=== PATIENT | male | born 1940 | race Hispanic/Latino ===

== ENCOUNTER 2016-10-09 19:25 | Inpatient (IN) | payer MEDICARE, BC ==
[2016-10-09 20:21] LABS: ADD MANUAL DIFF? NO
[2016-10-09 20:34] LABS: BASO # 0.03 K/mm3 (0.0-2.0); BASO % 0.3 % (0.0-3.0); EOS # 0.2 (0.0-0.7); EOS % 2.1 % (1.5-5.0); GRAN # 7.73 (1.4-6.5); GRAN % 74.9 % (50.0-68.0); HEMATOCRIT 48.7 % (42.0-52.0); LYMPH # 1.6 (1.2-3.4); LYMPH % 15.3 % (22.0-35.0); MEAN CELL VOLUME 87.9 fL (80.0-105.0); MEAN CORPUSCULAR HEMOGLOBIN 28.7 pg (25.0-35.0); MEAN CORPUSCULAR HGB CONC 32.6 g/dl (31.0-37.0); MONO # 0.8 (0.1-0.6); MONO % 7.4 % (1.0-6.0); PLATELET COUNT 121 10^3/uL (120.0-450.0); RED CELL DISTRIBUTION WIDTH 17.8 % (11.5-14.5); VENOUS BLOOD GAS BASE EXCESS -3.8 mmol/L (0.0-2.0); VENOUS BLOOD PH 7.24 (7.32-7.43); WHITE BLOOD COUNT 10.3 10^3/ul (4.5-11.0)
[2016-10-09 20:43] LABS: INR 1.31 (0.93-1.08); PARTIAL THROMBOPLASTIN TIME 39.9 Seconds (23.7-30.8)
[2016-10-09 21:09] LABS: ALB/GLOB RATIO 1.1 (1.1-1.8); ALKALINE PHOSPHATASE 93 U/L (38-133); ALT/SGPT 60 U/L (7-56); AST/SGOT 60 U/L (15-59); BILIRUBIN,TOTAL 0.3 mg/dL (0.2-1.3); BLOOD UREA NITROGEN 74 mg/dL (7-21); CALCIUM 7.5 mg/dL (8.4-10.5); CARBON DIOXIDE 23 mmol/L (21-33); CHLORIDE 118 mmol/L (98-107); GFR AFRICAN-AMERICAN 24; GLUCOSE,RANDOM 82 mg/dL (70-110); MAGNESIUM 2.6 mg/dL (1.7-2.2); PHOSPHOROUS 4.2 mg/dL (2.5-4.5); SODIUM 150 mmol/L (132-148); TOTAL PROTEIN 5.1 g/dL (5.8-8.3)
[2016-10-09] MEDS ORDERED: Sodium Bicarbonate (8.4%) 50 Meq Syringe IVP ONE (21:15)
[2016-10-09] MEDS ORDERED: Albuterol 0.5% Inhal Sol (5 mg/ ml) 20 ml IH STA (21:15)
[2016-10-09] MEDS ORDERED: Dextrose 50% SYRINGE Inj (50 ml) IVP ONE (21:16)
[2016-10-09] MEDS ORDERED: Insulin Regular 1 UNITS/0.01 ML ML IVP STA (21:17)
[2016-10-09] MEDS ORDERED: Calcium Chloride 1000 mg/10 ml Syringe IV ONE (21:17)
--- NOTE | 2016-10-09 21:17 | ED PDOC ---
Arrival/HPI - General Chief Complaint: Altered Mental Status Time Seen by Provider: 10/09/16 19:35 Historian: Patient, EMS, Other (Neighbor) - History of Present Illness Narrative History of Present Illness (Text): 10/09/16 19:50 Stuart Motta is a 76 year old male, whose past medical history includes COPD , who presents to the Emergency department for evaluation after he was allegedly found by neighbor at home lying on the ground poorly responsive tonight. Patient was reportedly only responding to his name. Patient on arrival to the emergency department noted to be bradycardic and hypotensive. Pt is awake , oriented to person, and responding to questions. Limited HPI and ROS due to patient's altered mental status. Time/Duration: Prior to Arrival Symptom Onset: Sudden Activities at Onset: Rest Context: Home Past Medical History - Provider Review Nursing Documentation Reviewed: Yes - Infectious Disease Hx of Infectious Diseases: None - Tetanus Immunization Tetanus Immunization: Unknown - Cardiac Hx Cardiac Disorders: No - Pulmonary Hx Chronic Obstructive Pulmonary Disease (COPD): Yes - Neurological Hx Neurological Disorder: No - HEENT Hx HEENT Disorder: No - Renal Hx Renal Disorder: Yes Hx Renal Failure: Yes - Endocrine/Metabolic Hx Endocrine Disorders: No - Integumentary Hx Dermatological Disorder: No - Musculoskeletal/Rheumatological Hx Musculoskeletal Disorders: No Hx Falls: (UNKNOWN) - Gastrointestinal Hx Gastrointestinal Disorders: No - Genitourinary/Gynecological Hx Genitourinary Disorders: Yes Hx Incontinence: Yes - Psychiatric Hx Depression: No Hx Emotional Abuse: No Hx Physical Abuse: No Hx Substance Use: (UNKNOWN) - Past Surgical History Past Surgical History: No Previous - Suicidal Assessment Feels Threatened In Home Enviroment: No Family/Social History - Physician Review Nursing Documentation Reviewed: Yes Family/Social History: No Known Family HX Smoking Status: Unknown If Ever Smoked Hx Alcohol Use: (UNKNOWN) Hx Substance Use: (UNKNOWN) Allergies/Home Meds Allergies/Adverse Reactions: Allergies No Known Allergies Allergy (Verified 10/09/16 19:35) Home Medications: Home Meds Medication Instructions Recorded Confirmed Albuterol HFA [Ventolin HFA 90 0.09 mg IH 10/25/13 10/25/13 mcg/actuation (8 g)] Review of Systems - Review of Systems Systems not reviewed;Unavailable: Altered Mental Status Neurological: Other (+poorly responsive) Physical Exam Vital Signs Reviewed: Yes Vital Signs Temp Pulse Resp BP Pulse Ox 10/09/16 22:08 45 L 16 102/43 L 100 10/09/16 21:26 40 L 18 83/36 L 96 10/09/16 20:40 40 L 14 72/37 L 97 10/09/16 19:54 48 L 16 98 10/09/16 19:26 96.8 F L 46 L 20 77/42 L 96 Temperature: Afebrile Blood Pressure: Hypotensive Pulse: Bradycardic Respiratory Rate: Normal Appearance: Positive for: Non-Toxic, Ill-Appearing Pain Distress: None Mental Status: Positive for: other (Awake, responding to questions, oriented to person) Finger Stick Blood Glucose: 80 - Systems Exam Head: Present: Atraumatic, Normocephalic Pupils: Present: PERRL Extroacular Muscles: Present: EOMI Conjunctiva: Present: Normal Mouth: Present: Dry Neck: Present: Normal Range of Motion Respiratory/Chest: Present: Clear to Auscultation, Good Air Exchange. No: Respiratory Distress, Accessory Muscle Use Cardiovascular: Present: Normal S1, S2, Bradycardic. No: Murmurs Abdomen: Present: Normal Bowel Sounds. No: Tenderness, Distention, Peritoneal Signs Upper Extremity: Present: Normal Inspection. No: Cyanosis, Edema Lower Extremity: Present: Normal Inspection. No: Edema Neurological: Present: CN II-XII Intact, Speech Normal, Motor Func Grossly Intact, Normal Sensory Function, Other (Awaker, oriented to person) Skin: Present: Normal Color, Other (Area of severe excoriations to lower back/ buttocks with cellulitis noted extending from lower back/buttocks to upper thighs). No: Dry Psychiatric: Present: Alert. No: Oriented x 3 (Oriented to person) Medical Decision Making ED Course and Treatment: 10/09/16 19:50 Impression: 76 year old male found lying on the ground poorly responsive brought in for AMS. Plan: -- EKG -- Chest X-ray -- CT Head w/o contrast -- Labs, cardiac enzymes, VBG, blood cultures -- Urinalysis, urine cult -- Reassess and disposition Prior Visits: Notes and results from previous visits were reviewed. Progress Notes: Reviewed EKG, sinus bradycardia at 46 bpm. 1st degree AV block. Non-specific ST/ T wave changes. Reviewed radiology, Chest X-ray shows no acute changes. 10/09/16 21:21 Pt given IV fluid bolus here in emergency department. Labs reviewed, elevated potassium, BUN, and creatinine treated with fluids. Abnormal hyperkalemia treated as well. Case discussed with Dr. Rosales, academic services professional, who is aware and agrees to evaluate pt for ICU admission. 10/09/16 21:[address] Rosales, present in Emergency department to evaluate pt. Accepts pt in to hospitalist service. Pt admitted to ICU for AMS, sepsis, hyperkalemia, bradycardia, hypotension, and dehydration. 10/09/16 22:[address] Head, shows: Motion degraded study. Allowing for this limitation no obvious acute intracranial process identified. - Critical Care Critical Care Minutes: 30 minutes - Lab Interpretations Lab Results: 10/09/16 20:15 10/09/16 20:45 Lab Results 10/09/16 21:20: Urine Color Yellow, Urine Appearance Turbid, Urine pH 6.0, Ur Specific [place] 1.025, Urine Protein 30 H, Urine Glucose (UA) Negative, Urine Ketones Negative, Urine Blood Large H, Urine Nitrate Negative, Urine Bilirubin Negative, Urine Urobilinogen 0.2, Ur Leukocyte Esterase Large H, Urine RBC 1 - 3 , Urine WBC Tntc, Urine Bacteria Many 10/09/16 20:51: Alcohol, Quantitative < 10 10/09/16 20:45: Sodium 150 H, Potassium 7.0 H* D, Chloride 118 H, Carbon Dioxide 23, Anion Gap 16, BUN 74 H, Creatinine 3.1 H, Est GFR ( Amer) 24 , Est GFR (Non-Af Amer) 20, Random Glucose 82, Calcium 7.5 L, Phosphorus 4.2, Magnesium 2.6 H, Total Bilirubin 0.3, AST 60 H, ALT 60 H, Alkaline Phosphatase 93, Lactate Dehydrogenase 350, Total Creatine Kinase 41, Troponin I < 0.01 D, Total Protein 5.1 L, Albumin 2.7 L, Globulin 2.5, Albumin/Globulin Ratio 1.1 10/09/16 20:15: WBC 10.3, RBC 5.54, Hgb 15.9, Hct 48.7, MCV 87.9, MCH 28.7, MCHC 32.6, RDW 17.8 H, Plt Count 121, Gran % 74.9 H, Lymph % (Auto) 15.3 L, [place] % (Auto) 7.4 H, Eos % (Auto) 2.1, Baso % (Auto) 0.3, Gran # 7.73 H, Lymph # 1.6, [place] # 0.8 H, Eos # 0.2, Baso # 0.03, PT 14.2 H, INR 1.31 H, APTT 39.9 H , pO2 73 H, VBG pH 7.24 L, VBG pCO2 57.0, VBG HCO3 24.4, VBG Total CO2 26.1, VBG O2 Sat (Calc) 95.3 H, VBG Base Excess -3.8 L, VBG Potassium 8.1 H*, Glucose 87, Lactate 1.5, FiO2 21.0, Sodium 150.0 H, Chloride 120.0 H, Venous Blood Potassium 8.1 H* 10/09/16 19:34: POC Glucose (mg/dL) 80 I have reviewed the lab results: Yes - RAD Interpretation Narrative RAD Interpretations (Text): Chest X-ray shows no active disease. CT Head shows: BRAIN: Significantly motion degraded study. Marked global atrophy with bilateral frontal CSF prominence likely related to pronounced atrophy. Extensive chronic small vessel ischemic changes within the periventricular white matter. No obvious acute intracranial hemorrhage or ischemic infarct is identified. VENTRICLES: Unremarkable. No ventriculomegaly. BONES/JOINTS: Unremarkable. No acute fracture. SOFT TISSUES: Unremarkable. SINUSES: Mucous retention cyst the left maxillary sinus. MASTOID AIR CELLS: Unremarkable as visualized. No mastoid effusion. IMPRESSION: Motion degraded study. Allowing for this limitation no obvious acute intracranial process identified. Radiology Orders: 10/09/16 HEAD W/O CONTRAST [CT] Stat 10/09/16 19:54 CHEST PORTABLE [RAD] Stat Child Adolescent Psychiatrist: ED Physician, Radiologist - EKG Interpretation Interpreted by ED Physician: Yes Type: 12 lead EKG - Medication Orders Current Medication Orders: Sodium Chloride (Sodium Chloride 0.9%) 1,000 mls @ 150 mls/hr IV .Q6H40M FREDY Last Admin: 10/09/16 21:40 Dose: 150 MLS/HR eMAR Start Stop Document 10/09/16 21:40 (Rec: 10/09/16 21:40 [facility] [id number]) Intravenous Solution Start Date 03/22/17 Start Time 21:40 End Date 10/09/16 End time 22:07 Total Infusion Time 27 Meropenem 1g/NS 100mL IVPB (Meropenem 1g/Ns 100ml Ivpb) 100 mls @ 100 mls/hr IVPB Q8 FREDY PRN Reason: Protocol Stop: 10/10/16 06:59 Sodium Chloride (Sodium Chloride 0.9%) 1,000 mls @ 999 mls/hr IV .Q1H1M STA Stop: 10/09/16 22:59 Last Admin: 10/09/16 22:07 Dose: 999 MLS/HR eMAR Start Stop Document 10/09/16 22:07 (Rec: 10/09/16 22:07 [id number]) Intravenous Solution Start Date 10/09/16 Start Time 22:07 Vancomycin HCl (Vancomycin 1gm) 250 mls @ 167 mls/hr IVPB Q12H FREDY PRN Reason: Protocol Norepinephrine Bitartrate 4 mg (/ Sodium Chloride) 254 mls @ 15.24 mls/hr IV .[id number] PRN; Protocol; 4 MCG/MIN PRN Reason: TITRATE PER MD ORDER Discontinued Medications Albuterol Sulfate (Albuterol 0.5% Inhal Courtney (5 Mg/ Ml) 20 Ml) 15 mg IH ONCE STA Stop: 10/09/16 21:16 Last Admin: 10/09/16 22:00 Dose: 15 MG Calcium Chloride (Calcium Chloride) 1,000 mg IV ONCE ONE Stop: 10/09/16 21:18 Last Admin: 10/09/16 21:58 Dose: 1,000 MG eMAR Start Stop Document 10/09/16 21:58 (Rec: 10/09/16 21:59 [id number]) Intravenous Solution Start Date 10/09/16 Start Time 21:59 End Date 10/09/16 End time 22:10 Total Infusion Time 11 Dextrose (Dextrose 50% Inj) 50 ml IVP ONCE ONE Stop: 10/09/16 21:17 Last Admin: 10/09/16 21:39 Dose: 50 ML IVP Administration Document 10/09/16 21:39 (Rec: 10/09/16 21:39 [id number]) Charges for Administration # of IVP Administrations 1 Sodium Chloride 2,000 ml/ IV (SUPPLIES) 2,000 mls @ 4,354.5 mls/hr IV ONCE ONE PRN Reason: 60 ML/KG/HR Stop: 10/09/16 20:19 Last Admin: 10/09/16 20:39 Dose: 4,354.5 MLS/HR eMAR Start Stop Document 10/09/16 20:39 (Rec: 10/09/16 20:39 [id number] Intravenous Solution Start Date 10/09/16 Start Time 20:39 Aztreonam (Azactam 1 Gm) 100 mls @ 100 mls/hr IVPB STAT STA PRN Reason: Protocol Stop: 10/09/16 22:29 Last Admin: 10/09/16 22:07 Dose: 100 MLS/HR eMAR Start Stop Document 10/09/16 22:07 (Rec: 10/09/16 22:07 [id number] Intravenous Solution Start Date 10/09/16 Start Time 22:07 Vancomycin HCl (Vancomycin 500mg In Ns) 100 mls @ 200 mls/hr IVPB STAT STA PRN Reason: Protocol Stop: 10/09/16 21:59 Insulin Human Regular (Humulin R) 10 units IVP STAT STA Stop: 10/09/16 21:18 Last Admin: 10/09/16 21:39 Dose: 10 UNITS IVP Administration Document 10/09/16 21:39 (Rec: 10/09/16 21:40 [id number]) Charges for Administration # of IVP Administrations 1 Sodium Bicarbonate (Sodium Bicarbonate (8.4%) 50 Meq Syringe) 50 meq IVP ONCE ONE Stop: 10/09/16 21:16 Last Admin: 10/09/16 21:58 Dose: 50 MEQ IVP Administration Document 10/09/16 21:58 (Rec: 10/09/16 21:58 [id number]) Charges for Administration # of IVP Administrations 1 - Scribe Statement The provider has reviewed the documentation as recorded by the Naresh Aldridge Provider Attestation: All medical record entries made by the Scribe were at my direction and personally dictated by me. I have reviewed the chart and agree that the record accurately reflects my personal performance of the history, physical exam, medical decision making, and the department course for this patient. I have also personally directed, reviewed, and agree with the discharge instructions and disposition. Disposition/Present on Arrival - Present on Arrival Any Indicators Present on Arrival: No History of DVT/PE: No History of Uncontrolled Diabetes: No Urinary Catheter: No History of Decub. Ulcer: No History Surgical Site Infection Following: None - Disposition Have Diagnosis and Disposition been Completed?: Yes Diagnosis: Altered mental status, Sepsis, Bradycardia, Hypotension, Hyperkalemia, Dehydration Disposition: HOSPITALIZED Disposition Time: 21:37 Patient Plan: Admission Patient Problems: Current Active Problems Problem Status Diagnosed Altered mental status Acute Bradycardia Acute Dehydration Acute Hyperkalemia Acute Hypotension Acute Sepsis Acute Condition: GUARDED
[2016-10-09 21:20] LABS: TROPONIN I < 0.01 ng/mL
[2016-10-09] MEDS ORDERED: Aztreonam 1 Gm in NS 100mL 100 ML IVPB STA (21:30)
[2016-10-09] MEDS ORDERED: Vancomycin 500mg in NS 100 ML IVPB STA (21:30)
[2016-10-09 21:39] LABS: URINE BILIRUBIN NEGATIVE (NEGATIVE); URINE BLOOD LARGE (NEGATIVE); URINE GLUCOSE (UA) NEGATIVE (NEGATIVE); URINE KETONE NEGATIVE (NEGATIVE); URINE LEUKOCYTE ESTERASE LARGE Leu/uL (NEGATIVE); URINE PROTEIN 30 mg/dL (<30 mg/dL); URINE UROBILINOGEN 0.2 E.U./dL (<1 E.U./dL)
[2016-10-09] MEDS: Sodium Chloride 0.9% 1,000 ML IV SCH (21:40)
[2016-10-09 21:43] LABS: URINE APPEARANCE TURBID (CLEAR); URINE COLOR YELLOW (YELLOW)
[2016-10-09 21:45] LABS: URINE BACTERIA MANY (NEG); URINE WBC TNTC /hpf (0-6)
[2016-10-09] MEDS ORDERED: Sodium Chloride 0.9% 1,000 ML IV STA (21:59)
[2016-10-09] MEDS ORDERED: Vancomycin 1gm in NS 250ml 250 ML IVPB SCH (22:00)
[2016-10-09] MEDS: Meropenem 1g/NS 100mL IVPB 100 ML IVPB SCH (23:30)
[2016-10-10 01:34] LABS: ADD MANUAL DIFF? NO
[2016-10-10 02:01] LABS: BASO # 0.01 K/mm3 (0.0-2.0); BASO % 0.1 % (0.0-3.0); EOS # 0.1 (0.0-0.7); EOS % 0.4 % (1.5-5.0); GRAN # 9.38 (1.4-6.5); GRAN % 76.6 % (50.0-68.0); HEMATOCRIT 36.4 % (42.0-52.0); LYMPH # 1.4 (1.2-3.4); MEAN CELL VOLUME 88.8 fL (80.0-105.0); MEAN CORPUSCULAR HEMOGLOBIN 27.8 pg (25.0-35.0); MEAN CORPUSCULAR HGB CONC 31.3 g/dl (31.0-37.0); MONO # 1.5 (0.1-0.6); MONO % 11.9 % (1.0-6.0); RED CELL DISTRIBUTION WIDTH 17.7 % (11.5-14.5); WHITE BLOOD COUNT 12.3 10^3/ul (4.5-11.0)
[2016-10-10 02:17] VITALS: BMI 23.3
[2016-10-10 02:21] LABS: CALCIUM 7.3 mg/dL (8.4-10.5); MAGNESIUM 2.2 mg/dL (1.7-2.2); PHOSPHOROUS 3.8 mg/dL (2.5-4.5)
[2016-10-10 02:23] LABS: PLATELET COUNT 88 10^3/uL (120.0-450.0)
[2016-10-10] MEDS: Sodium Chloride 0.9% 1,000 ML IV SCH (03:33)
--- NOTE | 2016-10-10 05:11 | CP.PCM.HP ---
<Ganesh Mauricio - Last Filed: 10/10/16 05:01> History of Present Illness - History of Present Illness History of Present Illness: CC: Found on ground, poorly responsive HPI: This is a 76 yo M with PMH of HLD, HTN, and COPD who was found down on the ground at home by a neighbor, poorly responsive, and was brought in by EMS. Patient was hypotensive and bradycardic on arrival, poorly responsive to staff , and only oriented to location. HPI and ROS limited 2/2 patient's AMS. He was found to have a large cellulitis with excoriations along his groin region and left thigh extending into his posterior region. Stephens was placed and urine draining into the stephens was notable in that it was almost opaque, appeared to be gabriele pyuria. ICU was consulted due to his bradycardia (40's on bedside monitor) and hypotension (60's-90's SBP) in the setting of infection concerning for sepsis/septic shock. Hypotension persisted despite 3L NS given wide open in the ED. He was also found to have a new STEPHANIA with Cr of 3.1 (1.1-1.3 per prior charting) and a hyperkalemia of 7.0. Per charting: PMH: As above PSH: prior PICC line placement SHx: smoker (active as of 10/25/13), social drinker, denies illicits PMD: Dr. Oscar Present on Admission - Present on Admission Any Indicators Present on Admission: No History of DVT/PE: No History of Uncontrolled Diabetes: No Urinary Catheter: No Decubitus Ulcer Present: No (site is cellulitic-appearing and excoriated, but no clear decub ulcer) Review of Systems - Review of Systems Systems not reviewed;Unavailable: Altered Mental Status Past Patient History - Infectious Disease Hx of Infectious Diseases: None - Tetanus Immunizations Tetanus Immunization: Unknown - Past Social History Smoking Status: Unknown If Ever Smoked - CARDIAC Hx Cardiac Disorders: No - PULMONARY Hx Chronic Obstructive Pulmonary Disease (COPD): Yes - NEUROLOGICAL Hx Neurological Disorder: No - HEENT Hx HEENT Problems: No - RENAL Hx Chronic Kidney Disease: Yes Hx Renal Failure: Yes - ENDOCRINE/METABOLIC Hx Endocrine Disorders: No - INTEGUMENTARY Hx Dermatological Problems: No - MUSCULOSKELETAL/RHEUMATOLOGICAL Hx Musculoskeletal Disorders: No Hx Falls: (UNKNOWN) - GASTROINTESTINAL Hx Gastrointestinal Disorders: No - GENITOURINARY/GYNECOLOGICAL Hx Genitourinary Disorders: Yes Hx Incontinence: Yes - PSYCHIATRIC Hx Depression: No Hx Emotional Abuse: No Hx Physical Abuse: No - SURGICAL HISTORY Hx Surgeries: (UNKNOWN) Meds Allergies/Adverse Reactions: Allergies Allergy/AdvReac Type Severity Reaction Status Date / Time No Known Allergies Allergy Verified 10/09/16 19:35 Physical Exam - Constitutional Appears: Toxic, No Acute Distress, Unkempt, Chronically Ill Additional comments: poor hygiene intermittently following commands, requires frequent repeated commands and reorientation - Head Exam Head Exam: ATRAUMATIC, NORMAL INSPECTION, NORMOCEPHALIC - Eye Exam Eye Exam: EOMI, Normal appearance, PERRL. absent: Conjunctival injection, Scleral icterus Pupil Exam: NORMAL ACCOMODATION, PERRL. absent: Irregular, Unequal - ENT Exam ENT Exam: Mucous Membranes Moist - Neck Exam Neck exam: Positive for: Full Rom (passively) - Respiratory Exam Respiratory Exam: Decreased Breath Sounds, Rhonchi (diffusely in all harg[place]). absent: Accessory Muscle Use, Chest Wall Tenderness, Clear to Auscultation Bilateral, Rales, Respiratory Distress, Stridor, NORMAL BREATHING PATTERN - Cardiovascular Exam Cardiovascular Exam: Bradycardia, REGULAR RHYTHM, +S1, +S2. absent: Tachycardia , Irregular Rhythm, RRR, +S4 Additional comments: slow rate regular rhythm - GI/Abdominal Exam GI & Abdominal Exam: Diminished Bowel Sounds, Soft. absent: Distended, Firm, Hyperactive Bowel Sounds, Hypoactive Bowel Sounds, Normal Bowel Sounds, Rigid Additional comments: extensive erythema/firmness/edema suggestive of cellulitis with excoriation, extending from bilateral groin region along left thigh and flank, into left lower abdominal border and posteriorly along buttocks - Rectal Exam Rectal Exam: Deferred - Extremities Exam Extremities exam: Negative for: pedal edema, pedal pulses present (unable to palpate pedal pulses) Additional comments: lower extremities cool to palpation bilaterally (except at site of erythema/ induration along left thigh and bilateral groin folds) - Neurological Exam Additional comments: awake and intermittently alert, oriented to location only, not oriented to self or day/month/year follows some commands, requires frequent repetition of commands and reorientation some spontaneous movement of extremities - Psychiatric Exam Additional comments: lethargic, disoriented awake and intermittently alert not agitated, but pulling at lines and confused - Skin Additional comments: Skin intact and dry except as noted in abdominal and extremities exams Normal warmth to palpation except as noted for lower extremities and for likely cellulitis regions (as documented in abdominal exam) Results - Vital Signs Recent Vital Signs: Last Vital Signs Temp 88.0 F L 10/10/16 03:02 Pulse 53 L 10/10/16 03:02 Resp 30 H 10/10/16 03:02 BP 115/85 10/10/16 03:00 Pulse Ox 83 L 10/10/16 03:00 - Labs Result Diagrams: 10/10/16 01:10 10/10/16 01:10 Labs: Laboratory Results - last 24 hr 10/10/16 01:10 WBC 12.3 H RBC 4.10 Hgb 11.4 L Hct 36.4 L MCV 88.8 MCH 27.8 MCHC 31.3 RDW 17.7 H Plt Count 88 L Gran % 76.6 H Lymph % (Auto) 11.0 L [place] % (Auto) 11.9 H Eos % (Auto) 0.4 L Baso % (Auto) 0.1 Gran # 9.38 H Lymph # 1.4 [place] # 1.5 H Eos # 0.1 Baso # 0.01 Sodium 151 H Potassium 4.0 Chloride 123 H Carbon Dioxide 21 Anion Gap 11 BUN 63 H Creatinine 2.8 H Est GFR ( Amer) 27 Est GFR (Non-Af Amer) 22 Random Glucose 147 H Calcium 7.3 L Phosphorus 3.8 Magnesium 2.2 Assessment & Plan - Assessment and Plan (Free Text) Assessment: This is a 76 yo M with PMH of HLD, HTN, and COPD who was found down on the ground at home by a neighbor, poorly responsive, and was brought in by EMS. He is being admitted to the ICU for AMS and suspected septic shock requiring pressor support. Plan: Neuro: -lethargic but awake and intermittently alert, only oriented to location -some pulling at lines and confusion, soft wrist restraints ordered -hypothermic in ED at 96.8F, maris hugger to maintain normothermia -continue to monitor -PT consulted probable deconditioning -CT head obtained, no acute intracranial process notable but study limited by motion artifacting Pulm: -Diffuse ronchi and decreased breath sounds in all h[place] on exam -CXR on admission notable for diffuse fluffiness, unchanged from prior CXRs during 2013 admission; repeat CXR s/p Right IJ triple lumen cath placement shows line placement with tip terminating above right atria, otherwise unchanged from admission CXR -ABG shock panel ordered, f/u -Satting > 96% in ED on 2L NC, maintain SaO2 > 90% and paO2 > 60 -Received albuterol IH x1 in ED for hyperkalemia Cardio: -Hypotensive 60's-90's in ED despite 3L NS wide open, concerning for septic shock given inadequate responsive to resuscitative fluids -Bradycardic to 40's in ED, inappropriate response to hypotension, possibly 2/2 hyperkalemia of 7.0 -Trop x1 in ED < 0.01 and EKG notable for marked sinus nilda (46) with 1st degree AV block and QT prolongation (460), no signs of ST-elevation or depressions -Trending trops q6 and serial EKGs daily -Started on Levophed for pressor support (Right IJ central line placed, please see attached procedure report), titrate to maintain MAP > 65 -NS IVF at 150cc/hr, s/p 5L NS bolus -Hyperkalemia of 7.0 on admission, given albuterol and Insulin + IV dextrose to reduce, IV calcium to stablize cardiac membranes; no hemodialysis per Nephro -K on repeat BMP 4.0 GI: -NPO -Swallow eval pending -Protonix IVP q12 for Ppx -Slightly elevated LFTs, AST 60 and ALT 60, likely 2/2 hypoperfusion from septic shock, continue to monitor -elevated Coags (PT 14.2, PTT 39.9, INR 1.31) 2/2 sepsis vs 2/2 hypoperfusion from septic shock, f/u repeat coags in AM Renal: -STEPHANIA/ARF, Cr 3.1 and hyperkalemia of 7.0; improved to 2.8 and 4.0 on repeat BMP -Baseline Cr per prior charting 1.1-1.3 -Nephro consulted, medical management at this time, no Hemodialysis, appreciate all recs -Hyperkalemia resolved with albuterol and Insulin + IV dextrose, repeat K 4.0 -Monitor and replete electrolytes as needed, repleting Ca of 8.5 (corrected Ca) -avoid nephrotoxic drugs where feasible -maintain euvolemia and euglycemia -UA notable for turbid yellow, large leuk esterase, TNTC WBCs, Many bacteria Endo: -maintain Euglycemia -ISS-Low, Fingersticks ACHS ID: -UTI/possible pyelo, Extensive cellulitis -No leukocytosis on initial labs (WBCs 10.3), increased to 12.3 on repeat labs -Hypothermic (on maris hugger) -Blood and Urine cultures ordered -UA notable for turbid yellow, large leuk esterase, TNTC WBCs, Many bacteria -Started on Vanco and Merrem IV -ID consulted, appreciate all recs Heme: -Drop in Hgb from 15.4 to 11.9, s/p 5L wide open -More likely hemoconcentration vs acute bleed, BUN elevation suggestive of dehydration -continue to monitor -Heparin 5000u SC q8 for DVT/PE ppx Dispo: ICU for Septic Shock requiring pressor support and IV abx, pending ID and further Nephro input FEN: NPO, pending swallow study Access: Peripheral IV, Right IJ triple lumen catheter Consults: Nephro, ID Ppx: Protonix for GI, Heparin for DVT/PE Code Status: Unknown, so Full Code Patient seen, discussed, reviewed, and course of care agreed upon with attending , Dr. Rosales. - Date & Time Date: 10/10/16 Time: 06:06 Decision To Admit - Pt Status Changed To: Hospital Disposition Of: Inpatient Admission - Admit Certification Admit to Inpatient:: After my assessment, the patient will require hospitalization for at least two midnights. This is because of the severity of symptoms shown, intensity of services needed, and/or the medical risk in this patient being treated as an outpatient. - . Bed Request Type: Critical Care <Connie CARRERO,Dany - Last Filed: 10/16/16 01:28> Results - Vital Signs Recent Vital Signs: Last Vital Signs Temp 97.7 F 10/15/16 16:00 Pulse 59 L 10/15/16 16:00 Resp 18 10/15/16 16:00 BP 112/44 L 10/15/16 16:00 Pulse Ox 97 10/15/16 16:00 - Labs Result Diagrams: 10/15/16 06:00 10/15/16 06:00 Labs: Laboratory Results - last 24 hr 10/15/16 10/15/16 06:00 13:50 WBC 11.3 H D RBC 3.57 Hgb 9.9 L Hct 30.2 L MCV 84.6 MCH 27.7 MCHC 32.8 RDW 17.9 H Plt Count 71 L Gran % 74.0 H Lymph % (Auto) 9.6 L [place] % (Auto) 7.9 H Eos % (Auto) 8.4 H Baso % (Auto) 0.1 Gran # 8.37 H Lymph # 1.1 L [place] # 0.9 H Eos # 1.0 H Baso # 0.01 Sodium 143 Potassium 3.8 Chloride 110 H Carbon Dioxide 27 Anion Gap 10 BUN 39 H Creatinine 2.1 H Est GFR ( Amer) 37 Est GFR (Non-Af Amer) 31 Random Glucose 95 Calcium 6.5 L* Total Bilirubin 0.6 AST 79 H ALT 52 Alkaline Phosphatase 78 Total Creatine Kinase 622 H CK-MB (CK-2) 4.5 H CK-MB (CK-2) % Cancelled NT-Pro-B Natriuret Pep [id number] H Total Protein 4.6 L Albumin 2.2 L Globulin 2.4 Albumin/Globulin Ratio 0.9 L Procalcitonin 0.26 Attending/Attestation - Attestation I have personally seen and examined this patient.: Yes I have fully participated in the care of the patient.: Yes I have reviewed all pertinent clinical information: Yes Notes (Text): 10/16/16 01:27 -I agree with the above H&P completed by the resident physician. -Briefly, the patient is a 76 year old man with a history of COPD, admitted to the ICU for AMS due to septic shock from UTI and buttock cellulitis. A right IJ was placed and Levophed drip was started. ID consult placed and empiric IV antibiotics started.
[2016-10-10] MEDS: Meropenem 1g/NS 100mL IVPB 100 ML IVPB SCH ×2 (05:28→18:20)
[2016-10-10 06:34] LABS: ARTERIAL BLOOD GAS HCO3 17.2 mmol/L (21-28); ARTERIAL BLOOD GAS PH 7.22 (7.35-7.45)
[2016-10-10 07:13] LABS: ADD MANUAL DIFF? NO
--- NOTE | 2016-10-10 07:15 | CT ---
PROCEDURE: CT HEAD WITHOUT CONTRAST. HISTORY: Altered mental status. COMPARISON: 11/07/2013. TECHNIQUE: Axial computed tomography images were obtained through the head/brain without intravenous contrast. Radiation dose: Total exam DLP = 871.01. MGy-cm. FINDINGS: HEMORRHAGE: No intracranial hemorrhage. BRAIN: No mass effect or edema. Cortical atrophy, periventricular small vessel disease VENTRICLES: Unremarkable. No hydrocephalus. CALVARIUM: Unremarkable. PARANASAL SINUSES: Unremarkable as visualized. No significant inflammatory changes. MASTOID AIR CELLS: Unremarkable as visualized. No inflammatory changes. OTHER FINDINGS: None. IMPRESSION: No acute intracranial abnormalities. No significant findings to account for the clinical presentation. No significant interval change compared to the prior examination(s). Concordant results (preliminary interpretation) provided by [facility]. Procedure Completed: 22:24. Preliminary ([facility]) Report: Dictated and Authenticated: 22:44. Final Interpretation: 07:13. October 10, 2016.
[2016-10-10 07:27] LABS: BASO # 0.01 K/mm3 (0.0-2.0); BASO % 0.1 % (0.0-3.0); EOS % 0.1 % (1.5-5.0); GRAN # 11.91 (1.4-6.5); GRAN % 82.5 % (50.0-68.0); HEMATOCRIT 40.2 % (42.0-52.0); LYMPH # 0.7 (1.2-3.4); LYMPH % 4.9 % (22.0-35.0); MEAN CELL VOLUME 88.4 fL (80.0-105.0); MEAN CORPUSCULAR HEMOGLOBIN 27.7 pg (25.0-35.0); MEAN CORPUSCULAR HGB CONC 31.3 g/dl (31.0-37.0); MONO # 1.8 (0.1-0.6); MONO % 12.4 % (1.0-6.0); PLATELET COUNT 114 10^3/uL (120.0-450.0); WHITE BLOOD COUNT 14.4 10^3/ul (4.5-11.0)
[2016-10-10 07:33] LABS: INR 1.09 (0.93-1.08); PARTIAL THROMBOPLASTIN TIME 36.7 Seconds (23.7-30.8)
--- NOTE | 2016-10-10 07:39 | PCM.PROC ---
Procedures Attestation:: I certify that I have explained the specified Operation(s) or Procedure(s), risks, benefits and reasonable alternatives to the Patient and/or other person responsible. The opportunity was given to ask questions and all questions answered - Central Line Placement Internal Jugular Aseptic technique was employed throughout the procedure: Hand Hygiene done prior to procedure, Full sterile barriers (mask, hair cover, sterile gown, sterile gloves), Full body sterile drape, Chloraprep Antiseptic: 30 second prep for IJ or SC sites Pt. Placed on Pulse Ox Monitor: Yes Local Anesthesia Used: Lidocaine 1% Ultrasound Used for Placement: Yes Central Line Lumen Inserted: triple Post Procedure: Sutured in Place, Good Blood Return, All Ports Aspirated, Flushed, Capped, Sterile Dressing Applied Secured by: Securement device (tegaderm) Post Procedure X-Ray: Yes Patient Tolerated Procedure: Well Immediate Complications: None Additional Comments: Right IJ placed Implied consent in setting of Septic shock, unable to reach next-of-kin/person- to-contact in chart as phone number supplies was disconnect, patient not able to give consent himself as disoriented
[2016-10-10 08:00] LABS: TROPONIN I < 0.01 ng/mL
[2016-10-10 08:07] LABS: ALKALINE PHOSPHATASE 86 U/L (38-133); ALT/SGPT 55 U/L (7-56); AST/SGOT 51 U/L (15-59); BILIRUBIN,TOTAL 0.2 mg/dL (0.2-1.3); BLOOD UREA NITROGEN 62 mg/dL (7-21); CALCIUM 7.7 mg/dL (8.4-10.5); CARBON DIOXIDE 19 mmol/L (21-33); CHLORIDE 124 mmol/L (98-107); GFR AFRICAN-AMERICAN 26; GLUCOSE,RANDOM 138 mg/dL (70-110); MAGNESIUM 2.2 mg/dL (1.7-2.2); PHOSPHOROUS 3.6 mg/dL (2.5-4.5); POTASSIUM 4.4 mmol/L (3.6-5.0); SODIUM 153 mmol/L (132-148); TOTAL PROTEIN 5.3 g/dL (5.8-8.3)
--- NOTE | 2016-10-10 08:31 | RAD ---
HISTORY: Sepsis Patient COMPARISON: Comparison is made to the previous study dated 11/06/2013 FINDINGS: LUNGS: Prominent lung markings are again seen. No evidence of new infiltrate or consolidation in the lungs. PLEURA: No significant pleural effusion identified, no pneumothorax apparent. CARDIOVASCULAR: Normal. OSSEOUS STRUCTURES: Deformity in the right lower ribs are noted could be due to old fractures. VISUALIZED UPPER ABDOMEN: Normal. OTHER FINDINGS: None. IMPRESSION: No evidence of significant interval change compared to the previous exam.
[2016-10-10] MEDS: Insulin Lispro (humaLOG) LOW Coverage SC SCH ×4 (08:46→22:51)
--- NOTE | 2016-10-10 08:48 | RAD ---
HISTORY: Assess Central line placement for Right IJ COMPARISON: Comparison is made to the previous study dated 10/09/2016 FINDINGS: LUNGS: Small opacities at the right and left lower lobes are noted. Otherwise no significant interval change. PLEURA: No significant pleural effusion identified, no pneumothorax apparent. CARDIOVASCULAR: Normal. OSSEOUS STRUCTURES: No significant abnormalities. VISUALIZED UPPER ABDOMEN: Normal. OTHER FINDINGS: Interval insertion of foot right jugular catheter seen at appropriate position. IMPRESSION: Interval insertion of right jugular central line seen at the appropriate position. Small opacities at the lower lobes.
[2016-10-10] MEDS ORDERED: Sodium Chloride 0.45% 1,000 ML IV SCH (09:45)
[2016-10-10] MEDS ORDERED: DOBUTamine 500mg/250ml D5W 250 ML IV PRN (10:24)
[2016-10-10 10:45] LABS: VENOUS BLOOD PH 7.26 (7.32-7.43)
[2016-10-10] MEDS: Albumin Human 5% (12.5 gm/250 ml) IV SCH ×3 (10:50→13:26)
--- NOTE | 2016-10-10 11:31 | CON ---
DATE: 10/10/2016 The patient seen and examined at bedside. He is a 76-year-old gentleman with history of hypertension, COPD, hyperlipidemia, who was found unresponsive on the ground at home by a neighbor and was brought in by EMS. In the Emergency Room, the patient was found to be hypotensive despite 3 L of normal saline with having gabriele pyuria. The patient had central line placed and norepinephrine at 20 mcg per minute was started. The patient was also hypothermic initially as well. No nausea, no vomiting, no diarrhea, no constipation, no chest pain, no shortness of breath. PAST MEDICAL HISTORY: Hypertension, hyperlipidemia, COPD. FAMILY HISTORY: Noncontributory. SOCIAL HISTORY: No alcohol or illicit drug abuse. No tobacco smoking. HOME MEDICATIONS: Unknown. MEDICATIONS: In the hospital: Heparin for DVT prophylaxis, hydrocortisone 50 mg IV q. 6, meropenem, Protonix, vasopressin, intermittent vancomycin, regular insulin sliding scale medium protocol, normal saline at 150 mL per hour. REVIEW OF SYSTEMS: Revealed 12-organ system other than mentioned in history of present illness is negative. ALLERGIES: NKDA. PHYSICAL EXAMINATION: VITAL SIGNS: The patient is on vasopressin 0.03 units per minute, norepinephrine 20 mcg per minute, 1 L normal saline fluid bolus is going and he is also on normal saline 150 mL per hour. On that setting, his heart rate is 55 , blood pressure 120/76, oxygen saturation 99% on 2 L nasal cannula, respiratory rate fluctuates between 20 and 30. Temperature 95.9 (the patient initially was hypothermic, but then warming blanket was applied and patient became low normothermic). HEAD AND NECK: Atraumatic. LUNGS: No wheezes or crackles. HEART: Regular rate and rhythm. S1, S2 normal. ABDOMEN: Soft, nontender, nondistended. MUSCULOSKELETAL: no clubbing and no cyanosis. NEUROLOGIC: The patient moves all extremities spontaneously. SKIN: Moist, acute cellulitis in buttock area PSYCHIATRIC: The patient is alert and oriented x 3. LABORATORY DATA: WBC 14.4, hemoglobin 12.6, platelet count 114. Sodium 153, potassium 4.4, chloride 124, carbon dioxide 19, BUN 62, creatinine 2.9 down from 3.1, AST 51, ALT 55, glucose 138. Troponin x 2 negative. Chest x-ray did not reveal any acute pulmonary disease. CT head: No acute intracranial pathology. Urine showed large leukocyte esterase and too numerous to be counted WBCs, many bacteria, some protein. EKG showed mild sinus bradycardia. ASSESSMENT AND PLAN: This is a 76-year-old gentleman with septic shock likely secondary to urinary tract infection or severe skin infection complicated by multiorgan dysfunction syndrome including septic encephalopathy, acute kidney injury, transaminitis. At present time, the patient is still getting fluid resuscitation and 3 L of normal saline were given in the Emergency Room. Bedside ultrasound revealed inferior vena cava with significant respiratory variation; thus, additional 1L NS and 750 cc of isooncotic albumin given, after which NE requirement decreased to 12 mcg/min from 20 and lactate went down to 2.1 from 4. We will continue to trend lactic acid. We will check patient's procalcitonin as well. Blood culture and urine culture were sent. The patient is on meropenem and intermittent vancomycin. Infectious disease service is following him as well. In terms of hemodynamic support, the patient is on norepinephrine 12 mcg per minute, down from 20, vasopressin 0.03 units per minute and stress dose steroids. Bedside echocardiogram did not reveal significant left ventricular systolic abnormalities; short trial (about 1 hr) of dobutamine did not lead to improved hemodynamics, Scv02 is 85. I will also proceed with CAT scan of the abdomen and pelvis. Pulmonary farrell, the patient does not appear fluid overloaded. If his acid base abnormality worsened and he becomes unable to compensate for metabolic acidosis we might need to proceed with IPPV support but for now, patient appeared to be managing his upper airways , ventilation and gas exchange. Nephro consult was also called for STEPHANIA and consideration of early vs late QUALITY CHECKER. He is on 2 L of nasal cannula and his oxygen saturation fluctuates between 95 and 100. We will consider conservative oxygen management. Once his septic shock resolves, we will adhere to conservative fluid management as well. Gastrointestinal farrell, the patient is n.p.o. We will continue with gastrointestinal prophylaxis. We will start oral nutrition as soon as shock resolves or vasopressor requirement substantially decreases. Endocrine farrell, the patient is on stress dose steroids and we will continue with blood glucose between 140-180 range according to NICE-SUGAR trial. Renal farrell, patient has acute kidney injury and he is getting fluid resuscitated to maintain renal perfusion. We will continue with a little bit stricter glucose control for additional nephro protection. We will maintain urine output above 0.5 mL per kilogram per hour. We will try to avoid nephrotoxic medication, but not at expense of treating underlying disease. The patient has mild thrombocytopenia, which is most likely related to bone marrow suppression by ongoing septic shock. No signs of overt bleeding, thus no thrombocytes will be transfused. Addendum: CT Abdo/pelvis, showed no hydronephrosis and no abscesses, unable to rule out pyelonephritis, but revealed questionable diffuse thickening of large bowell wall-->C.diff stool ordered, Flagyl IV started, surgical consult requested (spoke with Dr. Garcia). ID will follow. ccm time 40 min Adams Girard MD cc: [id number] TT: 10/10/2016 11:30:25 Confirmation # [id number] Dictation # [id number] tn MTDD
[2016-10-10 13:12] LABS: ADD MANUAL DIFF? NO
[2016-10-10 13:15] LABS: BASO # 0.01 K/mm3 (0.0-2.0); BASO % 0.1 % (0.0-3.0); GRAN % 83.9 % (50.0-68.0); HEMATOCRIT 36.8 % (42.0-52.0); LYMPH # 0.6 (1.2-3.4); MEAN CELL VOLUME 87.6 fL (80.0-105.0); MEAN CORPUSCULAR HEMOGLOBIN 28.3 pg (25.0-35.0); MEAN CORPUSCULAR HGB CONC 32.3 g/dl (31.0-37.0); MONO # 1.1 (0.1-0.6); PLATELET COUNT 103 10^3/uL (120.0-450.0); RED CELL DISTRIBUTION WIDTH 18.1 % (11.5-14.5); WHITE BLOOD COUNT 10.5 10^3/ul (4.5-11.0)
[2016-10-10 13:23] LABS: CHLORIDE 124 mmol/L (98-107)
[2016-10-10 13:25] LABS: BLOOD UREA NITROGEN 60 mg/dL (7-21); CALCIUM 7.5 mg/dL (8.4-10.5); CARBON DIOXIDE 19 mmol/L (21-33); GFR AFRICAN-AMERICAN 27; GLUCOSE,RANDOM 91 mg/dL (70-110); PHOSPHOROUS 3.8 mg/dL (2.5-4.5); POTASSIUM 5.1 mmol/L (3.6-5.0)
[2016-10-10 13:28] LABS: SODIUM 156 mmol/L (132-148)
--- NOTE | 2016-10-10 13:31 | CT ---
PROCEDURE: CT Abdomen and Pelvis without intravenous contrast HISTORY: Cellulitis buttocks r/o abscess, r/o pyelo COMPARISON: None. TECHNIQUE: Axial and reformatted coronal and sagittal CT images of the abdomen and pelvis were obtained without IV or oral contrast administration.. Contrast Dose: 0 Radiation dose: Total exam DLP = 1029.79 mGy-cm. FINDINGS: LOWER THORAX: Small bilateral pleural effusions. LIVER: No definite evidence of acute pathology or fluid collection at the liver this noncontrast study. GALLBLADDER AND BILE DUCTS: No CT evidence of cholecystitis. The biliary tree is not dilated. PANCREAS: No evidence of pancreatitis. The main pancreatic duct is not dilated. SPLEEN: Unremarkable. ADRENALS: There is 1.9 millimeter nodule at the right adrenal gland. KIDNEYS AND URETERS: No evidence of nephrolithiasis or hydronephrosis. The possibility of pyelonephritis cannot be excluded in noncontrast study . VASCULATURE: Unremarkable. No aortic aneurysm. BOWEL: Suspicious for diffuse large bowel wall thickening. Correlate clinically for colitis. No evidence of bowel obstruction. Colonic diverticulosis seen without evidence of diverticulitis. No evidence of intestinal pneumatosis. APPENDIX: No evidence of appendicitis. PERITONEUM: Unremarkable. No free fluid. No free air. LYMPH NODES: Unremarkable. No enlarged lymph nodes. BLADDER: The urinary bladder is collapsed around a Arndt catheter. Small amount of air seen in the bladder. Suspicious for bladder wall thickening. REPRODUCTIVE: Prostate is mildly enlarged. BONES: Moderate compression deformity of L1 vertebral body noted. The age of this compression fracture is indeterminate in this study. OTHER FINDINGS: There is diffuse skin thickening seen at the lower back and in the buttock region without evidence of subcutaneous collection or abscess formation. IMPRESSION: No evidence of abscess formation in the buttocks. Findings suggestive of cellulitis. No evidence of nephrolithiasis or hydronephrosis. The possibility of pyelonephritis cannot be excluded in noncontrast study. Suspicious for diffuse large bowel wall thickening. Correlate clinically for colitis. 1.9 centimeter low-attenuation nodule at the right adrenal gland, not fully characterized in this noncontrast study. Small bilateral pleural effusions. Moderate compression deformity of L1 vertebral body. Mild anasarca.
--- NOTE | 2016-10-10 13:32 | CP.PCM.CON ---
History of Present Illness - History of Present Illness History of Present Illness: 76 year old male with PMH of dyslipidemia, HTN, COPD was brought in to [facility] because the patient was found lying on the ground at home by neighbors and was poorly responsive. In the ED, the patient was noted to have a large area of erythema and swelling along the right groin area, up to the right gluteal area and right thigh area. He was also noted to have pyuria on urinalysis. Full review of systems is difficult to obtain from the patient because of the patient's lethargy. Infectious Diseases consult is requested to further evaluate and manage. Currently the patient is a little more awake but still lethargic, does answer a few questions. Review of Systems - Review of Systems Systems not reviewed;Unavailable: Altered Mental Status Past Patient History - Infectious Disease Hx of Infectious Diseases: None - Tetanus Immunizations Tetanus Immunization: Unknown - Past Medical History & Family History Past Medical History?: Yes Past Family History: Reviewed and not pertinent - Past Social History Smoking Status: Smoker Currrent Status Unknown Alcohol: Occasional Drugs: Denies Home Situation {Lives}: Alone - CARDIAC Hx Cardiac Disorders: No - PULMONARY Hx Chronic Obstructive Pulmonary Disease (COPD): Yes - NEUROLOGICAL Hx Neurological Disorder: No - HEENT Hx HEENT Problems: No - RENAL Hx Chronic Kidney Disease: Yes Hx Renal Failure: Yes - ENDOCRINE/METABOLIC Hx Endocrine Disorders: No - INTEGUMENTARY Hx Dermatological Problems: No - MUSCULOSKELETAL/RHEUMATOLOGICAL Hx Musculoskeletal Disorders: No Hx Falls: (UNKNOWN) - GASTROINTESTINAL Hx Gastrointestinal Disorders: No - GENITOURINARY/GYNECOLOGICAL Hx Genitourinary Disorders: Yes Hx Incontinence: Yes - PSYCHIATRIC Hx Depression: No Hx Emotional Abuse: No Hx Physical Abuse: No - SURGICAL HISTORY Hx Surgeries: (UNKNOWN) Meds Allergies/Adverse Reactions: Allergies Allergy/AdvReac Type Severity Reaction Status Date / Time No Known Allergies Allergy Verified 10/09/16 19:35 - Medications Medications: Current Medications Heparin Sodium (Porcine) (Heparin) 5,000 units SC Q8 FREDY PRN Reason: Protocol Sodium Chloride (Sodium Chloride 0.9%) 1,000 mls @ 150 mls/hr IV .Q6H40M [facility] Last Admin: 10/10/16 03:33 Dose: 150 mls/hr Norepinephrine Bitartrate 4 mg (/ Sodium Chloride) 254 mls @ 15.24 mls/hr IV .[id number] PRN; Protocol; 4 MCG/MIN PRN Reason: TITRATE PER MD ORDER Last Titration: 10/10/16 02:00 Dose: 15 mcg/min Calcium Gluconate 1,000 mg/ (Dextrose) 110 mls @ 110 mls/hr IVPB ONCE ONE Stop: 10/10/16 06:54 Meropenem 1g/NS 100mL IVPB (Meropenem 1g/Ns 100ml Ivpb) 100 mls @ 100 mls/hr IVPB Q8 FREDY PRN Reason: Protocol Stop: 10/16/16 22:01 Insulin Human Lispro (Humalog Low) 0 units SC ACHS FREDY PRN Reason: Protocol Pantoprazole Sodium (Protonix Inj) 40 mg IVP Q12 FREDY Physical Exam - Constitutional Appears: Other (somewhat lethargic but not in acute distress) - Head Exam Head Exam: NORMAL INSPECTION - ENT Exam ENT Exam: Mucous Membranes Moist - Neck Exam Neck exam: Negative for: Lymphadenopathy, Meningismus - Respiratory Exam Respiratory Exam: Decreased Breath Sounds - Cardiovascular Exam Cardiovascular Exam: +S1, +S2 - GI/Abdominal Exam GI & Abdominal Exam: Soft. absent: Tenderness - Extremities Exam Additional comments: right groin and femoral area with swelling and erythema Results - Vital Signs Recent Vital Signs: Last Vital Signs Temp 88.0 F L 10/10/16 03:02 Pulse 53 L 10/10/16 03:02 Resp 30 H 10/10/16 03:02 BP 115/85 10/10/16 03:00 Pulse Ox 83 L 10/10/16 03:00 - Labs Result Diagrams: 10/10/16 07:00 10/10/16 07:00 Labs: Laboratory Results - last 24 hr 10/10/16 01:10 WBC 12.3 H RBC 4.10 Hgb 11.4 L Hct 36.4 L MCV 88.8 MCH 27.8 MCHC 31.3 RDW 17.7 H Plt Count 88 L Gran % 76.6 H Lymph % (Auto) 11.0 L [place] % (Auto) 11.9 H Eos % (Auto) 0.4 L Baso % (Auto) 0.1 Gran # 9.38 H Lymph # 1.4 [place] # 1.5 H Eos # 0.1 Baso # 0.01 Sodium 151 H Potassium 4.0 Chloride 123 H Carbon Dioxide 21 Anion Gap 11 BUN 63 H Creatinine 2.8 H Est GFR ( Amer) 27 Est GFR (Non-Af Amer) 22 Random Glucose 147 H Calcium 7.3 L Phosphorus 3.8 Magnesium 2.2 Assessment & Plan - Assessment and Plan (Free Text) Plan: Assessment Systemic Inflammatory Response Syndrome, consider septic shock secondary to right femoral and groin severe skin and skin structure infection in a patient who presented with decreased sensorium and acute renal failure, R/O urinary tract infection dyslipidemia HTN COPD Plan Patient one dose of IV Vancomycin; will start Zyvox and Merrem pending blood, urine, wound cx, PCT; will review CXR and follow up results of the CT Abdomen and pelvis Will follow clinically
[2016-10-10 13:41] LABS: TROPONIN I < 0.01 ng/mL
[2016-10-10] MEDS: Linezolid 600 mg in D5W 300 ml 300 ML IVPB SCH (14:30)
--- NOTE | 2016-10-10 15:38 | CARD ---
APPROVED REPORT EKG Measurement Heart [id number] <Conclusion> Sinus bradycardia with premature atrial complexes T wave abnormality, consider lateral ischemia Abnormal ECG
--- NOTE | 2016-10-10 15:44 | CARD ---
APPROVED REPORT EKG Measurement Heart [id number] <Conclusion> Marked sinus bradycardia with 1st degree AV block Nonspecific T wave abnormality Prolonged QT Abnormal ECG
--- NOTE | 2016-10-10 16:48 | CP.PCM.CON ---
History of Present Illness - History of Present Illness History of Present Illness: Surgery: Dr. Garcia CC: Colitis HPI: 76M w. PMH of HLD, HTN, and COPD presented to ED via EMS after pt's neighbor found him poorly responsive on the ground at his home. Pt was admitted to ICU for hypotension/bradycardia and concerns of septic shock. Pt remains poorly responsive and hx was gathered by review of charts. A CT was ordered which showed thickening of the colon and concerns for colitis for which surgery has been consulted. PMH: HLD, HTN, COPD PSH: none Meds: MAR reviewed NKDA Social: +Tobacco/ETOH, no drugs Fhx: Non-contributory Review of Systems - Review of Systems Systems not reviewed;Unavailable: Altered Mental Status Past Patient History - Infectious Disease Hx of Infectious Diseases: None - Tetanus Immunizations Tetanus Immunization: Unknown - Past Medical History & Family History Past Medical History?: Yes Past Family History: Reviewed and not pertinent - Past Social History Smoking Status: Smoker Currrent Status Unknown Alcohol: Occasional Drugs: Denies Home Situation {Lives}: Alone - CARDIAC Hx Cardiac Disorders: No - PULMONARY Hx Chronic Obstructive Pulmonary Disease (COPD): Yes - NEUROLOGICAL Hx Neurological Disorder: No - HEENT Hx HEENT Problems: No - RENAL Hx Chronic Kidney Disease: Yes Hx Renal Failure: Yes - ENDOCRINE/METABOLIC Hx Endocrine Disorders: No - INTEGUMENTARY Hx Dermatological Problems: No - MUSCULOSKELETAL/RHEUMATOLOGICAL Hx Musculoskeletal Disorders: No Hx Falls: (UNKNOWN) - GASTROINTESTINAL Hx Gastrointestinal Disorders: No - GENITOURINARY/GYNECOLOGICAL Hx Genitourinary Disorders: Yes Hx Incontinence: Yes - PSYCHIATRIC Hx Depression: No Hx Emotional Abuse: No Hx Physical Abuse: No - SURGICAL HISTORY Hx Surgeries: (UNKNOWN) Meds Allergies/Adverse Reactions: Allergies Allergy/AdvReac Type Severity Reaction Status Date / Time No Known Allergies Allergy Verified 10/09/16 19:35 - Medications Medications: Current Medications Heparin Sodium (Porcine) (Heparin) 5,000 units SC Q8 FREDY PRN Reason: Protocol Last Admin: 10/10/16 13:27 Dose: 5,000 units Hydrocortisone Sodium Succinate (Solu-Cortef) 50 mg IVP Q6 FREDY Last Admin: 10/10/16 12:13 Dose: 50 mg Norepinephrine Bitartrate 4 mg (/ Sodium Chloride) 254 mls @ 15.24 mls/hr IV .[id number] PRN; Protocol; 4 MCG/MIN PRN Reason: TITRATE PER MD ORDER Last Titration: 10/10/16 11:10 Dose: 10 mcg/min Meropenem 1g/NS 100mL IVPB (Meropenem 1g/Ns 100ml Ivpb) 100 mls @ 100 mls/hr IVPB Q12H FREDY PRN Reason: Protocol Vasopressin 20 units/ Sodium (Chloride) 101 mls @ 9.09 mls/hr IV .Q11H7M FREDY; 0.03 U/MIN PRN Reason: Protocol Last Admin: 10/10/16 08:14 Dose: 9.09 mls/hr Dobutamine HCl/Dextrose (Dobutamine/Dextrose 5% 500mg/250ml) 250 mls @ 4.909 mls/hr IV .Q24H PRN; Protocol; 2.5 MCG/KG/MIN PRN Reason: TITRATE PER PROTOCOL Last Admin: 10/10/16 14:27 Dose: 4.909 mls/hr Linezolid (Zyvox 600mg/300ml D5w) 300 mls @ 200 mls/hr IVPB Q12 FREDY PRN Reason: Protocol Stop: 10/17/16 13:31 Last Admin: 10/10/16 14:30 Dose: 200 mls/hr Dextrose (Dextrose 5% In Water 1000 Ml) 1,000 mls @ 75 mls/hr IV .[id number] [facility] Last Admin: 10/10/16 14:30 Dose: 75 mls/hr Insulin Human Lispro (Humalog Low) 0 units SC ACHS FREDY PRN Reason: Protocol Last Admin: 10/10/16 12:42 Dose: Not Given Pantoprazole Sodium (Protonix Inj) 40 mg IVP DAILY [facility] Physical Exam - Constitutional Appears: Toxic, Unkempt, Older Than Stated Age - Head Exam Head Exam: ATRAUMATIC, NORMOCEPHALIC - Eye Exam Eye Exam: EOMI - ENT Exam ENT Exam: Mucous Membranes Dry, Normal External Ear Exam - Neck Exam Neck exam: Positive for: Full Rom - Respiratory Exam Respiratory Exam: Prolonged Expiratory Phase. absent: Accessory Muscle Use, Respiratory Distress - GI/Abdominal Exam GI & Abdominal Exam: Soft. absent: Diminished Bowel Sounds, Distended, Firm, Guarding, Rigid, Tenderness - Rectal Exam Rectal Exam: NORMAL INSPECTION - Extremities Exam Extremities exam: Negative for: calf tenderness, pedal edema - Neurological Exam Neurological exam: Altered - Skin Additional comments: diffuse erythema of B/L groin extending to hips and thighs, likely 2/2 urine Results - Vital Signs Recent Vital Signs: Last Vital Signs Temp 97.3 F L 10/10/16 15:30 Pulse 57 L 10/10/16 15:30 Resp 27 H 10/10/16 15:30 BP 105/67 10/10/16 15:30 Pulse Ox 98 10/10/16 15:30 - Labs Result Diagrams: 10/10/16 12:53 10/10/16 12:53 Labs: Laboratory Results - last 24 hr 10/10/16 10/10/16 10/10/16 01:10 06:31 07:00 WBC 12.3 H 14.4 H RBC 4.10 4.55 Hgb 11.4 L 12.6 L Hct 36.4 L 40.2 L MCV 88.8 88.4 MCH 27.8 27.7 MCHC 31.3 31.3 RDW 17.7 H 18.0 H Plt Count 88 L 114 L Gran % 76.6 H 82.5 H Lymph % (Auto) 11.0 L 4.9 L Becker % (Auto) 11.9 H 12.4 H Eos % (Auto) 0.4 L 0.1 L Baso % (Auto) 0.1 0.1 Gran # 9.38 H 11.91 H Lymph # 1.4 0.7 L Becker # 1.5 H 1.8 H Eos # 0.1 0.0 Baso # 0.01 0.01 PT 11.8 INR 1.09 H APTT 36.7 H pCO2 42 pO2 75.0 L HCO3 17.2 L ABG pH 7.22 L ABG Total CO2 18.5 L ABG O2 Saturation 96.4 ABG Base Excess -10.1 L ABG Potassium 4.6 VBG pH VBG pCO2 VBG HCO3 VBG Total CO2 VBG O2 Sat (Calc) VBG Base Excess VBG Potassium Glucose 152 H Lactate 4.0 H* FiO2 28.0 Sodium 151 H 153.0 H 153 H Potassium 4.0 4.4 Chloride 123 H 128.0 H 124 H Carbon Dioxide 21 19 L Anion Gap 11 14 BUN 63 H 62 H Creatinine 2.8 H 2.9 H Est GFR ( Amer) 27 26 Est GFR (Non-Af Amer) 22 21 POC Glucose (mg/dL) Random Glucose 147 H 138 H Calcium 7.3 L 7.7 L Phosphorus 3.8 3.6 Magnesium 2.2 2.2 Total Bilirubin 0.2 AST 51 ALT 55 Alkaline Phosphatase 86 Lactate Dehydrogenase 348 Total Creatine Kinase 65 Troponin I < 0.01 Total Protein 5.3 L Albumin 2.6 L Globulin 2.6 Albumin/Globulin Ratio 1.0 L Arterial Blood Potassium 4.6 Venous Blood Potassium 10/10/16 10/10/16 10/10/16 08:46 10:30 12:40 WBC RBC Hgb Hct MCV MCH MCHC RDW Plt Count Gran % Lymph % (Auto) Becker % (Auto) Eos % (Auto) Baso % (Auto) Gran # Lymph # Becker # Eos # Baso # PT INR APTT pCO2 pO2 45 HCO3 ABG pH ABG Total CO2 ABG O2 Saturation ABG Base Excess ABG Potassium VBG pH 7.26 L VBG pCO2 39.0 L VBG HCO3 17.5 L VBG Total CO2 18.7 L VBG O2 Sat (Calc) 85.7 H VBG Base Excess -9.0 L VBG Potassium 4.4 Glucose 103 Lactate 2.1 FiO2 21.0 Sodium 154.0 H Potassium Chloride 130.0 H Carbon Dioxide Anion Gap BUN Creatinine Est GFR ( Amer) Est GFR (Non-Af Amer) POC Glucose (mg/dL) 98 83 Random Glucose Calcium Phosphorus Magnesium Total Bilirubin AST ALT Alkaline Phosphatase Lactate Dehydrogenase Total Creatine Kinase Troponin I Total Protein Albumin Globulin Albumin/Globulin Ratio Arterial Blood Potassium Venous Blood Potassium 4.4 10/10/16 10/10/16 12:53 15:45 WBC 10.5 D RBC 4.20 Hgb 11.9 L Hct 36.8 L MCV 87.6 MCH 28.3 MCHC 32.3 RDW 18.1 H Plt Count 103 L Gran % 83.9 H Lymph % (Auto) 6.0 L Becker % (Auto) 10.0 H Eos % (Auto) 0.0 L Baso % (Auto) 0.1 Gran # 8.80 H Lymph # 0.6 L Becker # 1.1 H Eos # 0.0 Baso # 0.01 PT INR APTT pCO2 pO2 HCO3 ABG pH ABG Total CO2 ABG O2 Saturation ABG Base Excess ABG Potassium VBG pH VBG pCO2 VBG HCO3 VBG Total CO2 VBG O2 Sat (Calc) VBG Base Excess VBG Potassium Glucose Lactate FiO2 Sodium 156 H* Potassium 5.1 H Chloride 124 H Carbon Dioxide 19 L Anion Gap 18 BUN 60 H Creatinine 2.8 H Est GFR ( Amer) 27 Est GFR (Non-Af Amer) 22 POC Glucose (mg/dL) 110 Random Glucose 91 Calcium 7.5 L Phosphorus 3.8 Magnesium 2.0 Total Bilirubin AST ALT Alkaline Phosphatase Lactate Dehydrogenase 362 Total Creatine Kinase 66 Troponin I < 0.01 Total Protein Albumin Globulin Albumin/Globulin Ratio Arterial Blood Potassium Venous Blood Potassium - Imaging and Cardiology CT scan - abdomen Status: Image reviewed by me, Report reviewed by me Assessment & Plan - Assessment and Plan (Free Text) Assessment: 76M w. colitis -F/U C. Diff -IVF -Is:Os -abx -will follow closely -d/w attending Ray PGY2
--- NOTE | 2016-10-10 17:34 | CP.PCM.PN ---
Subjective - Date & Time of Evaluation Date of Evaluation: 10/10/16 Time of Evaluation: 10:35 - Subjective Subjective: 76 yrs old male with PMH of HLD, HTN, and COPD presented to ED via EMS after pt 's neighbor found him poorly responsive on the ground at his home. Pt was found to hypotensive, bradycardiac and hypothermic.He was admitted to ICU and was started on IV hydration , blood pressure did not improve and patient was started on pressor. Patient is drowsy, able to open his eyes, but unable to communicate Objective - Vital Signs/Intake and Output Vital Signs (last 24 hours): Temp Pulse Resp BP Pulse Ox 97.3 F L 57 L 27 H 105/67 98 10/10/16 15:30 10/10/16 15:30 10/10/16 15:30 10/10/16 15:30 10/10/16 15:30 Intake and Output: 10/10/16 10/10/16 06:59 18:59 Intake Total 2350 Output Total 200 Balance 2150 - Medications Medications: Current Medications Heparin Sodium (Porcine) (Heparin) 5,000 units SC Q8 FREDY PRN Reason: Protocol Last Admin: 10/10/16 13:27 Dose: 5,000 units Hydrocortisone Sodium Succinate (Solu-Cortef) 50 mg IVP Q6 FREDY Last Admin: 10/10/16 12:13 Dose: 50 mg Norepinephrine Bitartrate 4 mg (/ Sodium Chloride) 254 mls @ 15.24 mls/hr IV .[id number] PRN; Protocol; 4 MCG/MIN PRN Reason: TITRATE PER MD ORDER Last Admin: 10/10/16 16:45 Dose: 41.91 mls/hr Meropenem 1g/NS 100mL IVPB (Meropenem 1g/Ns 100ml Ivpb) 100 mls @ 100 mls/hr IVPB Q12H FREDY PRN Reason: Protocol Vasopressin 20 units/ Sodium (Chloride) 101 mls @ 9.09 mls/hr IV .Q11H7M FREDY; 0.03 U/MIN PRN Reason: Protocol Last Admin: 10/10/16 08:14 Dose: 9.09 mls/hr Dobutamine HCl/Dextrose (Dobutamine/Dextrose 5% 500mg/250ml) 250 mls @ 4.909 mls/hr IV .Q24H PRN; Protocol; 2.5 MCG/KG/MIN PRN Reason: TITRATE PER PROTOCOL Last Admin: 10/10/16 14:27 Dose: 4.909 mls/hr Linezolid (Zyvox 600mg/300ml D5w) 300 mls @ 200 mls/hr IVPB Q12 FREDY PRN Reason: Protocol Stop: 10/17/16 13:31 Last Admin: 10/10/16 14:30 Dose: 200 mls/hr Dextrose (Dextrose 5% In Water 1000 Ml) 1,000 mls @ 75 mls/hr IV .[id number] FREDY Last Admin: 10/10/16 14:30 Dose: 75 mls/hr Insulin Human Lispro (Humalog Low) 0 units SC ACHS FREDY PRN Reason: Protocol Last Admin: 10/10/16 16:45 Dose: Not Given Pantoprazole Sodium (Protonix Inj) 40 mg IVP DAILY FREDY - Labs Labs: 10/10/16 12:53 10/10/16 12:53 PT 11.8 Seconds (9.9-11.8) 10/10/16 07:00 INR 1.09 (0.93-1.08) H 10/10/16 07:00 APTT 36.7 Seconds (23.7-30.8) H 10/10/16 07:00 - Constitutional Appears: Confused, Chronically Ill - Head Exam Head Exam: ATRAUMATIC - Respiratory Exam Respiratory Exam: NORMAL BREATHING PATTERN Additional comments: bilateral good air entry, no ronchi - Cardiovascular Exam Cardiovascular Exam: REGULAR RHYTHM Additional comments: soft, no abdominal distension - Extremities Exam Additional comments: redness in buttock area, no tenderness or fluctuation - Neurological Exam Neurological Exam: CN II-XII Intact (drowsy, not communicative, there is no focal deficit) Assessment and Plan - Assessment and Plan (Free Text) Assessment: 76 yrs old male with Sepsis, septic shock, due to cellulitis and colitis.Patient is also found to have acute renal failure, hypernatremia , hyperkalemia at the time of admission is resolved. 1.Sepsis, Septic shock due to cellulitis and colitis on IV antibiotic as per ID, will check stool for clostridium difficle colitis. Surgery evaluation was noted. Patient is requiring pressor at this time. Patient has also been started on stres dose of steroid by critical care. Critical care team, ID and surgery following. 2.Acute renal failure No evidence of hydronephrosis on CT abdomen, Creatinin is mildly improved.We will get urine electrolye, urine creatinin, avoid nephrotoxic medication. Hypotension is also contributing to renal failure.Nephrology is consulted 3.Hypernatremia, IV fluid has been changed to D5W, will monitor electrolyte 4.Hyperkalemia has resolved. 5.GI and DVT prophylaxis Prognosis is guarded.
[2016-10-10 19:12] LABS: HEMATOCRIT 35.9 % (42.0-52.0); MEAN CELL VOLUME 86.9 fL (80.0-105.0); MEAN CORPUSCULAR HEMOGLOBIN 27.8 pg (25.0-35.0); PLATELET COUNT 96 10^3/uL (120.0-450.0); RED CELL DISTRIBUTION WIDTH 18.2 % (11.5-14.5); WHITE BLOOD COUNT 11.7 10^3/ul (4.5-11.0)
[2016-10-10 19:14] LABS: ADD MANUAL DIFF? YES
[2016-10-10 19:26] LABS: BLOOD UREA NITROGEN 58 mg/dL (7-21); CALCIUM 7.2 mg/dL (8.4-10.5); CARBON DIOXIDE 19 mmol/L (21-33); CHLORIDE 123 mmol/L (98-107); GFR AFRICAN-AMERICAN 27; GLUCOSE,RANDOM 124 mg/dL (70-110); PHOSPHOROUS 4.2 mg/dL (2.5-4.5); SODIUM 151 mmol/L (132-148)
[2016-10-10 19:30] LABS: POTASSIUM 5.8 mmol/L (3.6-5.0)
[2016-10-10 19:38] LABS: TROPONIN I < 0.01 ng/mL
[2016-10-10 19:49] LABS: ATYPICAL LYMPHOCYTE 2 % (0.0-0.0); BAND 7 % (0-2); LARGE PLATELETS PRESENT; NEUTROPHIL 74 % (50.0-70.0); PLATELET ESTIMATE LOW (NORMAL)
[2016-10-10] MEDS ORDERED: Dextrose 50% SYRINGE Inj (50 ml) IVP ONE (20:07)
[2016-10-10] MEDS ORDERED: Insulin Regular 1 UNITS/0.01 ML ML IVP STA (20:07)
[2016-10-10] MEDS ORDERED: Sodium Bicarbonate 8.4% 75 MEQ in Dextrose 5% In Water 1,000 ML IV SCH (21:00)
--- NOTE | 2016-10-10 22:07 | CON ---
DATE: 10/10/2016 CONSULTATION REQUESTED BY: Dr. Rachele Boo REASON FOR CONSULTATION: Acute renal failure, lactic acidosis, hypernatremia, adrenal nodule. HISTORY OF PRESENT ILLNESS: The patient is previously unknown. This 76-year-old gentleman was broug ht to [facility]'s Emergency Department after he was found by his neighbor lying on the g round, minimally responsive, only to his name. On arrival to the ED, the patient was noted to be both bradycardic, at 46 beats per minute, and hypo tensive, at 77/42. ECG revealed there to be sinus bradycardia with first degree AV block. Laboratory studies were notable for a potassium of 7.0 (nonhemolyzed) with a BUN and creatinine of 74 and 3.1, bicarbonate level was 23. ECG did not reveal any peaked T waves. Of note, the patient was last in [facility] in 10/2013, at which time his creatinine had b een approximately 1.4, corresponding to stage III chronic kidney disease. The patient's hyperkalemia was treated medically and sodium bicarbonate pushed intravenously, as well as 1 ampule of D50, follo wed by 10 units of regular insulin intravenously, 1 g of calcium chloride, and another gram of calciu m gluconate, and 15 mg of nebulized albuterol. He was also started on normal saline and admitted to the intensive care unit for further evaluation and management. Of note, it was unclear what medications the patient was on at home. Since having been admitted to [facility] intensive care unit, the patient has been pressor dependent, but remained somewhat encephalopathic . Other laboratory studies of note, revealed a normal white blood cell count 10,300, although there were 75% neutrophils. Lactic acid level increased to 4.0 since admission. Additionally, the patie nt was noted to be hypernatremic at 150; and, as stated above, BUN and creatinine were 74 and 3.1. C T scan of his head on presentation (without any IV contrast) did not reveal any acute pathology. [place] st x-ray did not reveal any pathology either. The patient also had a CT scan of his abdomen and pelv is (without oral or IV contrast), which was notable for possible cellulitis, diffuse large bowel wall thickening, and a 1.9 cm nodule in the right adrenal gland as well as small bilateral pleural effusi ons, anasarca, and possible pyelonephritis versus passage of a kidney stone. Unfortunately, the tristian ent is lethargic and encephalopathic as well and cannot provide additional history. REVIEW OF SYSTEMS: Could not be obtained from the patient because of his current state, but was revi ewed across the chart with all 10 systems in 14 points and was negative unless stated otherwise above . PAST MEDICAL HISTORY: Significant for hypertension, dyslipidemia, as well as COPD. MEDICATIONS: Medications that the patient had been taking at home, and prior to admission, were not known. ALLERGIES: There were also no known drug allergies. SOCIAL HISTORY: Notable for the patient having been a smoker until 10/2013. It is unclear if he stil charles smokes. He reportedly drinks alcohol only socially, but denies any illicit drug use. FAMILY HISTORY: Negative for any inheritable renal or electrolyte disorders and was otherwise noncon tributory. PHYSICAL EXAMINATION: GENERAL APPEARANCE: I saw the patient in the intensive care unit earlier today. He had a warming bl anket in place. Arndt catheter was also in place and was draining purulent urine. The patient had a right IJ triple lumen catheter. When I saw him, he was receiving vasopressin infusion. He did not appear to be in any pain, but was slow to respond to any questions I asked. VITAL SIGNS: Blood pressure is 110/52 with a minimum blood pressure in the last 24-hour period of 75 /45, and a maximum of 125/60. Heart rate is 57, but has ranged from the 50s to the low 60s, with mon itoring showing sinus bradycardia and sinus rhythm respectively. Oral temperature is 97.2 degrees an d the patient has been afebrile since admission. Respiratory rate is now 36 breaths per minute, but has ranged from 20s to low 40s in the last 24-hour period. Oxygen saturation is 99%, but has ranged from 90% to 100% with the patient on 2L oxygen via nasal cannula. I's and O's since admission are 23 50/200. The remainder of the exam was as follows. GENERAL: The patient was normocephalic and atraumatic. He had pale complexion. His conjunctivae we re quite injected, however, NECK: I was unable to appreciate any jugular venous distention. He did have a right internal jugula r triple lumen catheter, as stated above. CHEST: Lungs hargrove were clear to auscultation, but the patient was not cooperative with deep breath s. There were no rales, rhonchi, or wheezing that I could appreciate. CARDIAC: Had a regular rate and rhythm without any rubs or gallops. ABDOMEN: Soft, mildly protuberant, but nontender, without any rebounding, guarding, or rigidity. Th ere was no hepatosplenomegaly. EXTREMITIES: Had 1+ dependent edema. GENITOURINARY: Had a Arndt catheter in place draining purulent urine, but there was no suprapubic te nderness. NEUROLOGIC: The patient is encephalopathic, but did not appear to have any focality to his exam. VASCULAR: Had no bruits. SKIN: Notable for erythema in his buttocks. LABORATORY STUDIES: White count is now 11,700 with an H and H 11.5 and 35.9, platelet count is 96,00 0 with 74% neutrophils, 7% bands, 8% lymphocytes, 2% atypical lymphocytes, 9% monocytes. INR is 1.09 , PTT is 36.7. Lactic acid level was 4.0, but has decreased to 2.1. Sodium is 153, potassium is 4.4 , chloride 129, bicarbonate 19, BUN and creatinine are 62 and 2.9, with glucose of 138. Total protei n and albumin are 5.3 and 2.6. Calcium 7.7, but corrects to 8.9, phosphorus 3.6, magnesium is 2.2, A ST and ALT are 51 and 55, alkaline phosphatase is 86. LDH is 348, troponin I is less than 0.01. Uri nalysis was noted to be yellow, turbid, with a pH of 6.0, specific gravity of 1.025, protein of 30, l arge blood, with only 1-3 RBCs per high power field. There was no digoxin present in his blood. Alc ohol level was negative. CPK was noted to be within normal limits on 4 separate occasions. Imaging is as stated above. IMPRESSION AND PLAN: The patient is a 76-year-old gentleman with a known history of hypertension, dy slipidemia, as well as chronic obstructive pulmonary disease, who was brought in by his neighbor afte r being found on the floor and poorly responsive and noted to be hypotensive, bradycardic, and hypoth ermic with acute kidney injury, hypernatremia, and lactic acidosis. Imaging has revealed what appear s to be colitis. He also has a physical exam consistent with cellulitis of his buttocks as well. He currently is in septic shock and is on pressors with getting vasopressin. 1. With respect to the patient's elevated creatinine, since his GFR was in the low 50s 3 years ago an d now is in the low 20s. I doubt that the increase in creatinine represents progressive loss of unde rlying chronic kidney disease, since he does not appear to have any underlying medical problems that would cause such a dramatic decrease in his renal function. Rather, he likely has acute kidney injur y, as manifest by his hyperkalemia. 2. With respect to the etiology of his acute kidney injury, the patient is clearly dehydrated, as man ifest by the fact that he was hypotensive on admission and hypernatremic with a sodium of 150 on pres entation. Acute kidney injury is also secondary to hypotension and decreased cardiac output (he was hypotensive as well as bradycardic), likely reflective of septic shock. 3. Continue pressors titrated to mean arterial pressure of 65 mmHg. 4. Additionally, I would still continue to give the patient intravenous fluids. His most recent sodi um is 151 and his most recent potassium is 5.8, nonhemolyzed, with a corrected anion gap of approxima tely 20. He, based on the sodium of 151, corresponds to a free water deficit of 2.6 L and I would pl mauri the patient on D5W with 75 mEq of sodium chloride per liter at a rate of 100 mL per hour, which w ill both help correct his hypernatremia, since this is a hypotonic solution, and help correct his hyp erkalemia by correcting his metabolic acidosis and also the dextrose present in the intravenous fluid s will cause potassium to shift intracellularly. 5. Although the patient is hyperkalemic, he has advanced directives in the chart that state that he d oes not want aggressive and heroic measures and, therefore, dialysis is not an option for this patien t. 6. The lactic acidosis he had on presentation, likely represents type A lactic acidosis from end-orga n hypoperfusion and has resolved based on his last labs. 7. With respect to the etiology of his septic shock, his urine does appear to be quite purulent and t he patient also has cellulitis of his buttocks. Infectious Disease consultation is appreciated. He did receive 1 dose of vancomycin intravenously. He has been started on meropenem and Zyvox empirical ly, pending the results of his cultures. 8. With respect to the colitis present on imaging, this may represent ischemic colitis and therefore this is justification for ongoing administration of intravenous fluids as well. Additionally, we ernie l need to check stool cultures, as well as stool for C. diff, and discuss with infectious disease as to whether the patient may benefit from empiric treatment with Flagyl. 9. It is noted that the patient has an adrenal nodule. There is no utility to check to see whether o r not this nodule functional at this point, and I would not work this up. 10. CT of the abdomen and pelvis does suggest pyelonephritis, in which case the antibiotics he is on will suffice. 11. Surgical consultation is pending for the colitis seen on CT scan. 12. Continue to maintain glucose between 140-180, as per the NICE-SUGAR trial. 13. For gastrointestinal prophylaxis, the patient remains on pantoprazole and for deep venous thrombo sis prophylaxis, he is on subcutaneous heparin 5000 units every 8 hours. 14. Since the patient is on pressors, he is also on hydrocortisone 50 mg intravenously every 6 hours for now. I will be following this complex patient closely for the above complex medical problems. I thank you very much for the courtesy of this consultation. More than 35 minutes were spent in the care of this ICU patient today. Israel Cazares MD cc: [id number] TT: 10/10/2016 22:06:22 Confirmation # [id number] Dictation # [id number] ln
[2016-10-10] MEDS: Enoxaparin 80 mg Syringe SC SCH (22:55)
[2016-10-11 02:07] LABS: BASO # 0.03 K/mm3 (0.0-2.0); BASO % 0.2 % (0.0-3.0); EOS % 0.1 % (1.5-5.0); GRAN # 11.17 (1.4-6.5); GRAN % 79.9 % (50.0-68.0); HEMATOCRIT 35.7 % (42.0-52.0); LYMPH # 1.3 (1.2-3.4); LYMPH % 9.6 % (22.0-35.0); MEAN CELL VOLUME 86.7 fL (80.0-105.0); MEAN CORPUSCULAR HEMOGLOBIN 27.9 pg (25.0-35.0); MEAN CORPUSCULAR HGB CONC 32.2 g/dl (31.0-37.0); MONO # 1.4 (0.1-0.6); MONO % 10.2 % (1.0-6.0); PLATELET COUNT 97 10^3/uL (120.0-450.0); RED CELL DISTRIBUTION WIDTH 18.2 % (11.5-14.5)
[2016-10-11 02:11] LABS: CALCIUM 7.2 mg/dL (8.4-10.5); MAGNESIUM 1.9 mg/dL (1.7-2.2); PHOSPHOROUS 3.7 mg/dL (2.5-4.5)
[2016-10-11 02:16] LABS: ADD MANUAL DIFF? NO
[2016-10-11 02:20] LABS: POTASSIUM 5.6 mmol/L (3.6-5.0)
[2016-10-11 02:22] LABS: TROPONIN I 0.03 ng/mL
[2016-10-11] MEDS ORDERED: Sod Polystyrene Sulf 15 gm/60 ml Oral Susp PR STA (02:30)
[2016-10-11] MEDS: Meropenem 1g/NS 100mL IVPB 100 ML IVPB SCH ×2 (05:29→17:09)
[2016-10-11 06:36] LABS: HEMATOCRIT 36.2 % (42.0-52.0); MEAN CELL VOLUME 86.8 fL (80.0-105.0); MEAN CORPUSCULAR HEMOGLOBIN 27.6 pg (25.0-35.0); MEAN CORPUSCULAR HGB CONC 31.8 g/dl (31.0-37.0); PLATELET COUNT 97 10^3/uL (120.0-450.0); RED CELL DISTRIBUTION WIDTH 18.3 % (11.5-14.5); WHITE BLOOD COUNT 13.5 10^3/ul (4.5-11.0)
[2016-10-11 06:49] LABS: ADD MANUAL DIFF? YES
[2016-10-11 07:25] LABS: ALB/GLOB RATIO 1.2 (1.1-1.8); BILIRUBIN,TOTAL 0.3 mg/dL (0.2-1.3); CALCIUM 7.1 mg/dL (8.4-10.5); POTASSIUM 5.1 mmol/L (3.6-5.0); TOTAL PROTEIN 5.7 g/dL (5.8-8.3)
[2016-10-11 07:33] LABS: TROPONIN I 0.03 ng/mL
[2016-10-11 07:53] LABS: NEUTROPHIL 82 % (50.0-70.0)
[2016-10-11 07:54] LABS: BAND 10 % (0-2); HYPOCHROMIA 1+; PLATELET ESTIMATE LOW (NORMAL)
[2016-10-11 07:55] LABS: ANISOCYTOSIS 1+; GIANT PLATELETS PRESENT; LARGE PLATELETS PRESENT; OVALOCYTES SLIGHT; POIKILOCYTOSIS SLIGHT; TOXIC GRANULATION 1+
[2016-10-11] MEDS: Insulin Lispro (humaLOG) LOW Coverage SC SCH ×4 (08:14→22:38)
--- NOTE | 2016-10-11 09:21 | CP.PCM.PN ---
Subjective - Date & Time of Evaluation Date of Evaluation: 10/11/16 Time of Evaluation: 09:18 - Subjective Subjective: Surgery: Dr. Garcia Pt seen and examined. Per nursing no acute events overnight. Still on pressors x 2. More alert today compared to yesterday, however remains confused, does not communicate clearly. Objective - Vital Signs/Intake and Output Vital Signs (last 24 hours): Temp Pulse Resp BP Pulse Ox 97.2 F L 63 23 145/64 100 10/11/16 06:30 10/11/16 06:30 10/11/16 06:30 10/11/16 06:30 10/11/16 06:30 Intake and Output: 10/11/16 10/11/16 06:59 18:59 Intake Total 1922 Output Total 300 Balance 1622 - Medications Medications: Current Medications Aspirin (Aspirin Supp) 300 mg RC DAILY FREDY Enoxaparin Sodium (Lovenox) 65 mg SC Q12H FREDY PRN Reason: Protocol Last Admin: 10/10/16 22:55 Dose: 65 mg Hydrocortisone Sodium Succinate (Solu-Cortef) 50 mg IVP Q6 FREDY Last Admin: 10/11/16 05:32 Dose: 50 mg Norepinephrine Bitartrate 4 mg (/ Sodium Chloride) 254 mls @ 15.24 mls/hr IV .[id number] PRN; Protocol; 4 MCG/MIN PRN Reason: TITRATE PER MD ORDER Last Titration: 10/11/16 07:15 Dose: 12 mcg/min Meropenem 1g/NS 100mL IVPB (Meropenem 1g/Ns 100ml Ivpb) 100 mls @ 100 mls/hr IVPB Q12H FREDY PRN Reason: Protocol Last Admin: 10/11/16 05:29 Dose: 100 mls/hr Vasopressin 20 units/ Sodium (Chloride) 101 mls @ 9.09 mls/hr IV .Q11H7M FREDY; 0.03 U/MIN PRN Reason: Protocol Last Admin: 10/11/16 05:30 Dose: 9.09 mls/hr Linezolid (Zyvox 600mg/300ml D5w) 300 mls @ 200 mls/hr IVPB Q12 FREDY PRN Reason: Protocol Stop: 10/17/16 13:31 Last Admin: 10/10/16 14:30 Dose: 200 mls/hr Sodium Bicarbonate 75 meq/ (Dextrose) 1,075 mls @ 100 mls/hr IV .[id number] [facility] Last Admin: 10/10/16 21:30 Dose: 100 mls/hr Insulin Human Lispro (Humalog Low) 0 units SC ACHS [facility] PRN Reason: Protocol Last Admin: 10/11/16 08:14 Dose: Not Given Pantoprazole Sodium (Protonix Inj) 40 mg IVP DAILY FREDY - Labs Labs: 10/11/16 06:00 10/11/16 06:00 PT 11.8 Seconds (9.9-11.8) 10/10/16 07:00 INR 1.09 (0.93-1.08) H 10/10/16 07:00 APTT 36.7 Seconds (23.7-30.8) H 10/10/16 07:00 - Constitutional Appears: No Acute Distress, Unkempt, Confused - Head Exam Head Exam: ATRAUMATIC, NORMOCEPHALIC - Eye Exam Eye Exam: Conjunctival injection, EOMI. absent: Scleral icterus - ENT Exam ENT Exam: Mucous Membranes Moist - Neck Exam Neck Exam: Full ROM - Respiratory Exam Respiratory Exam: NORMAL BREATHING PATTERN. absent: Accessory Muscle Use, Respiratory Distress - GI/Abdominal Exam GI & Abdominal Exam: Soft. absent: Distended, Firm, Guarding, Rigid, Tenderness , Rebound - Neurological Exam Neurological Exam: Alert, Awake. absent: Oriented x3 Assessment and Plan - Assessment and Plan (Free Text) Assessment: 76M w. sepsis, consulted for colitis -f/u C.diff -c/w IVF -c/w abx -no plans for surgical intervention at this time -will continue to follow closely -d/w attending Zemaitis PGY2
[2016-10-11] MEDS: Enoxaparin 80 mg Syringe SC SCH (09:31)
--- NOTE | 2016-10-11 09:31 | CP.PCM.PN ---
Subjective - Date & Time of Evaluation Date of Evaluation: 10/11/16 Time of Evaluation: 07:50 - Subjective Subjective: Patient is a little more awake today, no fevers overnight, not in acute distress , no nausea, no abdominal pain, not complaining of pain in his gluteal area. Patient is still on vasopressors. Objective - Vital Signs/Intake and Output Vital Signs (last 24 hours): Temp Pulse Resp BP Pulse Ox 97.2 F L 63 23 145/64 100 10/11/16 06:30 10/11/16 06:30 10/11/16 06:30 10/11/16 06:30 10/11/16 06:30 Intake and Output: 10/11/16 10/11/16 06:59 18:59 Intake Total 1922 Output Total 300 Balance 1622 - Medications Medications: Current Medications Aspirin (Aspirin Supp) 300 mg RC DAILY FREDY Enoxaparin Sodium (Lovenox) 65 mg SC Q12H [facility]Y PRN Reason: Protocol Last Admin: 10/10/16 22:55 Dose: 65 mg Hydrocortisone Sodium Succinate (Solu-Cortef) 50 mg IVP Q6 FREDY Last Admin: 10/11/16 05:32 Dose: 50 mg Norepinephrine Bitartrate 4 mg (/ Sodium Chloride) 254 mls @ 15.24 mls/hr IV .[id number] PRN; Protocol; 4 MCG/MIN PRN Reason: TITRATE PER MD ORDER Last Titration: 10/11/16 07:15 Dose: 12 mcg/min Meropenem 1g/NS 100mL IVPB (Meropenem 1g/Ns 100ml Ivpb) 100 mls @ 100 mls/hr IVPB Q12H [facility]Y PRN Reason: Protocol Last Admin: 10/11/16 05:29 Dose: 100 mls/hr Vasopressin 20 units/ Sodium (Chloride) 101 mls @ 9.09 mls/hr IV .Q11H7M FREDY; 0.03 U/MIN PRN Reason: Protocol Last Admin: 10/11/16 05:30 Dose: 9.09 mls/hr Dobutamine HCl/Dextrose (Dobutamine/Dextrose 5% 500mg/250ml) 250 mls @ 4.909 mls/hr IV .Q24H PRN; Protocol; 2.5 MCG/KG/MIN PRN Reason: TITRATE PER PROTOCOL Last Admin: 10/10/16 14:27 Dose: 4.909 mls/hr Linezolid (Zyvox 600mg/300ml D5w) 300 mls @ 200 mls/hr IVPB Q12 FREDY PRN Reason: Protocol Stop: 10/17/16 13:31 Last Admin: 10/10/16 14:30 Dose: 200 mls/hr Sodium Bicarbonate 75 meq/ (Dextrose) 1,075 mls @ 100 mls/hr IV .[id number] [facility] Last Admin: 10/10/16 21:30 Dose: 100 mls/hr Insulin Human Lispro (Humalog Low) 0 units SC ACHS FREDY PRN Reason: Protocol Last Admin: 10/10/16 22:51 Dose: Not Given Pantoprazole Sodium (Protonix Inj) 40 mg IVP DAILY FREDY - Labs Labs: 10/11/16 06:00 10/11/16 06:00 PT 11.8 Seconds (9.9-11.8) 10/10/16 07:00 INR 1.09 (0.93-1.08) H 10/10/16 07:00 APTT 36.7 Seconds (23.7-30.8) H 10/10/16 07:00 - Constitutional Appears: No Acute Distress - Head Exam Head Exam: NORMAL INSPECTION - ENT Exam ENT Exam: Mucous Membranes Moist - Neck Exam Neck Exam: absent: Lymphadenopathy, Meningismus - Respiratory Exam Respiratory Exam: Decreased Breath Sounds - Cardiovascular Exam Cardiovascular Exam: +S1, +S2 - GI/Abdominal Exam GI & Abdominal Exam: Soft. absent: Tenderness - Extremities Exam Additional comments: right gluteal area with dressings in place, with mild tenderness elicited on palpation of the area Assessment and Plan - Assessment and Plan (Free Text) Plan: Assessment consider septic shock secondary to right gluteal area severe skin and skin structure infection (with spread to right femoral and inguinal area)in a patient who presented with decreased sensorium and acute renal failure, slowly improving; R/O urinary tract infection R/O colitis (as seen on CT scan) dyslipidemia HTN COPD Plan continue Zyvox and Merrem (day 2); blood cx are negative x 1 day; follow up urine cx, wound cx; PCT is elevated at 0.79 although the patient has renal failure; follow up stool for Cdiff - patient has been started on PO Vancomycin pending this result Will continue to follow clinically
[2016-10-11] MEDS: Linezolid 600 mg in D5W 300 ml 300 ML IVPB SCH ×2 (09:33→22:38)
[2016-10-11] MEDS ORDERED: Heparin25000 units/250ml 1/2NS 250 ML IV PRN (09:54)
--- NOTE | 2016-10-11 09:55 | CP.CCUPN ---
<Aminata Mcduffie - Last Filed: 10/11/16 10:56> CCU Subjective - Physician Review Events Since Last Encounter (Free Text): 10/11/16 09:54 Patient seen and examined bedside. No acute events overnight. Failed swallow eval yesterday, still NPO. Slightly hypothermic 97.0. Patient denies CP, SOB, n/ v. Simply states he feel "bleh" and admits to lower abdominal pain upon palpation of the area. Patient is poorly communicative and is unable to elaborate further. Patient is still on Norepinephrine and Vasopressin, off dobutamine. Appears comfortable on NC. Critical Care Time Spent (in minutes): 40 CCU Objective - Vital Signs / Intake & Output Vital Signs (Last 4 hours): Vital Signs Temp Pulse Resp BP Pulse Ox 10/11/16 06:30 97.2 F L 63 23 145/64 100 10/11/16 06:15 97.2 F L 60 24 122/49 L 99 10/11/16 06:06 97.0 F L 61 100 10/11/16 06:00 97.0 F L 61 27 H 121/52 L 69 L Intake and Output (Last 8hrs): Intake & Output 10/10/16 10/11/16 10/11/16 22:59 06:59 14:59 Intake Total 1922 Output Total 300 Balance 1622 Weight 169 lb Intake: IV 1922 Right Internal Jugular 1922 Oral 0 Output: Urine 300 2-way Urethral 300 Stool 0 Other: Voiding Method Indwelling Catheter - Physical Exam Head: Positive for: Atraumatic, Normocephalic Pupils: Positive for: PERRL Extroacular Muscles: Positive for: EOMI Conjunctiva: Positive for: Normal Mouth: Positive for: Dry Neck: Positive for: Normal Range of Motion Respiratory/Chest: Positive for: Clear to Auscultation, Good Air Exchange. Negative for: Respiratory Distress, Accessory Muscle Use Cardiovascular: Positive for: Normal S1, S2, Bradycardic. Negative for: Murmurs Abdomen: Positive for: Normal Bowel Sounds. Negative for: Tenderness, Distention, Peritoneal Signs Upper Extremity: Positive for: Normal Inspection. Negative for: Cyanosis, Edema Lower Extremity: Positive for: Normal Inspection. Negative for: Edema Neurological: Positive for: CN II-XII Intact, Speech Normal, Motor Func Grossly Intact, Normal Sensory Function, Other (Awaker, oriented to person) Skin: Positive for: Normal Color, Other (Area of severe excoriations to lower back/buttocks with cellulitis noted extending from lower back/buttocks to upper thighs). Negative for: Dry Psychiatric: Positive for: Alert. Negative for: Oriented x 3 (Oriented to person) - Medications Active Medications: Active Medications Generic Name Dose Route Start Last Admin Trade Name Freq PRN Reason Stop Dose Admin Albuterol/Ipratropium 3 ml 10/11/16 11:30 Duoneb 3 Mg/0.5 Mg (3 Ml) Ud IH [id number] FREDY Aspirin 300 mg 10/11/16 10:00 10/11/16 09:32 Aspirin Supp RC 300 mg DAILY FREDY Administration Hydrocortisone Sodium Succinate 50 mg 10/10/16 12:00 10/11/16 05:32 Solu-Cortef IVP 50 mg Q6 FREDY Administration Norepinephrine Bitartrate 4 mg 254 mls @ 15.24 mls/hr 10/09/16 22:10 10/11/16 07:15 / Sodium Chloride IV 12 mcg/min .[id number] PRN Titration TITRATE PER MD ORDER Protocol 4 MCG/MIN Meropenem 1g/NS 100mL IVPB 100 mls @ 100 mls/hr 10/10/16 18:00 10/11/16 05:29 Meropenem 1g/Ns 100ml Ivpb IVPB 100 mls/hr Q12H FREDY Administration Protocol Vasopressin 20 units/ Sodium 101 mls @ 9.09 mls/hr 10/10/16 07:15 10/11/16 05: 30 Chloride IV 9.09 mls/hr .[id number] FREDY Administration Protocol 0.03 U/MIN Linezolid 300 mls @ 200 mls/hr 10/10/16 13:30 10/11/16 09:33 Zyvox 600mg/300ml D5w IVPB 10/17/16 13:31 200 mls/hr Q12 FREDY Administration Protocol Sodium Bicarbonate 75 meq/ 1,075 mls @ 150 mls/hr 10/11/16 09:34 Dextrose IV .[id number] FREDY Multivitamins/Vitamin C 10 ml/ 1,010 mls @ 100 mls/hr 10/11/16 10:00 Dextrose IV DAILY FREDY Insulin Human Lispro 0 units 10/10/16 07:30 10/11/16 08:14 Humalog Low SC Not Given ACHS [facility] Protocol Pantoprazole Sodium 40 mg 10/11/16 10:00 10/11/16 09:31 Protonix Inj IVP 40 mg DAILY [facility] Administration Vancomycin HCl 125 mg 10/11/16 10:00 Vancocin 25 Mg/Ml (Oral Use) PO QID [facility] Protocol - Patient Studies Lab Studies: Lab Studies 10/11/16 10/11/16 10/11/16 Range/Units 07:51 06:00 05:50 WBC 13.5 H (4.5-11.0) 10^3/ul RBC 4.17 (3.5-6.1) 10^6/uL Hgb 11.5 L (14.0-18.0) gm/dL Hct 36.2 L (42.0-52.0) % MCV 86.8 (80.0-105.0) fL MCH 27.6 (25.0-35.0) pg MCHC 31.8 (31.0-37.0) g/dl RDW 18.3 H (11.5-14.5) % Plt Count 97 L (120.0-450.0) 10^3/uL Gran % (50.0-68.0) % Lymph % (Auto) (22.0-35.0) % [place] % (Auto) (1.0-6.0) % Eos % (Auto) (1.5-5.0) % Baso % (Auto) (0.0-3.0) % Gran # (1.4-6.5) Lymph # (1.2-3.4) [place] # (0.1-0.6) Eos # (0.0-0.7) Baso # (0.0-2.0) K/mm3 Neutrophils % (Manual) 82 H (50.0-70.0) % Band Neutrophils % 10 H (0-2) % Lymphocytes % (Manual) 5 L (22.0-35.0) % Atypical Lymphs % (0.0-0.0) % Monocytes % (Manual) 3 (1.0-6.0) % Toxic Granulation 1+ Platelet Evaluation Low (NORMAL) Large Platelets Present Giant Platelets Present Hypochromasia 1+ Poikilocytosis (manual Slight Anisocytosis (manual) 1+ Ovalocytes Slight pO2 (30-55) mm/Hg VBG pH (7.32-7.43) VBG pCO2 (40-60) VBG HCO3 (21-28) mmol/l VBG Total CO2 (22-28) mmol.L VBG O2 Sat (Calc) (40-65) % VBG Base Excess (0.0-2.0) mmol/L VBG Potassium (3.6-5.2) mmol/L Glucose (75-110) mg/dl Lactate (0.7-2.1) mmol/L FiO2 % Sodium 154 H (132-148) mmol/L Potassium 5.1 H (3.6-5.0) mmol/L Chloride 124 H (98-107) mmol/L Carbon Dioxide 18 L (21-33) mmol/L Anion Gap 17 (10-20) BUN 59 H (7-21) mg/dL Creatinine 3.0 H (0.5-1.4) mg/dL Est GFR ( Amer) 25 Est GFR (Non-Af Amer) 20 POC Glucose (mg/dL) 134 H (65-110) mg/dL Random Glucose 128 H (70-110) mg/dL Calcium 7.1 L (8.4-10.5) mg/dL Phosphorus 4.0 (2.5-4.5) mg/dL Magnesium 2.0 (1.7-2.2) mg/dL Total Bilirubin 0.3 (0.2-1.3) mg/dL AST 40 (15-59) U/L ALT 44 (7-56) U/L Alkaline Phosphatase 77 (38-133) U/L Lactate Dehydrogenase 373 (333-699) U/L Total Creatine Kinase 119 (35-230) U/L Troponin I 0.03 ng/mL Total Protein 5.7 L (5.8-8.3) g/dL Albumin 3.1 (3.0-4.8) g/dL Globulin 2.6 gm/dL Albumin/Globulin Ratio 1.2 (1.1-1.8) Procalcitonin (0.19-0.49) NG/ML Venous Blood Potassium (3.6-5.2) mmol/L Ur Random Creatinine 136 mg/dL 0310/11/16 10/10/16 Range/Units 04:10 01:40 21:55 WBC 14.0 H (4.5-11.0) 10^3/ul RBC 4.12 (3.5-6.1) 10^6/uL Hgb 11.5 L (14.0-18.0) gm/dL Hct 35.7 L (42.0-52.0) % MCV 86.7 (80.0-105.0) fL MCH 27.9 (25.0-35.0) pg MCHC 32.2 (31.0-37.0) g/dl RDW 18.2 H (11.5-14.5) % Plt Count 97 L (120.0-450.0) 10^3/uL Gran % 79.9 H (50.0-68.0) % Lymph % (Auto) 9.6 L (22.0-35.0) % [place] % (Auto) 10.2 H (1.0-6.0) % Eos % (Auto) 0.1 L (1.5-5.0) % Baso % (Auto) 0.2 (0.0-3.0) % Gran # 11.17 H (1.4-6.5) Lymph # 1.3 (1.2-3.4) [place] # 1.4 H (0.1-0.6) Eos # 0.0 (0.0-0.7) Baso # 0.03 (0.0-2.0) K/mm3 Neutrophils % (Manual) (50.0-70.0) % Band Neutrophils % (0-2) % Lymphocytes % (Manual) (22.0-35.0) % Atypical Lymphs % (0.0-0.0) % Monocytes % (Manual) (1.0-6.0) % Toxic Granulation Platelet Evaluation (NORMAL) Large Platelets Giant Platelets Hypochromasia Poikilocytosis (manual Anisocytosis (manual) Ovalocytes pO2 (30-55) mm/Hg VBG pH (7.32-7.43) VBG pCO2 (40-60) VBG HCO3 (21-28) mmol/l VBG Total CO2 (22-28) mmol.L VBG O2 Sat (Calc) (40-65) % VBG Base Excess (0.0-2.0) mmol/L VBG Potassium (3.6-5.2) mmol/L Glucose (75-110) mg/dl Lactate (0.7-2.1) mmol/L FiO2 % Sodium 150 H (132-148) mmol/L Potassium 5.6 H* 5.1 H (3.6-5.0) mmol/L Chloride 122 H (98-107) mmol/L Carbon Dioxide 18 L (21-33) mmol/L Anion Gap 16 (10-20) BUN 59 H (7-21) mg/dL Creatinine 2.9 H (0.5-1.4) mg/dL Est GFR ( Amer) 26 Est GFR (Non-Af Amer) 21 POC Glucose (mg/dL) (65-110) mg/dL Random Glucose 80 (70-110) mg/dL Calcium 7.2 L (8.4-10.5) mg/dL Phosphorus 3.7 (2.5-4.5) mg/dL Magnesium 1.9 (1.7-2.2) mg/dL Total Bilirubin (0.2-1.3) mg/dL AST (15-59) U/L ALT (7-56) U/L Alkaline Phosphatase (38-133) U/L Lactate Dehydrogenase 582 (333-699) U/L Total Creatine Kinase 93 83 (35-230) U/L Troponin I 0.03 D ng/mL Total Protein (5.8-8.3) g/dL Albumin (3.0-4.8) g/dL Globulin gm/dL Albumin/Globulin Ratio (1.1-1.8) Procalcitonin (0.19-0.49) NG/ML Venous Blood Potassium (3.6-5.2) mmol/L Ur Random Creatinine mg/dL 10/10/16 10/10/16 10/10/16 Range/Units 21:47 19:00 15:45 WBC 11.7 H (4.5-11.0) 10^3/ul RBC 4.13 (3.5-6.1) 10^6/uL Hgb 11.5 L (14.0-18.0) gm/dL Hct 35.9 L (42.0-52.0) % MCV 86.9 (80.0-105.0) fL MCH 27.8 (25.0-35.0) pg MCHC 32.0 (31.0-37.0) g/dl RDW 18.2 H (11.5-14.5) % Plt Count 96 L (120.0-450.0) 10^3/uL Gran % (50.0-68.0) % Lymph % (Auto) (22.0-35.0) % [place] % (Auto) (1.0-6.0) % Eos % (Auto) (1.5-5.0) % Baso % (Auto) (0.0-3.0) % Gran # (1.4-6.5) Lymph # (1.2-3.4) [place] # (0.1-0.6) Eos # (0.0-0.7) Baso # (0.0-2.0) K/mm3 Neutrophils % (Manual) 74 H (50.0-70.0) % Band Neutrophils % 7 H (0-2) % Lymphocytes % (Manual) 8 L (22.0-35.0) % Atypical Lymphs % 2 H (0.0-0.0) % Monocytes % (Manual) 9 H (1.0-6.0) % Toxic Granulation Platelet Evaluation Low (NORMAL) Large Platelets Present Giant Platelets Hypochromasia Poikilocytosis (manual Anisocytosis (manual) Ovalocytes pO2 (30-55) mm/Hg VBG pH (7.32-7.43) VBG pCO2 (40-60) VBG HCO3 (21-28) mmol/l VBG Total CO2 (22-28) mmol.L VBG O2 Sat (Calc) (40-65) % VBG Base Excess (0.0-2.0) mmol/L VBG Potassium (3.6-5.2) mmol/L Glucose (75-110) mg/dl Lactate (0.7-2.1) mmol/L FiO2 % Sodium 151 H (132-148) mmol/L Potassium 5.8 H* (3.6-5.0) mmol/L Chloride 123 H (98-107) mmol/L Carbon Dioxide 19 L (21-33) mmol/L Anion Gap 15 (10-20) BUN 58 H (7-21) mg/dL Creatinine 2.8 H (0.5-1.4) mg/dL Est GFR ( Amer) 27 Est GFR (Non-Af Amer) 22 POC Glucose (mg/dL) 119 H 110 (65-110) mg/dL Random Glucose 124 H (70-110) mg/dL Calcium 7.2 L (8.4-10.5) mg/dL Phosphorus 4.2 (2.5-4.5) mg/dL Magnesium 2.0 (1.7-2.2) mg/dL Total Bilirubin (0.2-1.3) mg/dL AST (15-59) U/L ALT (7-56) U/L Alkaline Phosphatase (38-133) U/L Lactate Dehydrogenase 315 L (333-699) U/L Total Creatine Kinase 72 (35-230) U/L Troponin I < 0.01 ng/mL Total Protein (5.8-8.3) g/dL Albumin (3.0-4.8) g/dL Globulin gm/dL Albumin/Globulin Ratio (1.1-1.8) Procalcitonin (0.19-0.49) NG/ML Venous Blood Potassium (3.6-5.2) mmol/L Ur Random Creatinine mg/dL 10/10/16 10/10/16 10/10/16 Range/Units 12:53 12:40 10:30 WBC 10.5 D (4.5-11.0) 10^3/ul RBC 4.20 (3.5-6.1) 10^6/uL Hgb 11.9 L (14.0-18.0) gm/dL Hct 36.8 L (42.0-52.0) % MCV 87.6 (80.0-105.0) fL MCH 28.3 (25.0-35.0) pg MCHC 32.3 (31.0-37.0) g/dl RDW 18.1 H (11.5-14.5) % Plt Count 103 L (120.0-450.0) 10^3/uL Gran % 83.9 H (50.0-68.0) % Lymph % (Auto) 6.0 L (22.0-35.0) % [place] % (Auto) 10.0 H (1.0-6.0) % Eos % (Auto) 0.0 L (1.5-5.0) % Baso % (Auto) 0.1 (0.0-3.0) % Gran # 8.80 H (1.4-6.5) Lymph # 0.6 L (1.2-3.4) [place] # 1.1 H (0.1-0.6) Eos # 0.0 (0.0-0.7) Baso # 0.01 (0.0-2.0) K/mm3 Neutrophils % (Manual) (50.0-70.0) % Band Neutrophils % (0-2) % Lymphocytes % (Manual) (22.0-35.0) % Atypical Lymphs % (0.0-0.0) % Monocytes % (Manual) (1.0-6.0) % Toxic Granulation Platelet Evaluation (NORMAL) Large Platelets Giant Platelets Hypochromasia Poikilocytosis (manual Anisocytosis (manual) Ovalocytes pO2 45 (30-55) mm/Hg VBG pH 7.26 L (7.32-7.43) VBG pCO2 39.0 L (40-60) VBG HCO3 17.5 L (21-28) mmol/l VBG Total CO2 18.7 L (22-28) mmol.L VBG O2 Sat (Calc) 85.7 H (40-65) % VBG Base Excess -9.0 L (0.0-2.0) mmol/L VBG Potassium 4.4 (3.6-5.2) mmol/L Glucose 103 (75-110) mg/dl Lactate 2.1 (0.7-2.1) mmol/L FiO2 21.0 % Sodium 156 H* 154.0 H (132-148) mmol/L Potassium 5.1 H (3.6-5.0) mmol/L Chloride 124 H 130.0 H (98-107) mmol/L Carbon Dioxide 19 L (21-33) mmol/L Anion Gap 18 (10-20) BUN 60 H (7-21) mg/dL Creatinine 2.8 H (0.5-1.4) mg/dL Est GFR ( Amer) 27 Est GFR (Non-Af Amer) 22 POC Glucose (mg/dL) 83 (65-110) mg/dL Random Glucose 91 (70-110) mg/dL Calcium 7.5 L (8.4-10.5) mg/dL Phosphorus 3.8 (2.5-4.5) mg/dL Magnesium 2.0 (1.7-2.2) mg/dL Total Bilirubin (0.2-1.3) mg/dL AST (15-59) U/L ALT (7-56) U/L Alkaline Phosphatase (38-133) U/L Lactate Dehydrogenase 362 (333-699) U/L Total Creatine Kinase 66 (35-230) U/L Troponin I < 0.01 ng/mL Total Protein (5.8-8.3) g/dL Albumin (3.0-4.8) g/dL Globulin gm/dL Albumin/Globulin Ratio (1.1-1.8) Procalcitonin 0.79 H (0.19-0.49) NG/ML Venous Blood Potassium 4.4 (3.6-5.2) mmol/L Ur Random Creatinine mg/dL 10/10/16 Range/Units 08:46 WBC (4.5-11.0) 10^3/ul RBC (3.5-6.1) 10^6/uL Hgb (14.0-18.0) gm/dL Hct (42.0-52.0) % MCV (80.0-105.0) fL MCH (25.0-35.0) pg MCHC (31.0-37.0) g/dl RDW (11.5-14.5) % Plt Count (120.0-450.0) 10^3/uL Gran % (50.0-68.0) % Lymph % (Auto) (22.0-35.0) % [place] % (Auto) (1.0-6.0) % Eos % (Auto) (1.5-5.0) % Baso % (Auto) (0.0-3.0) % Gran # (1.4-6.5) Lymph # (1.2-3.4) [place] # (0.1-0.6) Eos # (0.0-0.7) Baso # (0.0-2.0) K/mm3 Neutrophils % (Manual) (50.0-70.0) % Band Neutrophils % (0-2) % Lymphocytes % (Manual) (22.0-35.0) % Atypical Lymphs % (0.0-0.0) % Monocytes % (Manual) (1.0-6.0) % Toxic Granulation Platelet Evaluation (NORMAL) Large Platelets Giant Platelets Hypochromasia Poikilocytosis (manual Anisocytosis (manual) Ovalocytes pO2 (30-55) mm/Hg VBG pH (7.32-7.43) VBG pCO2 (40-60) VBG HCO3 (21-28) mmol/l VBG Total CO2 (22-28) mmol.L VBG O2 Sat (Calc) (40-65) % VBG Base Excess (0.0-2.0) mmol/L VBG Potassium (3.6-5.2) mmol/L Glucose (75-110) mg/dl Lactate (0.7-2.1) mmol/L FiO2 % Sodium (132-148) mmol/L Potassium (3.6-5.0) mmol/L Chloride (98-107) mmol/L Carbon Dioxide (21-33) mmol/L Anion Gap (10-20) BUN (7-21) mg/dL Creatinine (0.5-1.4) mg/dL Est GFR ( Amer) Est GFR (Non-Af Amer) POC Glucose (mg/dL) 98 (65-110) mg/dL Random Glucose (70-110) mg/dL Calcium (8.4-10.5) mg/dL Phosphorus (2.5-4.5) mg/dL Magnesium (1.7-2.2) mg/dL Total Bilirubin (0.2-1.3) mg/dL AST (15-59) U/L ALT (7-56) U/L Alkaline Phosphatase (38-133) U/L Lactate Dehydrogenase (333-699) U/L Total Creatine Kinase (35-230) U/L Troponin I ng/mL Total Protein (5.8-8.3) g/dL Albumin (3.0-4.8) g/dL Globulin gm/dL Albumin/Globulin Ratio (1.1-1.8) Procalcitonin (0.19-0.49) NG/ML Venous Blood Potassium (3.6-5.2) mmol/L Ur Random Creatinine mg/dL Laboratory Results - last 24 hr 10/10/16 10/10/16 10/10/16 08:46 10:30 12:40 WBC RBC Hgb Hct MCV MCH MCHC RDW Plt Count Gran % Lymph % (Auto) [place] % (Auto) Eos % (Auto) Baso % (Auto) Gran # Lymph # [place] # Eos # Baso # Neutrophils % (Manual) Band Neutrophils % Lymphocytes % (Manual) Atypical Lymphs % Monocytes % (Manual) Toxic Granulation Platelet Evaluation Large Platelets Giant Platelets Hypochromasia Poikilocytosis (manual Anisocytosis (manual) Ovalocytes pO2 45 VBG pH 7.26 L VBG pCO2 39.0 L VBG HCO3 17.5 L VBG Total CO2 18.7 L VBG O2 Sat (Calc) 85.7 H VBG Base Excess -9.0 L VBG Potassium 4.4 Sodium 154.0 H Chloride 130.0 H Glucose 103 Lactate 2.1 FiO2 21.0 Potassium Carbon Dioxide Anion Gap BUN Creatinine Est GFR ( Amer) Est GFR (Non-Af Amer) POC Glucose (mg/dL) 98 83 Random Glucose Calcium Phosphorus Magnesium Total Bilirubin AST ALT Alkaline Phosphatase Lactate Dehydrogenase Total Creatine Kinase Troponin I Total Protein Albumin Globulin Albumin/Globulin Ratio Procalcitonin Venous Blood Potassium 4.4 Ur Random Creatinine 10/10/16 10/10/16 10/10/16 12:53 15:45 19:00 WBC 10.5 D 11.7 H RBC 4.20 4.13 Hgb 11.9 L 11.5 L Hct 36.8 L 35.9 L MCV 87.6 86.9 MCH 28.3 27.8 MCHC 32.3 32.0 RDW 18.1 H 18.2 H Plt Count 103 L 96 L Gran % 83.9 H Lymph % (Auto) 6.0 L [place] % (Auto) 10.0 H Eos % (Auto) 0.0 L Baso % (Auto) 0.1 Gran # 8.80 H Lymph # 0.6 L [place] # 1.1 H Eos # 0.0 Baso # 0.01 Neutrophils % (Manual) 74 H Band Neutrophils % 7 H Lymphocytes % (Manual) 8 L Atypical Lymphs % 2 H Monocytes % (Manual) 9 H Toxic Granulation Platelet Evaluation Low Large Platelets Present Giant Platelets Hypochromasia Poikilocytosis (manual Anisocytosis (manual) Ovalocytes pO2 VBG pH VBG pCO2 VBG HCO3 VBG Total CO2 VBG O2 Sat (Calc) VBG Base Excess VBG Potassium Sodium 156 H* 151 H Chloride 124 H 123 H Glucose Lactate FiO2 Potassium 5.1 H 5.8 H* Carbon Dioxide 19 L 19 L Anion Gap 18 15 BUN 60 H 58 H Creatinine 2.8 H 2.8 H Est GFR ( Amer) 27 27 Est GFR (Non-Af Amer) 22 22 POC Glucose (mg/dL) 110 Random Glucose 91 124 H Calcium 7.5 L 7.2 L Phosphorus 3.8 4.2 Magnesium 2.0 2.0 Total Bilirubin AST ALT Alkaline Phosphatase Lactate Dehydrogenase 362 315 L Total Creatine Kinase 66 72 Troponin I < 0.01 < 0.01 Total Protein Albumin Globulin Albumin/Globulin Ratio Procalcitonin 0.79 H Venous Blood Potassium Ur Random Creatinine 10/10/16 10/10/16 10/11/16 21:47 21:55 01:40 WBC 14.0 H RBC 4.12 Hgb 11.5 L Hct 35.7 L MCV 86.7 MCH 27.9 MCHC 32.2 RDW 18.2 H Plt Count 97 L Gran % 79.9 H Lymph % (Auto) 9.6 L [place] % (Auto) 10.2 H Eos % (Auto) 0.1 L Baso % (Auto) 0.2 Gran # 11.17 H Lymph # 1.3 [place] # 1.4 H Eos # 0.0 Baso # 0.03 Neutrophils % (Manual) Band Neutrophils % Lymphocytes % (Manual) Atypical Lymphs % Monocytes % (Manual) Toxic Granulation Platelet Evaluation Large Platelets Giant Platelets Hypochromasia Poikilocytosis (manual Anisocytosis (manual) Ovalocytes pO2 VBG pH VBG pCO2 VBG HCO3 VBG Total CO2 VBG O2 Sat (Calc) VBG Base Excess VBG Potassium Sodium 150 H Chloride 122 H Glucose Lactate FiO2 Potassium 5.1 H 5.6 H* Carbon Dioxide 18 L Anion Gap 16 BUN 59 H Creatinine 2.9 H Est GFR ( Amer) 26 Est GFR (Non-Af Amer) 21 POC Glucose (mg/dL) 119 H Random Glucose 80 Calcium 7.2 L Phosphorus 3.7 Magnesium 1.9 Total Bilirubin AST ALT Alkaline Phosphatase Lactate Dehydrogenase 582 Total Creatine Kinase 83 Troponin I 0.03 D Total Protein Albumin Globulin Albumin/Globulin Ratio Procalcitonin Venous Blood Potassium Ur Random Creatinine 10/11/16 10/11/16 10/11/16 04:10 05:50 06:00 WBC 13.5 H RBC 4.17 Hgb 11.5 L Hct 36.2 L MCV 86.8 MCH 27.6 MCHC 31.8 RDW 18.3 H Plt Count 97 L Gran % Lymph % (Auto) [place] % (Auto) Eos % (Auto) Baso % (Auto) Gran # Lymph # [place] # Eos # Baso # Neutrophils % (Manual) 82 H Band Neutrophils % 10 H Lymphocytes % (Manual) 5 L Atypical Lymphs % Monocytes % (Manual) 3 Toxic Granulation 1+ Platelet Evaluation Low Large Platelets Present Giant Platelets Present Hypochromasia 1+ Poikilocytosis (manual Slight Anisocytosis (manual) 1+ Ovalocytes Slight pO2 VBG pH VBG pCO2 VBG HCO3 VBG Total CO2 VBG O2 Sat (Calc) VBG Base Excess VBG Potassium Sodium 154 H Chloride 124 H Glucose Lactate FiO2 Potassium 5.1 H Carbon Dioxide 18 L Anion Gap 17 BUN 59 H Creatinine 3.0 H Est GFR ( Amer) 25 Est GFR (Non-Af Amer) 20 POC Glucose (mg/dL) Random Glucose 128 H Calcium 7.1 L Phosphorus 4.0 Magnesium 2.0 Total Bilirubin 0.3 AST 40 ALT 44 Alkaline Phosphatase 77 Lactate Dehydrogenase 373 Total Creatine Kinase 93 119 Troponin I 0.03 Total Protein 5.7 L Albumin 3.1 Globulin 2.6 Albumin/Globulin Ratio 1.2 Procalcitonin Venous Blood Potassium Ur Random Creatinine 136 10/11/16 07:51 WBC RBC Hgb Hct MCV MCH MCHC RDW Plt Count Gran % Lymph % (Auto) [place] % (Auto) Eos % (Auto) Baso % (Auto) Gran # Lymph # [place] # Eos # Baso # Neutrophils % (Manual) Band Neutrophils % Lymphocytes % (Manual) Atypical Lymphs % Monocytes % (Manual) Toxic Granulation Platelet Evaluation Large Platelets Giant Platelets Hypochromasia Poikilocytosis (manual Anisocytosis (manual) Ovalocytes pO2 VBG pH VBG pCO2 VBG HCO3 VBG Total CO2 VBG O2 Sat (Calc) VBG Base Excess VBG Potassium Sodium Chloride Glucose Lactate FiO2 Potassium Carbon Dioxide Anion Gap BUN Creatinine Est GFR ( Amer) Est GFR (Non-Af Amer) POC Glucose (mg/dL) 134 H Random Glucose Calcium Phosphorus Magnesium Total Bilirubin AST ALT Alkaline Phosphatase Lactate Dehydrogenase Total Creatine Kinase Troponin I Total Protein Albumin Globulin Albumin/Globulin Ratio Procalcitonin Venous Blood Potassium Ur Random Creatinine EKG/Cardiology Studies: Cardiology / EKG Studies 10/10/16 20:05 EKG [ELECTROCARDIOGRAM] Stat Comment: Reason For Exam: hyperkalemia 10/11/16 07:00 EKG [ELECTROCARDIOGRAM] DAILY Comment: Reason For Exam: sinus bradycardia despite hypotension 10/12/16 07:00 EKG [ELECTROCARDIOGRAM] DAILY Comment: Reason For Exam: sinus bradycardia despite hypotension 10/13/16 07:00 EKG [ELECTROCARDIOGRAM] DAILY Comment: Reason For Exam: sinus bradycardia despite hypotension 10/14/16 07:00 EKG [ELECTROCARDIOGRAM] DAILY Comment: Reason For Exam: sinus bradycardia despite hypotension Fingerstick Blood Sugar Results: 134 Review of Systems - Constitutional Constitutional: absent: Fever, Chills - EENT Eyes: absent: Blurred Vision Ears: absent: Dizziness - Cardiovascular Cardiovascular: absent: Chest Pain, Dyspnea - Gastrointestinal Gastrointestinal: Abdominal Pain (lower abdomen). absent: Diarrhea, Nausea - Genitourinary Genitourinary: Dysuria Critical Care Progress Note - Ventilator Checklist PUD Prophalyxis: Yes DVT Prophylaxis: Yes - Nutrition Nutrition: Nutrition Category Date Time Status NPO Diet [DIET] Diets 10/09/16 Breakfast Ordered Assessment/Plan - Assessment and Plan (Free Text) Assessment: 76 yo M w h/o HTN, HLD, COPD admitted to ICU with AMS, with STEPHANIA and in septic shock 2/2 cellulitis, cystitis, colitis, possible PNA on CXR Plan: Neuro: Septic encephalopathy slightly improved. Continue to monitor Maintain normothermia CV: Continue levophed and vasopressin, titrate to maintain MAP>65 PAF. Change therapeutic Lovenox to Heparin drip given STEPHANIA Obtain 2D ECHO to assess LV function Pulm: Satting in high 90s-100% on 2L NC. Maintain spo2>90,pao2>60 Duonebs Q6hr GI: GI ppx Renal: STEPHANIA stable. Increase NS with bicarb to 150cc/hr Avoid nephrotoxins Hyperkalemia, hypernatremia improved. BMP Q6hr ID: Septic shock 2/2 cystitis, colitis r/o C diff, cellulitis, probable asp PNA Continue Meropenem, Linezolid, Vanc as per ID Followup Urine cultures Blood cultures negative at 24 hours C diff cultures pending Stress-dose steroids Endo: Maintain euglycemia 140-180 Heme: Mild thrombocytopenia likely 2/2 bone marrow suppression 2/2 septic shock GI/DVT ppx: NPO, Protonix, - Date & Time Date: 10/11/16 Time: 10:56 <Stuart Pandya - Last Filed: 10/11/16 14:25> CCU Objective - Vital Signs / Intake & Output Intake and Output (Last 8hrs): Intake & Output 10/10/16 10/11/16 10/11/16 22:59 06:59 14:59 Intake Total 1922 Output Total 300 Balance 1622 Weight 169 lb Intake: IV 1922 Right Internal Jugular 1922 Oral 0 Output: Urine 300 2-way Urethral 300 Stool 0 Other: Voiding Method Indwelling Catheter - Medications Active Medications: Active Medications Generic Name Dose Route Start Last Admin Trade Name Freq PRN Reason Stop Dose Admin Albuterol/Ipratropium 3 ml 10/11/16 14:00 Duoneb 3 Mg/0.5 Mg (3 Ml) Ud IH [id number] FREDY Aspirin 300 mg 10/11/16 10:00 10/11/16 09:32 Aspirin Supp RC 300 mg DAILY FREDY Administration Hydrocortisone Sodium Succinate 50 mg 10/10/16 12:00 10/11/16 11:41 Solu-Cortef IVP 50 mg Q6 FREDY Administration Norepinephrine Bitartrate 4 mg 254 mls @ 15.24 mls/hr 10/09/16 22:10 10/11/16 11:30 / Sodium Chloride IV 8 mcg/min .[id number] PRN Titration TITRATE PER MD ORDER Protocol 4 MCG/MIN Meropenem 1g/NS 100mL IVPB 100 mls @ 100 mls/hr 10/10/16 18:00 10/11/16 05:29 Meropenem 1g/Ns 100ml Ivpb IVPB 100 mls/hr Q12H FREDY Administration Protocol Vasopressin 20 units/ Sodium 101 mls @ 9.09 mls/hr 10/10/16 07:15 10/11/16 05: 30 Chloride IV 9.09 mls/hr .Q11H7M FREDY Administration Protocol 0.03 U/MIN Linezolid 300 mls @ 200 mls/hr 10/10/16 13:30 03/24/17 09:33 Zyvox 600mg/300ml D5w IVPB 10/17/16 13:31 200 mls/hr Q12 FREDY Administration Protocol Sodium Bicarbonate 75 meq/ 1,075 mls @ 150 mls/hr 10/11/16 09:34 10/11/16 10:20 Dextrose IV 150 mls/hr .Q7H10M FREDY Administration Heparin Sodium/Sodium Chloride 250 mls @ 13.798 mls/hr 10/11/16 09:54 10/11/16 10:49 Heparin 00362 Units/250ml 1/2 Normal Saline IV 13.798 mls/hr .Q18H8M PRN Administration ADJUST RATE PER PROTOCOL Protocol 18 UNITS/KG/HR Insulin Human Lispro 0 units 10/10/16 07:30 10/11/16 11:37 Humalog Low SC 2 units ACHS FREDY Administration Protocol Pantoprazole Sodium 40 mg 10/11/16 10:00 10/11/16 09:31 Protonix Inj IVP 40 mg DAILY FREDY Administration Vancomycin HCl 125 mg 10/11/16 10:00 Vancocin 25 Mg/Ml (Oral Use) PO QID [facility] Protocol - Patient Studies Lab Studies: Lab Studies 10/11/16 10/11/16 10/11/16 Range/Units 11:23 07:51 06:00 WBC 13.5 H (4.5-11.0) 10^3/ul RBC 4.17 (3.5-6.1) 10^6/uL Hgb 11.5 L (14.0-18.0) gm/dL Hct 36.2 L (42.0-52.0) % MCV 86.8 (80.0-105.0) fL MCH 27.6 (25.0-35.0) pg MCHC 31.8 (31.0-37.0) g/dl RDW 18.3 H (11.5-14.5) % Plt Count 97 L (120.0-450.0) 10^3/uL Gran % (50.0-68.0) % Lymph % (Auto) (22.0-35.0) % [place] % (Auto) (1.0-6.0) % Eos % (Auto) (1.5-5.0) % Baso % (Auto) (0.0-3.0) % Gran # (1.4-6.5) Lymph # (1.2-3.4) [place] # (0.1-0.6) Eos # (0.0-0.7) Baso # (0.0-2.0) K/mm3 Neutrophils % (Manual) 82 H (50.0-70.0) % Band Neutrophils % 10 H (0-2) % Lymphocytes % (Manual) 5 L (22.0-35.0) % Atypical Lymphs % (0.0-0.0) % Monocytes % (Manual) 3 (1.0-6.0) % Toxic Granulation 1+ Platelet Evaluation Low (NORMAL) Large Platelets Present Giant Platelets Present Hypochromasia 1+ Poikilocytosis (manual Slight Anisocytosis (manual) 1+ Ovalocytes Slight Sodium 154 H (132-148) mmol/L Potassium 5.1 H (3.6-5.0) mmol/L Chloride 124 H (98-107) mmol/L Carbon Dioxide 18 L (21-33) mmol/L Anion Gap 17 (10-20) BUN 59 H (7-21) mg/dL Creatinine 3.0 H (0.5-1.4) mg/dL Est GFR ( Amer) 25 Est GFR (Non-Af Amer) 20 POC Glucose (mg/dL) 219 H 134 H (65-110) mg/dL Random Glucose 128 H (70-110) mg/dL Calcium 7.1 L (8.4-10.5) mg/dL Phosphorus 4.0 (2.5-4.5) mg/dL Magnesium 2.0 (1.7-2.2) mg/dL Total Bilirubin 0.3 (0.2-1.3) mg/dL AST 40 (15-59) U/L ALT 44 (7-56) U/L Alkaline Phosphatase 77 (38-133) U/L Lactate Dehydrogenase 373 (333-699) U/L Total Creatine Kinase 119 (35-230) U/L Troponin I 0.03 ng/mL Total Protein 5.7 L (5.8-8.3) g/dL Albumin 3.1 (3.0-4.8) g/dL Globulin 2.6 gm/dL Albumin/Globulin Ratio 1.2 (1.1-1.8) Procalcitonin (0.19-0.49) NG/ML Ur Random Creatinine mg/dL 10/11/16 10/11/16 10/11/16 Range/Units 05:50 04:10 01:40 WBC 14.0 H (4.5-11.0) 10^3/ul RBC 4.12 (3.5-6.1) 10^6/uL Hgb 11.5 L (14.0-18.0) gm/dL Hct 35.7 L (42.0-52.0) % MCV 86.7 (80.0-105.0) fL MCH 27.9 (25.0-35.0) pg MCHC 32.2 (31.0-37.0) g/dl RDW 18.2 H (11.5-14.5) % Plt Count 97 L (120.0-450.0) 10^3/uL Gran % 79.9 H (50.0-68.0) % Lymph % (Auto) 9.6 L (22.0-35.0) % [place] % (Auto) 10.2 H (1.0-6.0) % Eos % (Auto) 0.1 L (1.5-5.0) % Baso % (Auto) 0.2 (0.0-3.0) % Gran # 11.17 H (1.4-6.5) Lymph # 1.3 (1.2-3.4) [place] # 1.4 H (0.1-0.6) Eos # 0.0 (0.0-0.7) Baso # 0.03 (0.0-2.0) K/mm3 Neutrophils % (Manual) (50.0-70.0) % Band Neutrophils % (0-2) % Lymphocytes % (Manual) (22.0-35.0) % Atypical Lymphs % (0.0-0.0) % Monocytes % (Manual) (1.0-6.0) % Toxic Granulation Platelet Evaluation (NORMAL) Large Platelets Giant Platelets Hypochromasia Poikilocytosis (manual Anisocytosis (manual) Ovalocytes Sodium 150 H (132-148) mmol/L Potassium 5.6 H* (3.6-5.0) mmol/L Chloride 122 H (98-107) mmol/L Carbon Dioxide 18 L (21-33) mmol/L Anion Gap 16 (10-20) BUN 59 H (7-21) mg/dL Creatinine 2.9 H (0.5-1.4) mg/dL Est GFR ( Amer) 26 Est GFR (Non-Af Amer) 21 POC Glucose (mg/dL) (65-110) mg/dL Random Glucose 80 (70-110) mg/dL Calcium 7.2 L (8.4-10.5) mg/dL Phosphorus 3.7 (2.5-4.5) mg/dL Magnesium 1.9 (1.7-2.2) mg/dL Total Bilirubin (0.2-1.3) mg/dL AST (15-59) U/L ALT (7-56) U/L Alkaline Phosphatase (38-133) U/L Lactate Dehydrogenase 582 (333-699) U/L Total Creatine Kinase 93 83 (35-230) U/L Troponin I 0.03 D ng/mL Total Protein (5.8-8.3) g/dL Albumin (3.0-4.8) g/dL Globulin gm/dL Albumin/Globulin Ratio (1.1-1.8) Procalcitonin (0.19-0.49) NG/ML Ur Random Creatinine 136 mg/dL 10/10/16 10/10/16 10/10/16 Range/Units 21:55 21:47 19:00 WBC 11.7 H (4.5-11.0) 10^3/ul RBC 4.13 (3.5-6.1) 10^6/uL Hgb 11.5 L (14.0-18.0) gm/dL Hct 35.9 L (42.0-52.0) % MCV 86.9 (80.0-105.0) fL MCH 27.8 (25.0-35.0) pg MCHC 32.0 (31.0-37.0) g/dl RDW 18.2 H (11.5-14.5) % Plt Count 96 L (120.0-450.0) 10^3/uL Gran % (50.0-68.0) % Lymph % (Auto) (22.0-35.0) % [place] % (Auto) (1.0-6.0) % Eos % (Auto) (1.5-5.0) % Baso % (Auto) (0.0-3.0) % Gran # (1.4-6.5) Lymph # (1.2-3.4) [place] # (0.1-0.6) Eos # (0.0-0.7) Baso # (0.0-2.0) K/mm3 Neutrophils % (Manual) 74 H (50.0-70.0) % Band Neutrophils % 7 H (0-2) % Lymphocytes % (Manual) 8 L (22.0-35.0) % Atypical Lymphs % 2 H (0.0-0.0) % Monocytes % (Manual) 9 H (1.0-6.0) % Toxic Granulation Platelet Evaluation Low (NORMAL) Large Platelets Present Giant Platelets Hypochromasia Poikilocytosis (manual Anisocytosis (manual) Ovalocytes Sodium 151 H (132-148) mmol/L Potassium 5.1 H 5.8 H* (3.6-5.0) mmol/L Chloride 123 H (98-107) mmol/L Carbon Dioxide 19 L (21-33) mmol/L Anion Gap 15 (10-20) BUN 58 H (7-21) mg/dL Creatinine 2.8 H (0.5-1.4) mg/dL Est GFR ( Amer) 27 Est GFR (Non-Af Amer) 22 POC Glucose (mg/dL) 119 H (65-110) mg/dL Random Glucose 124 H (70-110) mg/dL Calcium 7.2 L (8.4-10.5) mg/dL Phosphorus 4.2 (2.5-4.5) mg/dL Magnesium 2.0 (1.7-2.2) mg/dL Total Bilirubin (0.2-1.3) mg/dL AST (15-59) U/L ALT (7-56) U/L Alkaline Phosphatase (38-133) U/L Lactate Dehydrogenase 315 L (333-699) U/L Total Creatine Kinase 72 (35-230) U/L Troponin I < 0.01 ng/mL Total Protein (5.8-8.3) g/dL Albumin (3.0-4.8) g/dL Globulin gm/dL Albumin/Globulin Ratio (1.1-1.8) Procalcitonin (0.19-0.49) NG/ML Ur Random Creatinine mg/dL 10/10/16 10/10/16 10/10/16 Range/Units 15:45 12:53 12:40 WBC 10.5 D (4.5-11.0) 10^3/ul RBC 4.20 (3.5-6.1) 10^6/uL Hgb 11.9 L (14.0-18.0) gm/dL Hct 36.8 L (42.0-52.0) % MCV 87.6 (80.0-105.0) fL MCH 28.3 (25.0-35.0) pg MCHC 32.3 (31.0-37.0) g/dl RDW 18.1 H (11.5-14.5) % Plt Count 103 L (120.0-450.0) 10^3/uL Gran % 83.9 H (50.0-68.0) % Lymph % (Auto) 6.0 L (22.0-35.0) % [place] % (Auto) 10.0 H (1.0-6.0) % Eos % (Auto) 0.0 L (1.5-5.0) % Baso % (Auto) 0.1 (0.0-3.0) % Gran # 8.80 H (1.4-6.5) Lymph # 0.6 L (1.2-3.4) [place] # 1.1 H (0.1-0.6) Eos # 0.0 (0.0-0.7) Baso # 0.01 (0.0-2.0) K/mm3 Neutrophils % (Manual) (50.0-70.0) % Band Neutrophils % (0-2) % Lymphocytes % (Manual) (22.0-35.0) % Atypical Lymphs % (0.0-0.0) % Monocytes % (Manual) (1.0-6.0) % Toxic Granulation Platelet Evaluation (NORMAL) Large Platelets Giant Platelets Hypochromasia Poikilocytosis (manual Anisocytosis (manual) Ovalocytes Sodium 156 H* (132-148) mmol/L Potassium 5.1 H (3.6-5.0) mmol/L Chloride 124 H (98-107) mmol/L Carbon Dioxide 19 L (21-33) mmol/L Anion Gap 18 (10-20) BUN 60 H (7-21) mg/dL Creatinine 2.8 H (0.5-1.4) mg/dL Est GFR ( Amer) 27 Est GFR (Non-Af Amer) 22 POC Glucose (mg/dL) 110 83 (65-110) mg/dL Random Glucose 91 (70-110) mg/dL Calcium 7.5 L (8.4-10.5) mg/dL Phosphorus 3.8 (2.5-4.5) mg/dL Magnesium 2.0 (1.7-2.2) mg/dL Total Bilirubin (0.2-1.3) mg/dL AST (15-59) U/L ALT (7-56) U/L Alkaline Phosphatase (38-133) U/L Lactate Dehydrogenase 362 (333-699) U/L Total Creatine Kinase 66 (35-230) U/L Troponin I < 0.01 ng/mL Total Protein (5.8-8.3) g/dL Albumin (3.0-4.8) g/dL Globulin gm/dL Albumin/Globulin Ratio (1.1-1.8) Procalcitonin 0.79 H (0.19-0.49) NG/ML Ur Random Creatinine mg/dL Laboratory Results - last 24 hr 10/10/16 10/10/16 10/10/16 12:40 12:53 15:45 WBC 10.5 D RBC 4.20 Hgb 11.9 L Hct 36.8 L MCV 87.6 MCH 28.3 MCHC 32.3 RDW 18.1 H Plt Count 103 L Gran % 83.9 H Lymph % (Auto) 6.0 L [place] % (Auto) 10.0 H Eos % (Auto) 0.0 L Baso % (Auto) 0.1 Gran # 8.80 H Lymph # 0.6 L [place] # 1.1 H Eos # 0.0 Baso # 0.01 Neutrophils % (Manual) Band Neutrophils % Lymphocytes % (Manual) Atypical Lymphs % Monocytes % (Manual) Toxic Granulation Platelet Evaluation Large Platelets Giant Platelets Hypochromasia Poikilocytosis (manual Anisocytosis (manual) Ovalocytes Sodium 156 H* Potassium 5.1 H Chloride 124 H Carbon Dioxide 19 L Anion Gap 18 BUN 60 H Creatinine 2.8 H Est GFR ( Amer) 27 Est GFR (Non-Af Amer) 22 POC Glucose (mg/dL) 83 110 Random Glucose 91 Calcium 7.5 L Phosphorus 3.8 Magnesium 2.0 Total Bilirubin AST ALT Alkaline Phosphatase Lactate Dehydrogenase 362 Total Creatine Kinase 66 Troponin I < 0.01 Total Protein Albumin Globulin Albumin/Globulin Ratio Procalcitonin 0.79 H Ur Random Creatinine 10/10/16 10/10/16 10/10/16 19:00 21:47 21:55 WBC 11.7 H RBC 4.13 Hgb 11.5 L Hct 35.9 L MCV 86.9 MCH 27.8 MCHC 32.0 RDW 18.2 H Plt Count 96 L Gran % Lymph % (Auto) [place] % (Auto) Eos % (Auto) Baso % (Auto) Gran # Lymph # [place] # Eos # Baso # Neutrophils % (Manual) 74 H Band Neutrophils % 7 H Lymphocytes % (Manual) 8 L Atypical Lymphs % 2 H Monocytes % (Manual) 9 H Toxic Granulation Platelet Evaluation Low Large Platelets Present Giant Platelets Hypochromasia Poikilocytosis (manual Anisocytosis (manual) Ovalocytes Sodium 151 H Potassium 5.8 H* 5.1 H Chloride 123 H Carbon Dioxide 19 L Anion Gap 15 BUN 58 H Creatinine 2.8 H Est GFR ( Amer) 27 Est GFR (Non-Af Amer) 22 POC Glucose (mg/dL) 119 H Random Glucose 124 H Calcium 7.2 L Phosphorus 4.2 Magnesium 2.0 Total Bilirubin AST ALT Alkaline Phosphatase Lactate Dehydrogenase 315 L Total Creatine Kinase 72 Troponin I < 0.01 Total Protein Albumin Globulin Albumin/Globulin Ratio Procalcitonin Ur Random Creatinine 10/11/16 10/11/16 10/11/16 01:40 04:10 05:50 WBC 14.0 H RBC 4.12 Hgb 11.5 L Hct 35.7 L MCV 86.7 MCH 27.9 MCHC 32.2 RDW 18.2 H Plt Count 97 L Gran % 79.9 H Lymph % (Auto) 9.6 L [place] % (Auto) 10.2 H Eos % (Auto) 0.1 L Baso % (Auto) 0.2 Gran # 11.17 H Lymph # 1.3 [place] # 1.4 H Eos # 0.0 Baso # 0.03 Neutrophils % (Manual) Band Neutrophils % Lymphocytes % (Manual) Atypical Lymphs % Monocytes % (Manual) Toxic Granulation Platelet Evaluation Large Platelets Giant Platelets Hypochromasia Poikilocytosis (manual Anisocytosis (manual) Ovalocytes Sodium 150 H Potassium 5.6 H* Chloride 122 H Carbon Dioxide 18 L Anion Gap 16 BUN 59 H Creatinine 2.9 H Est GFR ( Amer) 26 Est GFR (Non-Af Amer) 21 POC Glucose (mg/dL) Random Glucose 80 Calcium 7.2 L Phosphorus 3.7 Magnesium 1.9 Total Bilirubin AST ALT Alkaline Phosphatase Lactate Dehydrogenase 582 Total Creatine Kinase 83 93 Troponin I 0.03 D Total Protein Albumin Globulin Albumin/Globulin Ratio Procalcitonin Ur Random Creatinine 136 10/11/16 10/11/16 10/11/16 06:00 07:51 11:23 WBC 13.5 H RBC 4.17 Hgb 11.5 L Hct 36.2 L MCV 86.8 MCH 27.6 MCHC 31.8 RDW 18.3 H Plt Count 97 L Gran % Lymph % (Auto) [place] % (Auto) Eos % (Auto) Baso % (Auto) Gran # Lymph # [place] # Eos # Baso # Neutrophils % (Manual) 82 H Band Neutrophils % 10 H Lymphocytes % (Manual) 5 L Atypical Lymphs % Monocytes % (Manual) 3 Toxic Granulation 1+ Platelet Evaluation Low Large Platelets Present Giant Platelets Present Hypochromasia 1+ Poikilocytosis (manual Slight Anisocytosis (manual) 1+ Ovalocytes Slight Sodium 154 H Potassium 5.1 H Chloride 124 H Carbon Dioxide 18 L Anion Gap 17 BUN 59 H Creatinine 3.0 H Est GFR ( Amer) 25 Est GFR (Non-Af Amer) 20 POC Glucose (mg/dL) 134 H 219 H Random Glucose 128 H Calcium 7.1 L Phosphorus 4.0 Magnesium 2.0 Total Bilirubin 0.3 AST 40 ALT 44 Alkaline Phosphatase 77 Lactate Dehydrogenase 373 Total Creatine Kinase 119 Troponin I 0.03 Total Protein 5.7 L Albumin 3.1 Globulin 2.6 Albumin/Globulin Ratio 1.2 Procalcitonin Ur Random Creatinine EKG/Cardiology Studies: Cardiology / EKG Studies 10/10/16 20:05 EKG [ELECTROCARDIOGRAM] Stat Comment: Reason For Exam: hyperkalemia 10/11/16 07:00 EKG [ELECTROCARDIOGRAM] DAILY Comment: Reason For Exam: sinus bradycardia despite hypotension 10/12/16 07:00 EKG [ELECTROCARDIOGRAM] DAILY Comment: Reason For Exam: sinus bradycardia despite hypotension 10/13/16 07:00 EKG [ELECTROCARDIOGRAM] DAILY Comment: Reason For Exam: sinus bradycardia despite hypotension 10/14/16 07:00 EKG [ELECTROCARDIOGRAM] DAILY Comment: Reason For Exam: sinus bradycardia despite hypotension Critical Care Progress Note - Nutrition Nutrition: Nutrition Category Date Time Status NPO Diet [DIET] Diets 10/09/16 Breakfast Ordered Attending/Attestation - Attestation I have personally seen and examined this patient.: Yes I have fully participated in the care of the patient.: Yes I have reviewed all pertinent clinical information: Yes Notes (Text): 10/11/16 12:01 The patient was seen and examined at the bedside. Patient care was discussed with resident Medical records, lab studies, and imaging were reviewed and management issues were discussed and formulated. Last 24H events reviewed. Agree with above treatment plans as outlined in 's note with addition of the following: -hemodynamic monitoring and vasopressor support to maintain MAP>65; continue levophed -anticoagulation with heparin for paroxismal Afib; monitor PTT -cardiology eval appreciated -d\\c dobutamine; f\\u repeat Echo -o2 supplementation to maintain Spo2 >90 Pao2>60; comfortable on NC -continue nebs PRN and pulmonary toileting -continue broad spectrum Abx as per ID team ; f\\u cultures and levels -f\\u Bun\\Cr and U\\o; monitor serial Na+ levels and continue D5w with bicarb as per renal team -monitor and replace e-lites -NPO and aspiration precautions; dysphagia team f\\u -heme\\onc f\\u -DVT \\ PUD prophylaxis CCM f\\u 35min 10/11/16 14:22 Addendum: Had a detailed discussion with patient's brother Cy Motta, who is now making all medical decisions for the pt, and also he provided us with advance directives indicating that pt did not want any extraordinary measures of care. Cy Motta confirmed that pt is not to be intubated and no CPR is to be done as per pt's wishes. We will change code status to DNR\\DNI.
[2016-10-11] MEDS ORDERED: Multivitamin (MVI) 10 ML in Dextrose 5% In Water 1,000 ML IV SCH (10:00)
[2016-10-11] MEDS ORDERED: Vancomycin 25 MG/ML PO SCH (10:00)
[2016-10-11] MEDS: Sodium Bicarbonate 8.4% 75 MEQ in Dextrose 5% In Water 1,000 ML IV SCH ×2 (10:20→18:52)
--- NOTE | 2016-10-11 10:45 | RAD ---
PROCEDURE: Portable chest. HISTORY: chf COMPARISON: 10/10/2016. TECHNIQUE: Technique: Single view portable semi erect @ 08:23. FINDINGS: Stable cardiomegaly and pulmonary vascular congestion. Venous access catheter in stable, satisfactory position. No pleural or osseous abnormalities detected IMPRESSION: Stable (mild) congestive heart failure.
[2016-10-11] MEDS ORDERED: Albuterol-Ipratrop 3 mg / 0.5 (3 ml) UD IH SCH ×4 (11:16→14:00)
[2016-10-11 12:14] LABS: ADD MANUAL DIFF? NO
--- NOTE | 2016-10-11 12:14 | CON ---
DATE: 10/11/2016 HISTORY OF PRESENT ILLNESS: The patient is a 76-year-old male who presented to the Emergency Room af ter being found unconscious. PAST MEDICAL HISTORY: Noted to be hypertension, COPD and hyperlipidemia. The patient, in the Emerge [facility] Room, was found to be hypotensive despite aggressive fluid administration. He started on pressor s. The patient was hypothermic, in which he was eventually warmed up. The patient was given a trial of dobutamine, which resulted in atrial fibrillation without change in blood pressure. The dobutamine was stopped and the patient reverted back to normal sinus rhythm. SOCIAL HISTORY AND REVIEW OF SYSTEMS: Unavailable. PHYSICAL EXAMINATION: GENERAL: The patient is markedly confused, in no acute distress. VITAL SIGNS: Blood pressure is 145/64, the heart rate is in the 60s. NECK: Negative JVD. LUNGS: Without rales. HEART: Revealed S1, S2. EXTREMITIES: Without edema. The hemoglobin is 11.5, white count is 13.5. BUN and creatinine is 59 and 3.0 with a potassium of 5. 1 and glucose of 134. Troponin 0.03. Laboratories also include an EKG that shows nonspecific ST-T changes. IMPRESSION: 1. Transient hypotension. 2. Unresponsiveness 3. Renal insufficiency. 4. Urosepsis. 5. Diabetes mellitus. 6. Paroxysmal atrial fibrillation, which is likely due to inotropic therapy. 7. Previous echocardiogram reveals good left ventricular function. Given these findings, I agree with IV antibiotics and tapering off the pressor therapy. IV fluids would be appropriate. We will obtain an echocardiogram to evaluate his left ventricular fu nction. Nadir Grayson MD cc: [phone] TT: 10/11/2016 12:13:20 Confirmation # [id number] Dictation # [id number]
[2016-10-11 12:16] LABS: BASO # 0.01 K/mm3 (0.0-2.0); BASO % 0.1 % (0.0-3.0); GRAN # 10.59 (1.4-6.5); GRAN % 86.8 % (50.0-68.0); HEMATOCRIT 33.6 % (42.0-52.0); LYMPH # 1.1 (1.2-3.4); LYMPH % 9.3 % (22.0-35.0); MEAN CELL VOLUME 86.6 fL (80.0-105.0); MEAN CORPUSCULAR HEMOGLOBIN 28.1 pg (25.0-35.0); MEAN CORPUSCULAR HGB CONC 32.4 g/dl (31.0-37.0); MONO # 0.5 (0.1-0.6); MONO % 3.8 % (1.0-6.0); PLATELET COUNT 87 10^3/uL (120.0-450.0); RED CELL DISTRIBUTION WIDTH 18.5 % (11.5-14.5); WHITE BLOOD COUNT 12.2 10^3/ul (4.5-11.0)
[2016-10-11 12:29] LABS: MAGNESIUM 1.9 mg/dL (1.7-2.2); POTASSIUM 5.1 mmol/L (3.6-5.0)
[2016-10-11 12:33] LABS: CALCIUM 6.7 mg/dL (8.4-10.5)
[2016-10-11 12:40] LABS: TROPONIN I 0.02 ng/mL
[2016-10-11] MEDS: Albuterol-Ipratrop 3 mg / 0.5 (3 ml) UD IH SCH ×2 (13:23→20:00)
[2016-10-11] MEDS: metroNIDAZOLE IV 500 mg/100 ml 100 ML IVPB SCH ×2 (15:15→22:37)
--- NOTE | 2016-10-11 15:50 | CP.PCM.PN ---
<Quinten Schrader - Last Filed: 10/11/16 18:09> Subjective - Date & Time of Evaluation Date of Evaluation: 10/11/16 Time of Evaluation: 08:10 - Subjective Subjective: Patient seen and examined at bedside. No acute events overnight. Patient resting in bed during the time of exam, not in acute distress. Patient is awake , alert and responsive to verbal commands. Patient is very difficult to understand when he speaks. Unable to obtain detailed ROS. Objective - Vital Signs/Intake and Output Vital Signs (last 24 hours): Temp Pulse Resp BP Pulse Ox 96.6 F L 57 L 21 164/86 H 100 10/11/16 12:00 10/11/16 12:00 10/11/16 12:00 10/11/16 15:14 10/11/16 12:00 Intake and Output: 10/11/16 10/11/16 06:59 18:59 Intake Total 1922 Output Total 300 150 Balance 1622 -150 - Medications Medications: Current Medications Albuterol/Ipratropium (Duoneb 3 Mg/0.5 Mg (3 Ml) Ud) 3 ml IH [id number] [facility] Last Admin: 10/11/16 13:23 Dose: 3 ml Aspirin (Aspirin Supp) 300 mg RC DAILY [facility] Last Admin: 10/11/16 09:32 Dose: 300 mg Hydrocortisone Sodium Succinate (Solu-Cortef) 50 mg IVP Q6 [facility] Last Admin: 10/11/16 11:41 Dose: 50 mg Norepinephrine Bitartrate 4 mg (/ Sodium Chloride) 254 mls @ 15.24 mls/hr IV .[id number] PRN; Protocol; 4 MCG/MIN PRN Reason: TITRATE PER MD ORDER Last Admin: 10/11/16 11:50 Dose: 19.05 mls/hr Meropenem 1g/NS 100mL IVPB (Meropenem 1g/Ns 100ml Ivpb) 100 mls @ 100 mls/hr IVPB Q12H FREDY PRN Reason: Protocol Last Admin: 10/11/16 05:29 Dose: 100 mls/hr Vasopressin 20 units/ Sodium (Chloride) 101 mls @ 9.09 mls/hr IV .Q11H7M FREDY; 0.03 U/MIN PRN Reason: Protocol Last Admin: 10/11/16 05:30 Dose: 9.09 mls/hr Linezolid (Zyvox 600mg/300ml D5w) 300 mls @ 200 mls/hr IVPB Q12 FREDY PRN Reason: Protocol Stop: 10/17/16 13:31 Last Admin: 10/11/16 09:33 Dose: 200 mls/hr Sodium Bicarbonate 75 meq/ (Dextrose) 1,075 mls @ 150 mls/hr IV .Q7H10M [facility] Last Admin: 10/11/16 10:20 Dose: 150 mls/hr Heparin Sodium/Sodium Chloride (Heparin 28118 Units/250ml 1/2 Normal Saline) 250 mls @ 13.798 mls/hr IV .Q18H8M PRN; Protocol; 18 UNITS/KG/HR PRN Reason: ADJUST RATE PER PROTOCOL Last Admin: 10/11/16 10:49 Dose: 13.798 mls/hr Metronidazole (Flagyl) 100 mls @ 100 mls/hr IVPB Q8 FREDY PRN Reason: Protocol Last Admin: 10/11/16 15:15 Dose: 100 mls/hr Insulin Human Lispro (Humalog Low) 0 units SC ACHS FREDY PRN Reason: Protocol Last Admin: 10/11/16 11:37 Dose: 2 units Pantoprazole Sodium (Protonix Inj) 40 mg IVP DAILY [facility] Last Admin: 10/11/16 09:31 Dose: 40 mg - Labs Labs: 10/11/16 12:00 10/11/16 12:00 PT 11.8 Seconds (9.9-11.8) 10/10/16 07:00 INR 1.09 (0.93-1.08) H 10/10/16 07:00 APTT 36.7 Seconds (23.7-30.8) H 10/10/16 07:00 - Constitutional Appears: No Acute Distress, Chronically Ill - Head Exam Head Exam: ATRAUMATIC, NORMOCEPHALIC - Eye Exam Eye Exam: EOMI, PERRL - ENT Exam ENT Exam: Mucous Membranes Dry - Neck Exam Neck Exam: Full ROM - Respiratory Exam Respiratory Exam: Clear to Ausculation Bilateral, NORMAL BREATHING PATTERN. absent: Respiratory Distress - Cardiovascular Exam Cardiovascular Exam: REGULAR RHYTHM, +S1, +S2. absent: Murmur - GI/Abdominal Exam GI & Abdominal Exam: Tenderness (grimace on palpation), Normal Bowel Sounds - Neurological Exam Neurological Exam: Alert, Awake - Skin Skin Exam: Rash, Warm. absent: Normal Color Additional comments: aiyana of severe excoriations to lower back/buttocks with cellulitis noted extending from lower back/buttocks to upper thighs Assessment and Plan - Assessment and Plan (Free Text) Assessment: 76 year old male with past medical history of hypertension, HLD, COPD was admitted to ICU with AMS, septic shock likely secondary to cellulitis, cystitis , colitis, possible PNA on CXR Septic shock due to cellulitis and colitis -Follow ID recommendations -Continue zyvox, meropemen and flagyl -Blood culture Gram positive cheryle -Nasal MRSA cx negative -C Diff culture negative for toxin and antigen -Surgery consult, no surgical intervention at this time -Continue levophed and vasopressin -Echo report pending -Stress dose steroids Acute renal failure -Stable -NS with bicarb @150ml/hr -No evidence of hydronephrosis on CT abdomen -Creatinin is mildly improved -BMP Q6h -Avoid nephrotoxins -Nephrology is consulted Hypernatremia -NS with bicarb @150ml/hr -Na 150 today Hyperkalemia -5.1 today -Calcium gluconate given -4.9 on repeat Prophylactic measures -Heparin to prevent thrombocytopenia -Protonix for GI ppx <Ema CARRERO,Rachele - Last Filed: 10/12/16 14:45> Objective - Vital Signs/Intake and Output Vital Signs (last 24 hours): Temp Pulse Resp BP Pulse Ox 96.6 F L 60 18 128/74 96 10/12/16 06:14 10/12/16 06:28 10/12/16 06:14 10/12/16 06:14 10/12/16 06:14 Intake and Output: 10/12/16 10/12/16 06:59 18:59 Intake Total 2300 Output Total 525 Balance 1775 - Medications Medications: Current Medications Albuterol/Ipratropium (Duoneb 3 Mg/0.5 Mg (3 Ml) Ud) 3 ml IH [id number] [facility] Last Admin: 10/12/16 13:43 Dose: 3 ml Aspirin (Aspirin Supp) 300 mg RC DAILY [facility] Last Admin: 10/12/16 10:01 Dose: 300 mg Meropenem 1g/NS 100mL IVPB (Meropenem 1g/Ns 100ml Ivpb) 100 mls @ 100 mls/hr IVPB Q12H FREDY PRN Reason: Protocol Last Admin: 10/12/16 05:18 Dose: 100 mls/hr Linezolid (Zyvox 600mg/300ml D5w) 300 mls @ 200 mls/hr IVPB Q12 FREDY PRN Reason: Protocol Stop: 10/17/16 13:31 Last Admin: 10/12/16 10:00 Dose: 200 mls/hr Insulin Human Lispro (Humalog Low) 0 units SC ACHS FREDY PRN Reason: Protocol Last Admin: 10/12/16 08:30 Dose: Not Given Pantoprazole Sodium (Protonix Inj) 40 mg IVP DAILY [facility] Last Admin: 10/12/16 10:01 Dose: 40 mg - Labs Labs: 10/12/16 06:25 10/12/16 06:25 PT 11.8 Seconds (9.9-11.8) 10/10/16 07:00 INR 1.09 (0.93-1.08) H 10/10/16 07:00 APTT > 180.0 Seconds (23.7-30.8) H* 10/11/16 19:00 Attending/Attestation - Attestation I have personally seen and examined this patient.: Yes I have fully participated in the care of the patient.: Yes I have reviewed all pertinent clinical information, including history, physical exam and plan: Yes Notes (Text): Patient was seen and examined with medical language specialist .Agreed with resident assessment and plan. 76 year old male with past medical history of hypertension, HLD, COPD was admitted to ICU with AMS, septic shock likely secondary to cellulitis, cystitis , colitis, possible Pneumonia, still hypotensive requiring IV pressor on broad spectrum IV antibiotics as per ID. Patient is also having hypernatremia which is slowly improving. Prognosis is guarded. Management plan was discussed in detail with patient Education was provided.
[2016-10-11 17:52] LABS: ADD MANUAL DIFF? NO
[2016-10-11 17:58] LABS: BASO # 0.01 K/mm3 (0.0-2.0); BASO % 0.1 % (0.0-3.0); GRAN % 85.7 % (50.0-68.0); HEMATOCRIT 32.4 % (42.0-52.0); LYMPH # 1.1 (1.2-3.4); MEAN CELL VOLUME 86.9 fL (80.0-105.0); MEAN CORPUSCULAR HEMOGLOBIN 27.3 pg (25.0-35.0); MEAN CORPUSCULAR HGB CONC 31.5 g/dl (31.0-37.0); MONO # 0.6 (0.1-0.6); MONO % 5.2 % (1.0-6.0); PLATELET COUNT 79 10^3/uL (120.0-450.0); RED CELL DISTRIBUTION WIDTH 18.4 % (11.5-14.5); WHITE BLOOD COUNT 11.7 10^3/ul (4.5-11.0)
--- NOTE | 2016-10-11 18:06 | CARD ---
APPROVED REPORT EXAM: Two-dimensional and M-mode echocardiogram with Doppler and color Doppler. INDICATION shock 2D DIMENSIONS Left Atrium (2D)3.7 (1.6-4.0cm)IVSd1.1 (0.7-1.1cm) LVDd4.2 (3.9-5.9cm)PWd1.3 (0.7-1.1cm) LVDs3.2 (2.5-4.0cm)FS (%) 22.6 % LVEF (%)45.8 (>50%) M-Mode DIMENSIONS Aortic Root2.30 (2.2-3.7cm)Aortic Cusp Exc.1.70 (1.5-2.0cm) Aortic Valve AoV Peak Lvvcchcs375.0cm/Hussein Peak GR.6mmHg Mitral Valve E/A ratio0.0 TDI E/Lateral E'0.0E/Medial E'0.0 Tricuspid Valve TR Peak [id number]/sRAP [id number] Peak Gr.32mmHg [id number] LEFT VENTRICLE The left ventricle is normal size. There is normal left ventricular wall thickness. The systolic function is mildly impaired. RIGHT VENTRICLE The right ventricle is mildly dilated. There is normal right ventricular wall thickness. The right ventricular systolic function is normal. ATRIA The left atrium size is normal. The right atrium size is normal. AORTIC VALVE The aortic valve is not well visualized. MITRAL VALVE The mitral valve is not well visualized. Mitral regurgitation is trace. TRICUSPID VALVE There is mild tricuspid regurgitation. There is mild pulmonary hypertension. GREAT VESSELS The aortic root is normal in size. The IVC is dilated. PERICARDIAL EFFUSION There is a trace loculated anterior pericardial effusion. <Conclusion> The left ventricle is normal size. There is normal left ventricular wall thickness. The systolic function is mildly impaired. There is mild tricuspid regurgitation. There is mild pulmonary hypertension.
[2016-10-11 18:12] LABS: MAGNESIUM 1.8 mg/dL (1.7-2.2); PHOSPHOROUS 3.8 mg/dL (2.5-4.5); POTASSIUM 4.9 mmol/L (3.6-5.0)
[2016-10-11 18:15] LABS: CALCIUM 6.4 mg/dL (8.4-10.5)
--- NOTE | 2016-10-11 18:36 | CARD ---
APPROVED REPORT EKG Measurement Heart [id number] <Conclusion> Sinus bradycardia with 1st degree AV block Low voltage QRS Borderline ECG
--- NOTE | 2016-10-11 18:41 | CARD ---
APPROVED REPORT EKG Measurement Heart [id number] <Conclusion> Sinus bradycardia with premature atrial complexes Abnormal ECG
--- NOTE | 2016-10-11 21:57 | CP.PCM.PCO ---
Physician Communication Note - Physician Communication Note Physician Communication Note: Heparin drip held secondary to gross bleeding from the mouth
[2016-10-12] MEDS: Sodium Bicarbonate 8.4% 75 MEQ in Dextrose 5% In Water 1,000 ML IV SCH
[2016-10-12] MEDS: Albuterol-Ipratrop 3 mg / 0.5 (3 ml) UD IH SCH ×4 (02:50→19:28)
[2016-10-12] MEDS: Meropenem 1g/NS 100mL IVPB 100 ML IVPB SCH ×2 (05:18→19:18)
[2016-10-12] MEDS: metroNIDAZOLE IV 500 mg/100 ml 100 ML IVPB SCH (05:19)
[2016-10-12 06:30] LABS: ADD MANUAL DIFF? NO
[2016-10-12 06:33] LABS: GRAN # 9.49 (1.4-6.5); GRAN % 81.2 % (50.0-68.0); HEMATOCRIT 29.8 % (42.0-52.0); LYMPH % 8.3 % (22.0-35.0); MEAN CELL VOLUME 84.7 fL (80.0-105.0); MEAN CORPUSCULAR HEMOGLOBIN 28.1 pg (25.0-35.0); MEAN CORPUSCULAR HGB CONC 33.2 g/dl (31.0-37.0); MONO # 1.2 (0.1-0.6); MONO % 10.5 % (1.0-6.0); PLATELET COUNT 71 10^3/uL (120.0-450.0); RED CELL DISTRIBUTION WIDTH 18.3 % (11.5-14.5); WHITE BLOOD COUNT 11.7 10^3/ul (4.5-11.0)
[2016-10-12 06:44] LABS: ALB/GLOB RATIO 1.2 (1.1-1.8); BILIRUBIN,TOTAL 0.4 mg/dL (0.2-1.3); POTASSIUM 4.3 mmol/L (3.6-5.0); TOTAL PROTEIN 5.2 g/dL (5.8-8.3)
[2016-10-12 06:49] LABS: CALCIUM 6.3 mg/dL (8.4-10.5)
--- NOTE | 2016-10-12 07:30 | CP.PCM.PN ---
<LiliamManuelito - Last Filed: 10/12/16 16:20> Subjective - Date & Time of Evaluation Date of Evaluation: 10/12/16 Time of Evaluation: 07:29 - Subjective Subjective: Medicine Progress note. Dr. Boo Pt seen and examined at bedside. Patient started having bloody secretions from mouth and from CVC site, heparin stopped. Still moderately confused and does not respond to questions appropriately. No N//V/D. Increased respiratory secretions in upper airway, improved after suctioning. Denies any complaints. Objective - Vital Signs/Intake and Output Vital Signs (last 24 hours): Temp Pulse Resp BP Pulse Ox 96.6 F L 60 18 128/74 96 10/12/16 06:14 10/12/16 06:28 10/12/16 06:14 10/12/16 06:14 10/12/16 06:14 Intake and Output: 10/12/16 10/12/16 06:59 18:59 Intake Total 2300 Output Total 525 Balance 1775 - Medications Medications: Current Medications Albuterol/Ipratropium (Duoneb 3 Mg/0.5 Mg (3 Ml) Ud) 3 ml IH [id number] [facility] Last Admin: 10/12/16 02:50 Dose: Not Given Aspirin (Aspirin Supp) 300 mg RC DAILY [facility] Last Admin: 10/11/16 09:32 Dose: 300 mg Hydrocortisone Sodium Succinate (Solu-Cortef) 50 mg IVP Q6 FREDY Last Admin: 10/12/16 05:18 Dose: 50 mg Norepinephrine Bitartrate 4 mg (/ Sodium Chloride) 254 mls @ 15.24 mls/hr IV .[id number] PRN; Protocol; 4 MCG/MIN PRN Reason: TITRATE PER MD ORDER Last Titration: 10/12/16 03:00 Dose: 0 mcg/min Meropenem 1g/NS 100mL IVPB (Meropenem 1g/Ns 100ml Ivpb) 100 mls @ 100 mls/hr IVPB Q12H FREDY PRN Reason: Protocol Last Admin: 10/12/16 05:18 Dose: 100 mls/hr Vasopressin 20 units/ Sodium (Chloride) 101 mls @ 9.09 mls/hr IV .Q11H7M FREDY; 0.03 U/MIN PRN Reason: Protocol Last Admin: 10/12/16 04:05 Dose: 9.09 mls/hr Linezolid (Zyvox 600mg/300ml D5w) 300 mls @ 200 mls/hr IVPB Q12 FREDY PRN Reason: Protocol Stop: 10/17/16 13:31 Last Admin: 10/11/16 22:38 Dose: 200 mls/hr Sodium Bicarbonate 75 meq/ (Dextrose) 1,075 mls @ 150 mls/hr IV .Q7H10M [facility] Last Admin: 10/12/16 00:00 Dose: 150 mls/hr Heparin Sodium/Sodium Chloride (Heparin 96362 Units/250ml 1/2 Normal Saline) 250 mls @ 13.798 mls/hr IV .Q18H8M PRN; Protocol; 18 UNITS/KG/HR PRN Reason: ADJUST RATE PER PROTOCOL Last Titration: 10/11/16 21:19 Dose: 15 units/kg/hr Metronidazole (Flagyl) 100 mls @ 100 mls/hr IVPB Q8 FREDY PRN Reason: Protocol Last Admin: 10/12/16 05:19 Dose: 100 mls/hr Insulin Human Lispro (Humalog Low) 0 units SC ACHS FREDY PRN Reason: Protocol Last Admin: 10/11/16 22:38 Dose: Not Given Pantoprazole Sodium (Protonix Inj) 40 mg IVP DAILY [facility] Last Admin: 10/11/16 09:31 Dose: 40 mg - Labs Labs: 10/12/16 06:25 10/12/16 06:25 PT 11.8 Seconds (9.9-11.8) 10/10/16 07:00 INR 1.09 (0.93-1.08) H 10/10/16 07:00 APTT > 180.0 Seconds (23.7-30.8) H* 10/11/16 19:00 - Constitutional Appears: Well, No Acute Distress - Head Exam Head Exam: ATRAUMATIC, NORMAL INSPECTION, NORMOCEPHALIC - Eye Exam Eye Exam: EOMI, Normal appearance, PERRL. absent: Scleral icterus Pupil Exam: PERRL - ENT Exam ENT Exam: Mucous Membranes Moist Additional comments: Increased upper resp secretions, blood tinged and dried blood at the nasal meatus. - Respiratory Exam Respiratory Exam: Clear to Ausculation Bilateral, NORMAL BREATHING PATTERN. absent: Wheezes, Respiratory Distress - Cardiovascular Exam Cardiovascular Exam: RRR, +S1, +S2. absent: JVD - GI/Abdominal Exam GI & Abdominal Exam: Soft, Normal Bowel Sounds. absent: Tenderness - Extremities Exam Extremities Exam: Normal Inspection - Neurological Exam Neurological Exam: Awake Additional comments: still with confusion, unable to respond to questions appropriately Assessment and Plan - Assessment and Plan (Free Text) Assessment: 76yo M with PMHx of hypertension, HLD, COPD was admitted to ICU with AMS, septic shock likely secondary to cellulitis, cystitis, colitis. Repeat CXR stable today, still with some increased vascular congestion. Septic shock due to cellulitis and colitis -Follow ID recommendations -Continue zyvox, meropemen -Blood culture yeast and Corenebacterium -Nasal MRSA cx negative -C Diff culture negative -Surgery consult, no surgical intervention at this time -Patient off levophed, Still on vasopressin; Continue to try and wean off -Echo - mild systolic dysfunction. Mild TR. Mild Pulmonary HTN. EF = 45.8 Acute renal failure -Stable -D/c fluids due to increased pulm congestion. Bicarb has normalized. -No evidence of hydronephrosis on CT abdomen -Avoid nephrotoxic meds -Nephrology is following Hypernatremia improved Na 146 today Hyperkalemia improved k 4.3 today PPx -Heparin stopped due to bleeding -Protonix for GI ppx Patient is DNR/DNI. Dispo planning pending Discussed case with Dr. Ema Ricketts PGY1 <Ema CARRERO,Rachele - Last Filed: 10/12/16 17:32> Objective - Vital Signs/Intake and Output Vital Signs (last 24 hours): Temp Pulse Resp BP Pulse Ox 97.9 F 66 20 84/50 L 99 10/12/16 16:45 10/12/16 16:45 10/12/16 16:30 10/12/16 16:30 10/12/16 16:45 Intake and Output: 10/12/16 10/12/16 06:59 18:59 Intake Total 2300 Output Total 525 Balance 1775 - Medications Medications: Current Medications Albuterol/Ipratropium (Duoneb 3 Mg/0.5 Mg (3 Ml) Ud) 3 ml IH [id number] [facility] Last Admin: 03/25/17 13:43 Dose: 3 ml Aspirin (Aspirin Supp) 300 mg RC DAILY [facility] Last Admin: 10/12/16 10:01 Dose: 300 mg Meropenem 1g/NS 100mL IVPB (Meropenem 1g/Ns 100ml Ivpb) 100 mls @ 100 mls/hr IVPB Q12H [facility]EDY PRN Reason: Protocol Last Admin: 10/12/16 05:18 Dose: 100 mls/hr Linezolid (Zyvox 600mg/300ml D5w) 300 mls @ 200 mls/hr IVPB Q12 FREDY PRN Reason: Protocol Stop: 10/17/16 13:31 Last Admin: 10/12/16 10:00 Dose: 200 mls/hr Insulin Human Lispro (Humalog Low) 0 units SC ACHS FREDY PRN Reason: Protocol Last Admin: 10/12/16 16:25 Dose: Not Given Pantoprazole Sodium (Protonix Inj) 40 mg IVP DAILY [facility] Last Admin: 10/12/16 10:01 Dose: 40 mg - Labs Labs: 10/12/16 06:25 10/12/16 06:25 PT 11.8 Seconds (9.9-11.8) 10/10/16 07:00 INR 1.09 (0.93-1.08) H 10/10/16 07:00 APTT > 180.0 Seconds (23.7-30.8) H* 10/11/16 19:00 Attending/Attestation - Attestation I have personally seen and examined this patient.: Yes I have fully participated in the care of the patient.: Yes I have reviewed all pertinent clinical information, including history, physical exam and plan: Yes Notes (Text): Patient was seen and examined with infertility medical assistant .Agreed with resident assessment and plan. 76 year old male with past medical history of hypertension, HLD, COPD was admitted to ICU with AMS, septic shock likely secondary to cellulitis, cystitis , colitis, possible Pneumonia, on broad spectrum IV antibiotics as per ID. Blood pressure is improved, off pressor now mental status is still poor, high risk for aspiration. Patient also has proxysm AF, now in NSR, IV heparin drip was discontinued due to questiobale bleeding and drop in hemoglobin. Thrombocytopenia is stable. Patient is DNR/DNI Prognosis is poor.
[2016-10-12] MEDS ORDERED: Sodium Bicarbonate 8.4% 75 MEQ in Dextrose 5% In Water 1,000 ML IV SCH (07:48)
[2016-10-12] MEDS: Insulin Lispro (humaLOG) LOW Coverage SC SCH ×4 (08:30→22:00)
--- NOTE | 2016-10-12 09:11 | CP.CCUPN ---
CCU Subjective - Physician Review Events Since Last Encounter (Free Text): 10/12/16 09:05 No acute events overnight Continues to have slow nasal crusting and bloody secretions S/p Nasal suctioning, respiratory status improved. CCU Objective - Vital Signs / Intake & Output Vital Signs (Last 4 hours): Vital Signs Temp Pulse Resp BP Pulse Ox 10/12/16 06:28 60 10/12/16 06:14 96.6 F L 60 18 128/74 96 10/12/16 06:10 96.6 F L 61 19 10/12/16 06:09 96.6 F L 60 21 10/12/16 06:08 96.6 F L 60 21 10/12/16 06:07 96.6 F L 59 L 20 10/12/16 06:06 96.6 F L 58 L 20 10/12/16 06:05 96.6 F L 63 23 10/12/16 06:04 96.6 F L 63 22 10/12/16 06:03 96.6 F L 60 22 10/12/16 06:02 96.6 F L 59 L 18 10/12/16 06:01 96.6 F L 56 L 36 H 10/12/16 06:00 96.6 F L 57 L 26 H 10/12/16 05:59 96.6 F L 57 L 31 H 10/12/16 05:58 96.6 F L 59 L 45 H 10/12/16 05:57 96.8 F L 56 L 38 H 10/12/16 05:56 96.8 F L 60 25 H 10/12/16 05:55 96.8 F L 57 L 21 88 L 10/12/16 05:54 96.8 F L 95 10/12/16 05:53 96.8 F L 95 10/12/16 05:52 96.8 F L 59 L 94 L 10/12/16 05:46 96.8 F L 55 L 95 10/12/16 05:40 96.8 F L 55 L 94 L 10/12/16 05:38 96.8 F L 54 L 93 L 10/12/16 05:37 96.8 F L 56 L 91 L 10/12/16 05:34 96.8 F L 55 L 85 L 10/12/16 05:30 96.8 F L 56 L 18 141/66 93 L 10/12/16 05:29 96.8 F L 60 90 L 10/12/16 05:26 96.6 F L 58 L 91 L 10/12/16 05:24 96.8 F L 52 L 91 L 10/12/16 05:21 96.8 F L 51 L 91 L 10/12/16 05:20 96.8 F L 57 L 89 L 10/12/16 05:18 96.8 F L 52 L 91 L 10/12/16 05:14 96.8 F L 52 L 93 L Intake and Output (Last 8hrs): Intake & Output 10/11/16 10/12/16 10/12/16 22:59 06:59 14:59 Intake Total 2300 Output Total 525 Balance 1775 Intake: IV 2300 Right Internal Jugular 2300 Output: Urine 450 Urethral (Arndt) 450 Oral Regurgitation 75 Other: Voiding Method Indwelling Catheter # Bowel Movements 1 - Physical Exam Head: Positive for: Atraumatic, Normocephalic Pupils: Positive for: PERRL Extroacular Muscles: Positive for: EOMI Conjunctiva: Positive for: Normal Ears: Positive for: Normal Mouth: Positive for: Dry Pharnyx: Positive for: Muffled/Hoarse Voice Nose (External): Positive for: Lesions (nasal crusting, blood ) Neck: Positive for: Normal Range of Motion Respiratory/Chest: Positive for: Clear to Auscultation, Good Air Exchange, Wheezes, Decreased Breath Sounds (rll decreased breath sounds ). Negative for: Respiratory Distress, Accessory Muscle Use Cardiovascular: Positive for: Normal S1, S2, Bradycardic. Negative for: Murmurs Abdomen: Positive for: Normal Bowel Sounds. Negative for: Tenderness, Distention, Peritoneal Signs Upper Extremity: Positive for: Normal Inspection. Negative for: Cyanosis, Edema Lower Extremity: Positive for: Normal Inspection, Swelling (poor skin, and nail hygene possibly fungal ). Negative for: Edema Neurological: Positive for: CN II-XII Intact, Speech Normal, Motor Func Grossly Intact, Normal Sensory Function, Other (Awaker, oriented to person) Skin: Positive for: Normal Color, Other (Area of severe excoriations to lower back/buttocks with cellulitis noted extending from lower back/buttocks to upper thighs). Negative for: Dry Psychiatric: Positive for: Alert. Negative for: Oriented x 3 (Oriented to person) - Medications Active Medications: Active Medications Generic Name Dose Route Start Last Admin Trade Name Freq PRN Reason Stop Dose Admin Albuterol/Ipratropium 3 ml 10/11/16 14:00 10/12/16 07:54 Duoneb 3 Mg/0.5 Mg (3 Ml) Ud IH 3 ml [id number] FREDY Administration Aspirin 300 mg 10/11/16 10:00 10/11/16 09:32 Aspirin Supp RC 300 mg DAILY FREDY Administration Hydrocortisone Sodium Succinate 50 mg 10/10/16 12:00 10/12/16 05:18 Solu-Cortef IVP 50 mg Q6 FREDY Administration Norepinephrine Bitartrate 4 mg 254 mls @ 15.24 mls/hr 10/09/16 22:10 10/12/16 03:00 / Sodium Chloride IV 0 mcg/min .[id number] PRN Titration TITRATE PER MD ORDER Protocol 4 MCG/MIN Meropenem 1g/NS 100mL IVPB 100 mls @ 100 mls/hr 10/10/16 18:00 10/12/16 05:18 Meropenem 1g/Ns 100ml Ivpb IVPB 100 mls/hr Q12H FREDY Administration Protocol Linezolid 300 mls @ 200 mls/hr 10/10/16 13:30 10/11/16 22:38 Zyvox 600mg/300ml D5w IVPB 10/17/16 13:31 200 mls/hr Q12 FREDY Administration Protocol Sodium Bicarbonate 75 meq/ 1,075 mls @ 75 mls/hr 10/12/16 07:48 Dextrose IV .[id number] [facility] Insulin Human Lispro 0 units 10/10/16 07:30 10/11/16 22:38 Humalog Low SC Not Given ACHS [facility] Protocol Pantoprazole Sodium 40 mg 10/11/16 10:00 10/11/16 09:31 Protonix Inj IVP 40 mg DAILY [facility]Y Administration - Patient Studies Lab Studies: Microbiology Studies 10/11/16 10:35 C. difficile Antigen & Toxin A,B (M - Final Stool 10/09/16 23:30 MRSA Culture (Admit) - Final Nose MRSA NOT DETECTED Lab Studies 10/12/16 10/11/16 10/11/16 Range/Units 06:25 22:29 19:00 WBC 11.7 H (4.5-11.0) 10^3/ul RBC 3.52 (3.5-6.1) 10^6/uL Hgb 9.9 L (14.0-18.0) gm/dL Hct 29.8 L (42.0-52.0) % MCV 84.7 (80.0-105.0) fL MCH 28.1 (25.0-35.0) pg MCHC 33.2 (31.0-37.0) g/dl RDW 18.3 H (11.5-14.5) % Plt Count 71 L (120.0-450.0) 10^3/uL Gran % 81.2 H (50.0-68.0) % Lymph % (Auto) 8.3 L (22.0-35.0) % [place] % (Auto) 10.5 H (1.0-6.0) % Eos % (Auto) 0.0 L (1.5-5.0) % Baso % (Auto) 0.0 (0.0-3.0) % Gran # 9.49 H (1.4-6.5) Lymph # 1.0 L (1.2-3.4) [place] # 1.2 H (0.1-0.6) Eos # 0.0 (0.0-0.7) Baso # 0.00 (0.0-2.0) K/mm3 APTT > 180.0 H* (23.7-30.8) Seconds Sodium 146 (132-148) mmol/L Potassium 4.3 (3.6-5.0) mmol/L Chloride 111 H (98-107) mmol/L Carbon Dioxide 23 (21-33) mmol/L Anion Gap 16 (10-20) BUN 59 H (7-21) mg/dL Creatinine 2.9 H (0.5-1.4) mg/dL Est GFR ( Amer) 26 Est GFR (Non-Af Amer) 21 POC Glucose (mg/dL) 168 H (65-110) mg/dL Random Glucose 170 H (70-110) mg/dL Calcium 6.3 L* (8.4-10.5) mg/dL Phosphorus (2.5-4.5) mg/dL Magnesium (1.7-2.2) mg/dL Total Bilirubin 0.4 (0.2-1.3) mg/dL AST 76 H (15-59) U/L ALT 47 (7-56) U/L Alkaline Phosphatase 62 (38-133) U/L Lactate Dehydrogenase (333-699) U/L Total Creatine Kinase (35-230) U/L Troponin I ng/mL Total Protein 5.2 L (5.8-8.3) g/dL Albumin 2.8 L (3.0-4.8) g/dL Globulin 2.4 gm/dL Albumin/Globulin Ratio 1.2 (1.1-1.8) 10/11/16 10/11/16 10/11/16 Range/Units 17:50 16:11 12:00 WBC 11.7 H 12.2 H (4.5-11.0) 10^3/ul RBC 3.73 3.88 (3.5-6.1) 10^6/uL Hgb 10.2 L 10.9 L (14.0-18.0) gm/dL Hct 32.4 L 33.6 L (42.0-52.0) % MCV 86.9 86.6 (80.0-105.0) fL MCH 27.3 28.1 (25.0-35.0) pg MCHC 31.5 32.4 (31.0-37.0) g/dl RDW 18.4 H 18.5 H (11.5-14.5) % Plt Count 79 L 87 L (120.0-450.0) 10^3/uL Gran % 85.7 H 86.8 H (50.0-68.0) % Lymph % (Auto) 9.0 L 9.3 L (22.0-35.0) % [place] % (Auto) 5.2 3.8 (1.0-6.0) % Eos % (Auto) 0.0 L 0.0 L (1.5-5.0) % Baso % (Auto) 0.1 0.1 (0.0-3.0) % Gran # 10.00 H 10.59 H (1.4-6.5) Lymph # 1.1 L 1.1 L (1.2-3.4) [place] # 0.6 0.5 (0.1-0.6) Eos # 0.0 0.0 (0.0-0.7) Baso # 0.01 0.01 (0.0-2.0) K/mm3 APTT (23.7-30.8) Seconds Sodium 150 H 152 H (132-148) mmol/L Potassium 4.9 5.1 H (3.6-5.0) mmol/L Chloride 116 H 119 H (98-107) mmol/L Carbon Dioxide 22 21 (21-33) mmol/L Anion Gap 17 17 (10-20) BUN 57 H 58 H (7-21) mg/dL Creatinine 2.9 H 2.9 H (0.5-1.4) mg/dL Est GFR ( Amer) 26 26 Est GFR (Non-Af Amer) 21 21 POC Glucose (mg/dL) 164 H (65-110) mg/dL Random Glucose 160 H 190 H (70-110) mg/dL Calcium 6.4 L* 6.7 L* (8.4-10.5) mg/dL Phosphorus 3.8 4.0 (2.5-4.5) mg/dL Magnesium 1.8 1.9 (1.7-2.2) mg/dL Total Bilirubin (0.2-1.3) mg/dL AST (15-59) U/L ALT (7-56) U/L Alkaline Phosphatase (38-133) U/L Lactate Dehydrogenase 363 (333-699) U/L Total Creatine Kinase 130 (35-230) U/L Troponin I 0.02 D ng/mL Total Protein (5.8-8.3) g/dL Albumin (3.0-4.8) g/dL Globulin gm/dL Albumin/Globulin Ratio (1.1-1.8) 10/11/ Range/Units 11:23 WBC (4.5-11.0) 10^3/ul RBC (3.5-6.1) 10^6/uL Hgb (14.0-18.0) gm/dL Hct (42.0-52.0) % MCV (80.0-105.0) fL MCH (25.0-35.0) pg MCHC (31.0-37.0) g/dl RDW (11.5-14.5) % Plt Count (120.0-450.0) 10^3/uL Gran % (50.0-68.0) % Lymph % (Auto) (22.0-35.0) % [place] % (Auto) (1.0-6.0) % Eos % (Auto) (1.5-5.0) % Baso % (Auto) (0.0-3.0) % Gran # (1.4-6.5) Lymph # (1.2-3.4) [place] # (0.1-0.6) Eos # (0.0-0.7) Baso # (0.0-2.0) K/mm3 APTT (23.7-30.8) Seconds Sodium (132-148) mmol/L Potassium (3.6-5.0) mmol/L Chloride (98-107) mmol/L Carbon Dioxide (21-33) mmol/L Anion Gap (10-20) BUN (7-21) mg/dL Creatinine (0.5-1.4) mg/dL Est GFR ( Amer) Est GFR (Non-Af Amer) POC Glucose (mg/dL) 219 H (65-110) mg/dL Random Glucose (70-110) mg/dL Calcium (8.4-10.5) mg/dL Phosphorus (2.5-4.5) mg/dL Magnesium (1.7-2.2) mg/dL Total Bilirubin (0.2-1.3) mg/dL AST (15-59) U/L ALT (7-56) U/L Alkaline Phosphatase (38-133) U/L Lactate Dehydrogenase (333-699) U/L Total Creatine Kinase (35-230) U/L Troponin I ng/mL Total Protein (5.8-8.3) g/dL Albumin (3.0-4.8) g/dL Globulin gm/dL Albumin/Globulin Ratio (1.1-1.8) Laboratory Results - last 24 hr 10/11/16 10/11/16 10/11/16 11:23 12:00 16:11 WBC 12.2 H RBC 3.88 Hgb 10.9 L Hct 33.6 L MCV 86.6 MCH 28.1 MCHC 32.4 RDW 18.5 H Plt Count 87 L Gran % 86.8 H Lymph % (Auto) 9.3 L [place] % (Auto) 3.8 Eos % (Auto) 0.0 L Baso % (Auto) 0.1 Gran # 10.59 H Lymph # 1.1 L [place] # 0.5 Eos # 0.0 Baso # 0.01 APTT Sodium 152 H Potassium 5.1 H Chloride 119 H Carbon Dioxide 21 Anion Gap 17 BUN 58 H Creatinine 2.9 H Est GFR ( Amer) 26 Est GFR (Non-Af Amer) 21 POC Glucose (mg/dL) 219 H 164 H Random Glucose 190 H Calcium 6.7 L* Phosphorus 4.0 Magnesium 1.9 Total Bilirubin AST ALT Alkaline Phosphatase Lactate Dehydrogenase 363 Total Creatine Kinase 130 Troponin I 0.02 D Total Protein Albumin Globulin Albumin/Globulin Ratio 10/11/16 10/11/16 10/11/16 17:50 19:00 22:29 WBC 11.7 H RBC 3.73 Hgb 10.2 L Hct 32.4 L MCV 86.9 MCH 27.3 MCHC 31.5 RDW 18.4 H Plt Count 79 L Gran % 85.7 H Lymph % (Auto) 9.0 L [place] % (Auto) 5.2 Eos % (Auto) 0.0 L Baso % (Auto) 0.1 Gran # 10.00 H Lymph # 1.1 L [place] # 0.6 Eos # 0.0 Baso # 0.01 APTT > 180.0 H* Sodium 150 H Potassium 4.9 Chloride 116 H Carbon Dioxide 22 Anion Gap 17 BUN 57 H Creatinine 2.9 H Est GFR ( Amer) 26 Est GFR (Non-Af Amer) 21 POC Glucose (mg/dL) 168 H Random Glucose 160 H Calcium 6.4 L* Phosphorus 3.8 Magnesium 1.8 Total Bilirubin AST ALT Alkaline Phosphatase Lactate Dehydrogenase Total Creatine Kinase Troponin I Total Protein Albumin Globulin Albumin/Globulin Ratio 10/12/16 06:25 WBC 11.7 H RBC 3.52 Hgb 9.9 L Hct 29.8 L MCV 84.7 MCH 28.1 MCHC 33.2 RDW 18.3 H Plt Count 71 L Gran % 81.2 H Lymph % (Auto) 8.3 L [place] % (Auto) 10.5 H Eos % (Auto) 0.0 L Baso % (Auto) 0.0 Gran # 9.49 H Lymph # 1.0 L [place] # 1.2 H Eos # 0.0 Baso # 0.00 APTT Sodium 146 Potassium 4.3 Chloride 111 H Carbon Dioxide 23 Anion Gap 16 BUN 59 H Creatinine 2.9 H Est GFR ( Amer) 26 Est GFR (Non-Af Amer) 21 POC Glucose (mg/dL) Random Glucose 170 H Calcium 6.3 L* Phosphorus Magnesium Total Bilirubin 0.4 AST 76 H ALT 47 Alkaline Phosphatase 62 Lactate Dehydrogenase Total Creatine Kinase Troponin I Total Protein 5.2 L Albumin 2.8 L Globulin 2.4 Albumin/Globulin Ratio 1.2 EKG/Cardiology Studies: Cardiology / EKG Studies 10/12/16 07:00 EKG [ELECTROCARDIOGRAM] DAILY Comment: Reason For Exam: sinus bradycardia despite hypotension 10/13/16 07:00 EKG [ELECTROCARDIOGRAM] DAILY Comment: Reason For Exam: sinus bradycardia despite hypotension 10/14/16 07:00 EKG [ELECTROCARDIOGRAM] DAILY Comment: Reason For Exam: sinus bradycardia despite hypotension Fingerstick Blood Sugar Results: 165 Review of Systems - Review of Systems Systems not reviewed;Unavailable: Dementia Critical Care Progress Note - Ventilator Checklist Head of Bed 30 Degrees: Yes Daily Assessment of Readiness to Wean: Yes PUD Prophalyxis: Yes DVT Prophylaxis: Yes - Nutrition Nutrition: Nutrition Category Date Time Status NPO Diet [DIET] Diets 10/09/16 Breakfast Ordered Assessment/Plan - Assessment and Plan (Free Text) Assessment: S/P Shock state likely distributive shock S/P vasopressors and I.V fluids. Currently SBp WNL On Empiric abx, for possible PNA and / or Colitis. W/ Meropenum, falgyl and ID following. 1 BX shows Cornybacterium?? Surgery consult done for thoughts of Colitis, no surgery planed. Currently DNR DNI with increased secretions , nasal bleeding from possible trauma from suctionsing. Platelets > 20K HGb>7. Demented , weak . Could stop Steroids , CORTICUS trial . Need to speak with Brother on future plans. PT/OT Paliative care needed cc time 65 min
--- NOTE | 2016-10-12 09:32 | PN ---
DATE: 10/12/2016 The patient seen in height in the CCU 129, bed 2. He is confused. He has had no fevers last night. He appears to be in no acute distress, there have been no fevers reported, no chills. PHYSICAL EXAMINATION: VITAL SIGNS: Temperature is 96.6. The blood pressure is 128/70. Pulse of 61, respiratory rate of 2 1. HEENT: Reveals bilateral conjunctivitis. NECK: Supple. LUNGS: Have decreased breath sounds. HEART: Normal S1, S2. ABDOMEN: Soft and nontender. LABORATORY DATA: Reveals a white count of 11,700, hemoglobin of 9, platelets of 71. Chemistries rev eal the BUN of 59, creatinine of 2.9. The patient's LFTs are noted with an AST of 76, ALT of 46. Ch emistries are noted. Urinalysis reviewed showed large WBCs and positive leukocyte esterase and large blood in the urine. Digoxin level less than 0.04, alcoholic ____less than 10. Microbiology reveals there is corynebacterium species in the blood in 1 bottle, second bottle blood cultures negative and MRSA screen is not detected. C. diff antigen and toxin were both negative. Review of the orders reveals the patient to be on Flagyl, linezolid, meropenem. The patient's chest x-ray from yesterday is reviewed. Report shows stable, congestive heart failure, stable cardiomegaly , pulmonary vasculature. Dr. Nadir Grayson this consultation is noted. His impression is that the tristian ent had a transient hypotension and was unresponsive with renal insufficiency, urosepsis with diabete s and paroxysmal atrial fibrillation inotropic therapy. ASSESSMENT AND PLAN: This is a 76-year-old male with septic shock secondary to right gluteal skin an d skin structure infection and acute renal failure with urine as the source and colitis on CAT scan, dyslipidemia, hypertension, chronic obstructive pulmonary disease on Zyvox and meropenem. Stool C. d iff is negative. We will discontinue the Flagyl and will follow closely with you. Vel English MD cc: [id number] TT: 10/12/2016 09:31:57 Confirmation # [id number] Dictation # [id number] jn
--- NOTE | 2016-10-12 09:40 | PN ---
DATE: 10/12/2016 There were no events last night. PHYSICAL EXAMINATION: VITAL SIGNS: Blood pressure is 128/74, the heart rate is in the 60s. NECK: Negative JVD. LUNGS: Decreased breath sounds. HEART: Reveals S1, S2. EXTREMITIES: Without change. LABORATORIES: Hemoglobin is 9.9, white count is 11.7. Chemistries: The potassium is 4.3, BUN and c reatinine is 59/2.9. Echocardiogram shows mild LV hypokinesis. IMPRESSION: 1. The patient is currently a do not resuscitate/do not intubate. 2. No repeat of the atrial fibrillation found. Nadir Grayson MD cc: [id number] TT: 10/12/2016 09:40:27 Confirmation # [id number] Dictation # [id number]
[2016-10-12] MEDS: Linezolid 600 mg in D5W 300 ml 300 ML IVPB SCH ×2 (10:00→22:43)
--- NOTE | 2016-10-12 12:02 | RAD ---
HISTORY: interval changes. CHF COMPARISON: 10/09/2016 FINDINGS: The right IJV line terminates in the SVC. LUNGS: There is no significant interval change in pulmonary venous congestion and mild interstitial pulmonary edema. The lungs are hyperinflated. PLEURA: No significant pleural effusion identified, no pneumothorax apparent. CARDIOVASCULAR: There is persistent cardiomegaly. OSSEOUS STRUCTURES: There is diffuse bone demineralization and multilevel degenerative changes in the spine. VISUALIZED UPPER ABDOMEN: Normal. OTHER FINDINGS: None. IMPRESSION: No significant interval change in pulmonary venous congestion and interstitial pulmonary edema. COPD.
--- NOTE | 2016-10-12 12:17 | CP.PCM.PN ---
Subjective - Date & Time of Evaluation Date of Evaluation: 10/12/16 Time of Evaluation: 12:15 - Subjective Subjective: SURGERY NOTE FOR DR. SANCHEZ 76M seen and examined at bedside. NAEON, Patient now off pressors. Patient slightly confused. Objective - Vital Signs/Intake and Output Vital Signs (last 24 hours): Temp Pulse Resp BP Pulse Ox 96.6 F L 60 18 128/74 96 10/12/16 06:14 10/12/16 06:28 10/12/16 06:14 10/12/16 06:14 10/12/16 06:14 Intake and Output: 10/12/16 10/12/16 06:59 18:59 Intake Total 2300 Output Total 525 Balance 1775 - Medications Medications: Current Medications Albuterol/Ipratropium (Duoneb 3 Mg/0.5 Mg (3 Ml) Ud) 3 ml IH [id number] [facility] Last Admin: 10/12/16 07:54 Dose: 3 ml Aspirin (Aspirin Supp) 300 mg RC DAILY [facility] Last Admin: 10/12/16 10:01 Dose: 300 mg Meropenem 1g/NS 100mL IVPB (Meropenem 1g/Ns 100ml Ivpb) 100 mls @ 100 mls/hr IVPB Q12H FREDY PRN Reason: Protocol Last Admin: 10/12/16 05:18 Dose: 100 mls/hr Linezolid (Zyvox 600mg/300ml D5w) 300 mls @ 200 mls/hr IVPB Q12 FREDY PRN Reason: Protocol Stop: 10/17/16 13:31 Last Admin: 10/12/16 10:00 Dose: 200 mls/hr Insulin Human Lispro (Humalog Low) 0 units SC ACHS FREDY PRN Reason: Protocol Last Admin: 10/12/16 08:30 Dose: Not Given Pantoprazole Sodium (Protonix Inj) 40 mg IVP DAILY [facility] Last Admin: 10/12/16 10:01 Dose: 40 mg - Labs Labs: 10/12/16 06:25 10/12/16 06:25 PT 11.8 Seconds (9.9-11.8) 10/10/16 07:00 INR 1.09 (0.93-1.08) H 10/10/16 07:00 APTT > 180.0 Seconds (23.7-30.8) H* 10/11/16 19:00 Assessment and Plan - Assessment and Plan (Free Text) Assessment: 76M w. sepsis, consulted for colitis -C.diff negative -c/w IVF -c/w abx -no plans for surgical intervention at this time -will continue to follow closely Discussed with Dr. Jose Way, PGY1
--- NOTE | 2016-10-12 14:29 | CARD ---
APPROVED REPORT EKG Measurement Heart [id number] <Conclusion> Normal sinus rhythm Normal ECG
--- NOTE | 2016-10-12 21:25 | PN ---
DATE: 10/11/2016 The patient was seen in the intensive care unit. When I saw him he was on vasopressin, Levophed, and had a warming blanket also in place. Arndt catheter was in place as well. He was on heparin infusi on and receiving D5W at 100 mL hour with a multivitamin in place. Right internal jugular triple lume n catheter was also noted to be in place. The patient's eyes were open and he was awake, but he was not verbal with me. He was noted to be gurgling somewhat. He did not appear to be in any pain. He has been requiring frequent nasotracheal suctioning. Bilateral mid-restraints were also in place. OBJECTIVE: VITAL SIGNS: Blood pressure is 99/79 with a minimum blood pressure in the last 24-hour period of katerin roximately 84/50 and a maximum documented blood pressure of 183/63. Heart rate is 69, but has ranged from the 60s-70s with the monitoring showing sinus rhythm. Oral temperature is 98.4 and the patient has been afebrile for the last 24-hour period. Respiratory rate is 24 breaths per minute, but has r anged from approximately 18-28 breaths per minute in the last 24 hour period and oxygen saturation is 98%, but has ranged from 97% to 100%. I's and O's are documented as 3000/1025. The remainder of the exam was as follows: HEENT: The patient was normocephalic, atraumatic. Conjunctivae were injected. NECK: There is no jugular venous distention that I could appreciate but he did have a right internal jugular triple lumen catheter in place. CARDIAC: Had a regular rate and rhythm without any rubs or gallops. There were no heaves and the PM I was not displaced. ABDOMEN: Soft, distended, but nontender. There was no rebound, guarding or rigidity. There was no hepatosplenomegaly noted. EXTREMITIES: Had 1+ sacral edema. NEUROLOGIC: He was awake, but nonverbal. GENITOURINARY: He had a Arndt catheter in place. There was no suprapubic tenderness. LABORATORY STUDIES: Are as follows: White count is 11.7, H and H 9.9/29.8 with a platelet count of 71,000. There are 81% neutrophils, 8% lymphocytes, 11% monocytes. Sodium is 146, potassium 4.3, chl oride 111, bicarbonate 23, BUN/creatinine is 59/2.0 with a glucose of 170. Calcium is low at 6.3 and even after correcting the albumin to 2.8 it is still low at 7.3. Blood culture has grown out coryne bacterium species. Urine culture has grown out yeast species and MRSA is negative. Stool was negati ve for C. diff antigen as well as toxin. Chest x-ray is compatible with congestive heart failure. IMPRESSION AND PLAN: The patient is a 76-year-old gentleman with a known history of hypertension, dy slipidemia, chronic obstructive pulmonary disease, originally brought to [facility], [place] after being found on the floor and poorly responsive by a neighbor. On arrival, he was hypotensive, nilda cardic, hypothermic and with acute kidney injury, hypernatremia, hyperkalemia and lactic acidosis. C T scan of his abdomen has revealed colitis and physical exam was consistent with cellulitis of his bu ttocks as well. He remains in septic shock and with acute kidney injury, although his urine output a ppears to be increasing. 1. The patient's sodium has corrected and is now 146. He remains n.p.o. and therefore he will requi re either water being given via NG tube or OG tube or D5W. Either option would be acceptable. 2. Given the fact that chest x-ray reveals congestive heart failure, he should not receive any fluid s containing sodium chloride at this time. 3. To the degree that his blood pressure permits, I would attempt to diurese this patient with p.r.n . doses of furosemide. We need to begin to attain negative fluid balance since he does remain with c ongestive heart failure. 4. The patient is noted to be hypocalcemic even after correcting for his low albumin. He is not hyp erphosphatemic. We will need to evaluate the etiology of his hypocalcemia and in particular, I will check amylase and lipase with his next set of labs as well as CPK to rule deposition of calcium in ei ther his pancreas or muscle if they were inflamed, respectively (i.e. pancreatitis or rhabdomyolysis) . 5. If the patient is to continuing receiving pressors, titrates should be to a mean arterial pressur e of 65 mmHg. 6. Cardiology followup is appreciated and the patient has had atrial fibrillation during this hospit alization, but none has recurred. He is noted to be DNR/DNI and his advanced directive state that he is not have any heroic measures taken and, thus, he is not a candidate for dialysis. 7. Surgery followup is appreciated. Although the patient has colitis, he is not a surgical candidat e at this time. 8. Infectious disease followup is appreciated as well. Since his stool was negative for C. diff., F lagyl will be discontinued. He does remain on Zyvox as well as meropenem, however, to treat his cell ulitis, colitis and now with a corynebacterium species in his blood as well. 9. For gastrointestinal prophylaxis, the patient is currently on pantoprazole and for deep vein thro mbosis prophylaxis SCDs will suffice, especially since he does remain thrombocytopenic and increasing ly so. 10. Overall prognosis remains poor. Via the chart, review of systems, past medical history, social history and family history were all re viewed and there were no new changes and more than 35 minutes were spent in the care of this ICU tristian ent. Israel Cazares MD cc: [phone] TT: 10/12/2016 21:25:16 Confirmation # [id number] Dictation # [id number] dn
[2016-10-13] MEDS: Albuterol-Ipratrop 3 mg / 0.5 (3 ml) UD IH SCH ×4 (01:39→21:35)
[2016-10-13] MEDS: Meropenem 1g/NS 100mL IVPB 100 ML IVPB SCH ×2 (06:26→17:02)
[2016-10-13 06:58] LABS: HEMATOCRIT 29.2 % (42.0-52.0); MEAN CELL VOLUME 83.9 fL (80.0-105.0); MEAN CORPUSCULAR HEMOGLOBIN 27.6 pg (25.0-35.0); MEAN CORPUSCULAR HGB CONC 32.9 g/dl (31.0-37.0); PLATELET COUNT 83 10^3/uL (120.0-450.0); RED CELL DISTRIBUTION WIDTH 17.8 % (11.5-14.5); WHITE BLOOD COUNT 10.7 10^3/ul (4.5-11.0)
[2016-10-13 07:06] LABS: ALB/GLOB RATIO 1.1 (1.1-1.8); BILIRUBIN,TOTAL 0.5 mg/dL (0.2-1.3); POTASSIUM 3.9 mmol/L (3.6-5.0)
[2016-10-13 07:40] LABS: ADD MANUAL DIFF? NO; BASO # 0.01 K/mm3 (0.0-2.0); BASO % 0.1 % (0.0-3.0); EOS % 0.4 % (1.5-5.0); GRAN # 7.62 (1.4-6.5); GRAN % 71.3 % (50.0-68.0); LYMPH # 1.8 (1.2-3.4); LYMPH % 17.2 % (22.0-35.0); MONO # 1.2 (0.1-0.6)
[2016-10-13 08:16] LABS: CALCIUM 6.6 mg/dL (8.4-10.5)
[2016-10-13] MEDS ORDERED: Dextrose 5%/0.45% NS 1,000 ML IV SCH ×2 (08:30→20:51)
--- NOTE | 2016-10-13 09:15 | PN ---
DATE: 10/13/2016 The patient is in bed, in no acute distress, nontoxic. No fevers. PHYSICAL EXAMINATION: VITAL SIGNS: Temperature is 97, blood pressure is 108/53, respiratory rate of 18, a heart rate of 65 . HEENT: Unremarkable. NECK: Supple. LUNGS: Have decreased breath sounds. HEART: Normal S1, S2. ABDOMEN: Soft. LABORATORY EXAMINATION: Reveals the patient's white count is 10,000, hemoglobin of 9 and platelets o f 83 with chemistries reveals the BUN of 62, creatinine of 3.2. CK is 4049 and AST is 132. The tristian ent's procalcitonin was 0.79. Urinalysis is noted and too numerous to count WBCs and large leukocyte esterase. Digoxin level is less than 0.04. Blood culture is positive with corynebacterium species in 1 bottle. The other bottle has no growth. Urine culture is positive for yeast. The stool C. dif f antigen and toxin are both negative. The MRSA screen is negative. Review of the orders reveals the patient to be on meropenem, linezolid. Dr. Cazares' note is revi ewed from yesterday. Dr. Nadir Grayson's note from yesterday is also reviewed. The patient had a chest x-ray yesterday, which revealed no significant change and pulmonary venous congestion and interstiti al pulmonary edema. ASSESSMENT AND PLAN: A 76-year-old male with septic shock, secondary to right gluteal skin and skin structure infection, acute renal failure and urine as the source and colitis and the dyslipidemia, hy pertension, chronic obstructive lung disease, on Zyvox, meropenem, Clostridium difficile negative. W e will follow closely with you and follow the platelets closely in this patient who is on Zyvox. Vel English MD cc: [id number] TT: 10/13/2016 09:14:44 Confirmation # [id number] Dictation # [id number] en
--- NOTE | 2016-10-13 09:20 | CP.CCUPN ---
CCU Subjective - Physician Review Events Since Last Encounter (Free Text): 10/13/16 09:17 No acute events. BP WNL, No further oxygen or vasopressor need. CCU Objective - Vital Signs / Intake & Output Vital Signs (Last 4 hours): Vital Signs Temp Pulse Resp BP Pulse Ox 10/13/16 06:43 97.7 F 65 97 10/13/16 06:42 97.7 F 67 99 10/13/16 06:38 97.9 F 63 99 10/13/16 06:33 97.9 F 65 97 10/13/16 06:30 97.9 F 65 19 108/53 L 98 10/13/16 06:29 97.9 F 71 96 10/13/16 06:15 97.9 F 65 98 10/13/16 06:00 98.1 F 69 22 105/55 L 97 10/13/16 05:35 98.6 F 71 18 10/13/16 05:34 98.6 F 67 16 10/13/16 05:33 98.6 F 62 20 10/13/16 05:32 98.6 F 68 25 H 10/13/16 05:31 98.6 F 63 20 10/13/16 05:30 98.6 F 71 20 102/52 L 10/13/16 05:29 98.6 F 70 18 10/13/16 05:28 98.6 F 67 17 10/13/16 05:25 98.6 F 72 18 10/13/16 05:22 98.6 F 72 15 10/13/16 05:21 98.6 F 72 25 H 10/13/16 05:20 98.6 F 64 16 10/13/16 05:19 98.6 F 69 16 10/13/16 05:18 98.6 F 69 27 H Intake and Output (Last 8hrs): Intake & Output 10/12/16 10/13/16 10/13/16 22:59 06:59 14:59 Intake Total 700 400 Output Total 500 400 Balance 200 0 Intake: IV 700 400 Right Internal Jugular 700 400 Oral 0 Output: Urine 500 400 Urethral (Arndt) 500 400 Other: Voiding Method Indwelling Catheter # Bowel Movements 0 - Physical Exam Head: Positive for: Atraumatic, Normocephalic Pupils: Positive for: PERRL Extroacular Muscles: Positive for: EOMI Conjunctiva: Positive for: Normal Ears: Positive for: Normal Mouth: Positive for: Dry Pharnyx: Positive for: Muffled/Hoarse Voice Nose (External): Positive for: Lesions (nasal crusting, blood ) Neck: Positive for: Normal Range of Motion Respiratory/Chest: Positive for: Clear to Auscultation, Good Air Exchange, Wheezes, Decreased Breath Sounds (rll decreased breath sounds ). Negative for: Respiratory Distress, Accessory Muscle Use Cardiovascular: Positive for: Normal S1, S2, Bradycardic. Negative for: Murmurs Abdomen: Positive for: Normal Bowel Sounds. Negative for: Tenderness, Distention, Peritoneal Signs Upper Extremity: Positive for: Normal Inspection. Negative for: Cyanosis, Edema Lower Extremity: Positive for: Normal Inspection, Swelling (poor skin, and nail hygene possibly fungal ). Negative for: Edema Neurological: Positive for: CN II-XII Intact, Speech Normal, Motor Func Grossly Intact, Normal Sensory Function, Other (Awaker, oriented to person) Skin: Positive for: Normal Color, Other (Area of severe excoriations to lower back/buttocks with cellulitis noted extending from lower back/buttocks to upper thighs). Negative for: Dry Psychiatric: Positive for: Alert. Negative for: Oriented x 3 (Oriented to person) - Medications Active Medications: Active Medications Generic Name Dose Route Start Last Admin Trade Name Freq PRN Reason Stop Dose Admin Albuterol/Ipratropium 3 ml 10/11/16 14:00 10/13/16 07:59 Duoneb 3 Mg/0.5 Mg (3 Ml) Ud IH 3 ml [id number] FREDY Administration Aspirin 300 mg 10/11/16 10:00 10/12/16 10:01 Aspirin Supp RC 300 mg DAILY FREDY Administration Meropenem 1g/NS 100mL IVPB 100 mls @ 100 mls/hr 10/10/16 18:00 10/13/16 06:26 Meropenem 1g/Ns 100ml Ivpb IVPB 100 mls/hr Q12H FREDY Administration Protocol Linezolid 300 mls @ 200 mls/hr 10/10/16 13:30 10/12/16 22:43 Zyvox 600mg/300ml D5w IVPB 10/17/16 13:31 200 mls/hr Q12 FREDY Administration Protocol Dextrose/Sodium Chloride 1,000 mls @ 60 mls/hr 10/13/16 08:30 Dextrose 5%/0.45% Ns 1000 Ml IV .[id number] [facility] Insulin Human Lispro 0 units 10/10/16 07:30 10/12/16 22:00 Humalog Low SC Not Given ACHS [facility] Protocol Pantoprazole Sodium 40 mg 10/11/16 10:00 10/12/16 10:01 Protonix Inj IVP 40 mg DAILY [facility] Administration - Patient Studies Lab Studies: Lab Studies 10/13/16 10/12/16 10/12/16 Range/Units 06:30 21:45 16:08 WBC 10.7 (4.5-11.0) 10^3/ul RBC 3.48 L (3.5-6.1) 10^6/uL Hgb 9.6 L (14.0-18.0) gm/dL Hct 29.2 L (42.0-52.0) % MCV 83.9 (80.0-105.0) fL MCH 27.6 (25.0-35.0) pg MCHC 32.9 (31.0-37.0) g/dl RDW 17.8 H (11.5-14.5) % Plt Count 83 L (120.0-450.0) 10^3/uL Gran % 71.3 H (50.0-68.0) % Lymph % (Auto) 17.2 L (22.0-35.0) % [place] % (Auto) 11.0 H (1.0-6.0) % Eos % (Auto) 0.4 L (1.5-5.0) % Baso % (Auto) 0.1 (0.0-3.0) % Gran # 7.62 H (1.4-6.5) Lymph # 1.8 (1.2-3.4) [place] # 1.2 H (0.1-0.6) Eos # 0.0 (0.0-0.7) Baso # 0.01 (0.0-2.0) K/mm3 Neutrophils % (Manual) TEST NOT PERFORMED Lymphocytes % (Manual) TEST NOT PERFORMED Monocytes % (Manual) TEST NOT PERFORMED Sodium 145 (132-148) mmol/L Potassium 3.9 (3.6-5.0) mmol/L Chloride 110 H (98-107) mmol/L Carbon Dioxide 26 (21-33) mmol/L Anion Gap 13 (10-20) BUN 62 H (7-21) mg/dL Creatinine 3.1 H (0.5-1.4) mg/dL Est GFR ( Amer) 24 Est GFR (Non-Af Amer) 20 POC Glucose (mg/dL) 106 104 (65-110) mg/dL Random Glucose 83 (70-110) mg/dL Calcium 6.6 L* (8.4-10.5) mg/dL Total Bilirubin 0.5 (0.2-1.3) mg/dL AST 134 H (15-59) U/L ALT 53 (7-56) U/L Alkaline Phosphatase 67 (38-133) U/L Total Creatine Kinase 4049 H (35-230) U/L Total Protein 5.0 L (5.8-8.3) g/dL Albumin 2.6 L (3.0-4.8) g/dL Globulin 2.4 gm/dL Albumin/Globulin Ratio 1.1 (1.1-1.8) Amylase 72 (35-125) U/L Lipase 154 (23-300) U/L 10/12/16 10/12/16 Range/Units 11:30 07:38 WBC (4.5-11.0) 10^3/ul RBC (3.5-6.1) 10^6/uL Hgb (14.0-18.0) gm/dL Hct (42.0-52.0) % MCV (80.0-105.0) fL MCH (25.0-35.0) pg MCHC (31.0-37.0) g/dl RDW (11.5-14.5) % Plt Count (120.0-450.0) 10^3/uL Gran % (50.0-68.0) % Lymph % (Auto) (22.0-35.0) % [place] % (Auto) (1.0-6.0) % Eos % (Auto) (1.5-5.0) % Baso % (Auto) (0.0-3.0) % Gran # (1.4-6.5) Lymph # (1.2-3.4) [place] # (0.1-0.6) Eos # (0.0-0.7) Baso # (0.0-2.0) K/mm3 Neutrophils % (Manual) Lymphocytes % (Manual) Monocytes % (Manual) Sodium (132-148) mmol/L Potassium (3.6-5.0) mmol/L Chloride (98-107) mmol/L Carbon Dioxide (21-33) mmol/L Anion Gap (10-20) BUN (7-21) mg/dL Creatinine (0.5-1.4) mg/dL Est GFR ( Amer) Est GFR (Non-Af Amer) POC Glucose (mg/dL) 173 H 168 H (65-110) mg/dL Random Glucose (70-110) mg/dL Calcium (8.4-10.5) mg/dL Total Bilirubin (0.2-1.3) mg/dL AST (15-59) U/L ALT (7-56) U/L Alkaline Phosphatase (38-133) U/L Total Creatine Kinase (35-230) U/L Total Protein (5.8-8.3) g/dL Albumin (3.0-4.8) g/dL Globulin gm/dL Albumin/Globulin Ratio (1.1-1.8) Amylase (35-125) U/L Lipase (23-300) U/L Laboratory Results - last 24 hr 10/12/16 10/12/16 10/12/16 07:38 11:30 16:08 WBC RBC Hgb Hct MCV MCH MCHC RDW Plt Count Gran % Lymph % (Auto) [place] % (Auto) Eos % (Auto) Baso % (Auto) Gran # Lymph # [place] # Eos # Baso # Neutrophils % (Manual) Lymphocytes % (Manual) Monocytes % (Manual) Sodium Potassium Chloride Carbon Dioxide Anion Gap BUN Creatinine Est GFR ( Amer) Est GFR (Non-Af Amer) POC Glucose (mg/dL) 168 H 173 H 104 Random Glucose Calcium Total Bilirubin AST ALT Alkaline Phosphatase Total Creatine Kinase Total Protein Albumin Globulin Albumin/Globulin Ratio Amylase Lipase 10/12/16 10/13/16 21:45 06:30 WBC 10.7 RBC 3.48 L Hgb 9.6 L Hct 29.2 L MCV 83.9 MCH 27.6 MCHC 32.9 RDW 17.8 H Plt Count 83 L Gran % 71.3 H Lymph % (Auto) 17.2 L [place] % (Auto) 11.0 H Eos % (Auto) 0.4 L Baso % (Auto) 0.1 Gran # 7.62 H Lymph # 1.8 [place] # 1.2 H Eos # 0.0 Baso # 0.01 Neutrophils % (Manual) TEST NOT PERFORMED Lymphocytes % (Manual) TEST NOT PERFORMED Monocytes % (Manual) TEST NOT PERFORMED Sodium 145 Potassium 3.9 Chloride 110 H Carbon Dioxide 26 Anion Gap 13 BUN 62 H Creatinine 3.1 H Est GFR ( Amer) 24 Est GFR (Non-Af Amer) 20 POC Glucose (mg/dL) 106 Random Glucose 83 Calcium 6.6 L* Total Bilirubin 0.5 AST 134 H ALT 53 Alkaline Phosphatase 67 Total Creatine Kinase 4049 H Total Protein 5.0 L Albumin 2.6 L Globulin 2.4 Albumin/Globulin Ratio 1.1 Amylase 72 Lipase 154 EKG/Cardiology Studies: Cardiology / EKG Studies 10/13/16 07:00 EKG [ELECTROCARDIOGRAM] DAILY Comment: Reason For Exam: sinus bradycardia despite hypotension 10/14/16 07:00 EKG [ELECTROCARDIOGRAM] DAILY Comment: Reason For Exam: sinus bradycardia despite hypotension Fingerstick Blood Sugar Results: 106 Review of Systems - Review of Systems Systems not reviewed;Unavailable: Altered Mental Status Critical Care Progress Note - Nutrition Nutrition: Nutrition Category Date Time Status NPO Diet [DIET] Diets 10/09/16 Breakfast Ordered Assessment/Plan - Assessment and Plan (Free Text) Assessment: 76 y/o M w/ resolving Septic shock Off all vasopressors BP WNL Aspiration PNA with RLL infiltrate. Chest PT needed, Nebulizers. DNR DNI On Empiric abx w/ Meropenum and Linezolid per ID, CX negative thus far On 3L NC Needs PT/OT Needs a family discussion about hospice/ comfort care or need for PEG placement for feedings. Aspiration risk, failed swallow evaluation Hypernatremia on D5W. Trend Sodium . Nephrology following Case d/w hospitalist transfer to regular floors.
[2016-10-13] MEDS: Insulin Lispro (humaLOG) LOW Coverage SC SCH ×4 (10:45→21:33)
[2016-10-13] MEDS: Linezolid 600 mg in D5W 300 ml 300 ML IVPB SCH ×2 (10:47→22:07)
--- NOTE | 2016-10-13 14:30 | CP.PCM.PN ---
<Matt Martinez - Last Filed: 10/13/16 14:27> Subjective - Date & Time of Evaluation Date of Evaluation: 10/13/16 Time of Evaluation: 14:27 - Subjective Subjective: Pt seen and examined at bedside. No acute events overnight. Pt is arousable today and alert, more than previous day. Pt not able to effectively communicate , but understands commands. No nausea, vomiting, diarrhea, fevers. Objective - Vital Signs/Intake and Output Vital Signs (last 24 hours): Temp Pulse Resp BP Pulse Ox 97.7 F 65 19 108/53 L 97 10/13/16 06:43 10/13/16 06:43 10/13/16 06:30 10/13/16 06:30 10/13/16 06:43 Intake and Output: 10/13/16 10/13/16 06:59 18:59 Intake Total 400 Output Total 400 Balance 0 - Medications Medications: Current Medications Albuterol/Ipratropium (Duoneb 3 Mg/0.5 Mg (3 Ml) Ud) 3 ml IH [id number] [facility] Last Admin: 10/13/16 13:16 Dose: 3 ml Aspirin (Aspirin Supp) 300 mg RC DAILY [facility] Last Admin: 10/13/16 10:49 Dose: 300 mg Meropenem 1g/NS 100mL IVPB (Meropenem 1g/Ns 100ml Ivpb) 100 mls @ 100 mls/hr IVPB Q12H FREDY PRN Reason: Protocol Last Admin: 10/13/16 06:26 Dose: 100 mls/hr Linezolid (Zyvox 600mg/300ml D5w) 300 mls @ 200 mls/hr IVPB Q12 FREDY PRN Reason: Protocol Stop: 10/17/16 13:31 Last Admin: 10/13/16 10:47 Dose: 200 mls/hr Dextrose/Sodium Chloride (Dextrose 5%/0.45% Ns 1000 Ml) 1,000 mls @ 60 mls/hr IV .[id number] [facility] Last Admin: 10/13/16 10:59 Dose: 60 mls/hr Insulin Human Lispro (Humalog Low) 0 units SC ACHS FREDY PRN Reason: Protocol Last Admin: 10/13/16 13:48 Dose: Not Given Pantoprazole Sodium (Protonix Inj) 40 mg IVP DAILY [facility] Last Admin: 10/13/16 10:49 Dose: 40 mg - Labs Labs: 10/13/16 06:30 10/13/16 06:30 PT 11.8 Seconds (9.9-11.8) 10/10/16 07:00 INR 1.09 (0.93-1.08) H 10/10/16 07:00 APTT > 180.0 Seconds (23.7-30.8) H* 10/11/16 19:00 - Constitutional Appears: Non-toxic, No Acute Distress - Head Exam Head Exam: ATRAUMATIC, NORMAL INSPECTION, NORMOCEPHALIC - ENT Exam ENT Exam: Mucous Membranes Moist, Normal Exam - Respiratory Exam Respiratory Exam: Clear to Ausculation Bilateral, NORMAL BREATHING PATTERN. absent: Rhonchi, Wheezes - Cardiovascular Exam Cardiovascular Exam: RRR, +S1, +S2 - GI/Abdominal Exam GI & Abdominal Exam: Soft, Normal Bowel Sounds. absent: Tenderness - Extremities Exam Extremities Exam: absent: Calf Tenderness, Pedal Edema - Neurological Exam Neurological Exam: Alert, Awake. absent: Oriented x3 Additional comments: Unable to appropriately answer questions, confused, nonverbal - Skin Skin Exam: Intact, Normal Color, Warm Assessment and Plan - Assessment and Plan (Free Text) Plan: 76yo M with PMHx of hypertension, HLD, COPD was admitted to ICU with AMS, septic shock likely secondary to cellulitis, cystitis, colitis. CXR from previous day stable. Pt will likely be transferred to telemetry today. Palliative care consult will be placed. Septic shock due to cellulitis and colitis - ID recommendations, Continue zyvox, meropemen -Blood culture Corenebacterium, likely contaminant - Urine culture is positive for yeast -Nasal MRSA cx negative -C Diff culture negative -Surgery consult, no surgical intervention at this time -Echo - mild systolic dysfunction. Mild TR. Mild Pulmonary HTN. EF = 45.8 Acute renal failure -Stable, not improving -D5W 1/2 NS started at 60 cc/hr -No evidence of hydronephrosis on CT abdomen -Avoid nephrotoxic meds -Nephrology is following Hypernatremia Resolved Na 145 today Hyperkalemia Resolved k 3.9 today PPx -Heparin stopped due to bleeding -Protonix for GI ppx Seen, reviewed, and discussed with attending. Michelle, PGY-1 <Ema CARRERO,Rachele - Last Filed: 10/13/16 16:37> Objective - Vital Signs/Intake and Output Vital Signs (last 24 hours): Temp Pulse Resp BP Pulse Ox 97.2 F L 58 L 18 108/47 L 94 L 10/13/16 12:00 10/13/16 15:00 10/13/16 15:00 10/13/16 15:00 10/13/16 15:00 Intake and Output: 10/13/16 10/13/16 06:59 18:59 Intake Total 400 Output Total 400 Balance 0 - Medications Medications: Current Medications Albuterol/Ipratropium (Duoneb 3 Mg/0.5 Mg (3 Ml) Ud) 3 ml IH [id number] [facility] Last Admin: 10/13/16 13:16 Dose: 3 ml Aspirin (Aspirin Supp) 300 mg RC DAILY [facility] Last Admin: 10/13/16 10:49 Dose: 300 mg Meropenem 1g/NS 100mL IVPB (Meropenem 1g/Ns 100ml Ivpb) 100 mls @ 100 mls/hr IVPB Q12H [facility] PRN Reason: Protocol Last Admin: 10/13/16 06:26 Dose: 100 mls/hr Linezolid (Zyvox 600mg/300ml D5w) 300 mls @ 200 mls/hr IVPB Q12 FREDY PRN Reason: Protocol Stop: 10/17/16 13:31 Last Admin: 10/13/16 10:47 Dose: 200 mls/hr Dextrose/Sodium Chloride (Dextrose 5%/0.45% Ns 1000 Ml) 1,000 mls @ 60 mls/hr IV .[id number] [facility] Last Admin: 10/13/16 10:59 Dose: 60 mls/hr Insulin Human Lispro (Humalog Low) 0 units SC ACHS FREDY PRN Reason: Protocol Last Admin: 10/13/16 13:48 Dose: Not Given Pantoprazole Sodium (Protonix Inj) 40 mg IVP DAILY [facility] Last Admin: 10/13/16 10:49 Dose: 40 mg - Labs Labs: 10/13/16 06:30 10/13/16 06:30 PT 11.8 Seconds (9.9-11.8) 10/10/16 07:00 INR 1.09 (0.93-1.08) H 10/10/16 07:00 APTT > 180.0 Seconds (23.7-30.8) H* 10/11/16 19:00 Attending/Attestation - Attestation I have personally seen and examined this patient.: Yes I have fully participated in the care of the patient.: Yes I have reviewed all pertinent clinical information, including history, physical exam and plan: Yes Notes (Text): Patient was seen and examined with medical director occupational health . 76 year old male with past medical history of hypertension, HLD, COPD was admitted to ICU with change of mental status, septic shock likely secondary to cellulitis, cystitis, colitis, possible Pneumonia, on Meropenum and Linezolid per ID as per ID, off pressor, has dysphagia, more awake, swallow evaluation in am , if fail again will need PEG, Prognosis is guarded.
--- NOTE | 2016-10-13 15:03 | CP.PCM.PN ---
Subjective - Date & Time of Evaluation Date of Evaluation: 10/13/16 Time of Evaluation: 15:00 - Subjective Subjective: Surgery: Dr. Garcia Pt seen and examined. No acute events overnight. Remains lethargic. Objective - Vital Signs/Intake and Output Vital Signs (last 24 hours): Temp Pulse Resp BP Pulse Ox 97.7 F 65 19 108/53 L 97 10/13/16 06:43 10/13/16 06:43 10/13/16 06:30 10/13/16 06:30 10/13/16 06:43 Intake and Output: 10/13/16 10/13/16 06:59 18:59 Intake Total 400 Output Total 400 Balance 0 - Medications Medications: Current Medications Albuterol/Ipratropium (Duoneb 3 Mg/0.5 Mg (3 Ml) Ud) 3 ml IH [id number] [facility] Last Admin: 10/13/16 13:16 Dose: 3 ml Aspirin (Aspirin Supp) 300 mg RC DAILY [facility] Last Admin: 10/13/16 10:49 Dose: 300 mg Meropenem 1g/NS 100mL IVPB (Meropenem 1g/Ns 100ml Ivpb) 100 mls @ 100 mls/hr IVPB Q12H [facility] PRN Reason: Protocol Last Admin: 10/13/16 06:26 Dose: 100 mls/hr Linezolid (Zyvox 600mg/300ml D5w) 300 mls @ 200 mls/hr IVPB Q12 [facility] PRN Reason: Protocol Stop: 10/17/16 13:31 Last Admin: 10/13/16 10:47 Dose: 200 mls/hr Dextrose/Sodium Chloride (Dextrose 5%/0.45% Ns 1000 Ml) 1,000 mls @ 60 mls/hr IV .[id number] [facility] Last Admin: 10/13/16 10:59 Dose: 60 mls/hr Insulin Human Lispro (Humalog Low) 0 units SC ACHS [facility] PRN Reason: Protocol Last Admin: 10/13/16 13:48 Dose: Not Given Pantoprazole Sodium (Protonix Inj) 40 mg IVP DAILY [facility] Last Admin: 10/13/16 10:49 Dose: 40 mg - Labs Labs: 10/13/16 06:30 10/13/16 06:30 PT 11.8 Seconds (9.9-11.8) 10/10/16 07:00 INR 1.09 (0.93-1.08) H 10/10/16 07:00 APTT > 180.0 Seconds (23.7-30.8) H* 10/11/16 19:00 - Constitutional Appears: Non-toxic, No Acute Distress, Chronically Ill - Head Exam Head Exam: ATRAUMATIC, NORMOCEPHALIC - Eye Exam Eye Exam: EOMI - Neck Exam Neck Exam: Full ROM - Respiratory Exam Respiratory Exam: NORMAL BREATHING PATTERN. absent: Accessory Muscle Use, Respiratory Distress - GI/Abdominal Exam GI & Abdominal Exam: Soft. absent: Distended, Firm, Guarding, Rigid, Tenderness , Rebound - Extremities Exam Extremities Exam: absent: Calf Tenderness, Pedal Edema - Neurological Exam Neurological Exam: Alert, Awake. absent: Oriented x3 - Skin Additional comments: significant improvement in erythema over groin, thigh, and flank Assessment and Plan - Assessment and Plan (Free Text) Assessment: 76M w. sepsis, consulted for colitis -C.diff negative -c/w IVF -c/w abx -no plans for surgical intervention at this time -will continue to follow closely -will d/w attending Zemaitis PGY2
--- NOTE | 2016-10-13 18:27 | CARD ---
APPROVED REPORT EKG Measurement Heart [id number] 200P79 [id number] <Conclusion> Normal sinus rhythm Normal ECG
--- NOTE | 2016-10-13 22:50 | PN ---
DATE: 10/13/2016 SUBJECTIVE: The patient was seen on the general medical floor. His eyes would open, but he was nonv erbal. He thus did not offer any complaints. He did not appear to be in any pain or distress, howev er. OBJECTIVE: VITAL SIGNS: Blood pressure is 109/59 with a heart rate of 88, oral temperature is 98 degrees, respi ratory rate is 18, oxygen saturation is 97% on room air. I's and O's are documented as 1100/900, and the patient does have a Arndt catheter in place. The remainder of the exam was as follows: HEENT: The patient was normocephalic and atraumatic. There is no sinus tenderness. Conjunctivae we re injected, however. NECK: There was no jugular venous distention that I could appreciate. He did have a right internal jugular triple lumen catheter in place. CHEST: Lung hargrove are clear to auscultation, but the patient was not cooperative with deep breaths. CARDIAC: Had a regular rate and rhythm, and there was no rub. ABDOMEN: Soft, mildly distended but nontender, without any rebound, guarding or rigidity. There was no hepatosplenomegaly. EXTREMITIES: Had 1+ sacral edema. NEUROLOGIC: He was awake but nonverbal and appeared to be somewhat encephalopathic. GENITOURINARY: Notable for the presence of a Arndt catheter. There was no suprapubic tenderness in place. LABORATORY STUDIES: White count is 10.7, H and H is 9.6/29.2 with a platelet count of 83,000. There are 71% neutrophils, 17% lymphocytes, 11% monocytes. Sodium is 145, potassium 3.9, chloride is 110, bicarbonate 26, BUN/creatinine 62/3.1 with a glucose of 83. Calcium is 6.6 but after correcting the albumin of 2.6 it becomes 7.8. CPK is noted to be elevated at 4049 having been 132 days ago. Amyla se was within normal limits as was lactase. Stool is negative for C. diff antigen as well as toxin. Urine culture has yeast. Blood cultures, corynebacterium species, and there is no new imaging to re port. IMPRESSION AND PLAN: The patient is a 76-year-old gentleman with hypertension, dyslipidemia, chronic obstructive pulmonary disease, originally brought to [facility] after being found on the floor and poorly responsive by neighbor. On arrival, he was hypotensive, bradycardic, hypothermic a nd with acute kidney injury, hypernatremia, hyperkalemia and lactic acidosis. CT scan revealed colit is, and he was also found on exam to have cellulitis of his buttocks. He had septic shock and was tr eated in the intensive care unit with development of acute kidney injury that is nonoliguric. 1. The patient's creatinine during this hospitalization has been fairly stable, and he has adequate u rine output. 2. He was noted to be hypocalcemic, and in the workup of this, CPK was checked, which is elevated con sistent with rhabdomyolysis thus explaining calcium precipitation in his damaged muscle. To treat th is he will need isotonic intravenous fluids with p.r.n. furosemide if he is in significant positive fluid balance. At present, he is receiving D5 one-half normal saline. He is n.p.o. Given the fact that his serum sodium remains high normal at 145 and he was recently hypernatremic secondary to inade quate oral intake, we will increase the D5 one-half normal saline from 60 mL per hour 120 mL per hour for now. 3. If the patient is not an even fluid balance, we will need to give him furosemide on a p.r.n. basis . 4. We will continue to monitor the patient's CPK to ensure that it is decreasing. 5. As to the etiology of the patient's rhabdomyolysis, in looking at his medications, there is no obv ious culprit, and it does not appear that he had a seizure, either. He has not been profoundly hypok alemic nor hypophosphatemic since these are metabolic causes of rhabdomyolysis. It may be that he stokes s been in bed too long, and we will need physical therapy to mobilize the patient as well. 6. Given the patient's advanced directives, no aggressive measures are to be taken, and this would in clude dialysis. 7. Infectious disease followup is appreciated as well. The patient is status post septic shock secon estrada to right gluteal skin and skin structure infection as well as having bacteremia and remains on Z yvox as well as meropenem. Platelets are being monitored while he is on Zyvox. 8. CT scan during this hospitalization revealed colitis. The patient has been seen by surgery and is not deemed to be a surgical candidate, and I agree with this assessment. C. diff is negative in the stool. Via the chart, review of systems, past medical history, social history and family history were review ed, and there were no new changes. Israel Cazares MD cc: [id number] TT: 10/13/2016 22:49:59 Confirmation # [id number] Dictation # [id number] mn
[2016-10-14] MEDS: Albuterol-Ipratrop 3 mg / 0.5 (3 ml) UD IH SCH ×4 (03:00→20:20)
[2016-10-14] MEDS: Meropenem 1g/NS 100mL IVPB 100 ML IVPB SCH ×3 (05:19→21:30)
[2016-10-14 07:15] LABS: ADD MANUAL DIFF? NO
[2016-10-14 07:20] LABS: BASO # 0.01 K/mm3 (0.0-2.0); BASO % 0.1 % (0.0-3.0); EOS # 0.3 (0.0-0.7); EOS % 3.9 % (1.5-5.0); GRAN # 6.19 (1.4-6.5); GRAN % 72.2 % (50.0-68.0); HEMATOCRIT 29.5 % (42.0-52.0); LYMPH # 1.2 (1.2-3.4); LYMPH % 13.5 % (22.0-35.0); MEAN CELL VOLUME 84.3 fL (80.0-105.0); MEAN CORPUSCULAR HGB CONC 33.2 g/dl (31.0-37.0); MEAN PLATELET VOLUME 11.1 fl (7.0-11.0); MONO # 0.9 (0.1-0.6); MONO % 10.3 % (1.0-6.0); PLATELET COUNT 69 10^3/uL (120.0-450.0); RED CELL DISTRIBUTION WIDTH 17.8 % (11.5-14.5); WHITE BLOOD COUNT 8.6 10^3/ul (4.5-11.0)
[2016-10-14 08:53] LABS: BILIRUBIN,TOTAL 0.5 mg/dL (0.2-1.3); POTASSIUM 3.5 mmol/L (3.6-5.0); TOTAL PROTEIN 4.7 g/dL (5.8-8.3)
[2016-10-14 09:02] LABS: CALCIUM 6.4 mg/dL (8.4-10.5)
[2016-10-14] MEDS ORDERED: Potassium Chloride 20 mEq 100 ML IVPB ONE (09:17)
[2016-10-14] MEDS: Insulin Lispro (humaLOG) LOW Coverage SC SCH ×2 (10:10→12:00)
[2016-10-14] MEDS: Linezolid 600 mg in D5W 300 ml 300 ML IVPB SCH ×2 (10:13→23:59)
--- NOTE | 2016-10-14 10:57 | CP.PCM.CON ---
History of Present Illness - History of Present Illness History of Present Illness: Palliative services consulted by DR Esther Rodriguez Reason: Goals of care/hospice discussion HPI:Brought to ED via EMS after being found on the floor of his home by a neighbor. He was admitted with altered mental status, sepsis, STEPHANIA, colitis, rhabdomyolysis and cellulitis of his buttocks. PMHx: COPD, HTN, dyslipidemia. Family History: Non contributory. Social History: Smoker, unknown for alcohol or drug use. Lives alone. Advance Care Planning: The patient has A Living Will on chart. He is DNR/DNI. His brother Hu who has predeceased him was named as health care proxy. His son Cy is next of kin. Review of Systems: Unable to obtain, patient is lethargic, minimally conversive, unable to answer questions. Past Patient History - Infectious Disease Hx of Infectious Diseases: None - Tetanus Immunizations Tetanus Immunization: Unknown - Past Medical History & Family History Past Medical History?: Yes Past Family History: Reviewed and not pertinent - Past Social History Smoking Status: Smoker Currrent Status Unknown Alcohol: Occasional Drugs: Denies Home Situation {Lives}: Alone - CARDIAC Hx Hypercholesterolemia: Yes Hx Hypertension: Yes - PULMONARY Hx Chronic Obstructive Pulmonary Disease (COPD): Yes - NEUROLOGICAL HX Cerebrovascular Accident: No - HEENT Hx HEENT Problems: No - RENAL Hx Renal Failure: Yes - ENDOCRINE/METABOLIC Hx Diabetes Mellitus Type 1: No Hx Diabetes Mellitus Type 2: No Hx Hypothyroidism: No - HEMATOLOGICAL/ONCOLOGICAL Hx Cancer: No - INTEGUMENTARY Hx Dermatological Problems: No - MUSCULOSKELETAL/RHEUMATOLOGICAL Hx Arthritis: No Hx Rheumatoid Arthritis: No - GASTROINTESTINAL Hx Gastroesophageal Reflux: No - GENITOURINARY/GYNECOLOGICAL Hx Genitourinary Disorders: Yes Hx Incontinence: Yes - PSYCHIATRIC Hx Depression: No Hx Emotional Abuse: No Hx Physical Abuse: No - SURGICAL HISTORY Hx Surgeries: (UNKNOWN) Meds Allergies/Adverse Reactions: Allergies Allergy/AdvReac Type Severity Reaction Status Date / Time No Known Allergies Allergy Verified 10/09/16 19:35 - Medications Medications: Current Medications Albuterol/Ipratropium (Duoneb 3 Mg/0.5 Mg (3 Ml) Ud) 3 ml IH [id number] [facility] Last Admin: 10/14/16 07:20 Dose: 3 ml Arformoterol Tartrate (Brovana) 15 mcg IH [id number] [facility] Aspirin (Aspirin Supp) 300 mg RC DAILY [facility] Last Admin: 10/14/16 10:14 Dose: 300 mg Budesonide (Pulmicort Respules) 0.5 mg IH [id number] [facility] Meropenem 1g/NS 100mL IVPB (Meropenem 1g/Ns 100ml Ivpb) 100 mls @ 100 mls/hr IVPB Q12H [facility] PRN Reason: Protocol Last Admin: 10/14/16 05:19 Dose: 100 mls/hr Linezolid (Zyvox 600mg/300ml D5w) 300 mls @ 200 mls/hr IVPB Q12 [facility] PRN Reason: Protocol Stop: 10/17/16 13:31 Last Admin: 10/14/16 10:13 Dose: 200 mls/hr Dextrose/Sodium Chloride (Dextrose 5%/0.45% Ns 1000 Ml) 1,000 mls @ 120 mls/hr IV .[id number] [facility] Last Admin: 10/13/16 21:27 Dose: 120 mls/hr Potassium Chloride (Potassium Chloride 20 Meq/100 Ml) 100 mls @ 50 mls/hr IVPB ONCE ONE Stop: 10/14/16 11:16 Last Admin: 10/14/16 10:10 Dose: 50 mls/hr Insulin Human Lispro (Humalog Low) 0 units SC ACHS [facility] PRN Reason: Protocol Last Admin: 10/14/16 10:10 Dose: Not Given Pantoprazole Sodium (Protonix Inj) 40 mg IVP DAILY [facility] Last Admin: 10/14/16 10:10 Dose: 40 mg Physical Exam - Constitutional Appears: No Acute Distress, Chronically Ill - Head Exam Head Exam: NORMAL INSPECTION - Eye Exam Eye Exam: Normal appearance, PERRL - ENT Exam ENT Exam: Mucous Membranes Moist, Normal Oropharynx - Neck Exam Neck exam: Positive for: Normal Inspection - Respiratory Exam Respiratory Exam: Decreased Breath Sounds, Rhonchi, NORMAL BREATHING PATTERN - Cardiovascular Exam Cardiovascular Exam: REGULAR RHYTHM, +S1 - GI/Abdominal Exam GI & Abdominal Exam: Diminished Bowel Sounds, Soft Additional comments: no tenderness or guarding - Extremities Exam Extremities exam: Positive for: pedal pulses present Additional comments: lower extremity edema - Skin Skin Exam: Dry, Pallor Additional comments: excoriation of both buttocks and lower back - Additional Findings Additional findings: Palliative performance sale rating 20 % Results - Vital Signs Recent Vital Signs: Last Vital Signs Temp 98.2 F 10/14/16 07:30 Pulse 58 L 10/14/16 07:30 Resp 20 10/14/16 07:30 BP 107/59 L 10/14/16 07:30 Pulse Ox 100 10/14/16 07:30 - Labs Result Diagrams: 10/14/16 06:45 10/14/16 06:30 Labs: Laboratory Results - last 24 hr 10/14/16 10/14/16 06:30 06:45 WBC 8.6 RBC 3.50 Hgb 9.8 L Hct 29.5 L MCV 84.3 MCH 28.0 MCHC 33.2 RDW 17.8 H Plt Count 69 L MPV 11.1 H Gran % 72.2 H Lymph % (Auto) 13.5 L Stanly % (Auto) 10.3 H Eos % (Auto) 3.9 Baso % (Auto) 0.1 Gran # 6.19 Lymph # 1.2 Stanly # 0.9 H Eos # 0.3 Baso # 0.01 Sodium 145 Potassium 3.5 L Chloride 112 H Carbon Dioxide 25 Anion Gap 12 BUN 50 H Creatinine 2.4 H Est GFR ( Amer) 32 Est GFR (Non-Af Amer) 26 Random Glucose 99 Calcium 6.4 L* Total Bilirubin 0.5 AST 108 H ALT 60 H Alkaline Phosphatase 78 Total Creatine Kinase 1303 H CK-MB (CK-2) 8.0 H CK-MB (CK-2) % 0.6 L Total Protein 4.7 L Albumin 2.4 L Globulin 2.4 Albumin/Globulin Ratio 1.0 L Assessment & Plan - Assessment and Plan (Free Text) Assessment: 76 year old male admitted with sepsis, rhabodomyolysis, bradycardia, STEPHANIA, cellulitis, hypocalcemia, hypoalbuminemia. The patient is very lethargic, he does open his eyes, responds to simple yes and no questions. He is bed bound. He has dysphagia and is NPO. Patient has A Living Will in which he states he does not want extraordinary measures or artificial means to sustain life. He is DNR/DNI. The patient is clearly compromised and it is likely he will be unable to live independently in the future. He is currently dysphagic. If unable to eat, his living will indicates that he does not want artificial means to sustain life. Hospice may be a reasonable option for care. I have attempted to call patient's son, Cy but his phone is put of service. Plan: Will try to reach patient's son in order to discuss goals of care and advance care planning
--- NOTE | 2016-10-14 11:27 | CP.PCM.PN ---
<Quinten Schrader - Last Filed: 10/14/16 19:45> Subjective - Date & Time of Evaluation Date of Evaluation: 10/14/16 Time of Evaluation: 07:10 - Subjective Subjective: Patient seen and examined at bedside. No acute events overnight. Patient has significant wet, gurgly sound whenever he speaks. Unable to understand much of patient's words, but he is able to nod and shake his head. Patient remains NPO awaiting speech and swallow evaluation. Denies headache, fever, chills, nausea, vomiting, shortness of breath, chest pain, abdominal pain. Objective - Vital Signs/Intake and Output Vital Signs (last 24 hours): Temp Pulse Resp BP Pulse Ox 98.2 F 58 L 20 107/59 L 100 10/14/16 07:30 10/14/16 07:30 10/14/16 07:30 10/14/16 07:30 10/14/16 07:30 Intake and Output: 10/14/16 10/14/16 06:59 18:59 Intake Total 1900 Output Total 1350 Balance 550 - Medications Medications: Current Medications Albuterol/Ipratropium (Duoneb 3 Mg/0.5 Mg (3 Ml) Ud) 3 ml IH [id number] [facility] Last Admin: 10/14/16 07:20 Dose: 3 ml Arformoterol Tartrate (Brovana) 15 mcg IH [id number] [facility] Aspirin (Aspirin Supp) 300 mg RC DAILY [facility] Last Admin: 10/14/16 10:14 Dose: 300 mg Budesonide (Pulmicort Respules) 0.5 mg IH [id number] [facility] Meropenem 1g/NS 100mL IVPB (Meropenem 1g/Ns 100ml Ivpb) 100 mls @ 100 mls/hr IVPB Q12H [facility] PRN Reason: Protocol Last Admin: 10/14/16 05:19 Dose: 100 mls/hr Linezolid (Zyvox 600mg/300ml D5w) 300 mls @ 200 mls/hr IVPB Q12 [facility] PRN Reason: Protocol Stop: 10/17/16 13:31 Last Admin: 10/14/16 10:13 Dose: 200 mls/hr Dextrose/Sodium Chloride (Dextrose 5%/0.45% Ns 1000 Ml) 1,000 mls @ 120 mls/hr IV .Q8H20M [facility] Last Admin: 10/13/16 21:27 Dose: 120 mls/hr Calcium Gluconate 1,000 mg/ (Sodium Chloride) 110 mls @ 110 mls/hr IVPB ONCE ONE Stop: 10/14/16 12:23 Insulin Human Lispro (Humalog Low) 0 units SC ACHS [facility] PRN Reason: Protocol Last Admin: 10/14/16 10:10 Dose: Not Given Pantoprazole Sodium (Protonix Inj) 40 mg IVP DAILY [facility] Last Admin: 10/14/16 10:10 Dose: 40 mg - Labs Labs: 10/14/16 06:45 10/14/16 06:30 PT 11.8 Seconds (9.9-11.8) 10/10/16 07:00 INR 1.09 (0.93-1.08) H 10/10/16 07:00 APTT > 180.0 Seconds (23.7-30.8) H* 10/11/16 19:00 - Constitutional Appears: No Acute Distress, Older Than Stated Age, Chronically Ill - Head Exam Head Exam: NORMAL INSPECTION - Eye Exam Eye Exam: Normal appearance, PERRL - ENT Exam ENT Exam: Mucous Membranes Moist - Neck Exam Neck Exam: Normal Inspection - Respiratory Exam Respiratory Exam: Decreased Breath Sounds, NORMAL BREATHING PATTERN. absent: Respiratory Distress - Cardiovascular Exam Cardiovascular Exam: REGULAR RHYTHM, +S1, +S2. absent: Murmur - GI/Abdominal Exam GI & Abdominal Exam: Soft, Normal Bowel Sounds. absent: Guarding, Tenderness - Extremities Exam Extremities Exam: Pedal Edema - Neurological Exam Neurological Exam: Alert, Awake. absent: Oriented x3 (unable to assess due to difficulty speaking) - Psychiatric Exam Psychiatric exam: Normal Affect, Normal Mood - Skin Skin Exam: Warm Additional comments: cellulitis from left lower abdominal region to lower back, buttocks, and upper thigh. Assessment and Plan - Assessment and Plan (Free Text) Assessment: 76yo M with PMHx of hypertension, HLD, COPD was admitted to ICU with AMS, septic shock likely secondary to cellulitis, cystitis, colitis. CXR from previous day stable. Pt will likely be transferred to telemetry today. Palliative care consult will be placed. Septic shock due to cellulitis and colitis -ID recommendations, Continue zyvox, meropemen, day 5 -Continue bacitracin topical on cellulitis area -Blood culture Corenebacterium, likely contaminant -Urine culture is positive for yeast species -Nasal MRSA cx negative -C Diff culture negative -Surgery consult, no surgical intervention at this time -Echo - mild systolic dysfunction. Mild TR. Mild Pulmonary HTN. EF = 45.8 -CXR showed Left sided perihilar infiltrate CHF vs PNA -Lasix 40mg IV given once Hyporkalemia -k 3.5 today, supplemented IV -Monitor am labs Acute renal failure -Stable -BUN/Cr: 50/2.4 -D5W 1/2 NS @100 cc/hr -CK improving 4000 to 1300 -No evidence of hydronephrosis on CT abdomen -Avoid nephrotoxic meds -Nephrology is following Hypocalcemia -Ca 6.4, corrected Ca 7.68 -supplemented with calcium gluconate -Monitor am labs COPD -Duoneb IH q6hr -Brovana 15mcg IH Q12q -Budesonide 0.5mg IH Q12q PPx -Heparin stopped due to bleeding -Protonix for GI ppx <Sveta Pardo - Last Filed: 10/15/16 06:52> Objective - Vital Signs/Intake and Output Vital Signs (last 24 hours): Temp Pulse Resp BP Pulse Ox 97.6 F 68 18 116/61 94 L 10/14/16 16:00 10/14/16 16:00 10/14/16 16:00 10/14/16 16:00 10/14/16 16:00 Intake and Output: 10/14/16 10/15/16 18:59 06:59 Intake Total 0 0 Output Total 500 1500 Balance -500 -1500 - Medications Medications: Current Medications Albuterol (Ventolin Hfa 90 Mcg/Actuation (8 G)) 1 puff IH Q4 [facility] Albuterol/Ipratropium (Duoneb 3 Mg/0.5 Mg (3 Ml) Ud) 3 ml IH [id number] [facility] Last Admin: 10/15/16 01:32 Dose: 3 ml Arformoterol Tartrate (Brovana) 15 mcg IH [id number] [facility] Last Admin: 10/14/16 20:20 Dose: 15 mcg Aspirin (Aspirin Supp) 300 mg RC DAILY [facility] Last Admin: 10/14/16 10:14 Dose: 300 mg Bacitracin (Bacitracin) 0 gm TOP BID [facility] Budesonide (Pulmicort Respules) 0.5 mg IH [id number] [facility] Last Admin: 10/14/16 20:20 Dose: 0.5 mg Linezolid (Zyvox 600mg/300ml D5w) 300 mls @ 200 mls/hr IVPB Q12 [facility] PRN Reason: Protocol Stop: 10/17/16 13:31 Last Admin: 10/14/16 23:59 Dose: 200 mls/hr Potassium Chloride 20 meq/ (Dextrose/Sodium Chloride) 1,010 mls @ 100 mls/hr IV .Q10H6M [facility] Last Admin: 10/15/16 05:28 Dose: 100 mls/hr Meropenem 1g/NS 100mL IVPB (Meropenem 1g/Ns 100ml Ivpb) 100 mls @ 100 mls/hr IVPB Q12 [facility] PRN Reason: Protocol Last Admin: 10/14/16 21:30 Dose: 100 mls/hr Insulin Human Lispro (Humalog Low) 0 units SC ACHS [facility] PRN Reason: Protocol Last Admin: 10/15/16 05:27 Dose: Not Given Pantoprazole Sodium (Protonix Inj) 40 mg IVP DAILY [facility] Last Admin: 10/14/16 10:10 Dose: 40 mg - Labs Labs: 10/14/16 06:45 10/14/16 06:30 PT 11.8 Seconds (9.9-11.8) 10/10/16 07:00 INR 1.09 (0.93-1.08) H 10/10/16 07:00 APTT > 180.0 Seconds (23.7-30.8) H* 10/11/16 19:00 Attending/Attestation - Attestation I have personally seen and examined this patient.: Yes I have fully participated in the care of the patient.: Yes I have reviewed all pertinent clinical information, including history, physical exam and plan: Yes Notes (Text): 10/14/16 76 year old male with past medical history of hypertension, dyslipidemia, and COPD who was initially admitted to ICU for septic shock secondary to cellulitis. Also found to have colitis and possible pneumonia with STEPHANIA. Continue with iv antibiotics as per ID. Repeat cxr today shows left sided CHF vs pneumonia. Lasix given by nephrology. Will repeat procalcitonin. Patient still has dysphagia/upper sectretions. Repeat speech and swallow evaluation is requested. Palliation consult was also requested. Patient is DNR/DNI. Prognosis is guarded. Sveta Pardo MD Hospitalist.
--- NOTE | 2016-10-14 11:45 | CARD ---
APPROVED REPORT EKG Measurement Heart [id number] <Conclusion> Sinus rhythm with 1st degree AV block Otherwise normal ECG
--- NOTE | 2016-10-14 13:26 | RAD ---
HISTORY: sob COMPARISON: 10/12/2016 FINDINGS: LUNGS: There is a left-sided perihilar infiltrate which could represent CHF or pneumonia PLEURA: Small pleural effusions CARDIOVASCULAR: Normal. OSSEOUS STRUCTURES: No significant abnormalities. VISUALIZED UPPER ABDOMEN: Normal. OTHER FINDINGS: None. IMPRESSION: Left-sided perihilar infiltrate which could represent CHF or pneumonia
--- NOTE | 2016-10-14 13:27 | PN ---
DATE: 10/14/2016 The patient was seen on the general medical floor. He is gurgling somewhat, but this appears to be m ostly upper respiratory sounds. He is receiving D5 one-half NS at 120 mL per hour, both to treat hyp ernatremia as well as rhabdomyolysis. He does not appear to be in any pain or distress and is actual ly the most alert I have seen him in a number of days. He is offering no complaints. PHYSICAL EXAMINATION: VITAL SIGNS: Blood pressure is 107/59 with a heart rate of 58, oral temperature 98.2, respiratory ra te is 18, oxygen saturation 100% on 2 liters via nasal cannula. I's and O's were 1900/1350. HEENT: The patient was normocephalic and atraumatic without any sinus tenderness. Neck was supple w ith a full range of motion. There was no jugular venous distention. Conjunctivae did appear to be p jannette. I was unable to appreciate any jugular venous distention, but he did have a right IJ triple lum en catheter in place. CARDIAC: Had a regular rate and rhythm without any rubs or gallops. There were no heaves. The PMI was not displaced. ABDOMEN: Soft, protuberant, but nontender and there was no rebounding, guarding or rigidity. There was no hepatosplenomegaly. EXTREMITIES: Had 1+ sacral edema. NEUROLOGIC: He was awake, but not quite verbal. SKIN: Appeared to have scattered ecchymoses. LABORATORIES: White count is 8.6, H and H is 9.8/29.5 with a platelet count of 69,000. There were 7 2% neutrophils, 14% lymphocytes, 10% monocytes, 4% eosinophils. Sodium is 145, potassium is low at 3 .5, chloride is 112, bicarbonate 25, BUN/creatinine is 50/2.4 with a glucose of 99. Calcium is 6.4, but corrects to 7.6 since the albumin is 2.7. Most recent phosphorus level was 3.8. CPK has decreas ed to 1303. AST/ALT is 108/60, alkaline phosphatase is 78. There is no new imaging to report. Stoo l was sent for C. diff and is negative for antigen as well as toxin. IMPRESSION AND PLAN: The patient is a 76-year-old gentleman with history of hypertension, dyslipidem ia, chronic obstructive pulmonary disease, originally brought to [facility] after being f ound on the floor and poorly responsive by a neighbor. He was hypotensive, bradycardic, hypothermic with acute kidney injury, hyperkalemia, lactic acidosis and hypernatremia. CT scan revealed colitis and he also was noted to have cellulitis of his buttocks. He had been in the intensive care unit for septic shock that is improving. Of note, he is also noted to have rhabdomyolysis during this hospit alization, which is also improving. 1. CPK has decreased nicely from 4000 to 1300 and thus, we can decrease his intravenous fluids. 2. The patient is currently on D5 one-half normal saline at 120 mL per hour. I will decrease this t o 100 mL per hour and we will also add 20 mEq of potassium chloride per liter as well since his renal function does appear to be improving. 3. The patient is gurgling, but on exam this appears to represent upper respiratory secretions. Non etheless, I will give him 40 mg of furosemide now stat and we will check a chest x-ray on this patien t to determine whether or not he needs daily furosemide for now. With the treatment of his rhabdomyo lysis, we do need to ensure ongoing urinary flow to help minimize the contact time between filtered julio cesar tom and his tubular cells and this is the impetus for continuing IV fluids and adding diuretics as needed. 4. The patient is noted to be hypocalcemic. However, in the setting of rhabdomyolysis, there is a c oncern that if we give intravenous calcium it may precipitate muscle. His calcium is not low e nough that he would have any symptoms from it and it is noted that after correcting his calcium for h is albumin of 2.4, it corrects to 7.6 and thus, I would not give him any further calcium gluconate. 5. For hypokalemia, patient was given 20 mEq of potassium chloride today. 6. Infectious disease followup is appreciated and the patient remains on Zyvox as well as meropenem. He was noted to have Corynebacterium bacteremia and yeast in the urine and is also being treated fo r cellulitis of his buttocks. 7. From my perspective, we should begin discharge planning. Hospice care, I think would be most aiyana sonable, which seems to be consistent with the patient's wishes as expressed in the advanced directiv es in his chart. Review of systems, past medical history, social history and family history were all reviewed and ther e were no new changes. Israel Cazares MD cc: [phone] TT: 10/14/2016 13:27:16 Confirmation # [id number] Dictation # [id number] en
[2016-10-14] MEDS: Potassium Chloride 20 MEQ in Dextrose 5%/0.45% NS 1,000 ML IV SCH (15:50)
[2016-10-14] MEDS ORDERED: Albuterol HFA 90 mcg/actuation (8 g) IH SCH (16:00)
--- NOTE | 2016-10-14 16:08 | CP.PCM.PN ---
Subjective - Date & Time of Evaluation Date of Evaluation: 10/14/16 Time of Evaluation: 16:07 - Subjective Subjective: SURGERY NOTE FOR DR. SANCHEZ 76M seen and examined at bedside. TORIELEIF. No complaints. Objective - Vital Signs/Intake and Output Vital Signs (last 24 hours): Temp Pulse Resp BP Pulse Ox 98.2 F 58 L 20 129/68 100 10/14/16 07:30 10/14/16 07:30 10/14/16 07:30 10/14/16 13:21 10/14/16 07:30 Intake and Output: 10/14/16 10/14/16 06:59 18:59 Intake Total 1900 0 Output Total 1350 500 Balance 550 -500 - Medications Medications: Current Medications Albuterol (Ventolin Hfa 90 Mcg/Actuation (8 G)) 1 puff IH Q4 [facility] Albuterol/Ipratropium (Duoneb 3 Mg/0.5 Mg (3 Ml) Ud) 3 ml IH [id number] [facility] Last Admin: 10/14/16 07:20 Dose: 3 ml Arformoterol Tartrate (Brovana) 15 mcg IH [id number] [facility] Aspirin (Aspirin Supp) 300 mg RC DAILY [facility] Last Admin: 10/14/16 10:14 Dose: 300 mg Budesonide (Pulmicort Respules) 0.5 mg IH [id number] [facility] Meropenem 1g/NS 100mL IVPB (Meropenem 1g/Ns 100ml Ivpb) 100 mls @ 100 mls/hr IVPB Q12H [facility] PRN Reason: Protocol Last Admin: 10/14/16 05:19 Dose: 100 mls/hr Linezolid (Zyvox 600mg/300ml D5w) 300 mls @ 200 mls/hr IVPB Q12 [facility] PRN Reason: Protocol Stop: 10/17/16 13:31 Last Admin: 10/14/16 10:13 Dose: 200 mls/hr Potassium Chloride 20 meq/ (Dextrose/Sodium Chloride) 1,010 mls @ 100 mls/hr IV .Q10H6M [facility] Last Admin: 10/14/16 15:50 Dose: 100 mls/hr Insulin Human Lispro (Humalog Low) 0 units SC ACHS [facility] PRN Reason: Protocol Last Admin: 10/14/16 12:00 Dose: Not Given Pantoprazole Sodium (Protonix Inj) 40 mg IVP DAILY [facility] Last Admin: 10/14/16 10:10 Dose: 40 mg - Labs Labs: 10/14/16 06:45 10/14/16 06:30 PT 11.8 Seconds (9.9-11.8) 10/10/16 07:00 INR 1.09 (0.93-1.08) H 10/10/16 07:00 APTT > 180.0 Seconds (23.7-30.8) H* 10/11/16 19:00 - Constitutional Appears: Non-toxic, No Acute Distress - Head Exam Head Exam: ATRAUMATIC - Respiratory Exam Respiratory Exam: Clear to Ausculation Bilateral, NORMAL BREATHING PATTERN - Cardiovascular Exam Cardiovascular Exam: REGULAR RHYTHM, +S1, +S2 - GI/Abdominal Exam GI & Abdominal Exam: Soft. absent: Distended, Firm, Guarding, Rigid, Tenderness - Neurological Exam Neurological Exam: Awake Assessment and Plan - Assessment and Plan (Free Text) Assessment: 76M w. sepsis, consulted for colitis -no plans for surgical intervention at this time -will continue to follow closely Further recs discuss with Dr. Jose Way, PGY1
--- NOTE | 2016-10-14 16:30 | CP.PCM.PN ---
Subjective - Date & Time of Evaluation Date of Evaluation: 10/14/16 Time of Evaluation: 11:20 - Subjective Subjective: Comfortable in bed ,not in distress, afebrile overnight. Objective - Vital Signs/Intake and Output Vital Signs (last 24 hours): Temp Pulse Resp BP Pulse Ox 98.2 F 58 L 20 107/59 L 100 10/14/16 07:30 10/14/16 07:30 10/14/16 07:30 10/14/16 07:30 10/14/16 07:30 Intake and Output: 10/14/16 10/14/16 06:59 18:59 Intake Total 1900 Output Total 1350 Balance 550 - Medications Medications: Current Medications Albuterol/Ipratropium (Duoneb 3 Mg/0.5 Mg (3 Ml) Ud) 3 ml IH [id number] [facility] Last Admin: 10/14/16 07:20 Dose: 3 ml Aspirin (Aspirin Supp) 300 mg RC DAILY [facility] Last Admin: 10/13/16 10:49 Dose: 300 mg Meropenem 1g/NS 100mL IVPB (Meropenem 1g/Ns 100ml Ivpb) 100 mls @ 100 mls/hr IVPB Q12H [facility] PRN Reason: Protocol Last Admin: 10/14/16 05:19 Dose: 100 mls/hr Linezolid (Zyvox 600mg/300ml D5w) 300 mls @ 200 mls/hr IVPB Q12 [facility] PRN Reason: Protocol Stop: 10/17/16 13:31 Last Admin: 10/13/16 22:07 Dose: 200 mls/hr Dextrose/Sodium Chloride (Dextrose 5%/0.45% Ns 1000 Ml) 1,000 mls @ 120 mls/hr IV .Q8H20M [facility] Last Admin: 10/13/16 21:27 Dose: 120 mls/hr Potassium Chloride (Potassium Chloride 20 Meq/100 Ml) 100 mls @ 50 mls/hr IVPB ONCE ONE Stop: 10/14/16 11:16 Insulin Human Lispro (Humalog Low) 0 units SC ACHS [facility] PRN Reason: Protocol Last Admin: 10/13/16 21:33 Dose: Not Given Pantoprazole Sodium (Protonix Inj) 40 mg IVP DAILY [facility] Last Admin: 10/13/16 10:49 Dose: 40 mg - Labs Labs: 10/14/16 06:45 10/14/16 06:30 PT 11.8 Seconds (9.9-11.8) 10/10/16 07:00 INR 1.09 (0.93-1.08) H 10/10/16 07:00 APTT > 180.0 Seconds (23.7-30.8) H* 10/11/16 19:00 - Constitutional Appears: Non-toxic, No Acute Distress - Head Exam Head Exam: NORMAL INSPECTION - ENT Exam ENT Exam: Mucous Membranes Moist - Neck Exam Neck Exam: absent: Lymphadenopathy, Meningismus - Respiratory Exam Respiratory Exam: Decreased Breath Sounds - Cardiovascular Exam Cardiovascular Exam: +S1, +S2 - GI/Abdominal Exam GI & Abdominal Exam: Soft. absent: Tenderness - Extremities Exam Additional comments: right gluteal area with erythema which is starting to decrease; exfoliation is also happening Assessment and Plan - Assessment and Plan (Free Text) Plan: Assessment consider septic shock secondary to right gluteal area severe skin and skin structure infection (with spread to right femoral and inguinal area)in a patient who presented with decreased sensorium and acute renal failure, clinically improving and now not in shock anymore; R/O urinary tract infection R /O colitis (as seen on CT scan) Corynebacterium in one blood cx bottle, probably contamination dyslipidemia HTN COPD Plan continue Zyvox and Merrem (day 5); PCT is elevated at 0.79 although the patient has renal failure; will target 7-10 days of antibiotics Will continue to follow clinically
[2016-10-14] MEDS: Arformoterol 15 mcg/2 ml Inh Sol IH SCH (20:20)
[2016-10-14] MEDS: Budesonide 0.5 mg/2 ml Inhal Susp UD IH SCH (20:20)
[2016-10-15] MEDS: Albuterol-Ipratrop 3 mg / 0.5 (3 ml) UD IH SCH ×4 (01:32→20:21)
[2016-10-15] MEDS: Insulin Lispro (humaLOG) LOW Coverage SC SCH ×3 (05:27→22:16)
[2016-10-15] MEDS: Potassium Chloride 20 MEQ in Dextrose 5%/0.45% NS 1,000 ML IV SCH (05:28)
[2016-10-15 06:42] LABS: ADD MANUAL DIFF? NO
[2016-10-15 07:00] LABS: ALB/GLOB RATIO 0.9 (1.1-1.8); BILIRUBIN,TOTAL 0.6 mg/dL (0.2-1.3); POTASSIUM 3.8 mmol/L (3.6-5.0); TOTAL PROTEIN 4.6 g/dL (5.8-8.3)
[2016-10-15 07:13] LABS: BASO # 0.01 K/mm3 (0.0-2.0); BASO % 0.1 % (0.0-3.0); EOS % 8.4 % (1.5-5.0); GRAN # 8.37 (1.4-6.5); HEMATOCRIT 30.2 % (42.0-52.0); LYMPH # 1.1 (1.2-3.4); LYMPH % 9.6 % (22.0-35.0); MEAN CELL VOLUME 84.6 fL (80.0-105.0); MEAN CORPUSCULAR HEMOGLOBIN 27.7 pg (25.0-35.0); MEAN CORPUSCULAR HGB CONC 32.8 g/dl (31.0-37.0); MONO # 0.9 (0.1-0.6); MONO % 7.9 % (1.0-6.0); PLATELET COUNT 71 10^3/uL (120.0-450.0); RED CELL DISTRIBUTION WIDTH 17.9 % (11.5-14.5); WHITE BLOOD COUNT 11.3 10^3/ul (4.5-11.0)
[2016-10-15 07:14] LABS: CALCIUM 6.5 mg/dL (8.4-10.5)
[2016-10-15] MEDS: Arformoterol 15 mcg/2 ml Inh Sol IH SCH ×2 (07:52→20:21)
[2016-10-15] MEDS: Budesonide 0.5 mg/2 ml Inhal Susp UD IH SCH ×2 (07:52→20:21)
[2016-10-15] MEDS ORDERED: Potassium Chloride 20 MEQ in Dextrose 5%/0.45% NS 1,000 ML IV SCH (08:55)
--- NOTE | 2016-10-15 09:35 | CP.PCM.PN ---
Subjective - Date & Time of Evaluation Date of Evaluation: 10/15/16 Time of Evaluation: 09:00 - Subjective Subjective: Lethargic, rousable, able to answer simple questions. Denies pain. Moist non productive cough. Objective - Vital Signs/Intake and Output Vital Signs (last 24 hours): Temp Pulse Resp BP Pulse Ox 97.4 F L 64 20 104/54 L 94 L 10/15/16 07:30 10/15/16 07:30 10/15/16 07:30 10/15/16 07:30 10/15/16 07:30 Intake and Output: 10/15/16 10/15/16 06:59 18:59 Intake Total 0 1200 Output Total 1500 Balance -1500 1200 - Medications Medications: Current Medications Albuterol (Ventolin Hfa 90 Mcg/Actuation (8 G)) 1 puff IH Q4 [facility] Albuterol/Ipratropium (Duoneb 3 Mg/0.5 Mg (3 Ml) Ud) 3 ml IH [id number] [facility] Last Admin: 10/15/16 07:52 Dose: 3 ml Arformoterol Tartrate (Brovana) 15 mcg IH [id number] [facility] Last Admin: 10/15/16 07:52 Dose: 15 mcg Aspirin (Aspirin Supp) 300 mg RC DAILY [facility] Last Admin: 10/14/16 10:14 Dose: 300 mg Bacitracin (Bacitracin) 0 gm TOP BID [facility] Budesonide (Pulmicort Respules) 0.5 mg IH [id number] [facility] Last Admin: 10/15/16 07:52 Dose: 0.5 mg Linezolid (Zyvox 600mg/300ml D5w) 300 mls @ 200 mls/hr IVPB Q12 [facility] PRN Reason: Protocol Stop: 10/17/16 13:31 Last Admin: 10/14/16 23:59 Dose: 200 mls/hr Meropenem 1g/NS 100mL IVPB (Meropenem 1g/Ns 100ml Ivpb) 100 mls @ 100 mls/hr IVPB Q12 [facility] PRN Reason: Protocol Last Admin: 10/14/16 21:30 Dose: 100 mls/hr Potassium Chloride 20 meq/ (Dextrose/Sodium Chloride) 1,010 mls @ 50 mls/hr IV .[id number] [facility] Insulin Human Lispro (Humalog Low) 0 units SC ACHS [facility] PRN Reason: Protocol Last Admin: 10/15/16 05:27 Dose: Not Given Pantoprazole Sodium (Protonix Inj) 40 mg IVP DAILY [facility] Last Admin: 10/14/16 10:10 Dose: 40 mg - Labs Labs: 10/15/16 06:00 10/15/16 06:00 PT 11.8 Seconds (9.9-11.8) 10/10/16 07:00 INR 1.09 (0.93-1.08) H 10/10/16 07:00 APTT > 180.0 Seconds (23.7-30.8) H* 10/11/16 19:00 - Constitutional Appears: No Acute Distress, Chronically Ill - Eye Exam Eye Exam: Normal appearance, PERRL - ENT Exam ENT Exam: Mucous Membranes Moist, Normal Oropharynx - Neck Exam Neck Exam: Normal Inspection - Respiratory Exam Respiratory Exam: Decreased Breath Sounds, Rhonchi, NORMAL BREATHING PATTERN - Cardiovascular Exam Cardiovascular Exam: REGULAR RHYTHM, +S1, +S2 - GI/Abdominal Exam GI & Abdominal Exam: Soft, Diminished Bowel Sounds - Extremities Exam Extremities Exam: Normal Inspection, Pedal Edema - Neurological Exam Additional comments: lethargic - Skin Skin Exam: Dry, Pallor Additional comments: sacral wounds Assessment and Plan - Assessment and Plan (Free Text) Assessment: 76 year old male admitted with sepsis, STEPHANIA, rhabdomyolysis,cellulitis. The patient is lethargic, bed bound dysphagic. Wet non productive cough. Kidney [id number],LFT's improving. Hypocalcemic. Will attempt too contact patient's son again today. Nursing staff instructed to alert block and case maker of visitors. Intend to discuss goals of care /advance care planning with next of kin. Plan: Would decrease IV fluids. Lasix 40 mg now Suction as needed Continue nebulizer treatments Will assist with advance care planning
[2016-10-15] MEDS: Meropenem 1g/NS 100mL IVPB 100 ML IVPB SCH ×2 (10:07→21:01)
[2016-10-15] MEDS: Linezolid 600 mg in D5W 300 ml 300 ML IVPB SCH ×2 (10:10→22:35)
[2016-10-15] MEDS: Bacitracin Ointment 30 GM TUBE TOP SCH (11:50)
--- NOTE | 2016-10-15 13:07 | CP.PCM.CON ---
History of Present Illness - History of Present Illness History of Present Illness: CC: Found on ground at home HPI: 76 year old male with h/o HTN, HLD, COPD who was found at home on the ground by a neighbor, poorly responsive and brought to the [facility]. He was diagnosed with sepsis, buttock ceullulitis and admitted to the ICU. He was treated with broad spectrum antibiotics and has been improving. He also had acute renal insufficiency and improved with fluid resuscitation. He currently denies abdominal pain, dysphagia, odynophagia, nausea, vomiting, diarrhea or rectal bleeding. He does note discomfort in the buttocks related to cellulitis. He does have some dyspnea, cough, and hoarseness. Denies weight loss. He failed a swallow evaluation. He is a poor historian. PMHx HTN HLD COPD PSHx: Denies abdominal surgery, prior PICC line placement SHx: H/o smoking, social drinker, denies illicit drug use FHx Reports father with CRC ROS A comprehensive review of systems was performed and was negative apart from HPI Past Patient History - Infectious Disease Hx of Infectious Diseases: None - Tetanus Immunizations Tetanus Immunization: Unknown - Past Medical History & Family History Past Medical History?: Yes Past Family History: Reviewed and not pertinent - Past Social History Smoking Status: Smoker Currrent Status Unknown Alcohol: Occasional Drugs: Denies Home Situation {Lives}: Alone - CARDIAC Hx Cardiac Disorders: Yes Hx Congestive Heart Failure: No Hx Hypercholesterolemia: No Hx Hypertension: Yes - PULMONARY Hx Chronic Obstructive Pulmonary Disease (COPD): Yes Hx Pneumonia: No - NEUROLOGICAL HX Cerebrovascular Accident: No - HEENT Hx HEENT Problems: No - RENAL Hx Renal Failure: No - ENDOCRINE/METABOLIC Hx Diabetes Mellitus Type 1: No Hx Diabetes Mellitus Type 2: No Hx Hypothyroidism: No - HEMATOLOGICAL/ONCOLOGICAL Hx Cancer: No - INTEGUMENTARY Hx Dermatological Problems: No - MUSCULOSKELETAL/RHEUMATOLOGICAL Hx Arthritis: No Hx Rheumatoid Arthritis: No - GASTROINTESTINAL Hx Gastroesophageal Reflux: No - GENITOURINARY/GYNECOLOGICAL Hx Genitourinary Disorders: Yes Hx Incontinence: Yes - PSYCHIATRIC Hx Depression: No Hx Emotional Abuse: No Hx Physical Abuse: No - SURGICAL HISTORY Hx Surgeries: (UNKNOWN) Meds Allergies/Adverse Reactions: Allergies Allergy/AdvReac Type Severity Reaction Status Date / Time No Known Allergies Allergy Verified 10/09/16 19:35 - Medications Medications: Current Medications Albuterol (Ventolin Hfa 90 Mcg/Actuation (8 G)) 1 puff IH Q4 [facility] Albuterol/Ipratropium (Duoneb 3 Mg/0.5 Mg (3 Ml) Ud) 3 ml IH [id number] [facility] Last Admin: 10/15/16 07:52 Dose: 3 ml Arformoterol Tartrate (Brovana) 15 mcg IH [id number] [facility] Last Admin: 10/15/16 07:52 Dose: 15 mcg Aspirin (Aspirin Supp) 300 mg RC DAILY [facility] Last Admin: 10/15/16 11:44 Dose: 300 mg Bacitracin (Bacitracin) 0 gm TOP BID [facility] Last Admin: 10/15/16 11:50 Dose: 1 applic Budesonide (Pulmicort Respules) 0.5 mg IH [id number] [facility] Last Admin: 10/15/16 07:52 Dose: 0.5 mg Linezolid (Zyvox 600mg/300ml D5w) 300 mls @ 200 mls/hr IVPB Q12 [facility] PRN Reason: Protocol Stop: 10/17/16 13:31 Last Admin: 10/15/16 10:10 Dose: 200 mls/hr Meropenem 1g/NS 100mL IVPB (Meropenem 1g/Ns 100ml Ivpb) 100 mls @ 100 mls/hr IVPB Q12 [facility] PRN Reason: Protocol Last Admin: 10/15/16 10:07 Dose: 100 mls/hr Potassium Chloride 20 meq/ (Dextrose/Sodium Chloride) 1,010 mls @ 50 mls/hr IV .[id number] [facility] Last Admin: 10/15/16 10:09 Dose: 50 mls/hr Insulin Human Lispro (Humalog Low) 0 units SC ACHS [facility] PRN Reason: Protocol Last Admin: 10/15/16 10:08 Dose: Not Given Pantoprazole Sodium (Protonix Inj) 40 mg IVP DAILY [facility] Last Admin: 10/15/16 10:09 Dose: 40 mg Physical Exam - Constitutional Appears: Non-toxic, No Acute Distress, Chronically Ill - Head Exam Head Exam: ATRAUMATIC, NORMOCEPHALIC - Eye Exam Eye Exam: Normal appearance, PERRL. absent: Scleral icterus - ENT Exam ENT Exam: Mucous Membranes Dry, Normal Oropharynx - Neck Exam Neck exam: Negative for: Lymphadenopathy, Thyromegaly - Respiratory Exam Respiratory Exam: Rhonchi. absent: Respiratory Distress - Cardiovascular Exam Cardiovascular Exam: REGULAR RHYTHM, +S1, +S2 - GI/Abdominal Exam GI & Abdominal Exam: Soft. absent: Distended, Firm, Guarding, Tenderness - Extremities Exam Extremities exam: Positive for: normal capillary refill, pedal edema. Negative for: calf tenderness - Neurological Exam Neurological exam: Alert - Skin Skin Exam: Dry, Normal Color, Warm Results - Vital Signs Recent Vital Signs: Last Vital Signs Temp 97.4 F L 10/15/16 07:30 Pulse 64 10/15/16 07:30 Resp 20 10/15/16 07:30 BP 104/54 L 10/15/16 10:07 Pulse Ox 94 L 10/15/16 07:30 - Labs Result Diagrams: 10/15/16 06:00 10/15/16 06:00 Labs: Laboratory Results - last 24 hr 10/13/16 10/13/16 10/15/16 07:09 11:10 06:00 WBC 11.3 H D RBC 3.57 Hgb 9.9 L Hct 30.2 L MCV 84.6 MCH 27.7 MCHC 32.8 RDW 17.9 H Plt Count 71 L Gran % 74.0 H Lymph % (Auto) 9.6 L [place] % (Auto) 7.9 H Eos % (Auto) 8.4 H Baso % (Auto) 0.1 Gran # 8.37 H Lymph # 1.1 L [place] # 0.9 H Eos # 1.0 H Baso # 0.01 Sodium 143 Potassium 3.8 Chloride 110 H Carbon Dioxide 27 Anion Gap 10 BUN 39 H Creatinine 2.1 H Est GFR ( Amer) 37 Est GFR (Non-Af Amer) 31 POC Glucose (mg/dL) 84 99 Random Glucose 95 Calcium 6.5 L* Total Bilirubin 0.6 AST 79 H ALT 52 Alkaline Phosphatase 78 Total Creatine Kinase 622 H CK-MB (CK-2) 4.5 H CK-MB (CK-2) % Cancelled Total Protein 4.6 L Albumin 2.2 L Globulin 2.4 Albumin/Globulin Ratio 0.9 L Assessment & Plan - Assessment and Plan (Free Text) Assessment: 76 year old male with h/o HTN, HLD, COPD admitted with sepsis 2/2 cellulitis, STEPHANIA improving on antibiotic therapy, we are consulted for failed speech evaluation. 1. Dysphagia Plan: -per speech therapy, he has moderate to severe oral pharyngeal dysphagia associated with significant risk of aspiration -he is on broad spectrum antibiotics for cellulitis and possible pneumonia -he is also receiving lasix for CHF -he has had a palliative care consult to help establish goals of care and is currently DNR/DNI -prior to consideration of PEG, his cardiac and respiratory status would need to be optimized, which it does not appear to be at this time -he would probably have to temporarily at least rescind his DNI status for the purposes of anasthesia -a goals of care discussion should be held and as part of that, whether or not a PEG tube is in keeping with his goals needs to be determined -in the interim, appreciate speech therapy ongoing evaluation and reassessment -in the short term, a dobhoff tube could be place and enteral nutrition can be administered that way - Date & Time Date: 10/15/16 Time: 13:07
--- NOTE | 2016-10-15 15:31 | CP.PCM.PN ---
Subjective - Date & Time of Evaluation Date of Evaluation: 10/15/16 Time of Evaluation: 09:45 - Subjective Subjective: Comfortable in bed, afebrile overnight, no diarrhea. Objective - Vital Signs/Intake and Output Vital Signs (last 24 hours): Temp Pulse Resp BP Pulse Ox 97.6 F 68 18 116/61 94 L 10/14/16 16:00 10/14/16 16:00 10/14/16 16:00 10/14/16 16:00 10/14/16 16:00 Intake and Output: 10/15/16 10/15/16 06:59 18:59 Intake Total 0 1200 Output Total 1500 Balance -1500 1200 - Medications Medications: Current Medications Albuterol (Ventolin Hfa 90 Mcg/Actuation (8 G)) 1 puff IH Q4 [facility] Albuterol/Ipratropium (Duoneb 3 Mg/0.5 Mg (3 Ml) Ud) 3 ml IH [id number] [facility] Last Admin: 10/15/16 07:52 Dose: 3 ml Arformoterol Tartrate (Brovana) 15 mcg IH [id number] [facility] Last Admin: 10/15/16 07:52 Dose: 15 mcg Aspirin (Aspirin Supp) 300 mg RC DAILY [facility] Last Admin: 10/14/16 10:14 Dose: 300 mg Bacitracin (Bacitracin) 0 gm TOP BID [facility] Budesonide (Pulmicort Respules) 0.5 mg IH [id number] [facility] Last Admin: 10/15/16 07:52 Dose: 0.5 mg Linezolid (Zyvox 600mg/300ml D5w) 300 mls @ 200 mls/hr IVPB Q12 [facility] PRN Reason: Protocol Stop: 10/17/16 13:31 Last Admin: 10/14/16 23:59 Dose: 200 mls/hr Potassium Chloride 20 meq/ (Dextrose/Sodium Chloride) 1,010 mls @ 100 mls/hr IV .Q10H6M [facility] Last Admin: 10/15/16 05:28 Dose: 100 mls/hr Meropenem 1g/NS 100mL IVPB (Meropenem 1g/Ns 100ml Ivpb) 100 mls @ 100 mls/hr IVPB Q12 [facility] PRN Reason: Protocol Last Admin: 10/14/16 21:30 Dose: 100 mls/hr Insulin Human Lispro (Humalog Low) 0 units SC ACHS [facility] PRN Reason: Protocol Last Admin: 10/15/16 05:27 Dose: Not Given Pantoprazole Sodium (Protonix Inj) 40 mg IVP DAILY [facility] Last Admin: 10/14/16 10:10 Dose: 40 mg - Labs Labs: 10/15/16 06:00 10/15/16 06:00 PT 11.8 Seconds (9.9-11.8) 10/10/16 07:00 INR 1.09 (0.93-1.08) H 10/10/16 07:00 APTT > 180.0 Seconds (23.7-30.8) H* 10/11/16 19:00 - Constitutional Appears: Non-toxic, No Acute Distress - Head Exam Head Exam: NORMAL INSPECTION - Neck Exam Neck Exam: absent: Lymphadenopathy, Meningismus - Respiratory Exam Respiratory Exam: Decreased Breath Sounds - Cardiovascular Exam Cardiovascular Exam: +S1, +S2 - GI/Abdominal Exam GI & Abdominal Exam: Soft. absent: Tenderness Assessment and Plan - Assessment and Plan (Free Text) Plan: Assessment septic shock secondary to right gluteal area severe skin and skin structure infection (with spread to right femoral and inguinal area)in a patient who presented with decreased sensorium and acute renal failure, clinically improving and now not in shock anymore; R/O urinary tract infection R/O colitis (as seen on CT scan) Corynebacterium in one blood cx bottle, probably contamination dyslipidemia HTN COPD Plan continue Zyvox and Merrem (day 6); PCT is elevated at 0.79 although the patient has renal failure; will target 7-10 days of antibiotics Will continue to follow clinically
--- NOTE | 2016-10-15 15:59 | CP.PCM.PN ---
<Quinten Schrader - Last Filed: 10/15/16 17:18> Subjective - Date & Time of Evaluation Date of Evaluation: 10/15/16 Time of Evaluation: 07:40 - Subjective Subjective: Patient seen and examined at bedside. No acute events overnight. Patient continues to have wet, gurgly sound when talking. Patient is difficult to understand, but he is able to answer simple yes or no questions. Patient remains NPO. Denies headache, fever, chills, nausea, vomiting, shortness of breath, chest pain, abdominal pain. Objective - Vital Signs/Intake and Output Vital Signs (last 24 hours): Temp Pulse Resp BP Pulse Ox 97.4 F L 64 20 104/54 L 94 L 10/15/16 07:30 10/15/16 07:30 10/15/16 07:30 10/15/16 10:07 10/15/16 07:30 Intake and Output: 10/15/16 10/15/16 06:59 18:59 Intake Total 0 1200 Output Total 1500 Balance -1500 1200 - Medications Medications: Current Medications Albuterol (Ventolin Hfa 90 Mcg/Actuation (8 G)) 1 puff IH Q4 [facility] Albuterol/Ipratropium (Duoneb 3 Mg/0.5 Mg (3 Ml) Ud) 3 ml IH [id number] [facility] Last Admin: 10/15/16 14:20 Dose: 3 ml Arformoterol Tartrate (Brovana) 15 mcg IH [id number] [facility] Last Admin: 10/15/16 07:52 Dose: 15 mcg Aspirin (Aspirin Supp) 300 mg RC DAILY [facility] Last Admin: 10/15/16 11:44 Dose: 300 mg Bacitracin (Bacitracin) 0 gm TOP BID [facility] Last Admin: 10/15/16 11:50 Dose: 1 applic Budesonide (Pulmicort Respules) 0.5 mg IH [id number] [facility] Last Admin: 10/15/16 07:52 Dose: 0.5 mg Linezolid (Zyvox 600mg/300ml D5w) 300 mls @ 200 mls/hr IVPB Q12 [facility] PRN Reason: Protocol Stop: 10/17/16 13:31 Last Admin: 10/15/16 10:10 Dose: 200 mls/hr Meropenem 1g/NS 100mL IVPB (Meropenem 1g/Ns 100ml Ivpb) 100 mls @ 100 mls/hr IVPB Q12 [facility] PRN Reason: Protocol Last Admin: 10/15/16 10:07 Dose: 100 mls/hr Potassium Chloride 20 meq/ (Dextrose/Sodium Chloride) 1,010 mls @ 50 mls/hr IV .[id number] [facility] Last Admin: 10/15/16 10:09 Dose: 50 mls/hr Insulin Human Lispro (Humalog Low) 0 units SC ACHS [facility] PRN Reason: Protocol Last Admin: 10/15/16 10:08 Dose: Not Given Pantoprazole Sodium (Protonix Inj) 40 mg IVP DAILY [facility] Last Admin: 10/15/16 10:09 Dose: 40 mg - Labs Labs: 10/15/16 06:00 10/15/16 06:00 PT 11.8 Seconds (9.9-11.8) 10/10/16 07:00 INR 1.09 (0.93-1.08) H 10/10/16 07:00 APTT > 180.0 Seconds (23.7-30.8) H* 10/11/16 19:00 - Constitutional Appears: Non-toxic, No Acute Distress, Older Than Stated Age, Chronically Ill - Head Exam Head Exam: NORMAL INSPECTION - Eye Exam Eye Exam: Normal appearance, PERRL - ENT Exam ENT Exam: Mucous Membranes Moist - Neck Exam Neck Exam: Normal Inspection - Respiratory Exam Respiratory Exam: Decreased Breath Sounds, NORMAL BREATHING PATTERN. absent: Respiratory Distress - Cardiovascular Exam Cardiovascular Exam: REGULAR RHYTHM, RRR, +S1, +S2. absent: Murmur - GI/Abdominal Exam GI & Abdominal Exam: Soft, Normal Bowel Sounds. absent: Tenderness - Extremities Exam Extremities Exam: Pedal Edema - Back Exam Back Exam: rash noted - Neurological Exam Neurological Exam: Alert, Awake. absent: Oriented x3 (Very difficult to understand patient due to gurgling sound) - Psychiatric Exam Psychiatric exam: Normal Affect, Normal Mood - Skin Skin Exam: Warm Additional comments: cellulitis from left lower abdominal region extends to lower back, buttocks, and upper thigh Assessment and Plan - Assessment and Plan (Free Text) Assessment: 76 year old male with past medical history of hypertension, HLD, COPD was admitted to ICU with AMS, septic shock likely secondary to cellulitis, cystitis , colitis. Septic shock resolved. Patient is DNR/DNI, palliative consulted. Patient failed speech and swallow remains NPO. Septic shock due to cellulitis and colitis, resolved -ID recommendations, Continue zyvox, meropemen, day 6 -Continue bacitracin topical on cellulitis area -Blood culture Corenebacterium, likely contaminant -Urine culture is positive for yeast species -Nasal MRSA cx negative -C Diff culture negative -Surgery consult, no surgical intervention at this time Dysphagia -High risk of aspiration per speech & swallow eval -Currently NPO -Follow GI recommendations -Patient agreed to feeding tube, per palliative care Elevated BNP -BNP 99010 -Echo - mild systolic dysfunction. Mild TR. Mild Pulmonary HTN. EF = 45.8 -Previous CXR showed Left sided perihilar infiltrate CHF vs PNA -Follow up AM CXR -Lasix 40mg IV given today Hyporkalemia, resolved -k 3.8 today -Supplement as needed -Monitor am labs Acute renal failure -Stable -BUN/Cr: 39/2.1 -D5W 1/2 NS @50 cc/hr -CK improving 1300 to 622 -No evidence of hydronephrosis on CT abdomen -Avoid nephrotoxic meds -Nephrology is following COPD -Duoneb IH q6hr -Brovana 15mcg IH Q12q -Budesonide 0.5mg IH Q12q PPx -Heparin stopped due to bleeding -Protonix for GI ppx <Sveta Pardo - Last Filed: 10/16/16 06:41> Objective - Vital Signs/Intake and Output Vital Signs (last 24 hours): Temp Pulse Resp BP Pulse Ox 97.7 F 59 L 18 112/44 L 97 10/15/16 16:00 10/15/16 16:00 10/15/16 16:00 10/15/16 16:00 10/15/16 16:00 Intake and Output: 10/15/16 10/16/16 18:59 06:59 Intake Total 2200 0 Output Total 250 Balance 2200 -250 - Medications Medications: Current Medications Albuterol (Ventolin Hfa 90 Mcg/Actuation (8 G)) 1 puff IH Q4 [facility] Albuterol/Ipratropium (Duoneb 3 Mg/0.5 Mg (3 Ml) Ud) 3 ml IH [id number] [facility] Last Admin: 10/16/16 02:20 Dose: 3 ml Arformoterol Tartrate (Brovana) 15 mcg IH [id number] [facility] Last Admin: 10/15/16 20:21 Dose: 15 mcg Aspirin (Aspirin Supp) 300 mg RC DAILY [facility] Last Admin: 10/15/16 11:44 Dose: 300 mg Bacitracin (Bacitracin) 0 gm TOP BID [facility] Last Admin: 10/15/16 11:50 Dose: 1 applic Budesonide (Pulmicort Respules) 0.5 mg IH [id number] [facility] Last Admin: 10/15/16 20:21 Dose: 0.5 mg Linezolid (Zyvox 600mg/300ml D5w) 300 mls @ 200 mls/hr IVPB Q12 [facility] PRN Reason: Protocol Stop: 10/17/16 13:31 Last Admin: 10/15/16 22:35 Dose: 200 mls/hr Meropenem 1g/NS 100mL IVPB (Meropenem 1g/Ns 100ml Ivpb) 100 mls @ 100 mls/hr IVPB Q12 [facility] PRN Reason: Protocol Last Admin: 10/15/16 21:01 Dose: 100 mls/hr Potassium Chloride 20 meq/ (Dextrose/Sodium Chloride) 1,010 mls @ 50 mls/hr IV .[id number] [facility] Last Admin: 10/15/16 10:09 Dose: 50 mls/hr Insulin Human Lispro (Humalog Low) 0 units SC ACHS [facility] PRN Reason: Protocol Last Admin: 10/15/16 22:16 Dose: Not Given Pantoprazole Sodium (Protonix Inj) 40 mg IVP DAILY [facility] Last Admin: 10/15/16 10:09 Dose: 40 mg - Labs Labs: 10/15/16 06:00 10/15/16 06:00 PT 11.8 Seconds (9.9-11.8) 10/10/16 07:00 INR 1.09 (0.93-1.08) H 10/10/16 07:00 APTT > 180.0 Seconds (23.7-30.8) H* 10/11/16 19:00 Attending/Attestation - Attestation I have personally seen and examined this patient.: Yes I have fully participated in the care of the patient.: Yes I have reviewed all pertinent clinical information, including history, physical exam and plan: Yes Notes (Text): 10/16/16 06:38 76 year old male with past medical history of hypertension, dyslipidemia, and COPD who was initially admitted to ICU for septic shock secondary to cellulitis. He was also found to have colitis, STEPHANIA and possible pneumonia. Continue with iv antibiotics as per ID. Repeat procalcitonin level improved. Recent cxr showed congestion and he was given lasix. Will cut on the IVF and repeat cxr in AM. His creatinine is improving. Nephrology is following the patient. He has persistent dysphagia and has failed swallow evaluation. He is NPO and GI evaluation was requested to evaluate for possible feeding tube placement. detention worker and palliative care notes were reviewed. Patient is DNR/DNI. Prognosis is guarded. Sveta Pardo MD Hospitalist.
--- NOTE | 2016-10-15 22:39 | CP.PCM.PN ---
Subjective - Date & Time of Evaluation Date of Evaluation: 10/15/16 Time of Evaluation: 22:30 - Subjective Subjective: Nephrology f/u note: Patient reportedly having some improvement in swallowing capability per SLT but still high aspiration risk; Objective - Vital Signs/Intake and Output Vital Signs (last 24 hours): Temp Pulse Resp BP Pulse Ox 97.7 F 59 L 18 112/44 L 97 10/15/16 16:00 10/15/16 16:00 10/15/16 16:00 10/15/16 16:00 10/15/16 16:00 Intake and Output: 10/15/16 10/16/16 18:59 06:59 Intake Total 2200 Balance 2200 - Medications Medications: Current Medications Albuterol (Ventolin Hfa 90 Mcg/Actuation (8 G)) 1 puff IH Q4 [facility] Albuterol/Ipratropium (Duoneb 3 Mg/0.5 Mg (3 Ml) Ud) 3 ml IH [id number] [facility] Last Admin: 10/15/16 20:21 Dose: 3 ml Arformoterol Tartrate (Brovana) 15 mcg IH [id number] [facility] Last Admin: 10/15/16 20:21 Dose: 15 mcg Aspirin (Aspirin Supp) 300 mg RC DAILY [facility] Last Admin: 10/15/16 11:44 Dose: 300 mg Bacitracin (Bacitracin) 0 gm TOP BID [facility] Last Admin: 10/15/16 11:50 Dose: 1 applic Budesonide (Pulmicort Respules) 0.5 mg IH [id number] [facility] Last Admin: 10/15/16 20:21 Dose: 0.5 mg Linezolid (Zyvox 600mg/300ml D5w) 300 mls @ 200 mls/hr IVPB Q12 [facility] PRN Reason: Protocol Stop: 10/17/16 13:31 Last Admin: 10/15/16 10:10 Dose: 200 mls/hr Meropenem 1g/NS 100mL IVPB (Meropenem 1g/Ns 100ml Ivpb) 100 mls @ 100 mls/hr IVPB Q12 [facility] PRN Reason: Protocol Last Admin: 10/15/16 21:01 Dose: 100 mls/hr Potassium Chloride 20 meq/ (Dextrose/Sodium Chloride) 1,010 mls @ 50 mls/hr IV .[id number] [facility] Last Admin: 10/15/16 10:09 Dose: 50 mls/hr Insulin Human Lispro (Humalog Low) 0 units SC ACHS [facility] PRN Reason: Protocol Last Admin: 10/15/16 22:16 Dose: Not Given Pantoprazole Sodium (Protonix Inj) 40 mg IVP DAILY [facility] Last Admin: 10/15/16 10:09 Dose: 40 mg - Labs Labs: 10/15/16 06:00 10/15/16 06:00 PT 11.8 Seconds (9.9-11.8) 10/10/16 07:00 INR 1.09 (0.93-1.08) H 10/10/16 07:00 APTT > 180.0 Seconds (23.7-30.8) H* 10/11/16 19:00 - Constitutional Appears: Non-toxic, No Acute Distress - Head Exam Head Exam: NORMAL INSPECTION - Eye Exam Eye Exam: Normal appearance - ENT Exam ENT Exam: Mucous Membranes Moist - Neck Exam Neck Exam: Normal Inspection - Respiratory Exam Respiratory Exam: Clear to Ausculation Bilateral, NORMAL BREATHING PATTERN - Cardiovascular Exam Cardiovascular Exam: REGULAR RHYTHM, +S1, +S2 - GI/Abdominal Exam GI & Abdominal Exam: Soft. absent: Distended, Tenderness - Extremities Exam Additional comments: No leg edema; - Neurological Exam Neurological Exam: Alert, Awake Neuro motor strength exam: Left Upper Extremity: 5, Right Upper Extremity: 5, Left Lower Extremity: 5, Right Lower Extremity: 5 - Psychiatric Exam Psychiatric exam: Normal Affect. absent: Anxious, Depressed - Skin Skin Exam: Warm. absent: Cyanosis Additional comments: Large erythematous rash over buttocks; Assessment and Plan (1) Sepsis Assessment & Plan: Secondary to buttock area cellulitis, on linezolid and meropenem, the latter dosed correctly for CrCl > 30 but needs careful monitoring for adjustment if renal function worsens; Status: Acute (2) Acute renal failure (ARF) Assessment & Plan: STEPHANIA on CKD, likely pre-renal/ATN in setting of sepsis; improving but exact baseline creat unclear (last known serum creat 1.4 in 2013); on 1+ proteinuria by dipstick but needs further workup for CKD (if not already done); Status: Acute (3) Rhabdomyolysis Assessment & Plan: Mild rhabdo seen after admission, not contributory to renal failure; continue to monitor ck level; Status: Acute (4) Anemia Assessment & Plan: Stable, check iron studies; Status: Acute (5) Electrolyte imbalance Assessment & Plan: Mild hyoocalcemia when corrected for albumin; no need to replenish unless symptomatic hypocalcemia/ECG changes; Status: Acute
[2016-10-16] MEDS: Albuterol-Ipratrop 3 mg / 0.5 (3 ml) UD IH SCH ×4 (02:20→21:15)
[2016-10-16] MEDS: Arformoterol 15 mcg/2 ml Inh Sol IH SCH ×2 (07:08→21:15)
[2016-10-16] MEDS: Budesonide 0.5 mg/2 ml Inhal Susp UD IH SCH ×2 (07:09→21:15)
[2016-10-16 07:11] LABS: ADD MANUAL DIFF? NO
[2016-10-16 07:19] LABS: BASO # 0.01 K/mm3 (0.0-2.0); BASO % 0.1 % (0.0-3.0); EOS # 1.5 (0.0-0.7); EOS % 11.3 % (1.5-5.0); GRAN # 9.87 (1.4-6.5); GRAN % 72.8 % (50.0-68.0); HEMATOCRIT 30.3 % (42.0-52.0); LYMPH # 1.2 (1.2-3.4); MEAN CELL VOLUME 83.7 fL (80.0-105.0); MEAN CORPUSCULAR HEMOGLOBIN 27.3 pg (25.0-35.0); MEAN CORPUSCULAR HGB CONC 32.7 g/dl (31.0-37.0); MONO # 0.9 (0.1-0.6); MONO % 6.8 % (1.0-6.0); PLATELET COUNT 73 10^3/uL (120.0-450.0); RED CELL DISTRIBUTION WIDTH 17.5 % (11.5-14.5); WHITE BLOOD COUNT 13.6 10^3/ul (4.5-11.0)
[2016-10-16 07:33] LABS: ALB/GLOB RATIO 0.9 (1.1-1.8); ALKALINE PHOSPHATASE 102 U/L (38-133); ALT/SGPT 50 U/L (7-56); AST/SGOT 71 U/L (15-59); BILIRUBIN,TOTAL 0.7 mg/dL (0.2-1.3); BLOOD UREA NITROGEN 32 mg/dL (7-21); CARBON DIOXIDE 28 mmol/L (21-33); CHLORIDE 109 mmol/L (98-107); CHOLESTEROL 84 mg/dL (130-200); GFR AFRICAN-AMERICAN 42; GLUCOSE,RANDOM 84 mg/dL (70-110); POTASSIUM 3.9 mmol/L (3.6-5.0); SODIUM 143 mmol/L (132-148); TOTAL PROTEIN 4.6 g/dL (5.8-8.3)
--- NOTE | 2016-10-16 07:58 | CP.PCM.PN ---
<Ganesh Smith - Last Filed: 10/16/16 12:08> Subjective - Date & Time of Evaluation Date of Evaluation: 10/16/16 Time of Evaluation: 07:30 - Subjective Subjective: PGY4 GI Fellow Progress Note Patient seen and examined bedside this morning. The patient denies any new complaints today. Has wet cough but not bringing up any sputum. He is unsure whether or not he would like to have a feeding tube. Admits to having a brother in the area, no children per patient. No nausea, vomiting, abdominal pain overnight. 12 system ROS performed and negative except where stated. Objective - Vital Signs/Intake and Output Vital Signs (last 24 hours): Temp Pulse Resp BP Pulse Ox 98.4 F 67 21 99/58 L 95 10/16/16 07:27 10/16/16 07:27 10/16/16 07:27 10/16/16 07:27 10/16/16 07:27 Intake and Output: 10/16/16 10/16/16 06:59 18:59 Intake Total 0 Output Total 250 Balance -250 - Medications Medications: Current Medications Albuterol (Ventolin Hfa 90 Mcg/Actuation (8 G)) 1 puff IH Q4 [facility] Albuterol/Ipratropium (Duoneb 3 Mg/0.5 Mg (3 Ml) Ud) 3 ml IH [id number] [facility] Last Admin: 10/16/16 07:09 Dose: 3 ml Arformoterol Tartrate (Brovana) 15 mcg IH [id number] [facility] Last Admin: 10/16/16 07:08 Dose: 15 mcg Aspirin (Aspirin Supp) 300 mg RC DAILY [facility] Last Admin: 10/15/16 11:44 Dose: 300 mg Bacitracin (Bacitracin) 0 gm TOP BID [facility] Last Admin: 10/15/16 11:50 Dose: 1 applic Budesonide (Pulmicort Respules) 0.5 mg IH [id number] [facility] Last Admin: 10/16/16 07:09 Dose: 0.5 mg Linezolid (Zyvox 600mg/300ml D5w) 300 mls @ 200 mls/hr IVPB Q12 [facility] PRN Reason: Protocol Stop: 10/17/16 13:31 Last Admin: 10/15/16 22:35 Dose: 200 mls/hr Meropenem 1g/NS 100mL IVPB (Meropenem 1g/Ns 100ml Ivpb) 100 mls @ 100 mls/hr IVPB Q12 [facility] PRN Reason: Protocol Last Admin: 10/15/16 21:01 Dose: 100 mls/hr Potassium Chloride 20 meq/ (Dextrose/Sodium Chloride) 1,010 mls @ 50 mls/hr IV .[id number] [facility] Last Admin: 10/15/16 10:09 Dose: 50 mls/hr Insulin Human Lispro (Humalog Low) 0 units SC ACHS [facility] PRN Reason: Protocol Last Admin: 10/15/16 22:16 Dose: Not Given Pantoprazole Sodium (Protonix Inj) 40 mg IVP DAILY [facility] Last Admin: 10/15/16 10:09 Dose: 40 mg - Labs Labs: 10/16/16 07:00 10/15/16 06:00 PT 11.8 Seconds (9.9-11.8) 10/10/16 07:00 INR 1.09 (0.93-1.08) H 10/10/16 07:00 APTT > 180.0 Seconds (23.7-30.8) H* 10/11/16 19:00 - Constitutional Appears: Non-toxic, No Acute Distress - Eye Exam Eye Exam: EOMI, PERRL - ENT Exam ENT Exam: Mucous Membranes Moist - Respiratory Exam Respiratory Exam: Rales, Wheezes. absent: Clear to Ausculation Bilateral, Rhonchi Additional comments: wet cough - Cardiovascular Exam Cardiovascular Exam: RRR, +S1, +S2 - GI/Abdominal Exam GI & Abdominal Exam: Soft, Normal Bowel Sounds. absent: Distended, Firm, Guarding, Rigid, Tenderness, Organomegaly - Extremities Exam Extremities Exam: Normal Inspection. absent: Pedal Edema - Neurological Exam Neurological Exam: Alert, Awake - Psychiatric Exam Psychiatric exam: Normal Affect, Normal Mood - Skin Skin Exam: Dry, Warm Assessment and Plan - Assessment and Plan (Free Text) Assessment: 76 year old male with h/o HTN, HLD, COPD admitted with sepsis 2/2 cellulitis, STEPHANIA improving on antibiotic therapy, we are consulted for failed speech evaluation. -Dysphagia Plan: -Failed speech therapy evaluation and shown to have moderate-severe pharyngeal dysphagia -Patient currently alert and oriented, has decisional capacity at present -Patient refusing NGT/DHT/PEG placement -Consider repeat swallow eval as patient condition improved -Palliaitve care following -Will sign off as patient does not want "any more tubes" and specifically refused PEG placement; there is no clear evidence that patient cannot make his own decisions at present <Angie Sanchez MD - Last Filed: 10/16/16 13:50> Objective - Vital Signs/Intake and Output Vital Signs (last 24 hours): Temp Pulse Resp BP Pulse Ox 98.4 F 67 21 113/60 95 10/16/16 07:27 10/16/16 07:27 10/16/16 07:27 10/16/16 09:25 10/16/16 07:27 Intake and Output: 10/16/16 10/16/16 06:59 18:59 Intake Total 0 Output Total 250 Balance -250 - Medications Medications: Current Medications Albuterol (Ventolin Hfa 90 Mcg/Actuation (8 G)) 1 puff IH Q4 [facility] Albuterol/Ipratropium (Duoneb 3 Mg/0.5 Mg (3 Ml) Ud) 3 ml IH [id number] [facility] Last Admin: 10/16/16 07:09 Dose: 3 ml Arformoterol Tartrate (Brovana) 15 mcg IH [id number] [facility] Last Admin: 10/16/16 07:08 Dose: 15 mcg Aspirin (Aspirin Supp) 300 mg RC DAILY [facility] Last Admin: 10/15/16 11:44 Dose: 300 mg Bacitracin (Bacitracin) 0 gm TOP BID [facility] Last Admin: 10/16/16 09:26 Dose: 1 applic Budesonide (Pulmicort Respules) 0.5 mg IH [id number] [facility] Last Admin: 10/16/16 07:09 Dose: 0.5 mg Linezolid (Zyvox 600mg/300ml D5w) 300 mls @ 200 mls/hr IVPB Q12 [facility] PRN Reason: Protocol Stop: 10/17/16 13:31 Last Admin: 10/16/16 09:24 Dose: 200 mls/hr Meropenem 1g/NS 100mL IVPB (Meropenem 1g/Ns 100ml Ivpb) 100 mls @ 100 mls/hr IVPB Q12 [facility] PRN Reason: Protocol Last Admin: 10/16/16 12:06 Dose: 100 mls/hr Potassium Chloride 20 meq/ (Dextrose/Sodium Chloride) 1,010 mls @ 50 mls/hr IV .[id number] [facility] Last Admin: 10/15/16 10:09 Dose: 50 mls/hr Amino Acids (Clinimix 5/20 % (2000 Ml)) 2,000 mls @ 83 mls/hr IV .[id number] [facility] Stop: 10/19/16 17:59 Fat Emulsion Intravenous (Intralipid 20%) 250 mls @ 21 mls/hr IV DAILY@1800 [facility] Stop: 10/19/16 05:55 Insulin Human Lispro (Humalog Low) 0 units SC ACHS [facility] PRN Reason: Protocol Last Admin: 10/16/16 08:20 Dose: Not Given Pantoprazole Sodium (Protonix Inj) 40 mg IVP DAILY [facility] Last Admin: 10/16/16 09:24 Dose: 40 mg - Labs Labs: 10/16/16 07:00 10/16/16 07:00 PT 11.8 Seconds (9.9-11.8) 10/10/16 07:00 INR 1.09 (0.93-1.08) H 10/10/16 07:00 APTT > 180.0 Seconds (23.7-30.8) H* 10/11/16 19:00 Attending/Attestation - Attestation I have personally seen and examined this patient.: Yes I have fully participated in the care of the patient.: Yes I have reviewed all pertinent clinical information, including history, physical exam and plan: Yes Notes (Text): 10/16/16 13:48 Patient seen and examined with GI fellow on rounds today. This is a 76 year old male with h/o HTN, HLD, COPD admitted with sepsis 2/2 cellulitis, STEPHANIA improving on antibiotic therapy, we are consulted for failed speech evaluation. His dysarthria seemed to have improved. Currently patient is refusing PEg intervention and has capacity to make decisions. Consider repeat swallowing test or PPN -Will sign off as patient does not want "any more tubes" and specifically refused PEG placement with decision making competency
[2016-10-16 08:10] LABS: CALCIUM 6.6 mg/dL (8.4-10.5)
[2016-10-16] MEDS: Insulin Lispro (humaLOG) LOW Coverage SC SCH ×4 (08:20→22:01)
--- NOTE | 2016-10-16 08:37 | RAD ---
HISTORY: f/u chf COMPARISON: 10/14/2016 at 1251 hours FINDINGS: LUNGS: There is interval increased opacification over the inferior right hemithorax coalescent pulmonary edema versus infiltrate with right pleural effusion there is suggested. The left infrahilar pulmonary venous congestion has improved. Currently a left temporal lateral minimal pleural effusion is suggested PLEURA: No pneumothorax. Small pleural effusions as detailed above CARDIOVASCULAR: Top-normal heart size OSSEOUS STRUCTURES: Mild thoracic spondylosis VISUALIZED UPPER ABDOMEN: Normal. OTHER FINDINGS: Right central internal jugular venous line tip in superior vena cava -unchanged IMPRESSION: Mixed changes: Partial clearing of the left infrahilar pulmonary venous congestion. Interval increased opacification at the right lung base ; here coalescent pulmonary edema and/or infiltrates with right pleural effusion and right pleural parenchymal thickening suggested .
[2016-10-16] MEDS: Linezolid 600 mg in D5W 300 ml 300 ML IVPB SCH ×2 (09:24→21:52)
[2016-10-16] MEDS: Bacitracin Ointment 30 GM TUBE TOP SCH ×3 (09:26→19:46)
[2016-10-16] MEDS: Meropenem 1g/NS 100mL IVPB 100 ML IVPB SCH ×2 (12:06→23:34)
--- NOTE | 2016-10-16 12:09 | CP.PCM.PN ---
Subjective - Date & Time of Evaluation Date of Evaluation: 10/16/16 Time of Evaluation: 10:00 - Subjective Subjective: Awake, alert oriented to place and self. Productive cough. Objective - Vital Signs/Intake and Output Vital Signs (last 24 hours): Temp Pulse Resp BP Pulse Ox 98.4 F 67 21 113/60 95 10/16/16 07:27 10/16/16 07:27 10/16/16 07:27 10/16/16 09:25 10/16/16 07:27 Intake and Output: 10/16/16 10/16/16 06:59 18:59 Intake Total 0 Output Total 250 Balance -250 - Medications Medications: Current Medications Albuterol (Ventolin Hfa 90 Mcg/Actuation (8 G)) 1 puff IH Q4 [facility] Albuterol/Ipratropium (Duoneb 3 Mg/0.5 Mg (3 Ml) Ud) 3 ml IH [id number] [facility] Last Admin: 10/16/16 07:09 Dose: 3 ml Arformoterol Tartrate (Brovana) 15 mcg IH [id number] [facility] Last Admin: 10/16/16 07:08 Dose: 15 mcg Aspirin (Aspirin Supp) 300 mg RC DAILY [facility] Last Admin: 10/15/16 11:44 Dose: 300 mg Bacitracin (Bacitracin) 0 gm TOP BID [facility] Last Admin: 10/16/16 09:26 Dose: 1 applic Budesonide (Pulmicort Respules) 0.5 mg IH [id number] [facility] Last Admin: 10/16/16 07:09 Dose: 0.5 mg Linezolid (Zyvox 600mg/300ml D5w) 300 mls @ 200 mls/hr IVPB Q12 [facility] PRN Reason: Protocol Stop: 10/17/16 13:31 Last Admin: 10/16/16 09:24 Dose: 200 mls/hr Meropenem 1g/NS 100mL IVPB (Meropenem 1g/Ns 100ml Ivpb) 100 mls @ 100 mls/hr IVPB Q12 [facility] PRN Reason: Protocol Last Admin: 10/15/16 21:01 Dose: 100 mls/hr Potassium Chloride 20 meq/ (Dextrose/Sodium Chloride) 1,010 mls @ 50 mls/hr IV .[id number] [facility] Last Admin: 10/15/16 10:09 Dose: 50 mls/hr Amino Acids (Clinimix 5/20 % (2000 Ml)) 2,000 mls @ 83 mls/hr IV .Q24H [facility] Stop: 10/19/16 17:59 Fat Emulsion Intravenous (Intralipid 20%) 250 mls @ 21 mls/hr IV DAILY@1800 [facility] Stop: 10/19/16 05:55 Insulin Human Lispro (Humalog Low) 0 units SC ACHS [facility] PRN Reason: Protocol Last Admin: 10/16/16 08:20 Dose: Not Given Pantoprazole Sodium (Protonix Inj) 40 mg IVP DAILY [facility] Last Admin: 10/16/16 09:24 Dose: 40 mg - Labs Labs: 10/16/16 07:00 10/16/16 07:00 PT 11.8 Seconds (9.9-11.8) 10/10/16 07:00 INR 1.09 (0.93-1.08) H 10/10/16 07:00 APTT > 180.0 Seconds (23.7-30.8) H* 10/11/16 19:00 - Constitutional Appears: No Acute Distress, Chronically Ill - Head Exam Head Exam: NORMAL INSPECTION - Eye Exam Eye Exam: Normal appearance, PERRL - ENT Exam ENT Exam: Mucous Membranes Moist, Normal Oropharynx - Respiratory Exam Respiratory Exam: Decreased Breath Sounds, Rhonchi, NORMAL BREATHING PATTERN - Cardiovascular Exam Cardiovascular Exam: REGULAR RHYTHM, +S1, +S2 - GI/Abdominal Exam GI & Abdominal Exam: Soft, Normal Bowel Sounds - Extremities Exam Extremities Exam: Normal Capillary Refill, Pedal Edema - Neurological Exam Neurological Exam: Alert - Skin Skin Exam: Dry, Pallor Assessment and Plan - Assessment and Plan (Free Text) Assessment: 76 year old male admitted with sepsis, STEPHANIA, dysphagia, cellulitis,hypocalcemia, perihilar infiltrates. Patient is alert and communicative. He complains of productive cough. Dr Esther Pardo and I spoke with patient about his medical condition. Impressed that although he is improving, he is still not able to swallow foods safely. Patient states he wants to be able to eat on his own. Today he is adamant that he does not want a permanent feeding tube. He was offered temporary nutritional support via NG tube, patient not happy with this intervention. TPN offered, which he is agreeable to. We explained that we are hopeful his ability to swallow safely will improve over the next few days but if not, we would have another discussion about future goals of care. Plan: TPN Repeat speech and swallow evaluation. PT evaluation Will assist in establishing future goals of care
--- NOTE | 2016-10-16 14:45 | CP.PCM.PN ---
<Quinten Schrader - Last Filed: 10/17/16 00:31> Subjective - Date & Time of Evaluation Date of Evaluation: 10/16/16 Time of Evaluation: 07:00 - Subjective Subjective: Patient seen and examined at bedside. No acute events overnight. Patient gurgling speech improved compared to yesterday. Patient states that he is not hungry, currently not in acute distress. Patient agreed to TPN, not NG tube feeding. Denies fever, chills, headache, shortness of breath, chest pain, abdominal pain, nausea or vomiting. Objective - Vital Signs/Intake and Output Vital Signs (last 24 hours): Temp Pulse Resp BP Pulse Ox 98.4 F 67 21 113/60 95 10/16/16 07:27 10/16/16 07:27 10/16/16 07:27 10/16/16 09:25 10/16/16 07:27 Intake and Output: 10/16/16 10/16/16 06:59 18:59 Intake Total 0 Output Total 250 Balance -250 - Medications Medications: Current Medications Albuterol (Ventolin Hfa 90 Mcg/Actuation (8 G)) 1 puff IH Q4 [facility] Albuterol/Ipratropium (Duoneb 3 Mg/0.5 Mg (3 Ml) Ud) 3 ml IH [id number] [facility] Last Admin: 10/16/16 14:35 Dose: 3 ml Arformoterol Tartrate (Brovana) 15 mcg IH [id number] [facility] Last Admin: 10/16/16 07:08 Dose: 15 mcg Aspirin (Aspirin Supp) 300 mg RC DAILY [facility] Last Admin: 10/15/16 11:44 Dose: 300 mg Bacitracin (Bacitracin) 0 gm TOP BID [facility] Last Admin: 10/16/16 09:26 Dose: 1 applic Budesonide (Pulmicort Respules) 0.5 mg IH [id number] [facility] Last Admin: 10/16/16 07:09 Dose: 0.5 mg Linezolid (Zyvox 600mg/300ml D5w) 300 mls @ 200 mls/hr IVPB Q12 [facility] PRN Reason: Protocol Stop: 10/17/16 13:31 Last Admin: 10/16/16 09:24 Dose: 200 mls/hr Meropenem 1g/NS 100mL IVPB (Meropenem 1g/Ns 100ml Ivpb) 100 mls @ 100 mls/hr IVPB Q12 [facility] PRN Reason: Protocol Last Admin: 10/16/16 12:06 Dose: 100 mls/hr Potassium Chloride 20 meq/ (Dextrose/Sodium Chloride) 1,010 mls @ 50 mls/hr IV .[id number] [facility] Last Admin: 10/15/16 10:09 Dose: 50 mls/hr Amino Acids (Clinimix 5/20 % (2000 Ml)) 2,000 mls @ 83 mls/hr IV .Q24H [facility] Stop: 10/19/16 17:59 Fat Emulsion Intravenous (Intralipid 20%) 250 mls @ 21 mls/hr IV DAILY@1800 [facility] Stop: 10/19/16 05:55 Insulin Human Lispro (Humalog Low) 0 units SC ACHS [facility] PRN Reason: Protocol Last Admin: 10/16/16 08:20 Dose: Not Given Pantoprazole Sodium (Protonix Inj) 40 mg IVP DAILY [facility] Last Admin: 10/16/16 09:24 Dose: 40 mg - Labs Labs: 10/16/16 07:00 10/16/16 07:00 PT 11.8 Seconds (9.9-11.8) 10/10/16 07:00 INR 1.09 (0.93-1.08) H 10/10/16 07:00 APTT > 180.0 Seconds (23.7-30.8) H* 10/11/16 19:00 - Constitutional Appears: Non-toxic, No Acute Distress, Chronically Ill - Head Exam Head Exam: NORMAL INSPECTION - Eye Exam Eye Exam: Normal appearance, PERRL - ENT Exam ENT Exam: Mucous Membranes Moist - Neck Exam Neck Exam: Normal Inspection Additional comments: right IJ central line clean, intact - Respiratory Exam Respiratory Exam: Decreased Breath Sounds, NORMAL BREATHING PATTERN. absent: Respiratory Distress - Cardiovascular Exam Cardiovascular Exam: REGULAR RHYTHM, +S1, +S2. absent: Murmur - GI/Abdominal Exam GI & Abdominal Exam: Soft, Normal Bowel Sounds. absent: Tenderness - Back Exam Back Exam: rash noted - Neurological Exam Neurological Exam: Alert, Awake, Oriented x3 (difficult to understand) - Psychiatric Exam Psychiatric exam: Normal Affect, Normal Mood - Skin Skin Exam: Warm Additional comments: cellulitis from left lower abdominal region extends to lower back, buttocks, and upper thigh Assessment and Plan - Assessment and Plan (Free Text) Assessment: 76 year old male with past medical history of hypertension, HLD, COPD was admitted to ICU with AMS, septic shock likely secondary to cellulitis, cystitis , colitis. Septic shock resolved. Patient is DNR/DNI, palliative consulted. Dysphagia -Speech improved compared to yesterday -High risk of aspiration per speech & swallow eval -Starting TPN -Follow GI recommendations -Patient refused NG tube feed -Continue follow up with Speech and swallow eval Elevated BNP -BNP 89314 -Echo - mild systolic dysfunction. Mild TR. Mild Pulmonary HTN. EF = 45.8 -Previous CXR showed Left sided perihilar infiltrate CHF vs PNA -Lasix 40mg IV given today -AM CXR showed partial clearing of left infrahilar congestion. Interval increased opacification at the right lung base (see full report). Acute renal failure -Stable -BUN/Cr: 32/1.9 -CK improving 622 to 333 -No evidence of hydronephrosis on CT abdomen -Avoid nephrotoxic meds -Nephrology is following -Discontinued IVF Septic shock due to cellulitis and colitis, resolved -ID recommendations, Continue zyvox, meropemen, day 7 -Continue bacitracin topical on cellulitis area -Blood culture Corenebacterium, likely contaminant -Urine culture is positive for yeast species -Nasal MRSA cx negative -C Diff culture negative -Surgery consult, no surgical intervention at this time COPD -Duoneb IH q6hr -Brovana 15mcg IH Q12q -Budesonide 0.5mg IH Q12q [facility] -Heparin stopped due to bleeding -Protonix for GI ppx <Sveta Pardo - Last Filed: 10/17/16 07:26> Objective - Vital Signs/Intake and Output Vital Signs (last 24 hours): Temp Pulse Resp BP Pulse Ox 97.8 F 70 18 128/64 95 10/16/16 16:00 10/16/16 16:00 10/16/16 16:00 10/16/16 16:00 10/16/16 16:00 Intake and Output: 10/17/16 10/17/16 06:59 18:59 Intake Total 0 Output Total 500 Balance -500 - Medications Medications: Current Medications Albuterol (Ventolin Hfa 90 Mcg/Actuation (8 G)) 1 puff IH Q4 [facility] Albuterol/Ipratropium (Duoneb 3 Mg/0.5 Mg (3 Ml) Ud) 3 ml IH [id number] [facility] Last Admin: 10/17/16 07:11 Dose: 3 ml Arformoterol Tartrate (Brovana) 15 mcg IH [id number] [facility] Last Admin: 10/17/16 07:11 Dose: 15 mcg Aspirin (Aspirin Supp) 300 mg RC DAILY [facility] Last Admin: 10/16/16 14:46 Dose: 300 mg Bacitracin (Bacitracin) 0 gm TOP BID [facility] Last Admin: 10/16/16 19:46 Dose: 1 applic Budesonide (Pulmicort Respules) 0.5 mg IH [id number] [facility] Last Admin: 10/17/16 07:11 Dose: 0.5 mg Linezolid (Zyvox 600mg/300ml D5w) 300 mls @ 200 mls/hr IVPB Q12 [facility] PRN Reason: Protocol Stop: 10/17/16 13:31 Last Admin: 10/16/16 21:52 Dose: 200 mls/hr Meropenem 1g/NS 100mL IVPB (Meropenem 1g/Ns 100ml Ivpb) 100 mls @ 100 mls/hr IVPB Q12 [facility] PRN Reason: Protocol Last Admin: 10/16/16 23:34 Dose: 100 mls/hr Amino Acids (Clinimix 5/20 % (2000 Ml)) 2,000 mls @ 83 mls/hr IV .Q24H [facility] Stop: 10/19/16 17:59 Last Admin: 10/16/16 19:47 Dose: 83 mls/hr Fat Emulsion Intravenous (Intralipid 20%) 250 mls @ 21 mls/hr IV DAILY@1800 [facility] Stop: 10/19/16 05:55 Last Admin: 10/16/16 19:47 Dose: 21 mls/hr Insulin Human Lispro (Humalog Low) 0 units SC ACHS [facility] PRN Reason: Protocol Last Admin: 10/16/16 22:01 Dose: Not Given Pantoprazole Sodium (Protonix Inj) 40 mg IVP DAILY [facility] Last Admin: 10/16/16 09:24 Dose: 40 mg - Labs Labs: 10/16/16 07:00 10/16/16 07:00 PT 11.8 Seconds (9.9-11.8) 10/10/16 07:00 INR 1.09 (0.93-1.08) H 10/10/16 07:00 APTT > 180.0 Seconds (23.7-30.8) H* 10/11/16 19:00 Attending/Attestation - Attestation I have personally seen and examined this patient.: Yes I have fully participated in the care of the patient.: Yes I have reviewed all pertinent clinical information, including history, physical exam and plan: Yes Notes (Text): 10/16/16 76 year old male with past medical history of hypertension, dyslipidemia, and COPD who was initially admitted to ICU for septic shock secondary to cellulitis. He was also found to have colitis, dysphagia, STEPHANIA and possible pneumonia. Continue with iv antibiotics as per ID. Repeat procalcitonin level improved. Repeat CXR yesterday was reviewed. He is on intermittent lasix and IVF are discontinued. His creatinine is improving and nephrology is following the patient. He is being followed by speech and swallow for dysphagia. GI evaluation was requested for evaluation of feeding tube if he continued to fail swallow evaluation. He was initially agreeable but now is refusing. He is also refusing NGT. He states he wants to eat but is agreeable to PPN/TPN. Will request speech and swallow evaluation today for reassessment. Patient is DNR/DNI. Prognosis is guarded. Sveta Pardo MD Hospitalist.
--- NOTE | 2016-10-16 14:51 | CP.PCM.PN ---
Subjective - Date & Time of Evaluation Date of Evaluation: 10/16/16 Time of Evaluation: 10:15 - Subjective Subjective: Comfortable in bed, afebrile overnight, not in distress. Objective - Vital Signs/Intake and Output Vital Signs (last 24 hours): Temp Pulse Resp BP Pulse Ox 98.4 F 67 21 99/58 L 95 10/16/16 07:27 10/16/16 07:27 10/16/16 07:27 10/16/16 07:27 10/16/16 07:27 Intake and Output: 10/16/16 10/16/16 06:59 18:59 Intake Total 0 Output Total 250 Balance -250 - Medications Medications: Current Medications Albuterol (Ventolin Hfa 90 Mcg/Actuation (8 G)) 1 puff IH Q4 [facility] Albuterol/Ipratropium (Duoneb 3 Mg/0.5 Mg (3 Ml) Ud) 3 ml IH [id number] [facility] Last Admin: 10/16/16 07:09 Dose: 3 ml Arformoterol Tartrate (Brovana) 15 mcg IH [id number] [facility] Last Admin: 10/16/16 07:08 Dose: 15 mcg Aspirin (Aspirin Supp) 300 mg RC DAILY [facility] Last Admin: 10/15/16 11:44 Dose: 300 mg Bacitracin (Bacitracin) 0 gm TOP BID [facility] Last Admin: 10/15/16 11:50 Dose: 1 applic Budesonide (Pulmicort Respules) 0.5 mg IH [id number] [facility] Last Admin: 10/16/16 07:09 Dose: 0.5 mg Linezolid (Zyvox 600mg/300ml D5w) 300 mls @ 200 mls/hr IVPB Q12 [facility] PRN Reason: Protocol Stop: 10/17/16 13:31 Last Admin: 10/15/16 22:35 Dose: 200 mls/hr Meropenem 1g/NS 100mL IVPB (Meropenem 1g/Ns 100ml Ivpb) 100 mls @ 100 mls/hr IVPB Q12 [facility] PRN Reason: Protocol Last Admin: 10/15/16 21:01 Dose: 100 mls/hr Potassium Chloride 20 meq/ (Dextrose/Sodium Chloride) 1,010 mls @ 50 mls/hr IV .[id number] [facility] Last Admin: 10/15/16 10:09 Dose: 50 mls/hr Insulin Human Lispro (Humalog Low) 0 units SC ACHS [facility] PRN Reason: Protocol Last Admin: 10/16/16 08:20 Dose: Not Given Pantoprazole Sodium (Protonix Inj) 40 mg IVP DAILY [facility] Last Admin: 10/15/16 10:09 Dose: 40 mg - Labs Labs: 10/16/16 07:00 10/16/16 07:00 PT 11.8 Seconds (9.9-11.8) 10/10/16 07:00 INR 1.09 (0.93-1.08) H 10/10/16 07:00 APTT > 180.0 Seconds (23.7-30.8) H* 10/11/16 19:00 - Constitutional Appears: Non-toxic, No Acute Distress - Head Exam Head Exam: NORMAL INSPECTION - Respiratory Exam Respiratory Exam: Decreased Breath Sounds - Cardiovascular Exam Cardiovascular Exam: +S1, +S2 - GI/Abdominal Exam GI & Abdominal Exam: Soft. absent: Tenderness Assessment and Plan - Assessment and Plan (Free Text) Plan: Assessment septic shock secondary to right gluteal area severe skin and skin structure infection (with spread to right femoral and inguinal area)in a patient who presented with decreased sensorium and acute renal failure, clinically improving and now not in shock anymore; R/O urinary tract infection R/O colitis (as seen on CT scan) Corynebacterium in one blood cx bottle, probably contamination dyslipidemia HTN COPD Plan continue Zyvox and Merrem (day 7); PCT is elevated at 0.79 although the patient has renal failure; will target 7-10 days of antibiotics Will continue to follow clinically and monitor
[2016-10-16] MEDS: AMINO IV SCH (19:47)
[2016-10-16] MEDS: DEXT IV SCH (19:47)
[2016-10-16] MEDS: Fat Emulsion 20% IV 250 ML IV SCH (19:47)
--- NOTE | 2016-10-16 23:45 | CP.PCM.PN ---
Objective - Vital Signs/Intake and Output Vital Signs (last 24 hours): Temp Pulse Resp BP Pulse Ox 97.8 F 70 18 128/64 95 10/16/16 16:00 10/16/16 16:00 10/16/16 16:00 10/16/16 16:00 10/16/16 16:00 Intake and Output: 10/16/16 10/17/16 18:59 06:59 Intake Total 0 Output Total 600 300 Balance -600 -300 - Medications Medications: Current Medications Albuterol (Ventolin Hfa 90 Mcg/Actuation (8 G)) 1 puff IH Q4 [facility] Albuterol/Ipratropium (Duoneb 3 Mg/0.5 Mg (3 Ml) Ud) 3 ml IH [id number] [facility] Last Admin: 10/16/16 21:15 Dose: 3 ml Arformoterol Tartrate (Brovana) 15 mcg IH [id number] [facility] Last Admin: 10/16/16 21:15 Dose: 15 mcg Aspirin (Aspirin Supp) 300 mg RC DAILY [facility] Last Admin: 10/16/16 14:46 Dose: 300 mg Bacitracin (Bacitracin) 0 gm TOP BID [facility] Last Admin: 10/16/16 19:46 Dose: 1 applic Budesonide (Pulmicort Respules) 0.5 mg IH [id number] [facility] Last Admin: 10/16/16 21:15 Dose: 0.5 mg Linezolid (Zyvox 600mg/300ml D5w) 300 mls @ 200 mls/hr IVPB Q12 [facility] PRN Reason: Protocol Stop: 10/17/16 13:31 Last Admin: 10/16/16 21:52 Dose: 200 mls/hr Meropenem 1g/NS 100mL IVPB (Meropenem 1g/Ns 100ml Ivpb) 100 mls @ 100 mls/hr IVPB Q12 [facility] PRN Reason: Protocol Last Admin: 10/16/16 23:34 Dose: 100 mls/hr Amino Acids (Clinimix 5/20 % (2000 Ml)) 2,000 mls @ 83 mls/hr IV .Q24H [facility] Stop: 10/19/16 17:59 Last Admin: 10/16/16 19:47 Dose: 83 mls/hr Fat Emulsion Intravenous (Intralipid 20%) 250 mls @ 21 mls/hr IV DAILY@1800 [facility] Stop: 10/19/16 05:55 Last Admin: 10/16/16 19:47 Dose: 21 mls/hr Insulin Human Lispro (Humalog Low) 0 units SC ACHS [facility] PRN Reason: Protocol Last Admin: 10/16/16 22:01 Dose: Not Given Pantoprazole Sodium (Protonix Inj) 40 mg IVP DAILY [facility] Last Admin: 10/16/16 09:24 Dose: 40 mg - Labs Labs: 10/16/16 07:00 10/16/16 07:00 PT 11.8 Seconds (9.9-11.8) 10/10/16 07:00 INR 1.09 (0.93-1.08) H 10/10/16 07:00 APTT > 180.0 Seconds (23.7-30.8) H* 10/11/16 19:00 Assessment and Plan (1) Sepsis Status: Acute (2) Acute renal failure (ARF) Status: Acute (3) Rhabdomyolysis Status: Acute (4) Anemia Status: Acute (5) Electrolyte imbalance Status: Acute
[2016-10-17] MEDS: Albuterol-Ipratrop 3 mg / 0.5 (3 ml) UD IH SCH ×4 (02:45→20:55)
[2016-10-17 06:58] LABS: ADD MANUAL DIFF? NO
[2016-10-17] MEDS: Budesonide 0.5 mg/2 ml Inhal Susp UD IH SCH ×2 (07:11→20:56)
[2016-10-17] MEDS: Arformoterol 15 mcg/2 ml Inh Sol IH SCH ×2 (07:11→20:55)
[2016-10-17 07:13] LABS: BASO # 0.02 K/mm3 (0.0-2.0); BASO % 0.1 % (0.0-3.0); EOS # 1.4 (0.0-0.7); EOS % 10.5 % (1.5-5.0); GRAN # 9.74 (1.4-6.5); GRAN % 71.3 % (50.0-68.0); HEMATOCRIT 30.4 % (42.0-52.0); LYMPH # 1.5 (1.2-3.4); LYMPH % 10.7 % (22.0-35.0); MEAN CELL VOLUME 84.2 fL (80.0-105.0); MEAN CORPUSCULAR HEMOGLOBIN 27.7 pg (25.0-35.0); MEAN CORPUSCULAR HGB CONC 32.9 g/dl (31.0-37.0); MEAN PLATELET VOLUME 11.6 fl (7.0-11.0); MONO % 7.4 % (1.0-6.0); PLATELET COUNT 84 10^3/uL (120.0-450.0); RED CELL DISTRIBUTION WIDTH 17.3 % (11.5-14.5); WHITE BLOOD COUNT 13.7 10^3/ul (4.5-11.0)
[2016-10-17 07:21] LABS: ALB/GLOB RATIO 0.9 (1.1-1.8); BILIRUBIN,TOTAL 0.4 mg/dL (0.2-1.3); TOTAL PROTEIN 4.6 g/dL (5.8-8.3)
[2016-10-17 07:34] LABS: POTASSIUM 3.6 mmol/L (3.6-5.0)
[2016-10-17 07:42] LABS: CALCIUM 6.5 mg/dL (8.4-10.5)
[2016-10-17] MEDS: Insulin Lispro (humaLOG) LOW Coverage SC SCH ×4 (08:48→21:31)
[2016-10-17] MEDS: Meropenem 1g/NS 100mL IVPB 100 ML IVPB SCH ×2 (10:00→23:00)
[2016-10-17] MEDS: Linezolid 600 mg in D5W 300 ml 300 ML IVPB SCH (10:02)
[2016-10-17] MEDS: Bacitracin Ointment 30 GM TUBE TOP SCH ×2 (10:08→17:44)
--- NOTE | 2016-10-17 14:01 | CP.PCM.PN ---
<Quinten Schrader - Last Filed: 10/17/16 20:47> Subjective - Date & Time of Evaluation Date of Evaluation: 10/17/16 Time of Evaluation: 07:00 - Subjective Subjective: Patient seen and examined at bedside. No acute events overnight. Patient still has gurgling sound when he speaks, but has improved compared to yesterday. Patient reports he did not sound like this prior to this hospital admission. Patient has no discomfort at this time. Denies headache, fever, chills, shortness of breath, chest pain, abdominal pain, nausea, or vomiting. Objective - Vital Signs/Intake and Output Vital Signs (last 24 hours): Temp Pulse Resp BP Pulse Ox 97.2 F L 77 22 116/54 L 97 10/17/16 07:30 10/17/16 07:30 10/17/16 07:30 10/17/16 11:14 10/17/16 07:30 Intake and Output: 10/17/16 10/17/16 06:59 18:59 Intake Total 0 1606 Output Total 500 200 Balance -500 1406 - Medications Medications: Current Medications Albuterol (Ventolin Hfa 90 Mcg/Actuation (8 G)) 1 puff IH Q4 [facility] Albuterol/Ipratropium (Duoneb 3 Mg/0.5 Mg (3 Ml) Ud) 3 ml IH [id number] [facility] Last Admin: 10/17/16 13:07 Dose: 3 ml Arformoterol Tartrate (Brovana) 15 mcg IH [id number] [facility] Last Admin: 10/17/16 07:11 Dose: 15 mcg Aspirin (Aspirin Chewable) 81 mg PO DAILY [facility] Bacitracin (Bacitracin) 0 gm TOP BID [facility] Last Admin: 10/17/16 10:08 Dose: 1 applic Budesonide (Pulmicort Respules) 0.5 mg IH [id number] [facility] Last Admin: 10/17/16 07:11 Dose: 0.5 mg Meropenem 1g/NS 100mL IVPB (Meropenem 1g/Ns 100ml Ivpb) 100 mls @ 100 mls/hr IVPB Q12 [facility] PRN Reason: Protocol Last Admin: 10/17/16 10:00 Dose: 100 mls/hr Amino Acids (Clinimix 5/20 % (2000 Ml)) 2,000 mls @ 83 mls/hr IV .Q24H [facility] Stop: 10/19/16 17:59 Last Admin: 10/16/16 19:47 Dose: 83 mls/hr Fat Emulsion Intravenous (Intralipid 20%) 250 mls @ 21 mls/hr IV DAILY@1800 [facility] Stop: 10/19/16 05:55 Last Admin: 10/16/16 19:47 Dose: 21 mls/hr Insulin Human Lispro (Humalog Low) 0 units SC ACHS [facility] PRN Reason: Protocol Last Admin: 10/17/16 08:48 Dose: Not Given Pantoprazole Sodium (Protonix Inj) 40 mg IVP DAILY [facility] Last Admin: 10/17/16 10:01 Dose: 40 mg - Labs Labs: 10/17/16 06:40 10/17/16 06:40 PT 11.8 Seconds (9.9-11.8) 10/10/16 07:00 INR 1.09 (0.93-1.08) H 10/10/16 07:00 APTT > 180.0 Seconds (23.7-30.8) H* 10/11/16 19:00 - Constitutional Appears: Non-toxic, No Acute Distress, Chronically Ill - Head Exam Head Exam: NORMAL INSPECTION - Eye Exam Eye Exam: Normal appearance - ENT Exam ENT Exam: Mucous Membranes Moist - Neck Exam Neck Exam: Normal Inspection Additional comments: right IJ central line clean, intact, no signs of infection - Respiratory Exam Respiratory Exam: NORMAL BREATHING PATTERN. absent: Clear to Ausculation Bilateral (slight crackles appreciated), Respiratory Distress - Cardiovascular Exam Cardiovascular Exam: REGULAR RHYTHM, +S1, +S2. absent: Murmur - GI/Abdominal Exam GI & Abdominal Exam: Soft, Normal Bowel Sounds. absent: Tenderness - Extremities Exam Extremities Exam: Full ROM, Normal Capillary Refill, Pedal Edema (slight b/l pedal edema). absent: Joint Swelling, Tenderness - Neurological Exam Neurological Exam: Alert, Awake, Oriented x3 - Psychiatric Exam Psychiatric exam: Normal Affect, Normal Mood - Skin Skin Exam: Dry, Warm Assessment and Plan - Assessment and Plan (Free Text) Assessment: 76 year old male with past medical history of hypertension, HLD, COPD was admitted to ICU with AMS, septic shock likely secondary to cellulitis, colitis. Septic shock resolved, dysphagia and STEPHANIA improving Dysphagia -Speech improved compared to yesterday -High risk of aspiration per speech & swallow eval -Follow GI recommendations -Patient refused NG tube feed -Continue follow up with Speech and swallow eval -Starting pureed honey thickened liquids this AM Elevated BNP -BNP 77560 -09/13 Echo - mild systolic dysfunction. Mild TR. Mild Pulmonary HTN. EF = 45.8 -09/16 CXR showed Left sided perihilar infiltrate CHF vs PNA - CXR showed partial clearing of left infrahilar congestion. Interval increased opacification at the right lung base (see full report) -Currently off IVF -Lasix 20mg IV given today Acute renal failure -Improving -BUN/Cr: 20/08.7 -CK improving 333 to 189 -No evidence of hydronephrosis on CT abdomen -Avoid nephrotoxic meds -Nephrology is following -Recommended low protein diet -Discontinued IVF Septic shock due to cellulitis and colitis, resolved -ID recommendations, Continue zyvox, meropemen, day 7 -Continue bacitracin topical on cellulitis area -Blood culture Corenebacterium, likely contaminant -Urine culture is positive for yeast species -Nasal MRSA cx negative -C Diff culture negative -Surgery consult, no surgical intervention at this time COPD -Duoneb IH q6hr -Brovana 15mcg IH Q12q -Budesonide 0.5mg IH Q12q PPx -SCD thigh high -Protonix for GI ppx <Sveta Pardo - Last Filed: 10/18/16 07:07> Objective - Vital Signs/Intake and Output Vital Signs (last 24 hours): Temp Pulse Resp BP Pulse Ox 97.7 F 84 20 108/50 L 96 10/17/16 16:00 10/17/16 16:00 10/17/16 16:00 10/17/16 16:00 10/17/16 16:00 Intake and Output: 10/17/16 10/18/16 18:59 06:59 Intake Total 1606 2666 Output Total 700 500 Balance 906 2166 - Medications Medications: Current Medications Albuterol (Ventolin Hfa 90 Mcg/Actuation (8 G)) 1 puff IH Q4 [facility] Albuterol/Ipratropium (Duoneb 3 Mg/0.5 Mg (3 Ml) Ud) 3 ml IH [id number] [facility] Last Admin: 10/18/16 01:53 Dose: 3 ml Arformoterol Tartrate (Brovana) 15 mcg IH [id number] [facility] Last Admin: 10/17/16 20:55 Dose: 15 mcg Aspirin (Aspirin Chewable) 81 mg PO DAILY [facility] Bacitracin (Bacitracin) 0 gm TOP BID [facility] Last Admin: 10/17/16 17:44 Dose: 1 applic Budesonide (Pulmicort Respules) 0.5 mg IH [id number] [facility] Last Admin: 10/17/16 20:56 Dose: 0.5 mg Meropenem 1g/NS 100mL IVPB (Meropenem 1g/Ns 100ml Ivpb) 100 mls @ 100 mls/hr IVPB Q12 [facility] PRN Reason: Protocol Last Admin: 10/17/16 23:00 Dose: 100 mls/hr Amino Acids (Clinimix 5/20 % (2000 Ml)) 2,000 mls @ 83 mls/hr IV .Q24H [facility] Stop: 10/19/16 17:59 Last Admin: 10/17/16 17:41 Dose: 83 mls/hr Fat Emulsion Intravenous (Intralipid 20%) 250 mls @ 21 mls/hr IV DAILY@1800 [facility] Stop: 10/19/16 05:55 Last Admin: 10/17/16 17:42 Dose: 21 mls/hr Insulin Human Lispro (Humalog Low) 0 units SC ACHS [facility] PRN Reason: Protocol Last Admin: 10/17/16 21:31 Dose: Not Given Pantoprazole Sodium (Protonix Inj) 40 mg IVP DAILY [facility] Last Admin: 10/17/16 10:01 Dose: 40 mg - Labs Labs: 10/18/16 04:25 10/18/16 04:25 PT 11.8 Seconds (9.9-11.8) 10/10/16 07:00 INR 1.09 (0.93-1.08) H 10/10/16 07:00 APTT > 180.0 Seconds (23.7-30.8) H* 10/11/16 19:00 Attending/Attestation - Attestation I have personally seen and examined this patient.: Yes I have fully participated in the care of the patient.: Yes I have reviewed all pertinent clinical information, including history, physical exam and plan: Yes Notes (Text): 10/17/16 76 year old male with past medical history of hypertension, dyslipidemia, and COPD who was initially admitted to ICU for septic shock secondary to cellulitis. He was also found to have colitis, dysphagia, STEPHANIA and possible pneumonia. CXR shows congestion/infiltrates for which he is on antibiotics as per ID and intermittent lasix. Repeat procalcitonin level has improved. His creatinine also has improved and is stable. Nephrology is following the patient. His dysphagia is improving and his diet was advanced as per speech and swallow recommendations. If tolerated diet can consider to d/c PPN. Patient is DNR/DNI. Prognosis is guarded. Sveta Pardo MD Hospitalist.
[2016-10-17 16:22] VITALS: PULSE 84; RESP 20; TEMP 97.7; O2SAT 96
[2016-10-17] MEDS: AMINO IV SCH (17:41)
[2016-10-17] MEDS: DEXT IV SCH (17:41)
[2016-10-17] MEDS: Fat Emulsion 20% IV 250 ML IV SCH (17:42)
--- NOTE | 2016-10-17 21:01 | CP.PCM.PN ---
Objective - Vital Signs/Intake and Output Vital Signs (last 24 hours): Temp Pulse Resp BP Pulse Ox 97.7 F 84 20 108/50 L 96 10/17/16 16:00 10/17/16 16:00 10/17/16 16:00 10/17/16 16:00 10/17/16 16:00 Intake and Output: 10/17/16 10/18/16 18:59 06:59 Intake Total 1606 Output Total 700 Balance 906 - Medications Medications: Current Medications Albuterol (Ventolin Hfa 90 Mcg/Actuation (8 G)) 1 puff IH Q4 [facility] Albuterol/Ipratropium (Duoneb 3 Mg/0.5 Mg (3 Ml) Ud) 3 ml IH [id number] [facility] Last Admin: 10/17/16 20:55 Dose: 3 ml Arformoterol Tartrate (Brovana) 15 mcg IH [id number] [facility] Last Admin: 10/17/16 20:55 Dose: 15 mcg Aspirin (Aspirin Chewable) 81 mg PO DAILY [facility] Bacitracin (Bacitracin) 0 gm TOP BID [facility] Last Admin: 10/17/16 17:44 Dose: 1 applic Budesonide (Pulmicort Respules) 0.5 mg IH [id number] [facility] Last Admin: 10/17/16 20:56 Dose: 0.5 mg Meropenem 1g/NS 100mL IVPB (Meropenem 1g/Ns 100ml Ivpb) 100 mls @ 100 mls/hr IVPB Q12 [facility] PRN Reason: Protocol Last Admin: 10/17/16 10:00 Dose: 100 mls/hr Amino Acids (Clinimix 5/20 % (2000 Ml)) 2,000 mls @ 83 mls/hr IV .Q24H [facility] Stop: 10/19/16 17:59 Last Admin: 10/17/16 17:41 Dose: 83 mls/hr Fat Emulsion Intravenous (Intralipid 20%) 250 mls @ 21 mls/hr IV DAILY@1800 [facility] Stop: 10/19/16 05:55 Last Admin: 10/17/16 17:42 Dose: 21 mls/hr Insulin Human Lispro (Humalog Low) 0 units SC ACHS [facility] PRN Reason: Protocol Last Admin: 10/17/16 16:44 Dose: Not Given Pantoprazole Sodium (Protonix Inj) 40 mg IVP DAILY [facility] Last Admin: 10/17/16 10:01 Dose: 40 mg - Labs Labs: 10/17/16 06:40 10/17/16 06:40 PT 11.8 Seconds (9.9-11.8) 10/10/16 07:00 INR 1.09 (0.93-1.08) H 10/10/16 07:00 APTT > 180.0 Seconds (23.7-30.8) H* 10/11/16 19:00 Assessment and Plan (1) Sepsis Status: Acute (2) Acute renal failure (ARF) Status: Acute (3) Rhabdomyolysis Status: Acute (4) Anemia Status: Acute (5) Electrolyte imbalance Status: Acute
[2016-10-18] MEDS: Albuterol-Ipratrop 3 mg / 0.5 (3 ml) UD IH SCH ×3 (01:53→13:17)
[2016-10-18 04:57] LABS: ADD MANUAL DIFF? NO
[2016-10-18 05:07] LABS: BASO # 0.01 K/mm3 (0.0-2.0); BASO % 0.1 % (0.0-3.0); EOS # 1.4 (0.0-0.7); EOS % 9.9 % (1.5-5.0); GRAN # 10.06 (1.4-6.5); GRAN % 73.4 % (50.0-68.0); HEMATOCRIT 28.1 % (42.0-52.0); LYMPH # 1.3 (1.2-3.4); LYMPH % 9.4 % (22.0-35.0); MEAN CELL VOLUME 84.1 fL (80.0-105.0); MEAN CORPUSCULAR HEMOGLOBIN 28.4 pg (25.0-35.0); MEAN CORPUSCULAR HGB CONC 33.8 g/dl (31.0-37.0); MEAN PLATELET VOLUME 11.2 fl (7.0-11.0); MONO % 7.2 % (1.0-6.0); PLATELET COUNT 84 10^3/uL (120.0-450.0); RED CELL DISTRIBUTION WIDTH 16.8 % (11.5-14.5); WHITE BLOOD COUNT 13.7 10^3/ul (4.5-11.0)
[2016-10-18 05:28] LABS: ALB/GLOB RATIO 0.9 (1.1-1.8); BILIRUBIN,TOTAL 0.4 mg/dL (0.2-1.3); POTASSIUM 3.8 mmol/L (3.6-5.0); TOTAL PROTEIN 4.6 g/dL (5.8-8.3)
[2016-10-18 05:35] LABS: CALCIUM 6.5 mg/dL (8.4-10.5); IRON 43 ug/dL (45-180)
[2016-10-18] MEDS: Budesonide 0.5 mg/2 ml Inhal Susp UD IH SCH (07:28)
[2016-10-18] MEDS: Arformoterol 15 mcg/2 ml Inh Sol IH SCH (07:28)
--- NOTE | 2016-10-18 08:18 | PN ---
DATE: 10/17/2016 A 76-year-old male with a past medical history of hypertension, hyperlipidemia, COPD, initially admit leslie for severe sepsis secondary to buttock cellulitis. The patient denies any complaints. Had been n.p.o. due to high aspiration risk; however, today he was given trial of pureed and finely chopped fo od with honey thickened liquids and tolerated it well. OBJECTIVE: VITAL SIGNS: Blood pressure 147/74, heart rate 77, respirations 22, O2 sat 97% on 2 liters oxygen vi a nasal cannula. GENERAL: No distress. HEENT: Moist mucous membranes. CHEST: Clear to auscultation bilaterally. No rales. Mild wheezes heard. HEART: S1, S2 positive, no murmurs. ABDOMEN: Soft, nontender, nondistended. EXTREMITIES: [id number] leg edema extending all the way to the upper thighs. ASSESSMENT: Sepsis secondary to buttock area cellulitis on meropenem. Correctly dosed for a creatin ine clearance of 30 mL per minute. Acute renal failure: Resolving acute kidney injury on chronic kid jace disease with baseline creatinine of 1.4 in 2013, likely acute tubular necrosis in the setting of sepsis. Should have CKD workup done as an outpatient. Rhabdomyolysis: Mild rhabdomyolysis seen dur ing this admission, not contributory to renal failure, resolved. Anemia: Iron studies ordered. Leg edema: Okay to give small dose of diuretics; although with improving renal function will auto-diures e. Hypocalcemia: Calcium level mildly low even corrected for hypoalbuminemia. No need to supplemen t unless the patient is symptomatic or has EKG changes. Will check PTH and 25-hydroxy vitamin D rere brown. Sixto Tariq MD cc: [id number] TT: 10/17/2016 18:21:42 Confirmation # [id number] Dictation # [id number] dn
--- NOTE | 2016-10-18 11:12 | CP.PCM.PN ---
Subjective - Date & Time of Evaluation Date of Evaluation: 10/18/16 Time of Evaluation: 10:00 - Subjective Subjective: Alert, denies pain. Wet cough. Objective - Vital Signs/Intake and Output Vital Signs (last 24 hours): Temp Pulse Resp BP Pulse Ox 97.7 F 84 20 108/50 L 96 10/17/16 16:00 10/17/16 16:00 10/17/16 16:00 10/17/16 16:00 10/17/16 16:00 Intake and Output: 10/18/16 10/18/16 06:59 18:59 Intake Total 2666 Output Total 500 Balance 2166 - Medications Medications: Current Medications Albuterol (Ventolin Hfa 90 Mcg/Actuation (8 G)) 1 puff IH Q4 [facility] Albuterol/Ipratropium (Duoneb 3 Mg/0.5 Mg (3 Ml) Ud) 3 ml IH [id number] [facility] Last Admin: 10/18/16 07:28 Dose: 3 ml Arformoterol Tartrate (Brovana) 15 mcg IH [id number] [facility] Last Admin: 10/18/16 07:28 Dose: 15 mcg Aspirin (Aspirin Chewable) 81 mg PO DAILY [facility] Bacitracin (Bacitracin) 0 gm TOP BID [facility] Last Admin: 10/17/16 17:44 Dose: 1 applic Budesonide (Pulmicort Respules) 0.5 mg IH [id number] [facility] Last Admin: 10/18/16 07:28 Dose: 0.5 mg Furosemide (Lasix) 40 mg PO DAILY [facility] Meropenem 1g/NS 100mL IVPB (Meropenem 1g/Ns 100ml Ivpb) 100 mls @ 100 mls/hr IVPB Q12 [facility] PRN Reason: Protocol Last Admin: 10/17/16 23:00 Dose: 100 mls/hr Insulin Human Lispro (Humalog Low) 0 units SC ACHS [facility] PRN Reason: Protocol Last Admin: 10/17/16 21:31 Dose: Not Given Pantoprazole Sodium (Protonix Inj) 40 mg IVP DAILY [facility] Last Admin: 10/17/16 10:01 Dose: 40 mg - Labs Labs: 10/18/16 04:25 10/18/16 04:25 PT 11.8 Seconds (9.9-11.8) 10/10/16 07:00 INR 1.09 (0.93-1.08) H 10/10/16 07:00 APTT > 180.0 Seconds (23.7-30.8) H* 10/11/16 19:00 - Constitutional Appears: No Acute Distress, Chronically Ill - Eye Exam Eye Exam: Normal appearance, PERRL - ENT Exam ENT Exam: Mucous Membranes Moist, Normal Oropharynx - Neck Exam Neck Exam: Normal Inspection - Respiratory Exam Respiratory Exam: Decreased Breath Sounds, Rhonchi, NORMAL BREATHING PATTERN - Cardiovascular Exam Cardiovascular Exam: REGULAR RHYTHM, +S1, +S2 - GI/Abdominal Exam GI & Abdominal Exam: Soft, Normal Bowel Sounds - Back Exam Back Exam: NORMAL INSPECTION - Neurological Exam Neurological Exam: Alert - Skin Skin Exam: Dry, Pallor Additional comments: edematous Assessment and Plan - Assessment and Plan (Free Text) Assessment: 76 year old male admitted with sepsis, cellulitis, dysphagia, STEPHANIA after being found on the floor at home. The patient's dypahgia has improved, he is eating. He still demonstrates diminished effort when coughing and remains at risk for aspiration. He knows that he will be transferred to [facility] for rehabilitation. I explained that it is very likely that he will not be able to live alone in the future. I encouraged him to speak with his brothers about future care options. Also encouraged to initiate a new Living Will, updating his wishes and naming his brother as health care proxy. Plan: Transfer to [facility] No new recommendations. Thank you for allowing me to participate in this patients care
[2016-10-18] MEDS: Meropenem 1g/NS 100mL IVPB 100 ML IVPB SCH (11:27)
[2016-10-18] MEDS: Bacitracin Ointment 30 GM TUBE TOP SCH (11:32)
[2016-10-18 11:35] VITALS: BP 113/53
--- NOTE | 2016-10-18 12:05 | PN ---
DATE: 10/18/2016 A 76-year-old male with past medical history of COPD, hypertension, dyslipidemia, admitted with sever e sepsis secondary to buttock area cellulitis. The patient denies any complaints this morning, has b een started on p.o. intake. VITAL SIGNS: This morning, blood pressure 108/50, heart rate 84, respirations 20, temperature 97.7, oxygen saturation 96% on room air. LABORATORY DATA: WBC 13.7, hemoglobin 9.5, hematocrit 28.1, platelet 84. Chemistry panel: Sodium 1 38, potassium 3.8, chloride 105, bicarb 27, BUN 43, creatinine 1.7, glucose 79, calcium 6.5, albumin 2.2. Iron studies: Iron 43, TIBC 178, percent saturation 24%. PHYSICAL EXAMINATION: GENERAL: The patient in no distress, lying comfortably. HEENT: Moist mucous membranes. CHEST: Mild basal rales. Bilateral expiratory wheezes. CARDIOVASCULAR: Elevated JVD. S1, S2 positive, no murmurs. ABDOMEN: Soft, nontender, nondistended. EXTREMITIES: Marked leg edema extending to upper thighs appears improved. ASSESSMENT: 1. Sepsis secondary to buttock area cellulitis, also with possible pneumonia, on meropenem 1 gram q. 12 hours. No renal dose adjustment needed at this time as creatinine clearance is above 30. 2. Acute renal failure, acute kidney injury on chronic kidney disease. Last known serum creatinine baseline of 1.4 in 2013. Serum creatinine has improved significantly and creatinine of 1.7 currently may represent his new baseline. Etiology is likely prerenal/acute tubular necrosis in the setting o f sepsis. 1+ proteinuria by dipstick. Still awaiting urine protein. Creatinine ratio can be follow ed as outpatient. 3. Rhabdomyolysis, resolved. 4. Anemia secondary to acute illness. Iron replete. 5. Electrolyte imbalance, mild hypocalcemia when corrected for albumin. No need to replenish unless symptomatic hypocalcemia or EKG changes. Should have a PTH level checked, can be followed as an out patient. Has history of hypertension; however, blood pressures have been on the lower end of normal during this hospitalization and continue to remain so. On exam, the patient has evidence of volume e xcess with elevated jugular venous distention. Should continue Lasix 40 mg p.o. daily. Nephrology c onsult service will sign off. Please reconsult as needed. Sixto Tariq MD cc: [id number] TT: 10/18/2016 12:04:58 Confirmation # [id number] Dictation # [id number] tn
--- NOTE | 2016-10-18 14:00 | CP.PCM.DIS ---
Provider - Provider Date of Admission: 10/09/16 21:31 Attending physician: Sveta Pardo MD Primary care physician: Jd Oscar MD Consults: Cardiology: Dr. Grayson Surgery: DR. Garcia Nephro: Dr. Cazares ID: Dr. English Time Spent in preparation of Discharge (in minutes): 40 Diagnosis - Discharge Diagnosis (1) Septic shock Status: Resolved (2) Dysphagia Status: Chronic (3) Acute renal failure (ARF) Status: Resolved (4) Hyperkalemia Status: Resolved (5) Colitis Status: Resolved (6) Cellulitis Status: Resolved (7) Hypernatremia Status: Resolved (8) Hypothermia Status: Resolved (9) HLD (hyperlipidemia) Status: Chronic (10) COPD (chronic obstructive pulmonary disease) Status: Chronic (11) Altered mental status Status: Resolved Hospital Course - Lab Results Lab Results: Micro Results 10/11/16 10:35 Stool C. difficile Antigen & Toxin A,B (M - Final 10/09/16 23:30 Nose MRSA Culture (Admit) - Final MRSA NOT DETECTED Most Recent Lab Values WBC 13.7 10^3/ul (4.5-11.0) H 10/18/16 04:25 RBC 3.34 10^6/uL (3.5-6.1) L 10/18/16 04:25 Hgb 9.5 gm/dL (14.0-18.0) L 10/18/16 04:25 Hct 28.1 % (42.0-52.0) L 10/18/16 04:25 MCV 84.1 fL (80.0-105.0) 10/18/16 04:25 MCH 28.4 pg (25.0-35.0) 10/18/16 04:25 MCHC 33.8 g/dl (31.0-37.0) 10/18/16 04:25 RDW 16.8 % (11.5-14.5) H 10/18/16 04:25 Plt Count 84 10^3/uL (120.0-450.0) L 10/18/16 04:25 MPV 11.2 fl (7.0-11.0) H 10/18/16 04:25 Gran % 73.4 % (50.0-68.0) H 10/18/16 04:25 Lymph % (Auto) 9.4 % (22.0-35.0) L 10/18/16 04:25 [place] % (Auto) 7.2 % (1.0-6.0) H 10/18/16 04:25 Eos % (Auto) 9.9 % (1.5-5.0) H 10/18/16 04:25 Baso % (Auto) 0.1 % (0.0-3.0) 10/18/16 04:25 Gran # 10.06 (1.4-6.5) H 10/18/16 04:25 Lymph # 1.3 (1.2-3.4) 10/18/16 04:25 Ponce # 1.0 (0.1-0.6) H 10/18/16 04:25 Eos # 1.4 (0.0-0.7) H 10/18/16 04:25 Baso # 0.01 K/mm3 (0.0-2.0) 10/18/16 04:25 Neutrophils % (Manual) TEST NOT PERFORMED 10/13/16 06:30 Band Neutrophils % 10 % (0-2) H 10/11/16 06:00 Lymphocytes % (Manual) TEST NOT PERFORMED 10/13/16 06:30 Atypical Lymphs % 2 % (0.0-0.0) H 10/10/16 19:00 Monocytes % (Manual) TEST NOT PERFORMED 10/13/16 06:30 Toxic Granulation 1+ 10/11/16 06:00 Platelet Evaluation Low (NORMAL) 10/11/16 06:00 Large Platelets Present 10/11/16 06:00 Giant Platelets Present 10/11/16 06:00 Hypochromasia 1+ 10/11/16 06:00 Poikilocytosis (manual Slight 10/11/16 06:00 Anisocytosis (manual) 1+ 10/11/16 06:00 Ovalocytes Slight 10/11/16 06:00 PT 11.8 Seconds (9.9-11.8) 10/10/16 07:00 INR 1.09 (0.93-1.08) H 10/10/16 07:00 APTT > 180.0 Seconds (23.7-30.8) H* 10/11/16 19:00 pCO2 42 mm/Hg (35-45) 10/10/16 06:31 pO2 45 mm/Hg (30-55) 10/10/16 10:30 HCO3 17.2 mmol/L (21-28) L 10/10/16 06:31 ABG pH 7.22 (7.35-7.45) L 10/10/16 06:31 ABG Total CO2 18.5 mmol.L (22-28) L 10/10/16 06:31 ABG O2 Saturation 96.4 % (95-98) 10/10/16 06:31 ABG Base Excess -10.1 mmol/L (-2.0-3.0) L 10/10/16 06:31 ABG Potassium 4.6 mmol/L (3.6-5.2) 10/10/16 06:31 VBG pH 7.26 (7.32-7.43) L 10/10/16 10:30 VBG pCO2 39.0 (40-60) L 10/10/16 10:30 VBG HCO3 17.5 mmol/l (21-28) L 10/10/16 10:30 VBG Total CO2 18.7 mmol.L (22-28) L 10/10/16 10:30 VBG O2 Sat (Calc) 85.7 % (40-65) H 10/10/16 10:30 VBG Base Excess -9.0 mmol/L (0.0-2.0) L 10/10/16 10:30 VBG Potassium 4.4 mmol/L (3.6-5.2) 10/10/16 10:30 Sodium 154.0 mmol/L (132-148) H 10/10/16 10:30 Chloride 130.0 mmol/L (98-107) H 10/10/16 10:30 Glucose 103 mg/dl (75-110) 10/10/16 10:30 Lactate 2.1 mmol/L (0.7-2.1) 10/10/16 10:30 FiO2 21.0 % 10/10/16 10:30 Sodium 138 mmol/L (132-148) 10/18/16 04:25 Potassium 3.8 mmol/L (3.6-5.0) 10/18/16 04:25 Chloride 105 mmol/L (95-110) 10/18/16 04:25 Carbon Dioxide 27 mmol/L (21-33) 10/18/16 04:25 Anion Gap 10 (10-20) 10/18/16 04:25 BUN 43 mg/dL (7-21) H 10/18/16 04:25 Creatinine 1.7 mg/dL (0.5-1.4) H 10/18/16 04:25 Est GFR ( Amer) 48 10/18/16 04:25 Est GFR (Non-Af Amer) 39 10/18/16 04:25 POC Glucose (mg/dL) 99 mg/dL (65-110) 10/13/16 11:10 Random Glucose 79 mg/dL (70-110) 10/18/16 04:25 Calcium 6.5 mg/dL (8.4-10.5) L* 10/18/16 04:25 Phosphorus 3.8 mg/dL (2.5-4.5) 10/11/16 17:50 Magnesium 1.8 mg/dL (1.7-2.2) 10/11/16 17:50 Iron 43 ug/dL (45-180) L 10/18/16 04:25 TIBC 178 ug/dL (261-462) L 10/18/16 04:25 % Saturation 24 % (20-55) 10/18/16 04:25 Ferritin 430.0 ng/mL 10/18/16 04:25 Total Bilirubin 0.4 mg/dL (0.2-1.3) 10/18/16 04:25 AST 50 U/L (15-59) 10/18/16 04:25 ALT 45 U/L (7-56) 10/18/16 04:25 Alkaline Phosphatase 115 U/L (38-133) 10/18/16 04:25 Lactate Dehydrogenase 363 U/L (333-699) 10/11/16 12:00 Total Creatine Kinase 189 U/L (35-230) 10/17/16 06:40 CK-MB (CK-2) 2.1 ng/mL (0.0-3.6) 10/16/16 07:00 CK-MB (CK-2) % 0.6 % (2.5-3.0) L 10/14/16 06:45 Troponin I 0.02 ng/mL D 10/11/16 12:00 NT-Pro-B Natriuret Pep 64254 pg/mL (0-450) H 10/15/16 13:50 Total Protein 4.6 g/dL (5.8-8.3) L 10/18/16 04:25 Albumin 2.2 g/dL (3.0-4.8) L 10/18/16 04:25 Globulin 2.4 gm/dL 10/18/16 04:25 Albumin/Globulin Ratio 0.9 (1.1-1.8) L 10/18/16 04:25 Triglycerides 94 mg/dL (35-160) 10/16/16 07:00 Cholesterol 84 mg/dL (130-200) L 10/16/16 07:00 LDL Cholesterol Direct < 30 mg/dL (0-129) 10/16/16 07:00 HDL Cholesterol 36 mg/dL (29-60) 10/16/16 07:00 Amylase 72 U/L (35-125) 10/13/16 06:30 Lipase 154 U/L (23-300) 10/13/16 06:30 Procalcitonin 0.26 NG/ML (0.19-0.49) 10/15/16 06:00 Arterial Blood Potassium 4.6 mmol/L (3.6-5.2) 10/10/16 06:31 Venous Blood Potassium 4.4 mmol/L (3.6-5.2) 10/10/16 10:30 Urine Color Yellow (YELLOW) 10/09/16 21:20 Urine Appearance Turbid (CLEAR) 10/09/16 21:20 Urine pH 6.0 (4.7-8.0) 10/09/16 21:20 Ur Specific [place] 1.025 (1.005-1.035) 10/09/16 21:20 Urine Protein 30 mg/dL (<30 mg/dL) H 10/09/16 21:20 Urine Glucose (UA) Negative mg/dL (NEGATIVE) 10/09/16 21:20 Urine Ketones Negative mg/dL (NEGATIVE) 10/09/16 21:20 Urine Blood Large (NEGATIVE) H 10/09/16 21:20 Urine Nitrate Negative (NEGATIVE) 10/09/16 21:20 Urine Bilirubin Negative (NEGATIVE) 10/09/16 21:20 Urine Urobilinogen 0.2 E.U./dL (<1 E.U./dL) 10/09/16 21:20 Ur Leukocyte Esterase Large [place]q/uL (NEGATIVE) H 10/09/16 21:20 Urine RBC 1 - 3 /hpf (0-2) 10/09/16 21:20 Urine WBC Tntc /hpf (0-6) 10/09/16 21:20 Urine Bacteria Many (NEG) 10/09/16 21:20 Ur Random Creatinine 136 mg/dL 10/11/16 05:50 Digoxin < 0.4 ng/mL (0.8-2.0) L 10/09/16 20:51 Alcohol, Quantitative < 10 mg/dL (0-10) 10/09/16 20:51 - Hospital Course Hospital Course: 76 year old male with past medical history of HLD, hypertension and COPD who was found down on the ground at home by a neighbor, poorly responsive, and was brought in by EMS. Patient was hypotensive and bradycardic on arrival, poorly responsive to staff, and only oriented to location. HPI and ROS limited due to patient's altered mental status. He was found to have a large cellulitis with excoriations along his groin region and left thigh extending into his posterior region. Stephens was placed and urine draining into the stephens was notable in that it was almost opaque, appeared to be gabriele pyuria. ICU was consulted due to his bradycardia (40's on bedside monitor) and hypotension (60's -90's SBP) in the setting of infection concerning for sepsis/septic shock. Hypotension persisted despite 3L NS given wide open in the ED. He was also found to have a new STEPHANIA with Cr of 3.1 (1.1-1.3 per prior charting) and a hyperkalemia of 7.0. Upon ICU admission, Calcium chloride, sodium bicarbonate, were given. A right IJ was placed and Levophed drip was started. ID consult placed and empiric IV antibiotics started. CT head showed no acute intracranial abnormalities. CT abdomen and pelvis ordered which showed no abscess of buttocks , suggestive of cellulitis. Thickening of the colon was found and concerns for colitis (see full report) for which c. diff culture, flagyl were started and surgery was consulted. 10/10: patient is a little more awake but still lethargic, does answer a few questions with severe wet, gurgling sound. Started Zyvox and meropenem. Hyperkalemia resolved, switched IVF to D5W. 10/11: Continue pressors. Failed swallow and evaluation. switched from lovenox to heparin due to thrombocytopenia, currently on zyvox, meropenem, and vancomycin. Hypernatremia improving. DNR/DNI status confirmed with patient and brother. 10/12: Heparin was held overnight due to bleeding from mouth and CVC site. Bicarb drip was stopped. Blood pressure is improved, discontinued pressors. Thrombocytopenia is stable. No surgery indicated at this time per surgery team. 10/13: Palliative care consulted. Patient's condition improved, moved to floor. Hypokalemia at 3.5, supplemented. ARF is improving. Consider PEG tube, follow speech and swallowing. 10/14: pending speech and swallow. Hypokalemia and hypercalcemia supplemented. Day 5 of zyvox and dipika antibiotics. CXR today showed left sided CHF VS pneumonia, lasix given by nephrology. 10/15: GI was consulted for dysphagia whom recommended dobhoff tube feeding. Brother Cy approved MISAEL. Failed Speech and Swallow once again. Day 6 of zyvox and dipika antibiotics. 10/16: Continue intermittent lasix and discontinued IVF. Procalcitonin improving. zyvox + dipika day 7. Patient's speech improved slightly. patient refused NG tube, but agreed to TPN. 10/17: Patient's speech continued to improved. Speech and swallow evaluation advanced patient to pureed honey thicken diet. CXR showed congestion/infiltrates , continue antibiotics (day 8). Creatinine and procalcitonin improving. MISAEL placement in progress. 10/18: Patient tolerated recommended diet by mouth well. Speech improving. Patient will required 2 more days of antibiotics at [facility]. The discharge plan and follow ups were extensively discussed with the patient who verbalized with complete understanding. At this time, after discussion of all issues, the patient was deemed medically fit for discharge. - Date & Time of H&P Date of H&P: 10/10/16 Time of H&P: 05:01 Discharge Exam - Head Exam Head Exam: ATRAUMATIC, NORMAL INSPECTION - Eye Exam Eye Exam: Normal appearance Pupil Exam: NORMAL ACCOMODATION - ENT Exam ENT Exam: Mucous Membranes Moist - Neck Exam Neck exam: Normal Inspection Additional comments: Right IJ central line from 10/14 removed in the afternoon of 10/18. No signs of active bleeding. Dressing dry, clean, intact. - Respiratory Exam Respiratory Exam: NORMAL BREATHING PATTERN. absent: Respiratory Distress - Cardiovascular Exam Cardiovascular Exam: REGULAR RHYTHM, +S1, +S2 - GI/Abdominal Exam GI & Abdominal Exam: Normal Bowel Sounds, Soft. absent: Tenderness - Extremities Exam Extremities exam: normal inspection, pedal pulses present - Back Exam Back exam: absent: CVA tenderness (L), CVA tenderness (R) - Neurological Exam Neurological exam: Alert, Oriented x3 - Psychiatric Exam Psychiatric exam: Normal Affect, Normal Mood - Skin Skin Exam: Dry, Warm Discharge Plan - Discharge Medications Prescriptions: Meropenem 1g/NS 100mL IVPB [Meropenem 1g/NS 100mL IVPB] 1 gm IVPB Q12 2 Days - Follow Up Plan Condition: GUARDED Disposition: REHAB FACILITY/REHAB UNIT Instructions: Pneumococcal Vaccine for Adults (DC), Acute Kidney Injury (DC), Influenza Vaccine (DC), COPD (Chronic Obstructive Pulmonary Disease) (DC), Chronic Dysphagia (DC), Bradycardia (DC), Anemia (GEN), Fall Prevention (DC) Additional Instructions: Discharge patient to [facility] today Patient will continue Meropenem antibiotics for 2 more days Patient will continue pureed honey thick diet Patient needs to be on aspiration, gurgling precaution Patient will resume all medications taking while inpatient Go to the nearest ED if symptoms return or worsen Referrals: Jd Oscar MD [Primary Care Provider] -
--- NOTE | 2016-10-18 14:48 | CP.PCM.PN ---
Subjective - Date & Time of Evaluation Date of Evaluation: 10/18/16 Time of Evaluation: 10:45 - Subjective Subjective: Patient is comfortable in bed, not in distress, afebrile, more awake today, less pain in the right gluteal area. Objective - Vital Signs/Intake and Output Vital Signs (last 24 hours): Temp Pulse Resp BP Pulse Ox 97.2 F L 77 22 147/74 97 10/17/16 07:30 10/17/16 07:30 10/17/16 07:30 10/17/16 07:30 10/17/16 07:30 Intake and Output: 10/17/16 10/17/16 06:59 18:59 Intake Total 0 1606 Output Total 500 200 Balance -500 1406 - Medications Medications: Current Medications Albuterol (Ventolin Hfa 90 Mcg/Actuation (8 G)) 1 puff IH Q4 [facility] Albuterol/Ipratropium (Duoneb 3 Mg/0.5 Mg (3 Ml) Ud) 3 ml IH [id number] [facility] Last Admin: 10/17/16 07:11 Dose: 3 ml Arformoterol Tartrate (Brovana) 15 mcg IH [id number] [facility] Last Admin: 10/17/16 07:11 Dose: 15 mcg Aspirin (Aspirin Supp) 300 mg RC DAILY [facility] Last Admin: 10/16/16 14:46 Dose: 300 mg Bacitracin (Bacitracin) 0 gm TOP BID [facility] Last Admin: 10/16/16 19:46 Dose: 1 applic Budesonide (Pulmicort Respules) 0.5 mg IH [id number] [facility] Last Admin: 10/17/16 07:11 Dose: 0.5 mg Linezolid (Zyvox 600mg/300ml D5w) 300 mls @ 200 mls/hr IVPB Q12 [facility] PRN Reason: Protocol Stop: 10/17/16 13:31 Last Admin: 10/16/16 21:52 Dose: 200 mls/hr Meropenem 1g/NS 100mL IVPB (Meropenem 1g/Ns 100ml Ivpb) 100 mls @ 100 mls/hr IVPB Q12 [facility] PRN Reason: Protocol Last Admin: 10/16/16 23:34 Dose: 100 mls/hr Amino Acids (Clinimix 5/20 % (2000 Ml)) 2,000 mls @ 83 mls/hr IV .Q24H [facility] Stop: 10/19/16 17:59 Last Admin: 10/16/16 19:47 Dose: 83 mls/hr Fat Emulsion Intravenous (Intralipid 20%) 250 mls @ 21 mls/hr IV DAILY@1800 [facility] Stop: 10/19/16 05:55 Last Admin: 10/16/16 19:47 Dose: 21 mls/hr Insulin Human Lispro (Humalog Low) 0 units SC ACHS [facility] PRN Reason: Protocol Last Admin: 10/17/16 08:48 Dose: Not Given Pantoprazole Sodium (Protonix Inj) 40 mg IVP DAILY [facility] Last Admin: 10/16/16 09:24 Dose: 40 mg - Labs Labs: 10/17/16 06:40 10/17/16 06:40 PT 11.8 Seconds (9.9-11.8) 10/10/16 07:00 INR 1.09 (0.93-1.08) H 10/10/16 07:00 APTT > 180.0 Seconds (23.7-30.8) H* 10/11/16 19:00 - Constitutional Appears: Non-toxic, No Acute Distress - Head Exam Head Exam: NORMAL INSPECTION - ENT Exam ENT Exam: Mucous Membranes Moist - Neck Exam Neck Exam: absent: Lymphadenopathy, Meningismus - Respiratory Exam Respiratory Exam: Decreased Breath Sounds - Cardiovascular Exam Cardiovascular Exam: +S1, +S2 - GI/Abdominal Exam GI & Abdominal Exam: Soft. absent: Tenderness Assessment and Plan - Assessment and Plan (Free Text) Plan: Assessment septic shock secondary to right gluteal area severe skin and skin structure infection (with spread to right femoral and inguinal area) in a patient who presented with decreased sensorium and acute renal failure, clinically improving and now not in shock anymore; R/O urinary tract infection R/O colitis (as seen on CT scan) Corynebacterium in one blood cx bottle, probably contamination dyslipidemia HTN COPD Plan continue Zyvox and Merrem (day 9); PCT is elevated at 0.79 although the patient has renal failure; will target 7-10 days of antibiotics Will continue to follow clinically and monitor
== END 2016-10-18 15:55 | DRG 871 ==
LOC: ED 19:25 → CCU 21:31 → 5RNO 10-13 16:28
PROVIDERS: ADMIT Internal Medicine; ATTEND Internal Medicine
PROC: 05HM33Z Insertion of Infusion Device into Right Internal Jugular Vein, Percutaneous Approach (ICD-10-PCS; 2016-10-10)
PROC: B543ZZA Ultrasonography of Right Jugular Veins, Guidance (ICD-10-PCS; 2016-10-10)
PROC: 3E033XZ Introduction of Vasopressor into Peripheral Vein, Percutaneous Approach (ICD-10-PCS; 2016-10-10)
PROC: 0T9B70Z Drainage of Bladder with Drainage Device, Via Natural or Artificial Opening (ICD-10-PCS; 2016-10-10)
PROC: 3E0336Z Introduction of Nutritional Substance into Peripheral Vein, Percutaneous Approach (ICD-10-PCS; principal; 2016-10-16)
DX: A41.9 Sepsis, unspecified organism (principal); R65.21 Severe sepsis with septic shock; N17.0 Acute kidney failure with tubular necrosis; G93.41 Metabolic encephalopathy; I13.0 Hypertensive heart and chronic kidney disease with heart failure and stage 1 through stage 4 chronic kidney disease, or unspecified chronic kidney disease; J18.9 Pneumonia, unspecified organism; E87.2 Acidosis; E87.0 Hyperosmolality and hypernatremia; L03.317 Cellulitis of buttock; L03.116 Cellulitis of left lower limb; M62.82 Rhabdomyolysis; R13.12 Dysphagia, oropharyngeal phase; I50.9 Heart failure, unspecified; D69.6 Thrombocytopenia, unspecified; E86.0 Dehydration; I48.0 Paroxysmal atrial fibrillation; I27.2 Other secondary pulmonary hypertension; E83.52 Hypercalcemia; E87.5 Hyperkalemia; K52.9 Noninfective gastroenteritis and colitis, unspecified; J44.9 Chronic obstructive pulmonary disease, unspecified; E78.5 Hyperlipidemia, unspecified; Z66 Do not resuscitate; E87.6 Hypokalemia; R68.0 Hypothermia, not associated with low environmental temperature; N30.90 Cystitis, unspecified without hematuria; E83.51 Hypocalcemia; N18.9 Chronic kidney disease, unspecified; I07.1 Rheumatic tricuspid insufficiency; D64.9 Anemia, unspecified; E88.09 Other disorders of plasma-protein metabolism, not elsewhere classified; Z87.891 Personal history of nicotine dependence; Z74.01 Bed confinement status

== ENCOUNTER 2017-12-22 14:20 | Inpatient (IN) | payer MEDICARE, BC ==
[2017-12-22 14:22] VITALS: BMI 28.3
--- NOTE | 2017-12-22 15:04 | ED PDOC ---
Arrival/HPI - General Historian: Patient - History of Present Illness Time/Duration: 4-6 hours Symptom Onset: Sudden Symptom Course: Unchanged Activities at Onset: Rest - General Chief Complaint: Weakness/Neurological Deficit Time Seen by Provider: 12/22/17 14:33 - History of Present Illness Narrative History of Present Illness (Text): 12/22/17 15:00 Pt is a 77 yo M with PMH of HTN, COPD presents to ED due to LE weakness. Patient states that he woke up this morning and couldn't move his legs, however he is a poor historian. Patient lives alone and ambulates independently. Patient has a tenant that regularly checks up on him who called EMS. Patient states that this has never happened before. Patient denies any pain and states that he has regained his strength in his legs. Patient states that he is always short of breath at baseline due to his history of COPD. Pt denies CP, n/v/d, abdominal pain, fever, chills, THOMPSON, or dizziness. PMD: Rc Varela) Past Medical History - Provider Review Nursing Documentation Reviewed: Yes - Infectious Disease Hx of Infectious Diseases: None - Tetanus Immunization Tetanus Immunization: Unknown - Cardiac Hx Cardiac Disorders: Yes Hx Congestive Heart Failure: Yes Hx Hypertension: Yes - Pulmonary Hx Chronic Obstructive Pulmonary Disease (COPD): Yes Hx Pneumonia: No - Neurological HX Cerebrovascular Accident: No - HEENT Hx HEENT Disorder: No - Renal Hx Renal Disorder: No - Endocrine/Metabolic Hx Endocrine Disorders: No - Hematological/Oncological Hx Blood Disorders: No - Integumentary Hx Dermatological Disorder: No - Musculoskeletal/Rheumatological Hx Musculoskeletal Disorders: No - Gastrointestinal Hx Gastrointestinal Disorders: No - Genitourinary/Gynecological Hx Genitourinary Disorders: Yes Hx Incontinence: Yes - Psychiatric Hx Psychophysiologic Disorder: No Hx Substance Use: No (UNKNOWN) - Past Surgical History Past Surgical History: No Previous - Anesthesia Hx Anesthesia Reactions: No Hx Malignant Hyperthermia: No - Suicidal Assessment Feels Threatened In Home Enviroment: No Family/Social History Family/Social History: No Known Family HX Smoking Status: Smoker Currrent Status Unknown Hx Alcohol Use: No (UNKNOWN) Hx Substance Use: No (UNKNOWN) Allergies/Home Meds Allergies/Adverse Reactions: Allergies No Known Allergies Allergy (Verified 05/25/17 18:38) Review of Systems - Physician Review All systems were reviewed & negative as marked: Yes (12 point ROS reviewed and is negative other than what is stated in HPI.) Physical Exam Vital Signs Reviewed: Yes Temperature: Afebrile Blood Pressure: Normal Pulse: Regular Respiratory Rate: Normal Appearance: Positive for: Non-Toxic Mental Status: Positive for: Alert and Oriented X 3 - Systems Exam Head: Present: Atraumatic, Normocephalic Pupils: Present: PERRL Extroacular Muscles: Present: EOMI Conjunctiva: Present: Normal Mouth: Present: Moist Mucous Membranes Respiratory/Chest: Present: Wheezes (b/l). No: Respiratory Distress, Rales, Rhonchi Cardiovascular: Present: Regular Rate and Rhythm. No: Murmurs, Rub, Muffled Abdomen: Present: Hernias (midline abdominal hernia). No: Tenderness, Guarding , Scars Upper Extremity: Present: Normal Inspection. No: Cyanosis, Edema Lower Extremity: Present: Other (left hip internal rotated, strength 2/5. Right hip strength 4/5.). No: Edema Neurological: Present: GCS=15, CN II-XII Intact Skin: Present: Warm, Dry, Rashes (left sided abdominal rash along T7-8 dermatome ), Normal Color Psychiatric: Present: Alert, Oriented x 3, Normal Insight, Normal Concentration Vital Signs Temp Pulse Resp BP Pulse Ox 12/22/17 21:30 98.5 F 95 H 18 116/73 99 12/22/17 20:39 98.5 F 94 H 18 123/64 97 12/22/17 20:30 109/60 12/22/17 18:08 105 H 20 120/79 99 12/22/17 16:08 102 H 20 140/83 100 12/22/17 14:32 98.6 F 100 H 22 157/95 H 100 Medical Decision Making - Lab Interpretations I have reviewed the lab results: Yes Interpretation: Abnormal lab values ED Course and Treatment: 12/22/17 15:07 77 yo M with PMH of HTN, COPD presents to ED due to b/l LE weakness. Plan: - CBC, CMP, Coags - Cardiac ISO - UA - Head CT - CXR - EKG - Duoneb - Solumedrol - Reassess and disposition 12/22/17 15:30 EKG showed sinus rhythm with occasional PAC. Rate 96. 12/22/17 16:26 Portable Chest X-ray Impression: No active disease 12/22/17 19:[address] Impression: No acute intracranial hemorrhage. Re-demonstrated are enlarged bifrontal and to a lesser degree parietal subarachnoid spaces likely due to cortical volume loss however possibility of subdural hygromas not excluded. 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 Significant atrophy. 12/22/17 19:17 Patient was discussed with Dr. Villafana, who agrees with plan and accepts admission to telemetry to her service. (Rc Ochoa) 12/23/17 20:45 pt seen with resident. s/p "difficulty getting up" found to be uroseptic. accepted by dr villafana. (Manuel Christianson) - Lab Interpretations Microbiology Results: Microbiology Results 12/22/17 17:39 Blood Blood Culture - Preliminary NO GROWTH AFTER 24 HOURS 12/22/17 17:10 Blood Blood Culture - Preliminary NO GROWTH AFTER 24 HOURS Lab Results: 12/22/17 16:13 12/22/17 16:13 Lab Results 12/22/17 17:27: Urine Color Light yellow, Urine Appearance Slight-cloudy, Urine pH 6.5, Ur Specific [place] 1.015, Urine Protein 30 H, Urine Glucose (UA) Negative, Urine Ketones Negative, Urine Blood Moderate H, Urine Nitrate Negative , Urine Bilirubin Negative, Urine Urobilinogen 0.2, Ur Leukocyte Esterase Large H, Urine RBC 0 - 2, Urine WBC 10 - 15, Ur Epithelial Cells None, Urine Bacteria Trace 12/22/17 16:13: Sodium 138, Potassium 4.4, Chloride 102, Carbon Dioxide 24, Anion Gap 17, BUN 38 H, Creatinine 1.7 H, Est GFR ( Amer) 47, Est GFR ( Non-Af Amer) 39, Random Glucose 110, Calcium 9.2, Magnesium 2.0, Total Bilirubin 0.4, AST 25, ALT 25, Alkaline Phosphatase 122, Lactate Dehydrogenase 418, Total Creatine Kinase 187, Troponin I 0.08 D, NT-Pro-B Natriuret Pep 8400 H, Total Protein 7.9, Albumin 4.6, Globulin 3.4, Albumin/Globulin Ratio 1.3 12/22/17 16:13: PT 14.1 H, INR 1.23 H, APTT 29.2 12/22/17 16:13: WBC 28.0 H* D, RBC 4.91, Hgb 13.4 L D, Hct 39.1 L, MCV 79.6 L D , MCH 27.3, MCHC 34.3, RDW 16.0 H, Plt Count 375, MPV 9.7, Gran % 86.5 H, Lymph % (Auto) 5.3 L, [place] % (Auto) 8.1 H, Eos % (Auto) 0.0 L, Baso % (Auto) 0.1, Gran # 24.21 H, Lymph # (Auto) 1.5, [place] # (Auto) 2.3 H, Eos # (Auto) 0.0, Baso # (Auto) 0.02 - RAD Interpretation Radiology Orders: 12/22/17 15:19 HEAD W/O CONTRAST [CT] Stat CHEST PORTABLE [RAD] Stat - Medication Orders Current Medication Orders: Albuterol/Ipratropium (Duoneb 3 Mg/0.5 Mg (3 Ml) Ud) 3 ml IH Q2H PRN PRN Reason: Shortness of Breath Albuterol/Ipratropium (Duoneb 3 Mg/0.5 Mg (3 Ml) Ud) 3 ml IH [id number] [facility] Last Admin: 12/23/17 20:10 Dose: 3 ml Amlodipine Besylate (Norvasc) 5 mg PO DAILY [facility] Last Admin: 12/23/17 09:18 Dose: 5 mg MAR Pulse and Blood Pressure Document 12/23/17 09:18 SD (Rec: 12/23/17 09:20 SD [id number]) Pulse Pulse Rate (60-90) 115 Blood Pressure Blood Pressure (100/60-150/90) 118/71 Ceftriaxone Sodium (Rocephin 1 Gram Ivpb) 1 gm in 100 mls @ 100 mls/hr IVPB DAILY [facility] PRN Reason: Protocol Last Admin: 12/23/17 09:17 Dose: 100 mls/hr eMAR Start Stop Document 12/23/17 09:17 SD (Rec: 12/23/17 09:18 SD [id number]) Intravenous Solution Start Date 12/23/17 Start Time 09:18 End Date 12/23/17 End time 09:48 Total Infusion Time 30 Methylprednisolone (Solu-Medrol) 40 mg IV Q12 [facility] Last Admin: 12/23/17 13:10 Dose: 40 mg eMAR Start Stop Document 12/23/17 13:10 SD (Rec: 12/23/17 13:10 SD [id number]) Intravenous Solution Start Date 12/23/17 Start Time 13:10 End Date 12/23/17 End time 13:11 Total Infusion Time 1 Discontinued Medications Albuterol/Ipratropium (Duoneb 3 Mg/0.5 Mg (3 Ml) Ud) 3 ml IH Q15M [facility] Stop: 12/22/17 16:01 Last Admin: 12/22/17 17:00 Dose: 3 ml Furosemide (Lasix) 20 mg IVP STAT STA Stop: 12/22/17 19:14 Last Admin: 12/22/17 20:30 Dose: 20 mg MAR Blood Pressure Document 12/22/17 20:30 HI (Rec: 12/22/17 20:30 HI [id number]) Blood Pressure Blood Pressure (100/60-150/90) 109/60 IVP Administration Document 12/22/17 20:30 HI (Rec: 12/22/17 20:30 HI [id number]) Charges for Administration # of IVP Administrations 1 Ceftriaxone Sodium (Rocephin 1 Gram Ivpb) 1 gm in 100 mls @ 100 mls/hr IVPB STAT STA PRN Reason: Protocol Stop: 12/22/17 17:23 Last Admin: 12/22/17 17:50 Dose: 100 mls/hr eMAR Start Stop Document 12/22/17 17:50 HI (Rec: 12/22/17 17:50 HI [id number]) Intravenous Solution Start Date 12/22/17 Start Time 17:50 Dextrose/Sodium Chloride (Dextrose 5%/0.45% Ns 1000 Ml) 1,000 mls @ 50 mls/hr IV .Q20H [facility] Last Admin: 12/22/17 20:30 Dose: 50 mls/hr eMAR Start Stop Document 12/22/17 20:30 HI (Rec: 12/22/17 20:30 HI [id number]) Intravenous Solution Start Date 12/22/17 Start Time 20:30 Methylprednisolone (Solu-Medrol) 125 mg IVP STAT STA Stop: 12/22/17 15:22 Last Admin: 12/22/17 16:00 Dose: 125 mg IVP Administration Document 12/22/17 16:00 IN (Rec: 12/22/17 16:15 IN [id number]) Charges for Administration # of IVP Administrations 1 Disposition/Present on Arrival - Present on Arrival Any Indicators Present on Arrival: No History of DVT/PE: No History of Uncontrolled Diabetes: No Urinary Catheter: No History Surgical Site Infection Following: None - Disposition Have Diagnosis and Disposition been Completed?: Yes Disposition Time: 19:20 Patient Plan: Admission - Disposition Diagnosis: UTI (urinary tract infection), CHF (congestive heart failure), CKD (chronic kidney disease) Disposition: HOSPITALIZED Patient Problems: Current Active Problems Problem Status Onset CHF (congestive heart failure) Acute CKD (chronic kidney disease) Acute UTI (urinary tract infection) Acute Condition: STABLE
--- NOTE | 2017-12-22 15:55 | RAD ---
HISTORY: weakness COMPARISON: 05/26/2017 FINDINGS: LUNGS: No active pulmonary disease. PLEURA: No significant pleural effusion identified, no pneumothorax apparent. CARDIOVASCULAR: Normal. OSSEOUS STRUCTURES: No significant abnormalities. VISUALIZED UPPER ABDOMEN: Normal. OTHER FINDINGS: None. IMPRESSION: No active disease.
[2017-12-22] MEDS: Albuterol-Ipratrop 3 mg / 0.5 (3 ml) UD IH SCH ×4 (16:00→20:30)
[2017-12-22 16:17] LABS: BASO # 0.02 K/mm3 (0.0-2.0); BASO % 0.1 % (0.0-3.0); GRAN # 24.21 (1.4-6.5); GRAN % 86.5 % (50.0-68.0); HEMOGLOBIN 13.4 g/dL (14.0-18.0); LYMPH # 1.5 (1.2-3.4); LYMPH % 5.3 % (22.0-35.0); MEAN CELL VOLUME 79.6 fl (80.0-105.0); MEAN CORPUSCULAR HEMOGLOBIN 27.3 pg (25.0-35.0); MEAN CORPUSCULAR HGB CONC 34.3 g/dl (31.0-37.0); MEAN PLATELET VOLUME 9.7 fl (7.0-11.0); MONO # 2.3 (0.1-0.6); MONO % 8.1 % (1.0-6.0); RBC 4.91 10^6/uL (3.5-6.1)
[2017-12-22] MEDS ORDERED: cefTRIAXone 1 gm 1 GM/100 ML BAG IVPB STA (16:24)
[2017-12-22 16:26] LABS: INR 1.23 (0.93-1.08); PARTIAL THROMBOPLASTIN TIME 29.2 Seconds (25.1-36.5); PROTHROMBIN TIME 14.1 SECONDS (9.4-12.5)
[2017-12-22 16:28] LABS: ALB/GLOB RATIO 1.3 (1.1-1.8); ALBUMIN 4.6 g/dL (3.0-4.8); CALCIUM 9.2 mg/dL (8.4-10.5)
[2017-12-22 16:39] LABS: TROPONIN I 0.08 ng/mL
[2017-12-22 17:38] LABS: PH,URINE 6.5 (4.7-8.0); URINE BILIRUBIN NEGATIVE (NEGATIVE); URINE BLOOD MODERATE (NEGATIVE); URINE GLUCOSE (UA) NEGATIVE (NEGATIVE); URINE LEUKOCYTE ESTERASE LARGE Leu/uL (NEGATIVE); URINE PROTEIN 30 mg/dL (<30 mg/dL); URINE UROBILINOGEN 0.2 E.U./dL (<1 E.U./dL)
[2017-12-22 17:42] LABS: URINE APPEARANCE SLIGHT-CLOUDY (CLEAR); URINE COLOR LIGHT YELLOW (YELLOW)
[2017-12-22 17:44] LABS: URINE BACTERIA TRACE (NEG); URINE RBC 0 - 2 /hpf (0-2)
--- NOTE | 2017-12-22 18:50 | CT ---
PROCEDURE: CT HEAD WITHOUT CONTRAST. HISTORY: Generalize weakness COMPARISON: Comparison made with prior CT scan brain 10/09/2016. TECHNIQUE: Axial computed tomography images were obtained through the head/brain without intravenous contrast. Radiation dose: Total exam DLP = 909.83 mGy-cm. This CT exam was performed using one or more of the following dose reduction techniques: Automated exposure control, adjustment of the mA and/or kV according to patient size, and/or use of iterative reconstruction technique. FINDINGS: HEMORRHAGE: No acute parenchymal, subarachnoid or extra-axial hemorrhage. . Enlarged bifrontal and to a lesser degree parietal subarachnoid spaces likely due to cortical volume loss however the possibility of chronic subdural hygromas not excluded. Clinical correlation with history recommended. BRAIN: Moderate to significant diffuse and confluent chronic white matter ischemic changes again seen extending peripherally into the deep and subcortical white matter both cerebral hemispheres. Multiple more discrete chronic bilateral basal nuclei lacunar type infarcts are also present. Note that the possibility of a small hyperacute infarct cannot be excluded on this exam. Significant atrophy. VENTRICLES: No obstructive hydrocephalus. CALVARIUM: Calvarium intact. PARANASAL SINUSES: Mild linear and polypoid like mucosal thickening seen left maxillary antrum. Minimal mucosal thickening noted within a few ethmoid air cells. . No significant inflammatory changes. MASTOID AIR CELLS: Unremarkable as visualized. No inflammatory changes. OTHER FINDINGS: None. IMPRESSION: No acute intracranial hemorrhage. Re- demonstrated are enlarged bifrontal and to a lesser degree parietal subarachnoid spaces likely due to cortical volume loss however possibility of subdural hygromas not excluded. 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 Significant atrophy.
[2017-12-22] MEDS ORDERED: Albuterol-Ipratrop 3 mg / 0.5 (3 ml) UD IH PRN (19:27)
[2017-12-22] MEDS ORDERED: Dextrose 5%/0.45% NS 1,000 ML IV SCH (19:30)
[2017-12-23] MEDS: Albuterol-Ipratrop 3 mg / 0.5 (3 ml) UD IH SCH ×4 (01:27→20:10)
--- NOTE | 2017-12-23 02:56 | HP ---
HISTORY OF PRESENT ILLNESS: Patient is 77 years old, was brought to emergency room because of increasing weakness, difficulty walking, not feeling well, not eating well, poor appetite. When he woke up this morning, he could not get out of bed although the patient lives by himself and he claims he has been quite independent. When his neighbor saw his weakness, he called ambulance and he was brought to emergency room. Denies any chest pain. No shortness of breath. No nausea or vomiting, but has poor appetite. PAST MEDICAL HISTORY: Significant for hypertension, history of COPD, hyperlipidemia. ALLERGIES: HE IS NOT ALLERGIC TO ANY MEDICATIONS. MEDICATIONS AT HOME: He is on nebulizer treatment, he is on inhaler and aspirin 81 daily. The patient had a fall in May of last year and had left hip fracture. REVIEW OF SYSTEMS: Significant for heavy smoking and socially drinks. PHYSICAL EXAMINATION: GENERAL: He is awake, alert, oriented, communicative, has generalized weakness. VITAL SIGNS: He is afebrile, pulse 100, respirations 22, blood pressure 157/95. LUNGS: Bilateral good airflow. No rhonchi or crackle. HEART: S1 and S2 audible. ABDOMEN: Soft, nontender. No rebound, no guarding. NEUROLOGICAL: The patient is awake, alert, oriented, communicative, has generalized weakness. LABORATORY EXAM: WBC is 28, hemoglobin 13.4, hematocrit 39, platelet of 375. PT 14.1, INR 1.23. Chemistry: Sodium 138, potassium 4.4, chloride 102, CO2 of 24, BUN 38, creatinine 1.7, blood sugar is 110, BNP is 8400. Urinalysis shows moderate blood, large leukocytes, and 10 to 15 wbc's. X-ray chest is unremarkable. CT scan of the head is unremarkable. ASSESSMENT: 1. Generalized weakness. 2. Urinary tract infection with leukocytosis. 3. Chronic obstructive pulmonary disease. 4. Hypertension. 5. Hyperlipidemia. PLAN: We will start the patient on IV antibiotics. Blood culture and urine cultures were sent. Start him on IV fluids and we will start him on nebulizer treatment. We will follow up CBC and CMP in a.m. Yakelin Villafana MD [facility] # [id number]
[2017-12-23 07:03] LABS: BASO # 0.01 K/mm3 (0.0-2.0); GRAN # 22.45 (1.4-6.5); GRAN % 90.7 % (50.0-68.0); HEMOGLOBIN 11.6 g/dL (14.0-18.0); LYMPH # 1.1 (1.2-3.4); LYMPH % 4.3 % (22.0-35.0); MEAN CELL VOLUME 79.4 fl (80.0-105.0); MEAN CORPUSCULAR HEMOGLOBIN 26.8 pg (25.0-35.0); MEAN CORPUSCULAR HGB CONC 33.7 g/dl (31.0-37.0); MEAN PLATELET VOLUME 9.7 fl (7.0-11.0); MONO # 1.2 (0.1-0.6); PLATELET COUNT 362 10^3/uL (120.0-450.0); RBC 4.33 10^6/uL (3.5-6.1); RED CELL DISTRIBUTION WIDTH 16.4 % (11.5-14.5); WHITE BLOOD COUNT 24.8 10^3/ul (4.5-11.0)
[2017-12-23 07:47] LABS: ALB/GLOB RATIO 1.3 (1.1-1.8); ALBUMIN 3.8 g/dL (3.0-4.8); CALCIUM 8.9 mg/dL (8.4-10.5)
[2017-12-23 07:55] LABS: ANISOCYTOSIS SLIGHT; LYMPHOCYTE 4 % (22.0-35.0); MONOCYTE 1 % (1.0-6.0); NEUTROPHIL 95 % (50.0-70.0); PLATELET ESTIMATE NORMAL (NORMAL)
[2017-12-23] MEDS: cefTRIAXone 1 gm 1 GM/100 ML BAG IVPB SCH (09:17)
--- NOTE | 2017-12-23 10:35 | CARD ---
APPROVED REPORT EKG Measurement Heart [id number] <Conclusion> Sinus rhythm with premature atrial complex. Normal ECG No change
[2017-12-23] MEDS: MethylPREDNISolone 40 mg Vial IV SCH ×2 (13:10→21:25)
--- NOTE | 2017-12-23 14:25 | PN ---
DATE: 12/23/2017 SUBJECTIVE: The patient is 77 years old, seen and examined, lying in bed, seems to be comfortable. Has mild shortness of breath. No nausea, vomiting. No diarrhea. Seems to be more alert. PHYSICAL EXAMINATION: VITAL SIGNS: He has temperature of 99.5, pulse 103, respirations 18, blood pressure 123/73. HEART: S1, S2 audible. LUNGS: Bilateral fair airflow. No rhonchi or crackle. ABDOMEN: Soft, nontender. No rebound, no guarding. NEUROLOGICAL: The patient is awake, alert, oriented, communicative. LABORATORY EXAMINATION: WBC is 24.8, hemoglobin 11.6, hematocrit 34.4, platelet of 362. Chemistry: Sodium 139, potassium 3.8, chloride 103, CO2 24, BUN 45, creatinine 1.9, blood sugar of 158. The urine cultures are pending. ASSESSMENT: 1. Altered mental status secondary to urinary tract infection. 2. History of chronic obstructive pulmonary disease. 3. Bronchospasm. 4. Deconditioning and difficulty walking. PLAN: Since the patient has bronchospasm, I will start small dose of steroid, continue on current antibiotics. Follow up sensitivity and request for physical therapy evaluation. May discontinue telemetry since he is hemodynamically stable. Yakelin Villafana MD
[2017-12-24] MEDS: Albuterol-Ipratrop 3 mg / 0.5 (3 ml) UD IH SCH ×4 (03:12→20:04)
[2017-12-24 06:37] LABS: GRAN # 24.12 (1.4-6.5); HEMOGLOBIN 11.2 g/dL (14.0-18.0); LYMPH # 0.7 (1.2-3.4); LYMPH % 2.8 % (22.0-35.0); MEAN CELL VOLUME 80.1 fl (80.0-105.0); MEAN CORPUSCULAR HEMOGLOBIN 26.5 pg (25.0-35.0); MEAN PLATELET VOLUME 10.3 fl (7.0-11.0); MONO # 0.8 (0.1-0.6); MONO % 3.2 % (1.0-6.0); RBC 4.23 10^6/uL (3.5-6.1); RED CELL DISTRIBUTION WIDTH 16.7 % (11.5-14.5)
[2017-12-24 06:40] LABS: WHITE BLOOD COUNT 25.7 10^3/ul (4.5-11.0)
[2017-12-24 07:20] LABS: ALBUMIN 3.6 g/dL (3.0-4.8); CALCIUM 8.8 mg/dL (8.4-10.5)
[2017-12-24] MEDS: MethylPREDNISolone 40 mg Vial IV SCH ×2 (09:37→21:40)
[2017-12-24] MEDS: cefTRIAXone 1 gm 1 GM/100 ML BAG IVPB SCH (09:38)
--- NOTE | 2017-12-24 13:31 | PQF COPD ---
This form is a permanent part of the medical record Dr. Villafana, Patient with history of COPD. Progress note of 12/23 notes that patient is having "mild SOB....bronchospasm". Meds include duonebs and IV solumedrol every 12 hours. Please specify if patient is being treated for exacerbation of COPD, no exacerbation present.. Clarification of your documentation is requested to better reflect the severity of illness and intensity of treatment of your patient. Indicators present [] Documented diagnosis of COPD [] X-ray findings of [] Decreased breath sounds [] Chronic home O2 [] Chronic hypoxemia [] O2 saturation:[]__ [] CO2 retention [x Smoking history/environmental exposure [x] SOB/ increased respiratory rate [] Other: [] Location in the medical record that reflects the above clinical findings: [] Treatment Provided: [] PHYSICIAN'S RESPONSE Based on your medical judgment of the clinical indicators outlined above, are you treating this patient for a known or suspected: [] Acute exacerbation of COPD [] Acute Asthma ( intermittent, persistent , mild, moderate, severe ) [] Acute bronchitis [x] Chronic obstructive bronchitis with acute exacerbation [] Other, please indicate []__ [] If Unable to Determine, please check the box, sign and date. Present On Admission (POA) Indicator: [x] Present at the time of admission [] Not present at the time of admission [] Clinically Undetermined In responding to this query, please exercise your independent professional judgment. The fact that a question is asked does not imply that any particular answer is desired or expected. Thank you for your clarification on this documentation. If you have any questions please call:[ ] * Thank you, [ ]Timothy Pelletier [facility] #[id number] [employer] team member MARILY
--- NOTE | 2017-12-24 14:13 | CT ---
PROCEDURE: CT Chest without contrast HISTORY: sob COMPARISON: 05/28/2017 TECHNIQUE: Contiguous axial images were obtained through the chest without intravenous contrast enhancement. Sagittal and coronal reconstructions were performed. Radiation dose (DLP): 433 mGy-cm. This CT exam was performed using one or more of the following dose reduction techniques: Automated exposure control, adjustment of the mA and/or kV according to patient size, and/or use of iterative reconstruction technique. FINDINGS: LUNGS: Small nodules are seen in the periphery of the right upper lobe. These are unchanged. These are less than 4 mm. Emphysematous changes are seen. MEDIASTINUM: Unremarkable thoracic aorta. No aneurysm. Normal sized heart. Main pulmonary artery unremarkable. No vascular congestion. No lymphadenopathy. PLEURA: No pleural fluid. No pneumothorax. BONES: There is a chronic severe compression fracture of L1 UPPER ABDOMEN: There is a small right adrenal nodule. The right adrenal measures 9 x 18 mm. This is unchanged OTHER FINDINGS: None. IMPRESSION: Small nodules are seen in the periphery of the right upper lobe. These are unchanged. These are less than 4 mm. Emphysematous changes are seen.
--- NOTE | 2017-12-24 16:51 | PN ---
DATE: 12/24/2017 SUBJECTIVE: Patient is 77 years old; seen and examined; much more awake, alert, comfortable; mild shortness of breath. OBJECTIVE: VITAL SIGNS: He is afebrile. Pulse of 97, respirations 20, blood pressure . LUNGS: Bilateral expiratory rhonchi. HEART: S1, S2 audible. ABDOMEN: Soft, nontender. No rebound. No guarding. NEUROLOGIC: Patient is awake, alert, oriented, and communicative. LABORATORY EXAM: His WBC is 25.7, hemoglobin is 11.2, hematocrit 33.9, platelets of 180. Chemistry: Sodium 140, potassium 3.9, chloride 103, CO2 of 21. BUN 57, creatinine 1.9. Blood sugar of 160. BNP 8400. Blood cultures and urine cultures are negative. ASSESSMENT: 1. Status post altered mental status. 2. Chronic obstructive pulmonary disease. 3. Urinary tract infection. 4. Deconditioning. PLAN: We will discontinue Arndt catheter and encourage ambulation. He might be a candidate for TCU. We will order CT scan of the chest because of his increasing shortness of breath. Yakelin Villafana MD
--- NOTE | 2017-12-25 00:29 | CP.PCM.PN ---
<Cadence Guevara - Last Filed: 12/25/17 01:14> Subjective - Date & Time of Evaluation Date of Evaluation: 12/25/17 Time of Evaluation: 23:25 - Subjective Subjective: Called by nurse, patient had Arndt catheter removed earlier today, has not voided since. Bladder scan with 400 cc of urine. s/p straight cath with 560 cc of urine drained. add flomax consider uro eval. Objective - Vital Signs/Intake and Output Vital Signs (last 24 hours): Temp Pulse Resp BP Pulse Ox 97 F L 93 H 18 135/76 97 12/24/17 18:00 12/24/17 18:00 12/24/17 18:00 12/24/17 18:00 12/24/17 18:00 Intake and Output: 12/24/17 12/25/17 18:59 06:59 Intake Total 1080 480 Output Total 675 0 Balance 405 480 - Medications Medications: Current Medications Albuterol/Ipratropium (Duoneb 3 Mg/0.5 Mg (3 Ml) Ud) 3 ml IH Q2H PRN PRN Reason: Shortness of Breath Albuterol/Ipratropium (Duoneb 3 Mg/0.5 Mg (3 Ml) Ud) 3 ml IH [id number] [facility] Last Admin: 12/24/17 20:04 Dose: 3 ml Amlodipine Besylate (Norvasc) 5 mg PO DAILY [facility] Last Admin: 12/24/17 09:37 Dose: 5 mg Ceftriaxone Sodium (Rocephin 1 Gram Ivpb) 1 gm in 100 mls @ 100 mls/hr IVPB DAILY [facility] PRN Reason: Protocol Last Admin: 12/24/17 09:38 Dose: 100 mls/hr Methylprednisolone (Solu-Medrol) 40 mg IV Q12 [facility] Last Admin: 12/24/17 21:40 Dose: 40 mg - Labs Labs: 12/24/17 06:05 12/24/17 06:05 PT 14.1 SECONDS (9.4-12.5) H 12/22/17 16:13 INR 1.23 (0.93-1.08) H 12/22/17 16:13 APTT 29.2 Seconds (25.1-36.5) 12/22/17 16:13 <Nico Freeman - Last Filed: 12/25/17 02:14> Objective - Vital Signs/Intake and Output Vital Signs (last 24 hours): Temp Pulse Resp BP Pulse Ox 97 F L 93 H 18 135/76 97 12/24/17 18:00 12/24/17 18:00 12/24/17 18:00 12/24/17 18:00 12/24/17 18:00 Intake and Output: 12/24/17 12/25/17 18:59 06:59 Intake Total 1080 480 Output Total 675 0 Balance 405 480 - Medications Medications: Current Medications Albuterol/Ipratropium (Duoneb 3 Mg/0.5 Mg (3 Ml) Ud) 3 ml IH Q2H PRN PRN Reason: Shortness of Breath Albuterol/Ipratropium (Duoneb 3 Mg/0.5 Mg (3 Ml) Ud) 3 ml IH [id number] [facility] Last Admin: 12/24/17 20:04 Dose: 3 ml Amlodipine Besylate (Norvasc) 5 mg PO DAILY [facility] Last Admin: 12/24/17 09:37 Dose: 5 mg Ceftriaxone Sodium (Rocephin 1 Gram Ivpb) 1 gm in 100 mls @ 100 mls/hr IVPB DAILY [facility] PRN Reason: Protocol Last Admin: 12/24/17 09:38 Dose: 100 mls/hr Methylprednisolone (Solu-Medrol) 40 mg IV Q12 [facility] Last Admin: 12/24/17 21:40 Dose: 40 mg Tamsulosin HCl (Flomax) 0.4 mg PO DAILY [facility] - Labs Labs: 12/24/17 06:05 12/24/17 06:05 PT 14.1 SECONDS (9.4-12.5) H 12/22/17 16:13 INR 1.23 (0.93-1.08) H 12/22/17 16:13 APTT 29.2 Seconds (25.1-36.5) 12/22/17 16:13 Attending/Attestation - Attestation I have personally seen and examined this patient.: No I have fully participated in the care of the patient.: Yes I have reviewed all pertinent clinical information, including history, physical exam and plan: Yes
[2017-12-25] MEDS: Albuterol-Ipratrop 3 mg / 0.5 (3 ml) UD IH SCH ×4 (03:05→19:52)
[2017-12-25] MEDS: MethylPREDNISolone 40 mg Vial IV SCH ×2 (09:21→22:12)
[2017-12-25] MEDS: cefTRIAXone 1 gm 1 GM/100 ML BAG IVPB SCH (09:21)
[2017-12-25] MEDS ORDERED: Albuterol-Ipratrop 3 mg / 0.5 (3 ml) UD IH STA (13:18)
[2017-12-25 13:36] LABS: HEMOGLOBIN 11.7 g/dL (14.0-18.0); MEAN CELL VOLUME 80.6 fl (80.0-105.0); MEAN CORPUSCULAR HGB CONC 33.4 g/dl (31.0-37.0); MEAN PLATELET VOLUME 9.9 fl (7.0-11.0); RBC 4.34 10^6/uL (3.5-6.1); RED CELL DISTRIBUTION WIDTH 16.5 % (11.5-14.5); WHITE BLOOD COUNT 14.5 10^3/ul (4.5-11.0)
[2017-12-25 13:51] LABS: ALB/GLOB RATIO 1.2 (1.1-1.8); ALBUMIN 3.8 g/dL (3.0-4.8); ALT/SGPT 24 U/L (7-56); AST/SGOT 19 U/L (17-59); BLOOD UREA NITROGEN 61 mg/dL (7-21); CALCIUM 8.9 mg/dL (8.4-10.5); GFR AFRICAN-AMERICAN 44; GFR NON-AFRICAN AMERICAN 37
[2017-12-25 13:57] LABS: B-TYPE NATRIURETIC PEPTIDE 6790 pg/mL (0-450)
[2017-12-25] MEDS ORDERED: Dextrose 5%/0.45% NS 1,000 ML IV SCH (14:30)
--- NOTE | 2017-12-25 14:36 | RAD ---
HISTORY: wheezing, chest congestion COMPARISON: 12/22/2017 FINDINGS: LUNGS: No active pulmonary disease. PLEURA: No significant pleural effusion identified, no pneumothorax apparent. CARDIOVASCULAR: Normal. OSSEOUS STRUCTURES: No significant abnormalities. VISUALIZED UPPER ABDOMEN: Normal. OTHER FINDINGS: None. IMPRESSION: No active disease.
--- NOTE | 2017-12-25 17:26 | PN ---
DATE: 12/25/2017 SUBJECTIVE: The patient is 77 years old. The patient is seen and examined, awake and alert, mild shortness of breath. No nausea, vomiting, or diarrhea. PHYSICAL EXAMINATION: VITAL SIGNS: He is afebrile. Pulse 74, respirations 20, blood pressure 115/58. LUNGS: Bilateral good airflow. No rhonchi or crackle. HEART: S1, S2 audible. ABDOMEN: Soft, nontender. No rebound. No guarding. NEUROLOGIC: The patient is awake and alert, able to communicate. EXTREMITIES: Bilateral legs, no edema. Last night's events noted. The patient has Arndt removed yesterday, went into retention. On sonogram by bedside, he has 500 urine retained. The patient is already on Flomax. He will be catheterized again. ASSESSMENT: 1. Chronic obstructive pulmonary disease exacerbation with bronchospasm. 2. Pyuria. 3. Hypertension. 4. Benign prostatic hypertrophy. 5. Renal insufficiency. PLAN: I will order for CBC, CMP, and prostate level in a.m. He will be catheterized. Continue him on Flomax and will be seen by Dr. Willoughby. TCU evaluation has been requested. Encourage ambulation. We will follow up the patient in the a.m. Yakelin Villafana MD
[2017-12-26] MEDS: Albuterol-Ipratrop 3 mg / 0.5 (3 ml) UD IH SCH ×3 (01:35→13:30)
[2017-12-26 07:04] LABS: BASO # 0.01 K/mm3 (0.0-2.0); BASO % 0.1 % (0.0-3.0); GRAN # 8.01 (1.4-6.5); GRAN % 86.7 % (50.0-68.0); HEMOGLOBIN 10.9 g/dL (14.0-18.0); LYMPH # 0.8 (1.2-3.4); LYMPH % 8.5 % (22.0-35.0); MEAN CELL VOLUME 80.8 fl (80.0-105.0); MEAN CORPUSCULAR HEMOGLOBIN 26.5 pg (25.0-35.0); MEAN CORPUSCULAR HGB CONC 32.8 g/dl (31.0-37.0); MONO # 0.4 (0.1-0.6); MONO % 4.7 % (1.0-6.0); RBC 4.11 10^6/uL (3.5-6.1); RED CELL DISTRIBUTION WIDTH 16.3 % (11.5-14.5); WHITE BLOOD COUNT 9.2 10^3/ul (4.5-11.0)
[2017-12-26 07:34] VITALS: BP 123/69; PULSE 75; RESP 20; TEMP 98.2; O2SAT 97
[2017-12-26 07:48] LABS: ALB/GLOB RATIO 1.1 (1.1-1.8); ALBUMIN 3.4 g/dL (3.0-4.8); ALT/SGPT 21 U/L (7-56); AST/SGOT 39 U/L (17-59); BLOOD UREA NITROGEN 67 mg/dL (7-21); CALCIUM 8.4 mg/dL (8.4-10.5); GFR AFRICAN-AMERICAN 44; GFR NON-AFRICAN AMERICAN 37
--- NOTE | 2017-12-26 08:47 | PQF RENAL ---
This form is a permanent part of the medical record Dr. Villafana, Patient admitted with elevated BUN and creatinine. Your documentation notes "renal insufficiency". BUN/creatinine noted to be rising throughout stay. Please specify if patient has Chronic Kidney Disease and the stage if present. Clarification of your documentation is requested to better reflect the severity of illness and intensity of treatment of your patient. Indicators present [] Oliguria/anuria [] Edema/weight gain [] Hyponatremia [] Confusion/mental status changes [x] Increased Blood Urea Nitrogen/Creatinine [] Increased Potassium/Decreased potassium [] Anemia (male <13.5, female <12.0) [] Proteinuria [] Metabolic Acidosis OR Alkalosis [] Hypotension/shock [x] Decreased GFR [] Other: [] Location in the medical record that reflects the above clinical findings: PHYSICIAN'S RESPONSE Based on your medical judgment of the clinical indicators outlined above, are you treating this patient for a known or suspected: [] Acute Renal Failure [] Acute Kidney Injury [] Azotemia/prerenal azotemia [x] Chronic kidney disease Stage I [] Stage II [] Stage III [] Stage IV [] [] Other condition/diagnosis:[] [] If Unable to Determine, please check the box, sign and date. Present On Admission (POA) Indicator: [x] Present at the time of admission [] Not present at the time of admission [] Clinically Undetermined In responding to this query, please exercise your independent professional judgment. The fact that a question is asked does not imply that any particular answer is desired or expected. Thank you for your clarification on this documentation. If you have any questions please call:[ ] * Thank you, [ ]Timothy Pelletier [facility] #[id number] construction superintendent Chronic Kidney Disease Stages *[employer]* Stage I GFR >90 Stage II GFR 60-89 Stage III GFR 30-59 Stage IV GFR 15-29 Stage V~~~~~~~~~~ GFR <15~~~~~~~~~~~~~ MTDD
[2017-12-26] MEDS: MethylPREDNISolone 40 mg Vial IV SCH (09:45)
[2017-12-26] MEDS: cefTRIAXone 1 gm 1 GM/100 ML BAG IVPB SCH (09:46)
--- NOTE | 2017-12-26 14:37 | CON ---
DATE: 12/26/2017 CONSULTATION CHIEF COMPLAINT: Weakness. HISTORY OF PRESENT ILLNESS: This is a 77-year-old male who was seen in [facility]. The patient was admitted after complaining of extreme weakness. He was unable to stand and walk. He was taken by EMS to the emergency room. He was admitted for evaluation and treatment. He was thought to have possible urosepsis as well as congestive heart failure. At some point, a Arndt catheter was placed. The patient reports he had been voiding without difficulty prior to this admission. He does report some mild frequency and nocturia, but reports he had been voiding with a good urinary stream with no straining. He denies any flank pain or history of stones. He does have significant medical issues including COPD, congestive heart failure, and hypertension. He reports he is feeling much better at this point and would like to go home. He still has an indwelling Arndt catheter. consultation was requested regarding the above. PAST MEDICAL HISTORY: Significant for hypertension, COPD, and hyperlipidemia. MEDICATIONS: Currently include DuoNeb, Flomax, Norvasc, Rocephin, and Solu-Medrol. ALLERGIES: NO KNOWN DRUG ALLERGIES. FAMILY HISTORY: Noncontributory. SOCIAL HISTORY: Positive for smoking. Denies EtOH use. REVIEW OF SYSTEMS: Positives for lower extremity weakness. Positive for shortness of breath which is chronic. Currently, those are the only positives. All other systems are negative on a 12-point review. PHYSICAL EXAMINATION: GENERAL: The patient is awake and alert. He is answering questions. He is in no acute distress. He does appear to be a poor historian. VITAL SIGNS: He is afebrile. Temperature of 98.2, pulse 75, BP 123/69, and respirations 20. NECK: Supple. There is no obvious adenopathy or mass. CHEST: Reveals slightly increased inspiratory effort. CARDIAC: Shows positive S1, S2. There is mild peripheral edema noted. ABDOMEN: The abdomen is soft, nontender, and nondistended. There is no hepatosplenomegaly. There is no costovertebral angle tenderness. : Phallus is normal. There is a Arndt catheter in place, draining clear colored urine. Scrotum is normal. Testes bilaterally descended. Nontender. No masses. Epididymides are normal. EXTREMITIES: There is no cyanosis. There is mild edema. LABORATORY EXAM: Urinalysis showed positive protein, 10-15 wbc's, 0 to 2 rbc's, nitrites were negative. BUN of 67 with a creatinine of 1.8. Currently, GFR of 37, which has been stable while he is in the hospital. BNP of 6790 from yesterday. PSA done this morning was noted to be 9.9. WBC count was 28 on admission, which has now come down to 9.2. RADIOLOGIC EXAM: No pertinent urologic x-rays were done. 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 IMPRESSION AND PLAN: This is a 77-year-old male admitted with lower extremity weakness, history of advanced chronic obstructive pulmonary disease. There was a question of urinary retention and a Arndt catheter was placed. The patient has been started on tamsulosin. The patient's blood cultures showed no growth after 3 days and his urine culture showed no growth from 12/22. As for the elevated prostate-specific antigen, this is likely from Arndt catheter placement and/or possible urinary infection, possibly the patient received antibiotics prior to the urine culture being sent. The patient reports no voiding issues prior to this admission. Urologically, the plan will be to continue the Arndt catheter for now. I would continue him on tamsulosin daily at this time. When the patient has medically improved and is able to ambulate without assistance, the Arndt catheter can be removed for a voiding trial. The patient should then follow up in my office after discharge to reassess his voiding and plan on a repeat prostate-specific antigen in a few months' time. Thank you for allowing me to participate in the care of this patient. We will follow him with you. Rafita Willoughby MD
--- NOTE | 2017-12-26 22:13 | DS ---
HISTORY OF PRESENT ILLNESS: The patient is 77 years old, seen and examined. The patient has shortness of breath. He states this is his baseline since he has been a smoker for 60 years. Denies any chest pain. No fever. No chills. PHYSICAL EXAMINATION: VITAL SIGNS: He is afebrile, pulse 75, respirations 20, blood pressure 123/69. LUNGS: Bilateral diffusely decreased breath sound. HEART: S1 and S2 audible. ABDOMEN: Soft. Nontender. No rebound. No guarding. NEUROLOGICAL: He is awake, alert, oriented, communicative. EXTREMITIES: Bilateral leg, no edema. LABORATORY EXAM: WBC is 9.2, hemoglobin 10.9, hematocrit 33.2, platelet 391. Chemistry: Sodium 138, potassium 4.7, chloride 104, CO2 of 24, BUN 67, creatinine 1.8, blood sugar of 140. Blood culture, urine cultures are negative. ASSESSMENT: 1. Chronic obstructive pulmonary exacerbation. 2. Terminal chronic obstructive pulmonary disease. 3. Urine retention. 4. Generalized weakness and difficulty walking. PLAN: The patient is clinically stable. He will be transferred to TCU where he will receive physical therapy. We will taper down steroid and continue him on antibiotic in the TCU. Yakelin Villafana MD
[2017-12-27] MEDS ORDERED: Cefpodoxime (Vantin) 200 mg Tab PO SCH (10:00)
== END 2017-12-26 19:48 | DRG 191 ==
LOC: ED 14:20 → ERH 19:14 → 2RSO 22:04 → 3RSO 12-23 17:34
PROVIDERS: ADMIT Internal Medicine; ATTEND Internal Medicine
PROC: 3E0F7GC Introduction of Other Therapeutic Substance into Respiratory Tract, Via Natural or Artificial Opening (ICD-10-PCS; principal; 2017-12-23)
DX: J44.1 Chronic obstructive pulmonary disease with (acute) exacerbation (principal); N39.0 Urinary tract infection, site not specified; I13.0 Hypertensive heart and chronic kidney disease with heart failure and stage 1 through stage 4 chronic kidney disease, or unspecified chronic kidney disease; J98.01 Acute bronchospasm; F17.210 Nicotine dependence, cigarettes, uncomplicated; N40.1 Benign prostatic hyperplasia with lower urinary tract symptoms; R33.8 Other retention of urine; I50.9 Heart failure, unspecified; N18.9 Chronic kidney disease, unspecified; E78.5 Hyperlipidemia, unspecified; R53.1 Weakness; R26.2 Difficulty in walking, not elsewhere classified; Z91.81 History of falling

== ENCOUNTER 2017-12-26 19:51 | Inpatient (IN) | payer OTHER, BC ==
[2017-12-26 20:26] VITALS: BMI 22.8
[2017-12-26] MEDS ORDERED: Albuterol-Ipratrop 3 mg / 0.5 (3 ml) UD IH PRN (20:36)
[2017-12-26] MEDS: Cefpodoxime (Vantin) 200 mg Tab PO SCH (21:52)
[2017-12-26] MEDS: MethylPREDNISolone 40 mg Vial IVP SCH (21:52)
[2017-12-26] MEDS ORDERED: MethylPREDNISolone 40 mg Vial IV SCH (22:00)
[2017-12-27] MEDS: Albuterol-Ipratrop 3 mg / 0.5 (3 ml) UD IH SCH ×4 (01:01→22:08)
[2017-12-27] MEDS: cefTRIAXone 1 gm 1 GM/100 ML BAG IVPB SCH (05:19)
[2017-12-27] MEDS ORDERED: cefTRIAXone 1 gm 1 GM/100 ML BAG IVPB SCH (06:00)
[2017-12-27] MEDS: MethylPREDNISolone 40 mg Vial IVP SCH ×2 (09:43→21:17)
[2017-12-27] MEDS: Cefpodoxime (Vantin) 200 mg Tab PO SCH ×2 (09:43→21:17)
[2017-12-28] MEDS: Albuterol-Ipratrop 3 mg / 0.5 (3 ml) UD IH SCH ×4 (01:40→21:51)
[2017-12-28] MEDS: cefTRIAXone 1 gm 1 GM/100 ML BAG IVPB SCH (04:59)
[2017-12-28] MEDS: MethylPREDNISolone 40 mg Vial IVP SCH ×2 (10:14→21:17)
[2017-12-28 13:26] VITALS: RESP 18
--- NOTE | 2017-12-28 23:16 | PN ---
DATE: 12/28/2017 SUBJECTIVE: Patient is 77 years old, seen and examined, lying in bed, seems to be comfortable. Patient states he did not have Arndt catheter or urinary issue prior to coming to the hospital, had Arndt removed, seems to be comfortable. Still have mild shortness of breath. PHYSICAL EXAMINATION: VITAL SIGNS: He is afebrile, pulse 75, respirations 18, blood pressure 132/79. LUNGS: Bilateral good airflow. No rhonchi or crackle. HEART: S1, S2 audible. ABDOMEN: Soft, nontender. No rebound. No guarding. NEUROLOGIC: Patient is awake, alert, oriented, communicative, ambulatory. ASSESSMENT AND PLAN: 1. Chronic obstructive pulmonary disease exacerbation. 2. Hypertension. 3. Hyperlipidemia. 4. Benign prostatic hypertrophy. 5. Status post urinary retention. So, plan is, we will remove Arndt catheter. We will continue to monitor. If he goes into retention, we will put the catheter again. We by nurse. His bladder ultrasound shows 350 of urine with no feeling of urgency. We have given one extra dose of Flomax. We will attempt until he has 500 mL of urine. If he is not able to void after that, we will put Arndt in. Yakelin Villafana MD
[2017-12-29] MEDS: Albuterol-Ipratrop 3 mg / 0.5 (3 ml) UD IH SCH ×4 (01:35→22:30)
--- NOTE | 2017-12-29 08:49 | HP ---
DATE OF EXAM: 12/27/2017 HISTORY OF PRESENT ILLNESS: The patient is a 77-year-old who was recently brought to emergency room after his roommate found that he has been lethargic, not getting out of bed, has difficulty walking so they called ambulance, he was brought to emergency room and he was found to have severe osteoarthritis of knee. He also had pyuria, started on IV antibiotics. Patient was also found to be short of breath and COPD exacerbation, has been on IV steroids, nebulizer treatment. Transferred to TCU for rehab and continuation of his treatment. PAST MEDICAL HISTORY: He has significant past medical history of; 1. Hypertension. 2. COPD. 3. Hyperlipidemia. ALLERGIES: HE IS NOT ALLERGIC TO ANY MEDICATIONS. MEDICATIONS AT HOME: He is on nebulizer treatment, aspirin 81 daily. REVIEW OF SYSTEMS: On examination today, he has mild shortness of breath. No nausea or vomiting. No diarrhea. PHYSICAL EXAMINATION: VITAL SIGNS: He is afebrile, pulse 81, respirations 20, blood pressure . LUNGS: Bilateral diffusely decreased breath sounds. HEART: S1 and S2 audible. No murmur. ABDOMEN: Soft, nontender. No rebound. No guarding. NEUROLOGICAL: Patient is awake, alert, oriented, communicative. ASSESSMENT: 1. Chronic obstructive pulmonary disease exacerbation. 2. Urinary retention secondary to benign prostatic hypertrophy. 3. Deconditioning and difficulty walking. 4. Hyperlipidemia. PLAN: We will discontinue Arndt catheter in the a.m. Continue nebulizer treatment. Continue steroids. Reevaluate patient . Yakelin Villafana MD
[2017-12-29] MEDS: MethylPREDNISolone 40 mg Vial IVP SCH ×2 (09:46→21:25)
--- NOTE | 2017-12-29 22:52 | PN ---
DATE: 12/29/2017 SUBJECTIVE: The patient is 77 years old male seen and examined, anxious to go home, Arndt was removed yesterday, but he was unable to void so he was recatheterized. PHYSICAL EXAMINATION: VITAL SIGNS: The patient is afebrile, pulse 92, respirations 18, blood pressure 132/67. LUNGS: Bilateral fair airflow. No rhonchi or crackles. HEART: S1, S2 audible. ABDOMEN: Soft, nontender, no rebound, no guarding. NEUROLOGIC: The patient is awake, alert, oriented, able to communicate. ASSESSMENT AND PLAN: 1. Chronic obstructive pulmonary disease exacerbation. 2. Status post altered mental status. 3. Status post urinary tract infection. 4. Hypertension. 5. Hyperlipidemia. So the plan is the patient is currently off of antibiotics. He is on nebulizer treatment. I will cut down his steroids from . Dr. Willoughby was consulted, but he on the side of the floor to sent home with Arndt catheter and Dr. Willoughby will follow the patient as outpatient. Yakelin Villafana MD
--- NOTE | 2017-12-29 23:15 | PN ---
DATE: 12/29/2017 GENITOURINARY PROGRESS NOTE SUBJECTIVE: The patient is seen on Transitional Care Unit at [facility]. He is awake and alert, answering questions. He reports he is feeling better and stronger, able to ambulate with assistance. PHYSICAL EXAMINATION: VITAL SIGNS: He is afebrile, temperature 98.3, pulse 92, BP 132/67, respirations 18. ABDOMEN: Soft, nontender, nondistended. There is no hepatosplenomegaly or costovertebral angle tenderness. GENITOURINARY: Phallus is normal. There is a Arndt catheter in place, draining clear colored urine. IMPRESSION AND PLAN: This is a 77-year-old male, who was seen in acute care with deconditioning, urinary retention. The patient has been taking Flomax and Proscar. I would plan on a voiding trial tomorrow morning. If Arndt is removed and the patient does not void in 8 hours, I would do a bladder scan, and then replace the Arndt catheter. If the patient is voiding, we will need to record the volume and plan a postvoid residual as well. I will continue to follow the patient with you. Rafita Willoughby MD
[2017-12-30] MEDS: Albuterol-Ipratrop 3 mg / 0.5 (3 ml) UD IH SCH ×4 (01:43→19:54)
[2017-12-30] MEDS: MethylPREDNISolone 40 mg Vial IVP SCH (09:48)
--- NOTE | 2017-12-30 13:14 | PN ---
DATE: 12/30/2017 SUBJECTIVE: The patient is 77 years old, seen and examined, lying in bed. Seems to be comfortable. Looking forward to go home tomorrow. Seen by Dr. Willoughby. Arndt is removed. So far, no signs of any distress. PHYSICAL EXAMINATION: GENERAL: On examination, he is lying in bed comfortable. VITAL SIGNS: He is afebrile, pulse 91, respirations 18, blood pressure 136/77. LUNGS: Bilateral fair airflow. Diffusely decreased breath sound. HEART: S1 and S2 audible. No murmur. ABDOMEN: Soft. Nontender. No rebound. No guarding. NEUROLOGICAL: The patient is awake, alert, oriented, communicative, ambulatory. ASSESSMENT: 1. Urine retention, probably benign prostatic hypertrophy. 2. Chronic obstructive pulmonary disease exacerbation. 3. Hypertension. 4. Hyperlipidemia. PLAN: I will discontinue his IV steroid. Put him on prednisone 20 daily. Continue finasteride, amlodipine and Flomax. Continue nebulizer treatment. The patient remains stable. Possible discharge in the a.m. Yakelin Villafana MD
[2017-12-30 16:32] VITALS: TEMP 98.7; O2SAT 95
[2017-12-31] MEDS: Albuterol-Ipratrop 3 mg / 0.5 (3 ml) UD IH SCH ×3 (01:10→13:37)
[2017-12-31 09:58] VITALS: BP 124/69; PULSE 99
--- NOTE | 2018-01-01 18:50 | DS ---
HISTORY OF PRESENT ILLNESS: The patient is 77 years old, who came in with altered mental status, initial impression was UTI. He had pyuria. He was also found to have COPD exacerbation, was given IV steroid. The patient was deconditioned, was having difficulty walking and ambulating. He also developed urinary retention. He had Foleys placed. The patient was given IV steroid with nebulizer treatment, seems to have good relief. He was in TCU for 5 days and his stay was uneventful except we tried to discontinue Foleys twice, but he went into retention, so he is being sent home with indwelling catheter. PHYSICAL EXAMINATION: GENERAL: On examination today, he is awake, alert, oriented, communicative. VITAL SIGNS: He is afebrile. Pulse 90, respirations 18, blood pressure 124/69. LUNGS: Bilateral fair airflow. No rhonchi or crackle. HEART: S1, S2 audible. No murmur. ABDOMEN: Soft, nontender. No rebound. No guarding. NEUROLOGIC: The patient is awake, alert, oriented, able to communicate. ASSESSMENT AND PLAN: 1. Chronic obstructive pulmonary disease exacerbation. 2. Urinary retention. 3. Benign prostatic hyperplasia. 4. Anxiety disorder. PLAN: The patient is being sent home on tapering dose of steroids and he has nebulizer machine at home and he will follow up with Dr. Willoughby and he will be given trial of removing catheter as outpatient and he will follow up with his PMD. Yakelin Villafana MD
== END 2017-12-31 14:27 | disposition home or self-care (01) | DRG 556 ==
LOC: TRCU 19:51
PROVIDERS: ADMIT Internal Medicine; ATTEND Internal Medicine
PROC: F07Z9FZ Gait Training/Functional Ambulation Treatment using Assistive, Adaptive, Supportive or Protective Equipment (ICD-10-PCS; principal; 2017-12-28)
PROC: F07L6ZZ Therapeutic Exercise Treatment of Musculoskeletal System - Lower Back / Lower Extremity (ICD-10-PCS; 2017-12-28)
PROC: F08Z1FZ Dressing Techniques Treatment using Assistive, Adaptive, Supportive or Protective Equipment (ICD-10-PCS; 2017-12-28)
PROC: F08Z2FZ Grooming/Personal Hygiene Treatment using Assistive, Adaptive, Supportive or Protective Equipment (ICD-10-PCS; 2017-12-29)
DX: R26.2 Difficulty in walking, not elsewhere classified (principal); J44.1 Chronic obstructive pulmonary disease with (acute) exacerbation; N39.0 Urinary tract infection, site not specified; E78.5 Hyperlipidemia, unspecified; I10 Essential (primary) hypertension; N40.1 Benign prostatic hyperplasia with lower urinary tract symptoms; R33.8 Other retention of urine; Z79.82 Long term (current) use of aspirin

== ENCOUNTER 2018-01-01 12:48 | Observation (INO) | payer MEDICARE, BC ==
[2018-01-01] MEDS ORDERED: Albuterol 0.083% Inhal Sol (2.5 mg/3 mL) UD INH STA (13:35)
[2018-01-01] MEDS ORDERED: Lidocaine 2% Inj (20ml) IJ STA (13:35)
[2018-01-01 13:40] VITALS: BMI 27.4
--- NOTE | 2018-01-01 14:33 | ED PDOC ---
Arrival/HPI - General Chief Complaint: Trauma Time Seen by Provider: 01/01/18 13:32 Historian: Patient - History of Present Illness Narrative History of Present Illness (Text): 01/01/18 14:31 77 yo male BIBA for evaluation of head injury sustained [employer] after sustained fall at home. As per pt, " tripped over the curtain and fell down, hit my head" . Noted laceration to occipital scalp. Pt denies any other active complaints or pain. Pt denies LOC, syncope, denies severe headache at present time, visual changes, focal deficits, denies neck pain, CP, wheezing, abd. pain, V/D, denies deformity, new weakness, sensory or vascular deficsit to B/L UEs and LEs. Pt is very poor histroian, no further hx able to obtain at present time. Past Medical History - Provider Review Nursing Documentation Reviewed: Yes - Travel History Have you recently traveled outside [place] w/in the past 3 mons?: No - Infectious Disease Hx of Infectious Diseases: None - Tetanus Immunization Tetanus Immunization: Unknown - Cardiac Hx Cardiac Disorders: Yes Hx Congestive Heart Failure: Yes Hx Hypertension: Yes - Pulmonary Hx Chronic Obstructive Pulmonary Disease (COPD): Yes - Neurological HX Cerebrovascular Accident: No - HEENT Hx HEENT Disorder: No - Renal Hx Renal Disorder: No - Endocrine/Metabolic Hx Endocrine Disorders: No - Hematological/Oncological Hx Blood Disorders: No - Integumentary Hx Dermatological Disorder: No - Musculoskeletal/Rheumatological Hx Falls: Yes - Gastrointestinal Hx Gastrointestinal Disorders: No - Genitourinary/Gynecological Hx Reproductive Disorders: No - Psychiatric Hx Psychophysiologic Disorder: No Hx Substance Use: No - Past Surgical History Past Surgical History: No Previous - Surgical History Hx Inguinal Hernia Repair: Yes - Anesthesia Hx Anesthesia Reactions: No Hx Malignant Hyperthermia: No - Suicidal Assessment Feels Threatened In Home Enviroment: No Family/Social History - Physician Review Nursing Documentation Reviewed: Yes Family/Social History: No Known Family HX Smoking Status: Former Smoker Hx Alcohol Use: Yes Frequency of alcohol use: Daily Hx Substance Use: No Allergies/Home Meds Allergies/Adverse Reactions: Allergies No Known Allergies Allergy (Verified 01/01/18 13:40) Review of Systems - Review of Systems Constitutional: Normal Eyes: Normal ENT: Normal Respiratory: Normal Cardiovascular: Normal Gastrointestinal: Normal Genitourinary Male: Normal Musculoskeletal: Normal Skin: Laceration Neurological: Headache. absent: Dizziness, Speech Changes Endocrine: Normal Hemo/Lymphatic: Normal Psychiatric: Normal Physical Exam Vital Signs Reviewed: Yes Vital Signs Temp Pulse Resp BP Pulse Ox 01/01/18 18:09 77 18 121/74 98 01/01/18 16:00 80 17 135/70 97 01/01/18 13:45 98.4 F 88 18 141/76 100 Temperature: Afebrile Blood Pressure: Normal Pulse: Regular Respiratory Rate: Normal Appearance: Positive for: Well-Appearing, Non-Toxic, Comfortable Pain Distress: Mild Mental Status: Positive for: Alert and Oriented X 3 - Systems Exam Head: Present: Normocephalic, Tenderness (occipital), Abrasion (ossipital), Laceration (occipital, C-shape, cutaneous 4cm length with mild edema, small adjusent scalp hematoma noted) Pupils: Present: PERRL Extroacular Muscles: Present: EOMI Conjunctiva: Present: Normal Ears: Present: Normal Canal Mouth: Present: Moist Mucous Membranes. No: Drooling, Trismus Pharnyx: No: ERYTHEMA, Uvular Deviation Nose (External): Present: Atraumatic Neck: Present: Normal Range of Motion, Trachea Midline. No: MIDLINE TENDERNESS , Paraspinal Tenderness Respiratory/Chest: Present: Clear to Auscultation, Good Air Exchange. No: Respiratory Distress, Accessory Muscle Use, Wheezes, Rales, Retracting, Rhonchi , Tender to Palpation Cardiovascular: Present: Regular Rate and Rhythm, Normal S1, S2. No: Murmurs Abdomen: No: Tenderness, Distention, Peritoneal Signs Back: No: Midline Tenderness Upper Extremity: Present: Normal ROM, NORMAL PULSES, Neurovascularly Intact. No : Tenderness, Swelling Lower Extremity: Present: NORMAL PULSES, Normal ROM, Neurovascularly Intact. No : Edema, Deformity Neurological: Present: GCS=15, Speech Normal, Normal Sensory Function, Norm Deep Tendon Reflexes Skin: Present: Warm, Dry, Normal Color. No: Rashes Psychiatric: Present: Alert, Oriented x 3 Medical Decision Making ED Course and Treatment: 01/01/18 Pt remained stable during the ED evaluation. Blood work review, appears abnormal. UA (+) WBC, RBC Head CT review (-) acute findings Xrays of pelvis, hips, chest (-) acute findings. Case discussed with ( cover ) admission arranged with Dx: Syncope with head injury, scalp laceration, UTI. - Lab Interpretations Lab Results: 01/01/18 14:15 01/01/18 14:15 Lab Results 01/01/18 14:15: Sodium 138, Potassium 4.8, Chloride 103, Carbon Dioxide 28, Anion Gap 12, BUN 29 H, Creatinine 1.3, Est GFR ( Amer) > 60, Est GFR ( Non-Af Amer) 53, Random Glucose 117 H, Calcium 8.1 L, Phosphorus 2.7, Magnesium 2.2, Total Bilirubin 0.3, AST 24, ALT 42, Alkaline Phosphatase 113, Lactate Dehydrogenase 559, Total Creatine Kinase 48, Troponin I < 0.01 D, Total Protein 6.0, Albumin 3.3, Globulin 2.7, Albumin/Globulin Ratio 1.2 01/01/18 14:15: Urine Color Yellow, Urine Appearance Turbid, Urine pH 7.0, Ur Specific [place] 1.020, Urine Protein 100 H, Urine Glucose (UA) Negative, Urine Ketones Negative, Urine Blood Large H, Urine Nitrate Negative, Urine Bilirubin Negative, Urine Urobilinogen 0.2, Ur Leukocyte Esterase Small H, Urine RBC 15 - 20, Urine WBC 25 - 30, Urine Bacteria Trace 01/01/18 14:15: PT 12.1, INR 1.06, APTT 22.7 L 01/01/18 14:15: WBC 21.2 H D, RBC 4.60, Hgb 12.3 L, Hct 37.3 L, MCV 81.1, MCH 26.7, MCHC 33.0, RDW 16.2 H, Plt Count 435, MPV 9.3, Gran % 92.9 H, Lymph % ( Auto) 3.7 L, [place] % (Auto) 2.7, Eos % (Auto) 0.7 L, Baso % (Auto) 0.0, Gran # 19.67 H, Lymph # (Auto) 0.8 L, [place] # (Auto) 0.6, Eos # (Auto) 0.1, Baso # (Auto ) 0.01, Neutrophils % (Manual) 94 H, Lymphocytes % (Manual) 6 L, Monocytes % ( Manual) TEST NOT PERFORMED, Platelet Evaluation Normal Interpretation: Abnormal lab values - RAD Interpretation Radiology Orders: 01/01/18 13:32 HEAD W/O CONTRAST [CT] Stat 01/01/18 13:34 CHEST ONE VIEW [RAD] Stat 01/01/18 13:35 Hip Bi with Pelvis Fall Protocol [HIP MIN 2V W/ PELVIS IRON] [RAD] Stat Head CT w/o contrast: Paper Pattern Folder : Alhaji Nash MD Approver2 : Report Date : 01/01/2018 16:10:50 My Comment : PROCEDURE: CT HEAD WITHOUT CONTRAST. HISTORY: INJURY COMPARISON: 12/22/2017 TECHNIQUE: Axial computed tomography images were obtained through the head/brain without intravenous contrast. Radiation dose: Total exam DLP = 1068 mGy-cm. This CT exam was performed using one or more of the following dose reduction techniques: Automated exposure control, adjustment of the mA and/or kV according to patient size, and/or use of iterative reconstruction technique. FINDINGS: HEMORRHAGE: No intracranial hemorrhage. BRAIN: No mass effect or edema. Severe chronic microvascular changes are seen. There is moderate to severe atrophy. VENTRICLES: Unremarkable. No hydrocephalus. CALVARIUM: Unremarkable. PARANASAL SINUSES: Unremarkable as visualized. No significant inflammatory changes. MASTOID AIR CELLS: Unremarkable as visualized. No inflammatory changes. OTHER FINDINGS: None. IMPRESSION: No acute findings Chest and Hip xray review (-) acute findings - EKG Interpretation EKG Interpretation (Text): 01/01/18 14:02 SR@90/min, NAD, no acute t wave or ST-T changes. Interpreted by ED Physician: Yes - Medication Orders Current Medication Orders: Acetaminophen (Tylenol 325mg Tab) 650 mg PO Q6H PRN PRN Reason: Fever >100.4 F Albuterol/Ipratropium (Duoneb 3 Mg/0.5 Mg (3 Ml) Ud) 3 ml IH Q2H PRN PRN Reason: Shortness of Breath Albuterol/Ipratropium (Duoneb 3 Mg/0.5 Mg (3 Ml) Ud) 3 ml IH [id number] FREDY Amlodipine Besylate (Norvasc) 5 mg PO DAILY [facility] Last Admin: 01/01/18 18:32 Dose: Cefepime HCl 0.5 gm/ Sodium (Chloride) 100 mls @ 100 mls/hr IVPB Q12H FREDY PRN Reason: Protocol Ondansetron HCl (Zofran Inj) 4 mg IVP Q6H PRN PRN Reason: Nausea/Vomiting Prednisone (Prednisone Tab) 20 mg PO DAILY [facility] Last Admin: 01/01/18 18:38 Dose: 20 mg Tamsulosin HCl (Flomax) 0.4 mg PO DAILY [facility] Last Admin: 01/01/18 18:38 Dose: 0.4 mg Tramadol/Acetaminophen (Ultracet 37.5/325 Mg) 1 tab PO TID FREDY Discontinued Medications Albuterol Sulfate (Albuterol 0.083% Inhal Courtney (2.5 Mg/3 Ml) Ud) 2.5 mg INH STAT STA Stop: 01/01/18 13:36 Last Admin: 01/01/18 14:27 Dose: 2.5 mg Ceftriaxone Sodium (Rocephin 1 Gram Ivpb) 1 gm in 100 mls @ 200 mls/hr IVPB STAT STA Stop: 01/01/18 17:44 Last Admin: 01/01/18 18:37 Dose: 200 mls/hr eMAR Start Stop Document 01/01/18 18:37 SF (Rec: 01/01/18 18:38 SF [id number]) Intravenous Solution Start Date 01/01/18 Start Time 18:38 End Date 01/01/18 End time 19:08 Total Infusion Time 30 Lidocaine HCl (Lidocaine 2% 20ml Vial) 10 ml IJ ONCE STA Stop: 01/01/18 13:36 Disposition/Present on Arrival - Present on Arrival Any Indicators Present on Arrival: No History of DVT/PE: No History of Uncontrolled Diabetes: No Urinary Catheter: Yes History of Decub. Ulcer: No History Surgical Site Infection Following: Orthopedic Procedures - Disposition Have Diagnosis and Disposition been Completed?: Yes Diagnosis: Leukocytosis, UTI (urinary tract infection), Syncope, Head injury, Scalp laceration Disposition: HOSPITALIZED Disposition Time: 16:02 Patient Plan: Admission Patient Problems: Current Active Problems Problem Status Onset Leukocytosis Acute UTI (urinary tract infection) Acute Syncope Acute Head injury Acute Scalp laceration Acute Condition: STABLE Laceration - Laceration Repair Occipital scalp Wound Length (In cm): 1.57 in Description Of Wound: Irregular (C-shape, cutaneous) Wound Cleansed With: Betadine, Sterile Saline Anesthesia: Lidocaine 2% Wound Examination: Irrigated With Saline, No FB With Wound Exploration Wound Closure: Demi (#10) Wound Complexity: Simple
[2018-01-01 14:35] LABS: BASO # 0.01 K/mm3 (0.0-2.0); EOS # 0.1 (0.0-0.7); EOS % 0.7 % (1.5-5.0); GRAN # 19.67 (1.4-6.5); GRAN % 92.9 % (50.0-68.0); HEMOGLOBIN 12.3 g/dL (14.0-18.0); LYMPH # 0.8 (1.2-3.4); LYMPH % 3.7 % (22.0-35.0); MEAN CELL VOLUME 81.1 fl (80.0-105.0); MEAN CORPUSCULAR HEMOGLOBIN 26.7 pg (25.0-35.0); MEAN PLATELET VOLUME 9.3 fl (7.0-11.0); MONO # 0.6 (0.1-0.6); MONO % 2.7 % (1.0-6.0); PLATELET COUNT 435 10^3/uL (120.0-450.0); RED CELL DISTRIBUTION WIDTH 16.2 % (11.5-14.5); URINE BILIRUBIN NEGATIVE (NEGATIVE); URINE BLOOD LARGE (NEGATIVE); URINE GLUCOSE (UA) NEGATIVE (NEGATIVE); URINE LEUKOCYTE ESTERASE SMALL Leu/uL (NEGATIVE); URINE PROTEIN 100 mg/dL (<30 mg/dL); URINE UROBILINOGEN 0.2 E.U./dL (<1 E.U./dL); WHITE BLOOD COUNT 21.2 10^3/ul (4.5-11.0)
[2018-01-01 14:37] LABS: URINE APPEARANCE TURBID (CLEAR); URINE COLOR YELLOW (YELLOW)
[2018-01-01 14:41] LABS: URINE BACTERIA TRACE (NEG); URINE RBC 15 - 20 /hpf (0-2); URINE WBC 25 - 30 /hpf (0-6)
[2018-01-01 14:46] LABS: ALB/GLOB RATIO 1.2 (1.1-1.8); ALBUMIN 3.3 g/dL (3.0-4.8); ALT/SGPT 42 U/L (7-56); AST/SGOT 24 U/L (17-59); BLOOD UREA NITROGEN 29 mg/dL (7-21); CALCIUM 8.1 mg/dL (8.4-10.5); GFR AFRICAN-AMERICAN > 60; GFR NON-AFRICAN AMERICAN 53
[2018-01-01 14:53] LABS: INR 1.06 (0.93-1.08); PARTIAL THROMBOPLASTIN TIME 22.7 Seconds (25.1-36.5); PROTHROMBIN TIME 12.1 SECONDS (9.4-12.5)
[2018-01-01 14:56] LABS: TROPONIN I < 0.01 ng/mL
[2018-01-01 14:57] LABS: LYMPHOCYTE 6 % (22.0-35.0); NEUTROPHIL 94 % (50.0-70.0)
[2018-01-01 14:58] LABS: PLATELET ESTIMATE NORMAL (NORMAL)
--- NOTE | 2018-01-01 16:12 | CT ---
PROCEDURE: CT HEAD WITHOUT CONTRAST. HISTORY: INJURY COMPARISON: 12/22/2017 TECHNIQUE: Axial computed tomography images were obtained through the head/brain without intravenous contrast. Radiation dose: Total exam DLP = 1068 mGy-cm. This CT exam was performed using one or more of the following dose reduction techniques: Automated exposure control, adjustment of the mA and/or kV according to patient size, and/or use of iterative reconstruction technique. FINDINGS: HEMORRHAGE: No intracranial hemorrhage. BRAIN: No mass effect or edema. Severe chronic microvascular changes are seen. There is moderate to severe atrophy. VENTRICLES: Unremarkable. No hydrocephalus. CALVARIUM: Unremarkable. PARANASAL SINUSES: Unremarkable as visualized. No significant inflammatory changes. MASTOID AIR CELLS: Unremarkable as visualized. No inflammatory changes. OTHER FINDINGS: None. IMPRESSION: No acute findings
--- NOTE | 2018-01-01 16:47 | RAD ---
PROCEDURE: CHEST RADIOGRAPH, 1 VIEW HISTORY: copd COMPARISON: 12/25/2017 FINDINGS: LUNGS: Clear. PLEURA: No pneumothorax or pleural fluid seen. CARDIOVASCULAR: Normal. OSSEOUS STRUCTURES: No significant abnormalities. VISUALIZED UPPER ABDOMEN: Normal. OTHER FINDINGS: None. IMPRESSION: No active disease.
--- NOTE | 2018-01-01 16:49 | RAD ---
PROCEDURE: Radiographs of the pelvis and bilateral hips HISTORY: INJURY COMPARISON: None. FINDINGS: BONES: Pelvis: Unremarkable. Right hip:Unremarkable. Left hip:Left hip prosthesis with no fracture or dislocation JOINTS: Right hip: Unremarkable. Left hip: Unremarkable. Sacroiliac Joints: Unremarkable. Pubic symphysis: Unremarkable. SOFT TISSUES: Normal. OTHER FINDINGS: None. IMPRESSION: Unremarkable radiographs of the hips and pelvis.
[2018-01-01] MEDS ORDERED: Albuterol-Ipratrop 3 mg / 0.5 (3 ml) UD IH PRN (16:51)
[2018-01-01] MEDS ORDERED: cefTRIAXone 1 GM/100 ML BAG IVPB STA (17:15)
[2018-01-01] MEDS: Cefepime 0.5 GM in Sodium Chloride 0.9% 100 ML IVPB SCH (19:48)
[2018-01-01] MEDS: TraMADol/Apap 37.5/325 mg Tab PO SCH (19:48)
[2018-01-01] MEDS: Albuterol-Ipratrop 3 mg / 0.5 (3 ml) UD IH SCH (20:55)
--- NOTE | 2018-01-01 22:36 | CARD ---
APPROVED REPORT EKG Measurement Heart [id number] <Conclusion> Sinus rhythm with premature atrial complexes Otherwise normal ECG
[2018-01-02] MEDS: Albuterol-Ipratrop 3 mg / 0.5 (3 ml) UD IH SCH ×4 (01:41→20:24)
--- NOTE | 2018-01-02 05:09 | HP ---
HISTORY OF PRESENT ILLNESS: The patient is 77 years old, who was just discharged yesterday after he was treated for COPD exacerbation and UTI. The patient was sent home on indwelling catheter. The patient said he does not know how he fell. He tripped over a curtain and the next thing he saw, he was on the ground. He hit his head and it was bleeding, so somebody called ambulance and he was brought to the Emergency Room. He denies any loss of consciousness; seemed to be a mechanical fall. No history of nausea, no cough, no congestion. He does have baseline shortness of breath because of his chronic COPD. No history of fever or chills. No nausea, vomiting or diarrhea. No hemoptysis. No hematemesis. PAST MEDICAL HISTORY: Significant for COPD, hypertension, BPH, status post urinary retention and now has the indwelling catheter. ALLERGIES: HE IS NOT ALLERGIC TO ANY MEDICATION. MEDICATIONS AT HOME: He is on nebulizer treatment. He was on tapering dose of steroid, amlodipine 5 mg daily, Flomax 0.4 mg daily. SOCIAL HISTORY: He lives by himself. He has a very supportive brother. He used to be a very heavy smoker. Socially drinks. PHYSICAL EXAMINATION: GENERAL: He is awake, alert, oriented, has a hematoma. The laceration was sutured on his right temporoparietal area. VITAL SIGNS: He is afebrile, pulse 80, respirations 18, blood pressure 141/76. LUNGS: Bilateral fair airflow. No rhonchi or crackle. HEART: S1, S2 audible. ABDOMEN: Soft, nontender. No rebound, no guarding. NEUROLOGICAL: He is awake, alert, oriented, communicative. LABORATORY EXAM: WBC is 20.1, hemoglobin 12.3, hematocrit 37.3, platelet of 435, PT 12.1, INR 1.06. Chemistry: Sodium 138, potassium 4.8, chloride 103, CO2 28, BUN 29, creatinine 1.3, blood sugar of 117, calcium 8.1. Urine shows small leukocytes and 25 to 30 wbc's. X-ray of the hip and the pelvis is unremarkable. CT scan of the head - no intracranial bleed. ASSESSMENT: 1. Status post fall. 2. Temporoparietal laceration, status post suturing, and the patient has hematoma. 3. Chronic obstructive pulmonary disease. 4. Hypertension. 5. Urinary retention with urinary tract infection. PLAN: The plan is we will start him on nebulizer treatment. He is on Flomax. We will resume his prednisone. Started him on Rocephin. We will send blood culture and urine culture. We will reevaluate patient in the a.m. Yakelin Villafana MD
[2018-01-02] MEDS: Cefepime 0.5 GM in Sodium Chloride 0.9% 100 ML IVPB SCH ×2 (05:34→17:10)
[2018-01-02 06:33] LABS: BASO # 0.01 K/mm3 (0.0-2.0); BASO % 0.1 % (0.0-3.0); GRAN # 13.25 (1.4-6.5); HEMOGLOBIN 10.7 g/dL (14.0-18.0); LYMPH # 1.2 (1.2-3.4); MEAN CELL VOLUME 80.1 fl (80.0-105.0); MEAN CORPUSCULAR HEMOGLOBIN 26.2 pg (25.0-35.0); MEAN CORPUSCULAR HGB CONC 32.7 g/dl (31.0-37.0); MEAN PLATELET VOLUME 9.1 fl (7.0-11.0); MONO # 1.1 (0.1-0.6); MONO % 6.9 % (1.0-6.0); RBC 4.08 10^6/uL (3.5-6.1); RED CELL DISTRIBUTION WIDTH 16.3 % (11.5-14.5); WHITE BLOOD COUNT 15.6 10^3/ul (4.5-11.0)
[2018-01-02 07:25] LABS: ALBUMIN 2.7 g/dL (3.0-4.8); ALT/SGPT 36 U/L (7-56); AST/SGOT 22 U/L (17-59); BLOOD UREA NITROGEN 30 mg/dL (7-21); CALCIUM 7.8 mg/dL (8.4-10.5); GFR AFRICAN-AMERICAN > 60; GFR NON-AFRICAN AMERICAN 59
[2018-01-02] MEDS: TraMADol/Apap 37.5/325 mg Tab PO SCH ×3 (09:24→18:42)
--- NOTE | 2018-01-02 20:41 | PN ---
DATE: 01/02/2018 SUBJECTIVE: Patient is 77 years old, seen and examined. He was just discharged. Patient states when visited him yesterday, he lives on second floor and he had to climb up 15 stairs and by the time he reached back to his second floor. He was since he has history of COPD. He lost his breath, fell backward, and sustained laceration. Had stapling done yesterday, doing well. PHYSICAL EXAMINATION: GENERAL: He is awake, alert, oriented, and communicative. VITAL SIGNS: He is afebrile, pulse 80, respirations 20, and blood pressure 118/71. LUNGS: Bilateral fair airflow. No rhonchi or crackle. HEART: S1 and S2 audible. ABDOMEN: Soft, nontender. No rebound, no guarding. NEUROLOGICAL: Patient is awake, alert, oriented, and communicative. LABORATORY EXAM: WBC 15.6, hemoglobin 10.7, hematocrit 32.7, and platelets of 406. Chemistry: Sodium 137, potassium 4.6, chloride 104, CO2 of 26. BUN 30, creatinine 1.2. Blood sugar of 107. Urine shows large blood and small leukocyte with wbc's of 25 to 30. Blood cultures are negative. Urine is pending. CT scan of the head is unremarkable. ASSESSMENT: 1. Status post fall. 2. Left parietotemporal laceration. 3. Urinary tract infection. 4. Chronic obstructive pulmonary disease. PLAN: We will continue patient on current medication, discontinue telemetry. We will follow up the culture tomorrow and make a discharge plan accordingly if he needs to be discharged home on p.o. antibiotics for UTI, otherwise he will be discharged in a.m. Yakelin Villafana MD
[2018-01-03] MEDS: Albuterol-Ipratrop 3 mg / 0.5 (3 ml) UD IH SCH ×4 (01:52→19:27)
[2018-01-03] MEDS: Cefepime 0.5 GM in Sodium Chloride 0.9% 100 ML IVPB SCH ×2 (05:44→18:36)
[2018-01-03] MEDS: TraMADol/Apap 37.5/325 mg Tab PO SCH ×3 (09:05→18:37)
--- NOTE | 2018-01-03 11:21 | PN ---
DATE: 01/03/2018 SUBJECTIVE: Mr. Motta is a 77-year male admitted to the hospital with COPD exacerbation. He was found to have UTI. He has indwelling catheter. Urine culture is still pending. He also has leukocytosis and anemia. He has baseline shortness of breath. No fever, no chills, no rigors. Currently on IV antibiotics, cefepime. PAST MEDICAL HISTORY: COPD, hypertension, urinary tract retention, indwelling Arndt. ALLERGIES: NO KNOWN DRUG ALLERGIES. PAST SURGICAL HISTORY: None. SOCIAL HISTORY: Lives by himself. PERSONAL HISTORY: Ex-smoker. Drinks socially. HOME MEDICATIONS: Nebulizer, steroid, amlodipine, Flomax 0.4 mg daily. FAMILY HISTORY: Noncontributory. REVIEW OF SYSTEMS: As per HPI. Rest of 12-point review of systems reviewed negative. PHYSICAL EXAMINATION: GENERAL: Awake, alert, oriented x3. VITAL SIGNS: Afebrile, temperature 98.7; heart rate 80 per minute; blood pressure 140/80; respiratory rate 18 per minute. HEENT: Pallor positive. NECK: No lymphadenopathy. CHEST: Air entry present and equal bilaterally. No added sounds. CARDIOVASCULAR: S1 and S2 normal. No murmur. No gallop. ABDOMEN: Soft, nontender. No hepatosplenomegaly. EXTREMITIES: No edema. NEUROLOGIC: Awake, alert, and oriented x3. No focal sensory or motor deficit. SKIN: Right temporoparietal area, suture laceration. LABORATORY DATA: White count 15.6, hemoglobin 10.7, hematocrit 32, platelet 406. Sodium 137, potassium 4.6, creatinine 1.2. Calcium 7.8. Urine culture still pending. Coags normal. MEDICATIONS: Tylenol 650 every 6 hours p.r.n., DuoNeb, Norvasc 5 mg daily, cefepime, prednisone 20 mg daily, Flomax 0.4 mg daily, and Ultracet p.r.n. ASSESSMENT: 1. Urinary tract infection. 2. Chronic obstructive pulmonary disease exacerbation. 3. History of fall. 4. Leukocytosis. 5. Anemia. PLAN: He is currently on IV antibiotics, cefepime. Urine culture still pending. We will await urine culture. Blood pressure controlled with current medication. We will continue Norvasc 5 mg daily. He has urinary tract obstruction, currently indwelling Arndt catheter, Flomax 0.4 mg will be continued. COPD exacerbation, on steroid taper, 20 mg prednisone daily currently. We will continue bronchodilators. Labs ordered, CBC and CMP. Workup for anemia ordered; iron studies, B12, folate level. Kyaleen Martin MD
[2018-01-03 11:26] LABS: BASO # 0.01 K/mm3 (0.0-2.0); BASO % 0.1 % (0.0-3.0); EOS # 0.2 (0.0-0.7); EOS % 1.5 % (1.5-5.0); GRAN # 12.58 (1.4-6.5); GRAN % 80.6 % (50.0-68.0); HEMOGLOBIN 11.4 g/dL (14.0-18.0); LYMPH # 1.7 (1.2-3.4); LYMPH % 11.1 % (22.0-35.0); MEAN CELL VOLUME 80.9 fl (80.0-105.0); MEAN CORPUSCULAR HEMOGLOBIN 26.3 pg (25.0-35.0); MEAN CORPUSCULAR HGB CONC 32.5 g/dl (31.0-37.0); MEAN PLATELET VOLUME 9.4 fl (7.0-11.0); MONO # 1.1 (0.1-0.6); MONO % 6.7 % (1.0-6.0); RBC 4.34 10^6/uL (3.5-6.1); RED CELL DISTRIBUTION WIDTH 16.2 % (11.5-14.5); WHITE BLOOD COUNT 15.6 10^3/ul (4.5-11.0)
[2018-01-03 11:32] LABS: BLOOD UREA NITROGEN 29 mg/dL (7-21); CALCIUM 7.9 mg/dL (8.4-10.5); GFR AFRICAN-AMERICAN > 60; GFR NON-AFRICAN AMERICAN 53
[2018-01-03 11:37] LABS: TOTAL IRON BINDING CAPACITY 233 ug/dL (261-462)
[2018-01-03 11:38] LABS: % IRON SATURATION 24 % (20-55); IRON 55 ug/dL (45-180)
[2018-01-03 17:47] LABS: FOLATE > 20.0 ng/mL
[2018-01-04] MEDS: Albuterol-Ipratrop 3 mg / 0.5 (3 ml) UD IH SCH ×4 (01:22→19:35)
[2018-01-04] MEDS: Cefepime 0.5 GM in Sodium Chloride 0.9% 100 ML IVPB SCH ×2 (05:48→19:44)
[2018-01-04] MEDS: TraMADol/Apap 37.5/325 mg Tab PO SCH ×3 (10:14→17:37)
--- NOTE | 2018-01-04 18:35 | PN ---
DATE: 01/04/2018 FOLLOWUP NOTE SUBJECTIVE: He is comfortable in bed, in no acute distress. He has indwelling catheter. Urine culture negative. He has been on IV antibiotic, cefepime. Denies any fever, chills, rigors. General condition improved. REVIEW OF SYSTEMS: As per HPI. Rest of 12-point review of systems reviewed negative. MEDICATIONS: Reviewed. LABORATORY DATA: White count 15.6, hemoglobin 10.2, platelet 406. Calcium 7.8, creatinine 1.2. ASSESSMENT: 1. Chronic obstructive pulmonary disease exacerbation. 2. History of fall. 3. Leukocytosis. 4. Anemia. 5. Urinary tract infection ruled out. PLAN: He is currently on cefepime. Urine culture negative. We will discontinue the antibiotics. We will continue Flomax. He will go home with a Arndt catheter, DuoNeb p.r.n. Tylenol 650 every 6 p.r.n., Norvasc 5 mg daily. Discharge planning discussed. He need home care nurse. The friend at bedside. He declined Transitional Care Unit. Discharge plan for tomorrow. Kayleen Martin MD
[2018-01-05] MEDS: Albuterol-Ipratrop 3 mg / 0.5 (3 ml) UD IH SCH ×3 (01:34→13:58)
[2018-01-05] MEDS: Cefepime 0.5 GM in Sodium Chloride 0.9% 100 ML IVPB SCH (05:50)
[2018-01-05 08:08] VITALS: PULSE 77; RESP 18; TEMP 98.2; O2SAT 97
[2018-01-05 08:09] VITALS: BP 139/74
[2018-01-05] MEDS: TraMADol/Apap 37.5/325 mg Tab PO SCH ×2 (10:20→10:23)
--- NOTE | 2018-01-05 12:27 | DS ---
HISTORY OF PRESENT ILLNESS: The patient is 77 years old, seen and examined, anxious to go home. No nausea or vomiting. No headache. No dizziness. PHYSICAL EXAMINATION: VITAL SIGNS: He is afebrile, pulse 77, respirations 18, blood pressure 139/74. LUNGS: Bilateral good airflow. No rhonchi or crackle. HEART: S1 and S2 audible. ABDOMEN: Soft. Nontender. No rebound. No guarding. NEUROLOGICAL: The patient is awake, alert, oriented, communicative, ambulatory. GENITOURINARY: He has indwelling catheter. no hematuria. LABORATORY EXAM: His urine cultures are negative. ASSESSMENT: 1. Status post fall, mechanical with scalp laceration. 2. Benign prostatic hypertrophy with urinary retention, has indwelling catheter. 3. Chronic obstructive pulmonary disease, but is stable. PLAN: Since the patient has no growth in the urine, there is no need for antibiotic. We will discharge the patient home and we will follow up as outpatient. He will follow up with Dr. Willoughby as outpatient. The patient will be discharged home with indwelling catheter. Yakelin Villafana MD
== END 2018-01-05 15:05 | disposition home health service (06) ==
LOC: ED 12:48 → ERH 16:00 → INTOOBSV 16:00 → 2RNO 20:01 → 5RNO 01-04 14:06
PROVIDERS: ADMIT Internal Medicine; ATTEND Internal Medicine
DX: S01.01XA Laceration without foreign body of scalp, initial encounter (principal); J44.1 Chronic obstructive pulmonary disease with (acute) exacerbation; N40.1 Benign prostatic hyperplasia with lower urinary tract symptoms; R33.8 Other retention of urine; N39.0 Urinary tract infection, site not specified; I11.0 Hypertensive heart disease with heart failure; I50.9 Heart failure, unspecified; D64.9 Anemia, unspecified; R55 Syncope and collapse; W01.198A Fall on same level from slipping, tripping and stumbling with subsequent striking against other object, initial encounter; Y92.009 Unspecified place in unspecified non-institutional (private) residence as the place of occurrence of the external cause; Z87.891 Personal history of nicotine dependence
CPT/HCPCS: 36415; 70450; 71045; 73521; 80048; 80053; 81001; 82550; 82607; 82728; 82746; 83540; 83550; 83615; 83735; 84100; 84484; 85025; 85610; 85730; 87040; 87086; 93005; 94640; 94760; 96365; 96367; 97116; 97161; 99285; G0378; G8978; G8979; J0692; J0696